=== PATIENT | male | born 1960 | race Caucasian/White ===

== ENCOUNTER → 2018-01-26 07:53 | Outpatient (CLI) | payer BC, SELFPAY ==
[2018-01-26 08:34] LABS: PSA,Total- Diagnostic 3.13 ng/mL (0.0-4.0)
== END ==
PROVIDERS: Family Provider Family Medicine; PCP Family Medicine; Visit Provider Urology
DX: C61 Malignant neoplasm of prostate (principal)
CPT/HCPCS: 36415; 84153

== ENCOUNTER → 2018-07-01 09:00 | Outpatient (CLI) | payer BC, SELFPAY ==
[2018-07-01 09:53] LABS: Microalbumin,Random Urine 5.8 mg/L (NO RANGE EST.); Microalbumin:Creatinine Ratio 3.1 mg/g CRE (<30 mg/g CRE)
[2018-07-01 10:05] LABS: ALB/GLOB Ratio 1.3 RATIO (0.9-2.4); AST(SGOT) 9 U/L (15-37); Alanine Aminotransfer ALT/SGPT 21 U/L (16-61); Alkaline Phosphatase 45 U/L (45-117); Anion Gap 7 (5-15); BUN 21 mg/dL (7-18); BUN/Creat Ratio 15.9 RATIO (10-20); Chloride 107 mmol/L (98-107); Cholesterol 201 mg/dL (200); Creatinine, Serum 1.32 mg/dL (0.70-1.30); EST Glomerular Filtration Rate 59 mL/min (>60); Est Glom Filt Rate - Afr Amer 71 mL/min (>60); Glucose 86 mg/dL (74-106); High Density Lipoprotein 66 mg/dL; Potassium 4.3 mmol/L (3.5-5.1); Sodium Level 142 mmol/L (136-145); Triglycerides 113 mg/dL; Very Low Density Lipoprotein 23 mg/dL (5-40)
[2018-07-01 17:04] LABS: Xtra Tube EP Lab EXTRA TUBE
--- OUTSIDE RECORDS SUMMARY | 2018-10-04 09:06 | XMS RPT_ITS ---
:1960 Author Organization OHIP Care Team Providers Name Role Phone Marlon Trejo Attending Unavailable Marlon Trejo Referring Unavailable Marlon Trejo Primary Care Unavailable Jignesh Connell Attending Unavailable Jignesh Connell Referring Unavailable Marlon Trejo Primary Care Unavailable PROBLEMS PROBLEMS DATE TYPE CONDITION / CODE ATTENDING STATUS SOURCE 07/01/2018 Unknown I10 - Essential Marlon Trejo Active [place] (primary) [facility] hypertension / Hospital I10(ICD-10) Repository 07/01/2018 Unknown Z00.00 - Encounter TrejoMarlon Active [place] for general adult [facility] examination Repository without abnormal findings / Z00.00(ICD-10) 01/26/2018 Unknown C61 - Malignant BeckiJignesh finn Active [place] neoplasm of [facility] prostate / Hospital C61(ICD-10) Repository PROCEDURES PROCEDURES No Procedure Records FoundRESULTS RESULTS MICROALB:CREAT Collected: 07/01/2018 Status: F Source: [place] RATIO,RANDOM UR 9:04 AM [facility] REPOSITORY TYPE CODE TESTS RESULT OUT OF RANGE REFERENCE UNITS LAB L501.1200 NO RANGE EST. mg/dL Normal UR CREAT 187.00 LAB L502.0500 NO RANGE EST. mg/L Normal 5.8 MICROALBUMIN ,UR LAB L502.0600 <30 mg/g CRE mg/g CRE Normal 3.1 MALB:CREAT Performed By: #### L502.0250 #### [facility] [address] [place], [address] COMPREHENSIVE METABOLIC Collected: 07/01/2018 Status: F Source: [place] WANG 9:04 AM [facility] REPOSITORY TYPE CODE TESTS RESULT OUT OF RANGE REFERENCE UNITS LAB L501.0100 74-106 mg/dL Normal GLU 86 Result Comment: Please note revised GLUCOSE reference range effective 2017. LAB L501.1000 7-18 mg/dL High BUN 21 LAB L501.1100 0.70-1.30 mg/dL High CREAT,SERUM 1.32 Result Comment: The validity of the calculated GFR AND GFRAA in patients over 70 years has not been determined. Clinical correlation is essential. LAB L501.1110 >60 mL/min Low EST GFR 59 Result Comment: Non- GFR Calc LAB L501.1115 >60 mL/min Normal EST GFR - AA 71 Result Comment: GFR Calc LAB L501.1300 10-20 RATIO Normal BUN/CRE 15.9 LAB L501.1500 6.4-8.2 g/dL T Normal PROT 7.0 LAB L501.1800 3.2-5.0 g/dL Normal ALB 4.0 LAB L501.1950 2.2-4.2 g/dL Normal GLOB 3.0 LAB L501.2000 0.9-2.4 RATIO Normal A/G 1.3 LAB L501.2200 8.5-10.1 mg/dL CA Normal 9.0 LAB L501.4100 15-37 U/L Low AST 9 LAB L501.4305 45-117 U/L Normal ALK P 45 LAB L501.4405 16-61 U/L Normal ALT 21 LAB L501.4600 0.20-1.00 mg/dL T Normal BILI 0.70 LAB L501.5300 136-145 mmol/L NA Normal 142 LAB L501.5600 3.5-5.1 mmol/L K Normal 4.3 LAB L501.5900 98-107 mmol/L CL Normal 107 LAB L501.6100 21.0-32.0 mmol/L Normal CO2 28.0 LAB L501.6200 5-15 Normal GAP 7 Performed By: #### L500.4050, L500.4100 #### [facility] [address] [place], [place], [address] LIPID PROFILE Collected: 07/01/2018 Status: F Source: [place] 9:04 AM [facility] REPOSITORY TYPE CODE TESTS RESULT OUT OF RANGE REFERENCE UNITS LAB L501.4900 200 mg/dL High CHOL 201 Result Comment: <200 mg/dL Desirable 200-240 mg/dL Borderline >240 mg/dL High Risk LAB L501.5000 mg/dL Normal TRIG 113 Result Comment: The drugs N-Acetylcysteine and Metamizole may falsely depress this assay. Serum Triglycerides Reference Interval Normal <150 mg/dL Borderline high 150 - 199 mg/dL High 200 - 499 mg/dL Very High > or = 500 mg/dL LAB L501.6400 mg/dL Normal HDL 66 Result Comment: The drugs N-Acetylcysteine and Metamizole may falsely depress this assay. Reference Range HDL <40 mg/dL Low HDL Cholesterol HDL >or= 60 mg/dL High HDL Cholesterol LAB L501.6500 0-130 mg/dL Normal LDL 112 LAB L501.6600 5-40 mg/dL Normal VLDL 23 Performed By: #### L500.4050, L500.4100 #### [facility] [address] [place], [address] PSA,TOTAL- DIAGNOSTIC Collected: 01/26/2018 Status: F Source: [place] 7:57 AM [facility] REPOSITORY TYPE CODE TESTS RESULT OUT OF RANGE REFERENCE UNITS LAB L501.9940 0.0-4.0 ng/mL PSA, Normal DIAGNOSTIC 3.13 Result Comment: This test was performed using the TPSA assay method for the [employer] chemistry system. Values obtained with different assay methods cannot be used interchangably. When changing PSA assays in the course of monitoring a patient, additional sequential testing should be carried out to confirm baseline values. Performed By: #### L501.9940 #### [facility] [address] [place], [address] ALLERGIES ALLERGIES DATE TYPE / CODE NAME / CODE REACTION SEVERITY SOURCE 04/08/2014 Drug No Known Unknown [facility] Allergy/4160 Allergies/F00 Hospital 20414(SNOMED [id number](RXNOR Repository CT) M) ENCOUNTERS ENCOUNTERS ADMIT/DISCHARGE ACCOUNT ADMITTING ENCOUNTER LOCATION SOURCE NUMBER CLASS 07/01/2018 [id number] Ambulatory [place] 8 [facility] ing:LAB Repository 01/26/2018 [id number] Ambulatory [place] 6 [facility] ing:LAB Repository PAYERS PAYERS ENCOUNTER GUARANTOR PAYER SUBSCRIBER SOURCE 07/01/2018 [place] Primary [place] [id number] Insurance:ANTHEMPolic ENGMANDOB: Community CHUY y [place]: [id number] [id number] Repository [address]Luh: ([phone]) Date:[id number] [phone] () [id number] [place] [address]EI: 07/01/2018 Secondary NOT GIVENUNK [place] Insurance:SELF PAY [facility] Number: Effective Repository Date:2018-07-01 01/26/2018 [place] S Primary [place] [id number] Insurance:ANTHEMPolic EngmanDOB: [facility]ly [facility] CHUY y Number: [id number] [id number] Repository [address]Cqv: ([phone]) Date:[id number] [phone] () [id number], [place] [address]UJ: 01/26/2018 Secondary NOT GIVENUNK [place] Insurance:SELF PAY [facility] Number: Effective Repository Date:2018-01-26
== END ==
PROVIDERS: Family Provider Family Medicine; PCP Family Medicine; Referring Provider Family Medicine; Visit Provider Family Medicine
DX: Z00.00 Encounter for general adult medical examination without abnormal findings (principal); I10 Essential (primary) hypertension
CPT/HCPCS: 36415; 80053; 80061; 82043; 82570

== ENCOUNTER → 2018-11-08 | Outpatient (CLI) | payer BC, SELFPAY ==
[2018-11-10 13:13] LABS: H. PYLORI STOOL AG Negative (Negative)
== END | disposition home or self-care (01) ==
LOC: LABSPEC 13:30
PROVIDERS: Family Provider Family Medicine; PCP Family Medicine; Referring Provider Family Medicine; Visit Provider Family Medicine
DX: K21.9 Gastro-esophageal reflux disease without esophagitis (principal)

== ENCOUNTER → 2019-01-30 | Outpatient (CLI) | payer BC, SELFPAY | END | disposition home or self-care (01) | LOC: LAB.FUTURE 08:40 | PROVIDERS: Family Provider Family Medicine; PCP Family Medicine; Referring Provider Family Medicine; Visit Provider Urology | DX: C61 Malignant neoplasm of prostate (principal) | CPT/HCPCS: 36415; 84153 ==

== ENCOUNTER → 2019-05-10 | Outpatient (CLI) | payer BC, SELFPAY ==
[2019-05-10 17:50] LABS: Microalbumin,Random Urine < 5.0 mg/L (NO RANGE EST.)
[2019-05-10 18:15] LABS: Anion Gap 7 (5-15); BUN 20 mg/dL (7-18); BUN/Creat Ratio 16.1 RATIO (10-20); Calcium,Total 9.4 mg/dL (8.5-10.1); Chloride 105 mmol/L (98-107); Creatinine, Serum 1.24 mg/dL (0.70-1.30); EST Glomerular Filtration Rate 63 mL/min (>60); Est Glom Filt Rate - Afr Amer 76 mL/min (>60); Ferritin 22 ng/mL (26-388); Glucose 84 mg/dL (74-106); Potassium 4.1 mmol/L (3.5-5.1); Sodium Level 139 mmol/L (136-145); Thyroid Stim Hormone (TSH) 1.03 uIU/mL (0.358-3.74)
== END | disposition home or self-care (01) ==
LOC: MFPLAB 16:14
PROVIDERS: Family Provider Family Medicine; PCP Family Medicine; Referring Provider Family Medicine; Visit Provider Family Medicine
DX: G25.81 Restless legs syndrome (principal); I10 Essential (primary) hypertension; G25.0 Essential tremor
CPT/HCPCS: 36415; 80048; 82043; 82728; 84443

== ENCOUNTER → 2019-08-02 07:54 | Outpatient (CLI) | payer BC, SELFPAY ==
[2019-08-02 08:41] LABS: PSA,Total- Diagnostic 3.47 ng/mL (0.0-4.0)
== END ==
PROVIDERS: PCP Family Medicine; Referring Provider Urology; Visit Provider Urology
DX: C61 Malignant neoplasm of prostate (principal); R97.20 Elevated prostate specific antigen [PSA]
CPT/HCPCS: 36415; 84153

== ENCOUNTER → 2020-05-23 10:14 | Outpatient (CLI) | payer BC, SELFPAY ==
[2020-05-23 11:44] LABS: Anion Gap 2 (5-15); BUN 24 mg/dL (7-18); BUN/Creat Ratio 19.8 RATIO (10-20); Calcium,Total 9.4 mg/dL (8.5-10.1); Chloride 108 mmol/L (98-107); Cholesterol 196 mg/dL (200); Creatinine, Serum 1.21 mg/dL (0.70-1.30); EST Glomerular Filtration Rate 65 mL/min (>60); Est Glom Filt Rate - Afr Amer 78 mL/min (>60); Ferritin 35 ng/mL (26-388); Glucose 85 mg/dL (74-106); High Density Lipoprotein 62 mg/dL; Iron 156 ug/dL (65-175); Iron Binding Capacity,Total 301 ug/dL (250-450); Potassium 4.1 mmol/L (3.5-5.1); Sodium Level 138 mmol/L (136-145); Triglycerides 110 mg/dL; Very Low Density Lipoprotein 22 mg/dL (5-40)
== END ==
PROVIDERS: PCP Family Medicine; Referring Provider Family Medicine; Visit Provider Family Medicine
DX: E61.1 Iron deficiency (principal); E66.9 Obesity, unspecified; Z13.220 Encounter for screening for lipoid disorders
CPT/HCPCS: 36415; 80048; 80061; 82728; 83540; 83550

== ENCOUNTER → 2020-08-28 08:00 | Outpatient (CLI) | payer OTHER, SELFPAY ==
[2020-08-28 08:41] LABS: PSA,Total- Diagnostic 3.42 ng/mL (0.0-4.0)
== END ==
PROVIDERS: PCP Family Medicine; Referring Provider Urology; Visit Provider Urology
DX: C61 Malignant neoplasm of prostate (principal)
CPT/HCPCS: 36415; 84153

== ENCOUNTER 2021-08-28 08:10 | Outpatient (CLI) | payer BC, SELFPAY | END 2021-08-28 23:59 | disposition home or self-care (01) | PROVIDERS: PCP Family Medicine; Referring Provider Urology; Visit Provider Urology | DX: N40.1 Benign prostatic hyperplasia with lower urinary tract symptoms (principal) | CPT/HCPCS: 36415; 84153 ==

== ENCOUNTER → 2022-02-25 | Outpatient (CLI) | payer BC, SELFPAY ==
[2022-02-25 09:00] LABS: Hematocrit 45.6 % (40-54); Hemoglobin 15.3 g/dL (13.0-16.5); Mean Corp Hgb Conc 33.6 g/dL (32-36); Mean Corpuscular Hgb 30.5 pg (27.0-32.0); Mean Corpuscular Volume 90.8 fL (80-94); Mean Platelet Vol. 10.1 fl (6.2-12.0); Platelet Count 192 K/mm3 (150-450); RBC Distribution Width CV 12.9 % (11.6-14.6); RBC Distribution Width SD 42.7 fl (35.1-43.9); Red Blood Count 5.02 M/mm3 (4.6-6.2); White Blood Count 5.6 K/mm3 (4.4-11.0)
[2022-02-25 09:33] LABS: ALB/GLOB Ratio 1.4 RATIO (0.9-2.4); AST(SGOT) 12 U/L (15-37); Alanine Aminotransfer ALT/SGPT 21 U/L (16-61); Albumin, Serum 4.1 g/dL (3.2-5.0); Alkaline Phosphatase 47 U/L (45-117); Anion Gap 6 (5-15); BUN 26 mg/dL (7-18); BUN/Creat Ratio 19.1 RATIO (10-20); Calcium,Total 9.2 mg/dL (8.5-10.1); Chloride 107 mmol/L (98-107); Cholesterol 174 mg/dL (200); Creatinine, Serum 1.36 mg/dL (0.70-1.30); EST Glomerular Filtration Rate 56 mL/min (>60); Est Glom Filt Rate - Afr Amer 68 mL/min (>60); Glucose 88 mg/dL (74-106); High Density Lipoprotein 58 mg/dL; PSA,Total- Diagnostic 4.68 ng/mL (0.0-4.0); Potassium 3.9 mmol/L (3.5-5.1); Protein, Total 7.1 g/dL (6.4-8.2); Sodium Level 139 mmol/L (136-145); Triglycerides 126 mg/dL; Very Low Density Lipoprotein 25 mg/dL (5-40)
[2022-02-25 09:44] LABS: Microalbumin,Random Urine 7.5 mg/L (NO RANGE EST.); Microalbumin:Creatinine Ratio 3.6 mg/g CRE (<30 mg/g CRE)
== END | disposition home or self-care (01) ==
LOC: LAB 08:01
PROVIDERS: PCP Family Medicine; Visit Provider Family Medicine
DX: C61 Malignant neoplasm of prostate (principal); I10 Essential (primary) hypertension
CPT/HCPCS: 36415; 80053; 80061; 82043; 82570; 84153; 85027

== ENCOUNTER → 2023-04-18 | Outpatient (CLI) | payer BC, SELFPAY ==
[2023-04-18 18:28] LABS: ALB/GLOB Ratio 1.3 RATIO (0.9-2.4); AST(SGOT) 12 U/L (15-37); Alanine Aminotransfer ALT/SGPT 24 U/L (16-61); Albumin, Serum 4.3 g/dL (3.2-5.0); Alkaline Phosphatase 54 U/L (45-117); Anion Gap 5 (5-15); BUN 19 mg/dL (7-18); BUN/Creat Ratio 13.6 RATIO (10-20); Calcium,Total 9.2 mg/dL (8.5-10.1); Chloride 105 mmol/L (98-107); EST Glomerular Filtration Rate 54 mL/min (>60); Est Glom Filt Rate - Afr Amer 66 mL/min (>60); Globulin 3.3 g/dL (2.2-4.2); Glucose 101 mg/dL (74-106); Potassium 4.6 mmol/L (3.5-5.1); Protein, Total 7.6 g/dL (6.4-8.2); Sodium Level 137 mmol/L (136-145)
== END | disposition home or self-care (01) ==
LOC: MFPLAB 14:49
PROVIDERS: PCP Family Medicine; Visit Provider Family Medicine
DX: I10 Essential (primary) hypertension (principal)
CPT/HCPCS: 36415; 80053

== ENCOUNTER → 2023-05-26 | Outpatient (CLI) | payer BC, SELFPAY ==
[2023-05-26 09:45] LABS: PSA,Total- Diagnostic 4.67 ng/mL (0.0-4.0)
== END | disposition home or self-care (01) ==
LOC: LAB 08:47
PROVIDERS: PCP Family Medicine; Referring Provider Nurse Practitioner; Visit Provider Nurse Practitioner
DX: C61 Malignant neoplasm of prostate (principal)
CPT/HCPCS: 36415; 84153

== ENCOUNTER → 2024-03-30 | Outpatient (CLI) | payer BC, SELFPAY ==
[2024-03-30 11:37] LABS: Red Blood Cells-Urine 0 SEEN /hpf (0-5)
--- NOTE | 2024-03-30 11:47 | RAD_ITS ---
STUDY: X-RAY - LUMBAR SPINE REASON FOR EXAM: Male, 63 years old. Tender spine. Low back pain. TECHNIQUE: 2 view(s) of the lumbar spine were obtained. COMPARISON: December 06, 2007 FINDINGS: Osteopenia. Normal lumbar lordosis. Mild dextroscoliosis. 12 mm of anterolisthesis of L5 on S1. Probable spondylolysis at L5-S1. Diffuse moderate lower thoracic and lumbosacral facet sclerosis. Diffuse intervertebral disc space narrowing most marked at L1-2, L2-3 and L5-S1. Vascular calcification. RAD/Lumbar Spine 2 or 3 Views IMPRESSION: Osteopenia with moderate lower thoracic and lumbosacral spondylosis. Electronically Signed: Casey Hewitt MD at 13:43 EDT ,
--- NOTE | 2024-03-30 11:47 | RAD_ITS ---
STUDY: X-RAY CHEST REASON FOR EXAM: Male, 63 years old. Night sweats. Back pain. TECHNIQUE: Frontal and lateral views of the chest. COMPARISON: None. FINDINGS: Hyperinflation with healed granulomatous calcifications. There is no demonstrated pleural abnormality. Borderline cardiomegaly. Normal mediastinum and kiran. Normal visualized pulmonary arteries. Aortic tortuosity. Mild thoracic spondylosis. Normal visualized ribs, clavicles, and shoulders. No abnormality of the visualized soft tissue structures of the upper abdomen. RAD/Chest PA and Lateral IMPRESSION: No active or acute cardiopulmonary disease. Electronically Signed: Casey Hewitt MD at 13:47 EDT ,
[2024-03-30 15:28] LABS: Absolute Neutrophil Count 7.9 X10^3/uL (2.0-7.7); Basophil# 0.05 X10^3/uL; Basophil% 0.5 % (0-1); Eosinophil# 0.04 X10^3/uL; Eosinophils% 0.4 % (0-5); Hematocrit 41.4 % (40-54); Hemoglobin 13.2 g/dL (13.0-16.5); Lymphocyte % 12.2 % (19-41); Mean Corp Hgb Conc 31.9 g/dL (32-36); Mean Corpuscular Hgb 28.9 pg (27.0-32.0); Mean Corpuscular Volume 90.8 fL (80-94); Monocyte# 0.62 X10^3/uL; Monocyte% 6.3 % (0-10); NRBC Flagged by Analyzer 0 % (0-5); Neutrophil # 7.86 X10^3/uL (2.7-7.7); Neutrophil % 79.8 % (47-70); Platelet Count 343 K/mm3 (150-450); RBC Distribution Width CV 12.8 % (11.6-14.6); RBC Distribution Width SD 42.8 fl (35.1-43.9); Red Blood Count 4.56 M/mm3 (4.6-6.2); White Blood Count 9.9 K/mm3 (4.4-11.0)
[2024-03-30 15:40] LABS: Color, Urine Yellow (Yellow); Glucose, Dipstick Normal (Normal); Ketone-Dipstick Negative (Negative); Leukocyte Esterase-Dipstick Negative /ul (Negative); Nitrite-Dipstick Negative (Negative); Occult Blood-Urine Negative /ul (Negative); Protein-Dipstick 15 mg/dl (Negative); Urine Bilirubin Dipstick Negative (Negative); Urine Clarity Clear (Clear); Urine Urobilinogen Normal (Normal)
[2024-03-30 15:51] LABS: Erythrocyte Sedimentation Rate 39 mm/hr (0-20)
[2024-03-30 15:52] LABS: Bacteria 2+ /hpf (None Seen); Mucous, Urine 1+ /hpf (<or=2+)
[2024-03-30 15:56] LABS: Coarse Granular Cast 0-5 SEEN /lpf (0-5 /lpf); Hyaline Cast 0-5 SEEN /lpf (0-5); Squamous Epithelial Cells - UA 0-5 SEEN /hpf (0-5)
[2024-03-30 15:57] LABS: White Blood Cells 0-5 SEEN /hpf (0-5)
[2024-03-30 16:13] LABS: ALB/GLOB Ratio 0.8 RATIO (0.9-2.4); AST(SGOT) 22 U/L (15-37); Alanine Aminotransfer ALT/SGPT 50 U/L (16-61); Albumin, Serum 3.4 g/dL (3.2-5.0); Alkaline Phosphatase 98 U/L (45-117); Anion Gap 8 (5-15); BUN 16 mg/dL (7-18); BUN/Creat Ratio 13.3 RATIO (10-20); Calcium,Total 10.2 mg/dL (8.5-10.1); Chloride 101 mmol/L (98-107); EST Glomerular Filtration Rate 65 mL/min (>60); Est Glom Filt Rate - Afr Amer 78 mL/min (>60); Globulin 4.5 g/dL (2.2-4.2); Glucose 91 mg/dL (74-106); PSA,Total- Diagnostic 3.09 ng/mL (0.0-4.0); Protein, Total 7.9 g/dL (6.4-8.2); Sodium Level 133 mmol/L (136-145); Thyroid Stim Hormone (TSH) 0.769 uIU/mL (0.358-3.740)
[2024-04-02 13:07] LABS: ANTINUCLEAR ANTIBODIES DIRECT Negative (Negative)
[2024-04-02 15:07] LABS: PROEL- A/G Ratio 0.9 (0.7-1.7); PROEL- Albumin 3.4 g/dL (2.9-4.4); PROEL- Alpha-1 Globulin 0.5 g/dL (0.0-0.4); PROEL- Beta Globulin 0.9 g/dL (0.7-1.3); PROEL- Gamma Globulin 1.3 g/dL (0.4-1.8); PROEL- Globulin, Total 3.7 g/dL (2.2-3.9); PROEL- TOTAL PROTEIN 7.1 g/dL (6.0-8.5); PROEL-M-Spike Not Observed g/dL (Not Observed); QNTFERON TB Mitogen Value 5.51 IU/mL (.); QNTFERON TB Nil Value 0.05 IU/mL (.); QNTFERON TB1+ Ag Value 0.07 IU/mL (.); QNTFERON TB2+ Ag Value 0.06 IU/mL (.); QNTIFERON TB Positive Criteria Negative (Negative)
== END | disposition home or self-care (01) ==
PROVIDERS: PCP Family Medicine; Referring Provider Family Medicine; Visit Provider Family Medicine
DX: R61 Generalized hyperhidrosis (principal); M54.50 Low back pain, unspecified
CPT/HCPCS: 36415; 71046; 72100; 80053; 81001; 84153; 84165; 84443; 85025; 85652; 86038; 86140; 86480; 87086

== ENCOUNTER → 2024-05-02 | Outpatient (CLI) | payer BC, SELFPAY ==
--- NOTE | 2024-05-02 12:29 | MRI_ITS ---
HISTORY: discitis TECHNIQUE: Multiplanar and multisequence MR images of the lumbar spine were obtained before and after the intravenous demonstration of 17 cc Clariscan. 199 images. COMPARISON: XR 03/30/2024. FINDINGS: VERTEBRAE: Vertebral body heights maintained. Bone marrow edema with enhancement, endplate irregularity, and intervertebral space narrowing of L1-2 and L2-3. Mild enhancement of the L1-2 and L2-3 intervertebral discs. Degenerative endplate changes of L3-4, L4-5, and L5-S1 with small Schmorl''s nodes. Right L5 spondylolysis. ALIGNMENT: 3 mm anterolisthesis of L5-S1. SPINAL CANAL: Normal morphology and position of the conus medullaris at T12-L1. No epidural collection or enhancing intradural extramedullary mass. INTERVERTEBRAL DISCS: T12-L1: No significant posterior disc fusion, central canal stenosis, or foraminal narrowing based on the sagittal images. L1-2: Mild posterior disc bulge osteophyte complex with facet arthropathy resulting in mild central canal stenosis and bilateral foraminal narrowing. L2-3: Mild posterior disc bulge osteophyte complex with facet arthropathy resulting in mild central canal stenosis and moderate bilateral foraminal narrowing. L3-4: Minimal disc bulge with facet arthropathy resulting in minimal narrowing of the thecal sac and mild-moderate bilateral foraminal narrowing. L4-5: Very mild disc bulge with facet arthropathy resulting in moderate bilateral foraminal narrowing. No significant central canal stenosis. L5-S1: Mild disc bulge with facet arthropathy resulting in mild bilateral foraminal narrowing and no significant central canal stenosis. SOFT TISSUES: Posterior subcutaneous edema. No paraspinal fluid collection. MRI/Spine Lumbar W/WO Contrast IMPRESSION: Bone marrow edema with enhancement, endplate irregularity, and intervertebral disc narrowing with disc enhancement at L1-2 and L2-3. Enhancement pattern favors discitis, although multilevel involvement can be seen with degenerative disc disease. Electronically Signed: Patrica Hammer MD at 15:11 EDT ,
== END | disposition home or self-care (01) ==
LOC: MRI 12:19
PROVIDERS: PCP Family Medicine; Referring Provider Family Medicine; Visit Provider Family Medicine
DX: M46.40 Discitis, unspecified, site unspecified (principal)
CPT/HCPCS: 72158; A9575

== ENCOUNTER 2024-05-03 17:34 | Inpatient (IN) | payer BC, MEDICARE, SELFPAY ==
[2024-05-03 17:35] VITALS: BP 138/77; PULSE 117; RESP 16; TEMP 36.7; O2SAT 99
[2024-05-03] MEDS: Ondansetron 4 MG/2 ML Vial IV (18:18)
[2024-05-03] MEDS: Morphine 4 MG/ML Syringe IV (18:18)
[2024-05-03 18:34] VITALS: BP 149/87; PULSE 68; O2SAT 99
[2024-05-03] MEDS: Cefepime HCl 1 GM in 0.9% Normal Saline (50mL MB+) 50 ML IV (18:35)
[2024-05-03 19:00] VITALS: BP 140/86
[2024-05-03 19:08] LABS: Absolute Lymphocyte Count 1.75 X10^3/uL (0.83-4.51); Absolute Neutrophil Count 11.2 X10^3/uL (2.0-7.7); Basophil# 0.04 X10^3/uL; Basophil% 0.3 % (0-1); Eosinophil# 0.03 X10^3/uL; Eosinophils% 0.2 % (0-5); Hematocrit 31.3 % (40-54); Hemoglobin 10.4 g/dL (13.0-16.5); Lymphocyte # 1.75 X10^3/ul (0.83-4.51); Lymphocyte % 12.1 % (19-41); Mean Corp Hgb Conc 33.2 g/dL (32-36); Mean Corpuscular Hgb 28.8 pg (27.0-32.0); Mean Corpuscular Volume 86.7 fL (80-94); Mean Platelet Vol. 9.2 fl (6.2-12.0); Monocyte# 1.07 X10^3/uL; Monocyte% 7.4 % (0-10); NRBC Flagged by Analyzer 0 % (0-5); Neutrophil # 11.21 X10^3/uL (2.7-7.7); Neutrophil % 77.8 % (47-70); Platelet Count 320 K/mm3 (150-450); RBC Distribution Width CV 14.7 % (11.6-14.6); RBC Distribution Width SD 46.4 fl (35.1-43.9); Red Blood Count 3.61 M/mm3 (4.6-6.2); White Blood Count 14.4 K/mm3 (4.4-11.0)
[2024-05-03 19:11] LABS: Anion Gap 8 (5-15); BUN 23 mg/dL (7-18); BUN/Creat Ratio 24.4 RATIO (10-20); Calcium,Total 9.3 mg/dL (8.5-10.1); Chloride 101 mmol/L (98-107); Creatinine, Serum 0.94 mg/dL (0.70-1.30); EST Glomerular Filtration Rate 85 mL/min (>60); Est Glom Filt Rate - Afr Amer 103 mL/min (>60); Glucose 100 mg/dL (74-106); Sodium Level 132 mmol/L (136-145)
[2024-05-03 19:25] LABS: Erythrocyte Sedimentation Rate 25 mm/hr (0-20)
[2024-05-03 19:30] VITALS: BMI 26.9
[2024-05-03 19:31] VITALS: BMI 26.9
[2024-05-03 19:35] VITALS: BP 138/88; PULSE 78; RESP 16; TEMP 36.8; O2SAT 97
[2024-05-03 20:00] VITALS: BP 136/84; PULSE 78
[2024-05-03 20:59] LABS: Procalcitonin 0.69 ng/mL (0.00-0.09)
[2024-05-03 21:10] VITALS: BP 140/95; PULSE 118; RESP 18; TEMP 36.8; O2SAT 97
[2024-05-03 21:12] VITALS: BMI 25.7
[2024-05-03] MEDS: 0.9% Saline Lock 10 ML Syringe IV (22:05)
[2024-05-03] MEDS: 0.9% Normal Saline (1000mL) 1,000 ML 100 ML IV (22:05)
[2024-05-03] MEDS: Vancomycin HCl 2,000 MG in 0.9% Normal Saline (500mL Bag) 500 ML 250 MG IV (22:13)
[2024-05-03] MEDS: Ketorolac 15 MG/ML Vial IV (22:13)
[2024-05-03] MEDS: Temazepam 15 MG Capsule PO (23:39)
[2024-05-04] VITALS (7 sets, daily range): BP systolic 127–147; BP diastolic 78–87; PULSE 92–111; RESP 18–20; TEMP 36.4–37.1; O2SAT 96–100; BMI 25.7
[2024-05-04] MEDS: Ketorolac 15 MG/ML Vial IV ×3 (06:21→21:30)
[2024-05-04] MEDS: 0.9% Saline Lock 10 ML Syringe IV ×2 (06:23→10:36)
[2024-05-04 06:46] LABS: Absolute Lymphocyte Count 1.72 X10^3/uL (0.83-4.51); Basophil# 0.06 X10^3/uL; Basophil% 0.4 % (0-1); Eosinophil# 0.04 X10^3/uL; Eosinophils% 0.3 % (0-5); Hematocrit 28.9 % (40-54); Hemoglobin 9.7 g/dL (13.0-16.5); Lymphocyte # 1.72 X10^3/ul (0.83-4.51); Lymphocyte % 12.5 % (19-41); Mean Corp Hgb Conc 33.6 g/dL (32-36); Mean Corpuscular Hgb 29.1 pg (27.0-32.0); Mean Corpuscular Volume 86.8 fL (80-94); Monocyte% 11.7 % (0-10); NRBC Flagged by Analyzer 0 % (0-5); Neutrophil # 9.97 X10^3/uL (2.7-7.7); Neutrophil % 72.8 % (47-70); POSITIVE DIFFERENTIAL YES; Platelet Count 305 K/mm3 (150-450); RBC Distribution Width CV 14.6 % (11.6-14.6); RBC Distribution Width SD 45.5 fl (35.1-43.9); Red Blood Count 3.33 M/mm3 (4.6-6.2); White Blood Count 13.7 K/mm3 (4.4-11.0)
[2024-05-04 07:00] LABS: Differential Indicated SCAN CRITERIA MET
[2024-05-04 07:27] LABS: ALB/GLOB Ratio 0.6 RATIO (0.9-2.4); AST(SGOT) 23 U/L (15-37); Alanine Aminotransfer ALT/SGPT 25 U/L (16-61); Albumin, Serum 2.3 g/dL (3.2-5.0); Alkaline Phosphatase 120 U/L (45-117); Anion Gap 8 (5-15); BUN 19 mg/dL (7-18); BUN/Creat Ratio 22.6 RATIO (10-20); Chloride 104 mmol/L (98-107); Creatinine, Serum 0.84 mg/dL (0.70-1.30); EST Glomerular Filtration Rate 97 mL/min (>60); Est Glom Filt Rate - Afr Amer 118 mL/min (>60); Estimated Creatinine Clearance 81.97 ml/min; Ferritin 855 ng/mL (26-388); Globulin 3.8 g/dL (2.2-4.2); Glucose 87 mg/dL (74-106); Iron 22 ug/dL (65-175); Iron Binding Capacity,Total 165 ug/dL (250-450); PERCENT IRON SATURATION 13.3 % (15.0-55.0); Potassium 4.2 mmol/L (3.5-5.1); Protein, Total 6.1 g/dL (6.4-8.2); Sodium Level 134 mmol/L (136-145)
[2024-05-04 07:46] LABS: Differential Comment SCANNED
[2024-05-04] MEDS: Lisinopril 10 MG Tablet PO (07:54)
[2024-05-04] MEDS: Enoxaparin 40 MG/0.4 ML Syringe SC (07:55)
[2024-05-04] MEDS: Ensure Plus High Protein 120 ML LIQUID PO ×3 (08:00→18:35)
[2024-05-04] MEDS: Senna/Docusate Sodium 1 Tablet 2 TABLET PO (08:00)
[2024-05-04] MEDS: FLU VACCINE **HIGH DOSE** TV 24-25 180 MCG/0.5 ML SYRINGE IM (08:01)
[2024-05-04] MEDS: Acetaminophen 325 MG Tablet 650 MG PO ×2 (10:34→21:02)
[2024-05-04] MEDS: Cefepime HCl 2 GM in 0.9% Normal Saline (100mL MB+) 100 ML IV (10:36)
[2024-05-04] MEDS: Vancomycin IV 1,000 MG/200 ML BAG 200 MG IV ×2 (11:22→21:30)
[2024-05-04] MEDS: Ceftriaxone 2 GM in 0.9% Normal Saline (50mL MB+) 50 ML IV (14:29)
[2024-05-04 14:37] LABS: Pathologist Review Reviewed
[2024-05-04] MEDS: Temazepam 15 MG Capsule PO (23:06)
[2024-05-05 04:03] VITALS: BP 134/78; PULSE 92; RESP 16; TEMP 36.8; O2SAT 99
[2024-05-05 04:49] LABS: Absolute Lymphocyte Count 2.18 X10^3/uL (0.83-4.51); Absolute Neutrophil Count 7.3 X10^3/uL (2.0-7.7); Basophil# 0.08 X10^3/uL; Basophil% 0.7 % (0-1); Eosinophil# 0.21 X10^3/uL; Eosinophils% 1.8 % (0-5); Hematocrit 30.7 % (40-54); Lymphocyte # 2.18 X10^3/ul (0.83-4.51); Lymphocyte % 18.9 % (19-41); Mean Corp Hgb Conc 32.6 g/dL (32-36); Mean Corpuscular Hgb 28.5 pg (27.0-32.0); Mean Corpuscular Volume 87.5 fL (80-94); Mean Platelet Vol. 8.8 fl (6.2-12.0); Monocyte% 11.3 % (0-10); NRBC Flagged by Analyzer 0 % (0-5); Neutrophil # 7.27 X10^3/uL (2.7-7.7); Neutrophil % 63.2 % (47-70); Platelet Count 349 K/mm3 (150-450); RBC Distribution Width CV 14.9 % (11.6-14.6); RBC Distribution Width SD 47.5 fl (35.1-43.9); Red Blood Count 3.51 M/mm3 (4.6-6.2); White Blood Count 11.5 K/mm3 (4.4-11.0)
[2024-05-05] MEDS: Ketorolac 15 MG/ML Vial IV (04:56)
[2024-05-05 05:31] LABS: Anion Gap 5 (5-15); BUN 21 mg/dL (7-18); BUN/Creat Ratio 24.9 RATIO (10-20); Calcium,Total 9.3 mg/dL (8.5-10.1); Chloride 103 mmol/L (98-107); Creatinine, Serum 0.84 mg/dL (0.70-1.30); EST Glomerular Filtration Rate 97 mL/min (>60); Est Glom Filt Rate - Afr Amer 117 mL/min (>60); Estimated Creatinine Clearance 81.97 ml/min; Glucose 96 mg/dL (74-106); Sodium Level 133 mmol/L (136-145)
[2024-05-05 05:44] VITALS: BMI 25.7
[2024-05-05] MEDS: Ensure Plus High Protein 120 ML LIQUID PO ×2 (09:34→11:34)
[2024-05-05] MEDS: Ceftriaxone 2 GM in 0.9% Normal Saline (50mL MB+) 50 ML IV (09:34)
[2024-05-05] MEDS: Enoxaparin 40 MG/0.4 ML Syringe SC (09:36)
[2024-05-05] MEDS: Lisinopril 10 MG Tablet PO (09:37)
[2024-05-05 10:00] VITALS: BP 131/82; PULSE 98; RESP 16; TEMP 36.8; O2SAT 95
[2024-05-05 10:38] LABS: Vancomycin, Trough Level 16.1 ug/mL (5.0-15.0)
[2024-05-05] MEDS: Vancomycin IV 1,000 MG/200 ML BAG 200 MG IV ×2 (11:34→22:44)
[2024-05-05] MEDS: Senna/Docusate Sodium 1 Tablet 2 TABLET PO (14:51)
[2024-05-05] MEDS: Acetaminophen 325 MG Tablet 650 MG PO (14:51)
[2024-05-05 14:59] VITALS: BP 134/80; PULSE 96; RESP 16; TEMP 37.1; O2SAT 100
[2024-05-05 21:35] VITALS: BP 144/89; PULSE 96; RESP 18; TEMP 37.1; O2SAT 96
[2024-05-05] MEDS: Temazepam 15 MG Capsule PO (22:44)
[2024-05-06 03:10] VITALS: BP 153/95; PULSE 102; RESP 18; TEMP 36.9; O2SAT 95
[2024-05-06 06:35] LABS: Absolute Lymphocyte Count 2.18 X10^3/uL (0.83-4.51); Absolute Neutrophil Count 9.2 X10^3/uL (2.0-7.7); Basophil# 0.08 X10^3/uL; Basophil% 0.6 % (0-1); Eosinophil# 0.27 X10^3/uL; Hematocrit 30.6 % (40-54); Hemoglobin 9.8 g/dL (13.0-16.5); Lymphocyte # 2.18 X10^3/ul (0.83-4.51); Lymphocyte % 16.1 % (19-41); Mean Corpuscular Hgb 27.9 pg (27.0-32.0); Mean Corpuscular Volume 87.2 fL (80-94); Mean Platelet Vol. 8.8 fl (6.2-12.0); Monocyte# 1.26 X10^3/uL; Monocyte% 9.3 % (0-10); NRBC Flagged by Analyzer 0 % (0-5); Neutrophil # 9.22 X10^3/uL (2.7-7.7); Neutrophil % 68.3 % (47-70); Platelet Count 396 K/mm3 (150-450); RBC Distribution Width CV 14.9 % (11.6-14.6); RBC Distribution Width SD 46.5 fl (35.1-43.9); Red Blood Count 3.51 M/mm3 (4.6-6.2); White Blood Count 13.5 K/mm3 (4.4-11.0)
[2024-05-06 07:00] LABS: Anion Gap 6 (5-15); BUN 17 mg/dL (7-18); BUN/Creat Ratio 18.7 RATIO (10-20); Calcium,Total 9.4 mg/dL (8.5-10.1); Chloride 101 mmol/L (98-107); Creatinine, Serum 0.91 mg/dL (0.70-1.30); EST Glomerular Filtration Rate 89 mL/min (>60); Est Glom Filt Rate - Afr Amer 107 mL/min (>60); Estimated Creatinine Clearance 75.66 ml/min; Glucose 97 mg/dL (74-106); Potassium 3.9 mmol/L (3.5-5.1); Sodium Level 132 mmol/L (136-145)
[2024-05-06 08:09] VITALS: O2SAT 96
[2024-05-06] MEDS: Ensure Plus High Protein 120 ML LIQUID PO ×2 (08:52→11:32)
[2024-05-06] MEDS: Enoxaparin 40 MG/0.4 ML Syringe SC (08:53)
[2024-05-06] MEDS: Lisinopril 10 MG Tablet PO (08:53)
[2024-05-06] MEDS: Ceftriaxone 2 GM in 0.9% Normal Saline (50mL MB+) 50 ML IV (08:55)
[2024-05-06 09:00] VITALS: BP 134/84; PULSE 99; RESP 16; TEMP 36.4; O2SAT 16
[2024-05-06] MEDS: Vancomycin IV 1,000 MG/200 ML BAG 200 MG IV ×2 (10:09→22:31)
[2024-05-06] MEDS: Acetaminophen 325 MG Tablet 650 MG PO (14:43)
[2024-05-06] MEDS: oxyCODONE 5 MG Tablet PO (14:43)
[2024-05-06 15:00] VITALS: BP 127/87; PULSE 97; RESP 18; TEMP 36.6; O2SAT 95
[2024-05-06 22:23] VITALS: BP 147/88; PULSE 95; RESP 20; TEMP 37; O2SAT 98
[2024-05-06] MEDS: Temazepam 15 MG Capsule PO (22:31)
[2024-05-07 06:00] VITALS: BMI 25.8
[2024-05-07 06:12] VITALS: BP 131/88; PULSE 97; RESP 18; TEMP 37.7; O2SAT 98
[2024-05-07 07:21] LABS: Absolute Lymphocyte Count 1.71 X10^3/uL (0.83-4.51); Absolute Neutrophil Count 10.4 X10^3/uL (2.0-7.7); Basophil# 0.09 X10^3/uL; Basophil% 0.6 % (0-1); Eosinophil# 0.19 X10^3/uL; Eosinophils% 1.4 % (0-5); Hematocrit 30.3 % (40-54); Hemoglobin 10.1 g/dL (13.0-16.5); Lymphocyte # 1.71 X10^3/ul (0.83-4.51); Lymphocyte % 12.3 % (19-41); Mean Corp Hgb Conc 33.3 g/dL (32-36); Mean Corpuscular Hgb 28.9 pg (27.0-32.0); Mean Corpuscular Volume 86.8 fL (80-94); Mean Platelet Vol. 8.8 fl (6.2-12.0); Monocyte# 1.16 X10^3/uL; Monocyte% 8.3 % (0-10); NRBC Flagged by Analyzer 0 % (0-5); Neutrophil # 10.41 X10^3/uL (2.7-7.7); Neutrophil % 74.6 % (47-70); Platelet Count 391 K/mm3 (150-450); RBC Distribution Width SD 47.3 fl (35.1-43.9); Red Blood Count 3.49 M/mm3 (4.6-6.2)
[2024-05-07 07:58] LABS: Anion Gap 11 (5-15); BUN 17 mg/dL (7-18); BUN/Creat Ratio 21.9 RATIO (10-20); Calcium,Total 9.5 mg/dL (8.5-10.1); Chloride 100 mmol/L (98-107); Creatinine, Serum 0.78 mg/dL (0.70-1.30); EST Glomerular Filtration Rate 106 mL/min (>60); Est Glom Filt Rate - Afr Amer 129 mL/min (>60); Estimated Creatinine Clearance 86.07 ml/min; Glucose 100 mg/dL (74-106); Potassium 3.9 mmol/L (3.5-5.1); Sodium Level 134 mmol/L (136-145)
[2024-05-07] MEDS: Lisinopril 10 MG Tablet PO (09:16)
[2024-05-07] MEDS: Enoxaparin 40 MG/0.4 ML Syringe SC (09:16)
[2024-05-07] MEDS: Ceftriaxone 2 GM in 0.9% Normal Saline (50mL MB+) 50 ML IV (09:17)
[2024-05-07] MEDS: 0.9% Saline Lock 10 ML Syringe IV (09:24)
[2024-05-07 10:06] VITALS: BP 134/92; PULSE 102; RESP 18; TEMP 36.6; O2SAT 95
[2024-05-07 10:23] LABS: Vancomycin, Trough Level 21.8 ug/mL (5.0-15.0)
[2024-05-07] MEDS: Vancomycin HCl 750 MG in 0.9% Normal Saline (250mL Bag) 250 ML 250 MG IV (11:59)
[2024-05-07 15:00] VITALS: BP 146/84; PULSE 98; RESP 18; TEMP 36.8; O2SAT 97
[2024-05-07] MEDS: Acetaminophen 325 MG Tablet 650 MG PO (17:01)
[2024-05-07] MEDS: Ensure Plus High Protein 120 ML LIQUID PO (17:01)
[2024-05-07 21:36] VITALS: BP 126/86; PULSE 92; RESP 16; TEMP 36.8; O2SAT 98
[2024-05-07] MEDS: MELATONIN 3 MG TABLET 6 MG PO (22:27)
[2024-05-08] VITALS (9 sets, daily range): BP systolic 114–140; BP diastolic 76–89; PULSE 93–132; RESP 16–18; TEMP 36.4–37.1; O2SAT 94–100; BMI 25.8
[2024-05-08] MEDS: Acetaminophen 325 MG Tablet 650 MG PO ×2 (03:48→15:55)
[2024-05-08 06:34] LABS: Absolute Lymphocyte Count 1.89 X10^3/uL (0.83-4.51); Absolute Neutrophil Count 11.8 X10^3/uL (2.0-7.7); Basophil# 0.11 X10^3/uL; Basophil% 0.7 % (0-1); Eosinophil# 0.15 X10^3/uL; Hematocrit 30.6 % (40-54); Hemoglobin 10.2 g/dL (13.0-16.5); Lymphocyte # 1.89 X10^3/ul (0.83-4.51); Lymphocyte % 12.2 % (19-41); Mean Corp Hgb Conc 33.3 g/dL (32-36); Mean Corpuscular Hgb 29.1 pg (27.0-32.0); Mean Corpuscular Volume 87.2 fL (80-94); Mean Platelet Vol. 8.5 fl (6.2-12.0); Monocyte# 1.17 X10^3/uL; Monocyte% 7.5 % (0-10); NRBC Flagged by Analyzer 0 % (0-5); Neutrophil # 11.84 X10^3/uL (2.7-7.7); Neutrophil % 76.2 % (47-70); Platelet Count 368 K/mm3 (150-450); RBC Distribution Width CV 15.3 % (11.6-14.6); Red Blood Count 3.51 M/mm3 (4.6-6.2); White Blood Count 15.5 K/mm3 (4.4-11.0)
[2024-05-08 07:00] LABS: ALB/GLOB Ratio 0.6 RATIO (0.9-2.4); AST(SGOT) 60 U/L (15-37); Alanine Aminotransfer ALT/SGPT 128 U/L (16-61); Albumin, Serum 2.6 g/dL (3.2-5.0); Alkaline Phosphatase 131 U/L (45-117); Anion Gap 7 (5-15); BUN 21 mg/dL (7-18); Calcium,Total 9.8 mg/dL (8.5-10.1); Chloride 101 mmol/L (98-107); Creatinine, Serum 0.88 mg/dL (0.70-1.30); EST Glomerular Filtration Rate 93 mL/min (>60); Est Glom Filt Rate - Afr Amer 112 mL/min (>60); Estimated Creatinine Clearance 78.24 ml/min; Globulin 4.5 g/dL (2.2-4.2); Glucose 99 mg/dL (74-106); Protein, Total 7.1 g/dL (6.4-8.2); Sodium Level 132 mmol/L (136-145)
[2024-05-08] MEDS: Ceftriaxone 2 GM in 0.9% Normal Saline (50mL MB+) 50 ML IV (10:39)
[2024-05-08] MEDS: 0.9% Saline Lock 10 ML Syringe IV (10:39)
== END 2024-05-08 18:56 | disposition home health service (06) | DRG 551 ==
LOC: ED 18:55 → MS3 21:16
PROVIDERS: Student in an Organized Health Care Education/Training Program; Admitting Provider Family Medicine; Emergency Provider Emergency Medicine; PCP Family Medicine; Referring Provider Emergency Medicine; Visit Provider Internal Medicine
DX: M46.46 Discitis, unspecified, lumbar region (principal); E43 Unspecified severe protein-calorie malnutrition; I33.0 Acute and subacute infective endocarditis; R78.81 Bacteremia; E87.1 Hypo-osmolality and hyponatremia; D63.8 Anemia in other chronic diseases classified elsewhere; I12.9 Hypertensive chronic kidney disease with stage 1 through stage 4 chronic kidney disease, or unspecified chronic kidney disease; E86.1 Hypovolemia; M48.061 Spinal stenosis, lumbar region without neurogenic claudication; N18.2 Chronic kidney disease, stage 2 (mild); K21.9 Gastro-esophageal reflux disease without esophagitis; I05.9 Rheumatic mitral valve disease, unspecified; R63.4 Abnormal weight loss; B95.5 Unspecified streptococcus as the cause of diseases classified elsewhere
CPT/HCPCS: 36415; 36569; 80048; 80053; 80202; 82728; 83540; 83550; 84145; 85025; 85652; 86140; 87040; 87077; 87149; 87186; 90662; 93005; 93306; 93312; 93320; 93325; 94668; 97802; 99284; J7030; J7040; J7050; A4216; J0696; J2405

== ENCOUNTER 2024-05-15 10:38 | Outpatient (RCR) | payer BC, MEDICARE, SELFPAY ==
[2024-05-15 10:59] LABS: Erythrocyte Sedimentation Rate 47 mm/hr (0-20)
[2024-05-15 11:01] LABS: Hematocrit 30.9 % (40-54); Hemoglobin 9.9 g/dL (13.0-16.5); Mean Corpuscular Hgb 29.1 pg (27.0-32.0); Mean Corpuscular Volume 90.9 fL (80-94); Platelet Count 333 K/mm3 (150-450); RBC Distribution Width CV 15.9 % (11.6-14.6); RBC Distribution Width SD 51.8 fl (35.1-43.9); White Blood Count 12.7 K/mm3 (4.4-11.0)
[2024-05-15 11:07] LABS: Anion Gap 7 (5-15); BUN 21 mg/dL (7-18); BUN/Creat Ratio 21.3 RATIO (10-20); Calcium,Total 9.7 mg/dL (8.5-10.1); Chloride 100 mmol/L (98-107); Creatinine, Serum 0.98 mg/dL (0.70-1.30); EST Glomerular Filtration Rate 81 mL/min (>60); Est Glom Filt Rate - Afr Amer 98 mL/min (>60); Glucose 130 mg/dL (74-106); Potassium 4.2 mmol/L (3.5-5.1); Sodium Level 133 mmol/L (136-145)
== END 2024-05-15 18:00 | disposition home or self-care (01) ==
LOC: HHLAB 10:38
PROVIDERS: PCP Family Medicine
DX: M46.46 Discitis, unspecified, lumbar region (principal)
CPT/HCPCS: 80048; 85027; 85652

== ENCOUNTER 2024-06-11 09:51 | Outpatient (RCR) | payer BC, MEDICARE, SELFPAY ==
[2024-05-21 10:56] LABS: Erythrocyte Sedimentation Rate 57 mm/hr (0-20)
[2024-05-21 10:58] LABS: Hematocrit 29.2 % (40-54); Hemoglobin 9.4 g/dL (13.0-16.5); Mean Corp Hgb Conc 32.2 g/dL (32-36); Mean Corpuscular Hgb 29.2 pg (27.0-32.0); Mean Corpuscular Volume 90.7 fL (80-94); Mean Platelet Vol. 9.7 fl (6.2-12.0); Platelet Count 310 K/mm3 (150-450); RBC Distribution Width SD 52.9 fl (35.1-43.9); Red Blood Count 3.22 M/mm3 (4.6-6.2); White Blood Count 10.5 K/mm3 (4.4-11.0)
[2024-05-21 11:01] LABS: Anion Gap 7 (5-15); BUN 19 mg/dL (7-18); BUN/Creat Ratio 19.9 RATIO (10-20); Calcium,Total 9.2 mg/dL (8.5-10.1); Chloride 102 mmol/L (98-107); Creatinine, Serum 0.95 mg/dL (0.70-1.30); EST Glomerular Filtration Rate 84 mL/min (>60); Est Glom Filt Rate - Afr Amer 102 mL/min (>60); Glucose 95 mg/dL (74-106); Potassium 4.3 mmol/L (3.5-5.1); Sodium Level 133 mmol/L (136-145)
[2024-05-28 13:05] LABS: Erythrocyte Sedimentation Rate 35 mm/hr (0-20)
[2024-05-28 13:07] LABS: Hematocrit 30.7 % (40-54); Hemoglobin 9.7 g/dL (13.0-16.5); Mean Corp Hgb Conc 31.6 g/dL (32-36); Mean Corpuscular Hgb 29.1 pg (27.0-32.0); Mean Corpuscular Volume 92.2 fL (80-94); Mean Platelet Vol. 9.6 fl (6.2-12.0); Platelet Count 321 K/mm3 (150-450); RBC Distribution Width CV 16.2 % (11.6-14.6); RBC Distribution Width SD 54.1 fl (35.1-43.9); Red Blood Count 3.33 M/mm3 (4.6-6.2); White Blood Count 8.4 K/mm3 (4.4-11.0)
[2024-05-28 13:20] LABS: Anion Gap 10 (5-15); BUN 27 mg/dL (7-18); BUN/Creat Ratio 27.7 RATIO (10-20); Calcium,Total 9.6 mg/dL (8.5-10.1); Chloride 103 mmol/L (98-107); Creatinine, Serum 0.98 mg/dL (0.70-1.30); EST Glomerular Filtration Rate 82 mL/min (>60); Est Glom Filt Rate - Afr Amer 99 mL/min (>60); Glucose 100 mg/dL (74-106); Potassium 4.5 mmol/L (3.5-5.1); Sodium Level 135 mmol/L (136-145)
[2024-06-04 10:20] LABS: Hematocrit 31.5 % (40-54); Mean Corp Hgb Conc 31.7 g/dL (32-36); Mean Corpuscular Hgb 29.4 pg (27.0-32.0); Mean Corpuscular Volume 92.6 fL (80-94); Mean Platelet Vol. 9.4 fl (6.2-12.0); Platelet Count 278 K/mm3 (150-450); RBC Distribution Width CV 15.9 % (11.6-14.6); RBC Distribution Width SD 53.3 fl (35.1-43.9); White Blood Count 6.8 K/mm3 (4.4-11.0)
[2024-06-04 10:28] LABS: Anion Gap 8 (5-15); BUN 22 mg/dL (7-18); BUN/Creat Ratio 23.4 RATIO (10-20); Calcium,Total 9.3 mg/dL (8.5-10.1); Chloride 105 mmol/L (98-107); Creatinine, Serum 0.94 mg/dL (0.70-1.30); EST Glomerular Filtration Rate 85 mL/min (>60); Est Glom Filt Rate - Afr Amer 103 mL/min (>60); Glucose 67 mg/dL (74-106); Potassium 4.3 mmol/L (3.5-5.1); Sodium Level 137 mmol/L (136-145)
[2024-06-04 10:36] LABS: Erythrocyte Sedimentation Rate 40 mm/hr (0-20)
[2024-06-11 10:03] LABS: Erythrocyte Sedimentation Rate 27 mm/hr (0-20)
[2024-06-11 10:05] LABS: Hematocrit 32.4 % (40-54); Hemoglobin 10.4 g/dL (13.0-16.5); Mean Corp Hgb Conc 32.1 g/dL (32-36); Mean Corpuscular Hgb 29.6 pg (27.0-32.0); Mean Corpuscular Volume 92.3 fL (80-94); Mean Platelet Vol. 9.3 fl (6.2-12.0); Platelet Count 286 K/mm3 (150-450); RBC Distribution Width CV 15.7 % (11.6-14.6); RBC Distribution Width SD 53.1 fl (35.1-43.9); Red Blood Count 3.51 M/mm3 (4.6-6.2); White Blood Count 6.6 K/mm3 (4.4-11.0)
[2024-06-11 10:18] LABS: Anion Gap 7 (5-15); BUN 26 mg/dL (7-18); BUN/Creat Ratio 27.1 RATIO (10-20); Calcium,Total 9.1 mg/dL (8.5-10.1); Chloride 106 mmol/L (98-107); Creatinine, Serum 0.96 mg/dL (0.70-1.30); EST Glomerular Filtration Rate 83 mL/min (>60); Est Glom Filt Rate - Afr Amer 101 mL/min (>60); Glucose 97 mg/dL (74-106); Potassium 4.5 mmol/L (3.5-5.1); Sodium Level 136 mmol/L (136-145)
== END 2024-06-16 18:00 | disposition home or self-care (01) ==
LOC: HHLAB 09:51
PROVIDERS: PCP Family Medicine; Visit Provider Internal Medicine Infectious Disease
DX: M46.46 Discitis, unspecified, lumbar region (principal)
CPT/HCPCS: 80048; 85027; 85652

== ENCOUNTER → 2024-06-12 | Outpatient (CLI) | payer BC, SELFPAY ==
[2024-06-12 16:09] LABS: PSA,Total- Diagnostic 3.08 ng/mL (0.0-4.0)
== END | disposition home or self-care (01) ==
PROVIDERS: PCP Family Medicine; Referring Provider Urology; Visit Provider Urology
DX: R97.20 Elevated prostate specific antigen [PSA] (principal)
CPT/HCPCS: 36415; 84153

== ENCOUNTER → 2024-07-16 | Outpatient (CLI) | payer BC, SELFPAY ==
[2024-07-16 17:50] LABS: Absolute Lymphocyte Count 2.26 X10^3/uL (0.83-4.51); Absolute Neutrophil Count 8.8 X10^3/uL (2.0-7.7); Basophil# 0.07 X10^3/uL; Basophil% 0.6 % (0-1); Eosinophils% 0.8 % (0-5); Hemoglobin 12.9 g/dL (13.0-16.5); Lymphocyte # 2.26 X10^3/ul (0.83-4.51); Lymphocyte % 18.5 % (19-41); Mean Corp Hgb Conc 32.3 g/dL (32-36); Mean Corpuscular Volume 89.9 fL (80-94); Mean Platelet Vol. 9.4 fl (6.2-12.0); Monocyte# 0.83 X10^3/uL; Monocyte% 6.8 % (0-10); NRBC Flagged by Analyzer 0 % (0-5); Neutrophil # 8.82 X10^3/uL (2.7-7.7); Neutrophil % 72.2 % (47-70); Platelet Count 237 K/mm3 (150-450); RBC Distribution Width CV 13.3 % (11.6-14.6); RBC Distribution Width SD 43.7 fl (35.1-43.9); Red Blood Count 4.45 M/mm3 (4.6-6.2); White Blood Count 12.2 K/mm3 (4.4-11.0)
== END | disposition home or self-care (01) ==
LOC: MTLAB 15:35
PROVIDERS: PCP Family Medicine
DX: M46.30 Infection of intervertebral disc (pyogenic), site unspecified (principal)
CPT/HCPCS: 36415; 85025

== ENCOUNTER → 2024-08-15 | Outpatient (CLI) | payer BC, SELFPAY ==
--- NOTE | 2024-08-15 13:42 | ECHOL_ITS ---
Version 2 Reason For Study: MV and AV Endocarditis Procedure This was a limited 2D transthoracic echocardiogram. Exam performed in department. Left Ventricle Normal LV size. Left ventricular systolic function is normal. The left ventricular ejection fraction is 60 %. No regional wall motion abnormalities noted. Right Ventricle Normal RV size. Normal systolic function. Mitral Valve Moderate focal mitral valve thickening. Mild (1+) eccentric mitral valve insufficiency. Aortic Valve Trisinus/trileaflet aortic valve. Mild focal aortic valve thickening. Moderate (2+) eccentric aortic valve insufficiency. Pulmonic Valve Normal pulmonic valve. Great Vessels Normal aortic root. The pulmonary artery is normal size. Normal inferior vena cava. Pericardium/Pleural No pericardial effusion. MMode/2D Measurements & Calculations LVIDd: 3.9 cm IVSd: 0.92 cm Ao root diam: 3.0 cm LVIDs: 2.2 cm LVPWd: 1.0 cm FS: 42.8 % _ SV(MOD-sp4): 55.9 ml SV(sp4- el): 57.8 ml LVAd ap4: 29.5 cm2 LVLd ap4: 8.6 cm SI(MOD-sp4): 29.6 ml/m2 EDV(MOD-sp4): 84.0 ml EDV(sp4-el): 85.7 ml LVAs ap4: 15.6 cm2 LVLs ap4: 7.4 cm ESV(MOD-sp4): 28.1 ml ESV(sp4-el): 27.9 ml EF(MOD-sp4): 66.6 % EF(sp4-el): 67.4 % _ LA dimension(2D): 3.8 cm Doppler Measurements & Calculations Ao V2 max: 166.5 cm/sec AI max ean: 414.5 cm/sec LV V1 max: 139.6 cm/sec Ao max P.1 mmHg AI max P.0 mmHg LV V1 max P.8 mmHg AI dec slope: 394.8 cm/sec2 AI P1/2t: 307.5 msec ECHO/Echo, Limited Study Interpretation Summary Normal LV size. Left ventricular systolic function is normal. The left ventricular ejection fraction is 60 %. Moderate focal mitral valve thickening. Mild (1+) eccentric mitral valve insufficiency. Mild focal aortic valve thickening. Compared to the previous the lesions on the mitral and aortic valves are much s maller. Likely suggestive of healed vegetations Moderate (2+) eccentric aortic valve insufficiency. Ordering Physician: Brian Lim Referring Physician: Carlyle Heaton Performed By: Guillermina Zapien RDCS
== END | disposition home or self-care (01) ==
LOC: CVS 13:39
PROVIDERS: Referring Provider Internal Medicine Cardiovascular Disease; Visit Provider Internal Medicine Cardiovascular Disease
DX: I38 Endocarditis, valve unspecified (principal)
CPT/HCPCS: 93308

== ENCOUNTER 2024-09-25 14:00 | Outpatient (RCR) | payer BC, SELFPAY ==
--- NOTE | 2024-08-29 12:39 | HP.PTEVAL_ITS ---
Patient's Visit Information Visit Information Visit Information: CONNOR MARTIN is a 63 year old M referred to Physical Therapy by Dr. Edison Sena MD with a diagnosis of SPONDYLOLISTHESIS ,LUMBAR ,PERSOANL HISTORY OF ILLNESS. Date of Evaluation: 08/29/24 Physical Therapist: Dat Frost, PT, Cert MDT, OCS Visit Plan Frequency: 2x /Week Duration: 4 Weeks Plan: PT INTERVENTIONS DLS ,POSTURAL EX'S ,HIP STRENGTHENING ,LE FLEXABILITY AND ACTIVITY MODIFICATION Subjective Subjective: This 63 y/o male presents to physical therapy with lumbar pain. Patient has had lumbar pain has been intermittent but recently April of 2024 he had strep bacteria and ended up with the bacteria growing in his spine and on his heart. Patient was then on an anti-biotic for 6 weeks which did clear the infection and is now dealing with the after effects of the infection.Patient seen DR Sena recommended x-rays Moderate multilevel degenerative disc and facet disease in the lumbar spine.1.1 cm anterolisthesis of L5 relative to S1 does not appear significantly different between either image. No evidence of significant instability of the lumbar spine on the provided images . Medication meloxicam but stopped . But pain management. Patient pain located symmetrical lumbar. Aggravating factors bending ,lifting ,transition from sit-stand. . Alleviating walking. Cough/sneeze . Bowel/bladder-.Denies paresthesia/tingling -. Patient sleeping okay. Patient condition affects QOL and function. Patient goals to get stronger, SOCAIL: VOCATION: retired Pain Bilateral Back: Pain Intensity (Out of 10): 3 Pain Intensity Range: 10 Objective Objective: POSTURE: mild forward posture GAIT: reciprocal pattern NEURO: denies paresthesia/tingling , reflexes L3-4,L4-5,L5-S1 2/3 FLEXABILITY: hamstrings WFL MMT: quads/hams 4/5( peak force) hip flexion right 25.3 ,left 25.9 ,hip abd 21.9 left ,right 22.1 LUMBAR ROM: flexion min loss ,extension mod/severe pain ,side glides mod loss Special Tests L/S Slump test left side: Negative L/S Slump test right side: Negative L/S Left Straight Leg Raise: Negative L/S Right Straight Leg Raise: Negative Lumbar Standing: Flexion - Mechanical Response: No effect Lumbar Standing: Flexion - Symptoms During Testing: No effect Lumbar Standing: Flexion - Symptoms After Testing: No effect Lumbar Standing: Extension - Mechanical Response: No effect Lumbar Standing: Extension - Symptoms During Testing: Increases Lumbar Standing: Extension - Symptoms After Testing: No effect Lumbar Standing: Right Side Grimsley - Symptoms During Testing: No effect Lumbar Standing: Right Side Grimsley - Symptoms After Testing: No effect Lumbar Standing: Left Side Grimsley - Mechanical Response: No effect Lumbar Standing: Left Side Grimsley - Symptoms During Testing: No effect Lumbar Standing: Left Side Grimsley - Symptoms After Testing: No effect Balance/Special Test Scores Oswestry Low Back Score: 26 Goals Goal 1:: Patient to be I with HEP for back Goal Time Frame: 4-6 Weeks Goal 2:: Patient to demonstrate 60% improvement with less pain and improved function Goal Time Frame: 4-6 Weeks Goal 3:: Patient improve lumbar ROM for function of recovery for ADLS Goal Time Frame: 4-6 Weeks Goal 4:: Patient to improve peak force hips by 5-10 # to improve function Goal Time Frame: 4-6 Weeks Rehabilitation Potential Physical Therapy Diagnosis: This patient has lumbar pain with pain with extension and positioning with illness in spine from strep infection thus benefit from skilled PT Rehabilitation Potential: Good Anticipated Interventions Patient/Client Instruction: Educate patient on: Condition and Plan of Care For the Purpose of:: To decrease pain, To increase ROM, To improve muscle performance and motor function, To increase tolerance to activity/condition/position, To improve ability of physical actions for home/community/work/leisure, To improve health of tissue, To decrease soft tissue restriction, To increase flexibility/ROM, To prevent re-injury and To improve tolerance to ADL's Therapeutic Exercise to Include: Strength training, Postural training, Flexibilty training, Dynamic Lumbar Stabilization and Dodie Exercises For the Purpose of:: To decrease pain, To increase ROM, To improve muscle performance and motor function, To increase tolerance to activity/condition/position, To improve ability of physical actions for home/community/work/leisure, To improve health of tissue, To decrease soft tissue restriction, To increase flexibility/ROM, To prevent re-injury and To improve tolerance to ADL's Text: Thank you for the opportunity to evaluate your patient. For Medicare and Medicare HMO plans, please review the plan of care and approve it. It will need to be FAXED BACK to us at [phone] for Medicare purposes. For Medicare only, by signing this I certify the plan of care. Please let me know if there are questions or concerns regarding this plan of care. Physician Signature: Date:
--- NOTE | 2024-09-25 14:28 | HP.PTDCSUM ---
Discharge Summary D/C summary: It has been my pleasure to treat CONNOR MARTIN referred by Dr. Edison Sena MD, with the diagnosis of SPONDYLOLISTHESIS ,LUMBAR ,PERSOANL HISTORY OF ILLNESS for a total of 8 visit(s). Discharge Date: 09/25/24 Please see the following information for a summary of their discharge status. Subjective Subjective: Pain is some better less pain overall Doing stretches overall Pain Bilateral Back: Pain Intensity (Out of 10): 2 Overall Improvement % Improvement: 50 Objective Objective/Function: POSTURE: mild forward posture GAIT: reciprocal pattern NEURO: denies paresthesia/tingling , reflexes L3-4,L4-5,L5-S1 2/3 FLEXABILITY: hamstrings WFL MMT: quads/hams 4/5( peak force) hip flexion right 49.9 ,left 39.9 ,hip abd 36.8 left ,right 30.2 LUMBAR ROM: flexion WFL ,extension mod ,side glides mIN loss Goals Goal 1:: Patient to be I with HEP for back Goal Progress: Goal Met Goal 2:: Patient to demonstrate 60% improvement with less pain and improved function Goal Progress: Progressing Goal 3:: Patient improve lumbar ROM for function of recovery for ADLS Goal Progress: Goal Met Goal 4:: Patient to improve peak force hips by 5-10 # to improve function Goal Progress: Goal Met Plan Plan: D/C D/C Information Discharge Comments: HEP d/c sentence: If there are questions or concerns regarding this patient's physical therapy, please feel free to call me at [phone]. Thank you for the referral of this patient. Sincerely, Dat Frost, PT, Cert MDT, OCS Balance/Gait/Functional tests Balance/Special Test Scores Oswestry Low Back Score: 2 Improvement % Improvement: 50
== END 2024-09-25 19:00 | disposition home or self-care (01) ==
LOC: PT 14:00
PROVIDERS: Referring Provider Orthopaedic Surgery Orthopaedic Surgery of the Spine; Visit Provider Orthopaedic Surgery Orthopaedic Surgery of the Spine
DX: M43.16 Spondylolisthesis, lumbar region (principal); Z87.39 Personal history of other diseases of the musculoskeletal system and connective tissue
CPT/HCPCS: 97110; 97162; 97530

== ENCOUNTER → 2024-11-07 | Outpatient (CLI) | payer BC, SELFPAY ==
[2024-11-07 12:36] LABS: Absolute Lymphocyte Count 1.94 X10^3/uL (0.83-4.51); Absolute Neutrophil Count 4.8 X10^3/uL (2.0-7.7); Basophil# 0.09 X10^3/uL; Basophil% 1.2 % (0-1); Eosinophil# 0.06 X10^3/uL; Eosinophils% 0.8 % (0-5); Hemoglobin 15.2 g/dL (13.0-16.5); Lymphocyte # 1.94 X10^3/ul (0.83-4.51); Lymphocyte % 25.8 % (19-41); Mean Corp Hgb Conc 33.8 g/dL (32-36); Mean Corpuscular Hgb 29.6 pg (27.0-32.0); Mean Corpuscular Volume 87.7 fL (80-94); Mean Platelet Vol. 9.7 fl (6.2-12.0); Monocyte# 0.59 X10^3/uL; Monocyte% 7.9 % (0-10); NRBC Flagged by Analyzer 0 % (0-5); Neutrophil # 4.79 X10^3/uL (2.7-7.7); Neutrophil % 63.8 % (47-70); Platelet Count 231 K/mm3 (150-450); RBC Distribution Width CV 13.8 % (11.6-14.6); RBC Distribution Width SD 44.5 fl (35.1-43.9); Red Blood Count 5.13 M/mm3 (4.6-6.2); White Blood Count 7.5 K/mm3 (4.4-11.0)
[2024-11-07 13:32] LABS: Hemoglobin A1c 5.2 % (<=5.6)
[2024-11-07 13:36] LABS: ALB/GLOB Ratio 1.6 RATIO (0.9-2.4); AST(SGOT) 25 U/L (<=37); Alanine Aminotransfer ALT/SGPT 25 U/L (<=46); Albumin, Serum 4.5 g/dL (3.4-4.8); Alkaline Phosphatase 68 U/L (40-129); Anion Gap 13 (5-15); BUN 23 mg/dL (4-19); BUN/Creat Ratio 19.3 RATIO (10-20); Calcium,Total 9.9 mg/dL (7.6-11.0); Carbon Dioxide 22.7 mmol/L (21.0-32.0); Chloride 101 mmol/L (98-108); Cholesterol 225 mg/dL (<=200); EST Glomerular Filtration Rate 67 (>60); Globulin 2.9 g/dL (2.2-4.2); Glucose 96 mg/dL (70-99); High Density Lipoprotein 63 mg/dL; Low Density Lipoprotein Calc. 140 mg/dL; Potassium 4.6 mmol/L (3.3-5.1); Protein, Total 7.4 g/dL (5.9-8.4); Sodium Level 137 mmol/L (133-145); Total Bilirubin 0.39 mg/dL (0.00-1.30); Triglycerides 113 mg/dL; Very Low Density Lipoprotein 23 mg/dL (5-40); cholesterol:hdl ratio screen 3.58
== END | disposition home or self-care (01) ==
LOC: VSLAB 11:38
DX: M46.30 Infection of intervertebral disc (pyogenic), site unspecified (principal); N52.9 Male erectile dysfunction, unspecified; I10 Essential (primary) hypertension
CPT/HCPCS: 36415; 80053; 80061; 83036; 84402; 84403; 84443; 85025

== ENCOUNTER 2025-01-29 06:52 | Day surgery (SDC) | payer BC, SELFPAY ==
--- NOTE | 2025-01-24 18:54 | PAT.ANESEVAL ---
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 When Was Last Pacemaker Check QUESTION #4 FULL TEXT: You/Your Family Experience fever (hyperthermia) with Anesthesia Last Oral Intake Last Oral intake: Last Oral Intake NPO since Meds taken in AM with sips of water? Meds patient instructed to take am of surgery PONV PONV - aircraft structural repairer: PONV - aircraft structural repairer Female No 01/24/25 13:34 HX of Motion Sickness No 01/24/25 13:34 HX of N/V After Surgery No 01/24/25 13:34 Non-Smoker Yes 01/24/25 13:34 Duration of Surgery greater No 01/24/25 13:34 than 60 minutes Number of Risk Factors 1 01/24/25 13:34 PONV Score Low Risk 01/24/25 13:34 Height & Weight Height & Weight: Anesthesia: Height & Weight Height 5 ft 7 in 08/24/24 14:25 Respiratory Assessment Respiratory Assessment - aircraft structural repairer: Respiratory Tract Infection Hx - aircraft structural repairer Hx Respiratory Tract Infection No 01/24/25 13:34 STOP Sleep Apnea STOP Sleep Apnea - aircraft structural repairer: STOP Sleep Apnea - aircraft structural repairer Hx Hypertension Yes: CONTROLLED WITH MEDS 01/24/25 13:34 Hx Sleep Apnea No 01/24/25 13:34 CPAP BIPAP Do you snore loudly (louder No 01/24/25 13:34 than talking or can be heard Do you often feel tired/ No 01/24/25 13:34 fatigued/ sleepy during daytime? Has anyone observed you stop No 01/24/25 13:34 breathing during sleep? STOP Results Negative 01/24/25 13:34 QUESTION #5 FULL TEXT : Do you snore loudly (louder than talking or can be heard through closed doors)? 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 Specify any problems Hx of Preganancy in last 3 N/A 01/24/25 13:34 Months Nurse Filling Out Transfusion [email or web address] 01/24/25 13:34 & Questions: Date: 01/24/25 01/24/25 13:34 Time: 13:35 01/24/25 13:34 Patient unable to answer at this time (ie. confused, unrespo /Reproduction History /Reproductive History - aircraft structural repairer: /Reproductive Hx- aircraft structural repairer Hx Now Gestational Age (in weeks): EDC: Hx Hx Para Hx Section SAB PFSH Medical History (Updated 01/24/25 @ 13:42 by Gideon Barclay) History of transesophageal echocardiography (GUANAKITO) Wears contact lenses Non-smoker History of echocardiogram Cardiology follow-up encounter Endocarditis Prostate carcinoma BPH (benign prostatic hyperplasia) Lumbar discitis GERD (gastroesophageal reflux disease) Hypertension Home Medications ?Medication ?Instructions ?Recorded ?Last Taken ?Type lisinopril 10 mg tablet 10 mg PO QHS 04/08/14 Unknown History cholecalciferol (vitamin D3) 25 25 mcg PO QDAY 07/05/24 Unknown History mcg (1,000 unit) capsule omeprazole 40 mg capsule,delayed 40 mg PO QDAY 07/05/24 Unknown History release trazodone 50 mg tablet 50 mg PO QHS 07/25/24 Unknown History aspirin 325 mg tablet (Rodri 325 mg PO QDAY PRN pain 01/10/25 Unknown History Aspirin) hydrochlorothiazide 12.5 mg capsule 12.5 mg PO QDAY Blood Pressure 01/10/25 Unknown History ibuprofen 600 mg tablet 600 mg PO QDAY PRN pain 01/10/25 Unknown History multivit,Ca,min-iron 8 mg-folic 1 tab PO DAILY 01/10/25 Unknown History acid 200 mcg-lycopene 600 mcg tablet (Centrum Men) sildenafil 50 mg tablet (Viagra) 50 mg PO QDAY PRN sexual activity 01/10/25 Unknown History Allergy/AdvReac Type Severity Reaction Status Date / Time No Known Allergies Allergy Verified 01/24/25 13:31 Surgical History (Updated 01/24/25 @ 13:42 by Gideon Barclay) H/O esophagogastroduodenoscopy History of transurethral resection of prostate S/P colonoscopy H/O wisdom tooth extraction History of tonsillectomy and adenoidectomy Social History household members: spouse Smoking Status: Never smoker alcohol intake: current alcohol intake frequency: holidays/special occasions only substance use type: does not use caffeine: Yes Audit: Pertinent Findings Pertinent Findings EKG Perinent findings: July 25, 2024. Sinus rhythm within normal limits. Echo (EF%) pertinent findings: 08/15/2024. EF of 60%. No aortic stenosis noted. Compared to previous echo, mobile masses on mitral and aortic valves are much smaller suggesting healed vegetations. Consult pertinent findings: July 25, 2024. Dr. Lim. 1. Endocarditis?acute-diagnosed on GUANAKITO. Vegetations on the anterior and posterior leaf of the mitral valve as well as a small area on the noncoronary aortic valve. Patient denies any CHF symptoms. No fevers or chills. He does have murmurs both systolic and diastolic. Repeat echo to evaluate aortic and mitral valves. (See above) 2. Hypertension?[id number]. Recommendation Anesthesia Recommendation Anesthesia recommendation: F/U recommended (Patient has a history of subacute bacterial endocarditis. Part of his workup was to include a evaluation by dentist. Did he ever get this done?)
--- NOTE | 2025-01-25 14:28 | PAT.ANE_ITS ---
Pre-Assessment Diagnosis/Proposed Procedure Planned Operative Procedure(s): COLONOSCOPY Anesthesia History Anesthesia History - health information provider: Anesthesia History - health information provider Hx Hospitalization No 01/24/25 13:34 Any Problems With Anesthesia No 01/24/25 13:34 Cholinesterase deficiency No 01/24/25 13:34 You/Your Family Experience No 01/24/25 13:34 fever (hyperthermia) with Relationship Recent Exposure to Contagious Disease Does patient have nerve No 01/24/25 13:34 stimulator Patient instructed to have device shut off --Does patient have Pacemaker or ICD? When Was Last Pacemaker Check QUESTION #4 FULL TEXT: You/Your Family Experience fever (hyperthermia) with Anesthesia Last Oral Intake Last Oral intake: Last Oral Intake NPO since Meds taken in AM with sips of water? Meds patient instructed to take am of surgery PONV PONV - health information provider: PONV - health information provider Female No 01/24/25 13:34 HX of Motion Sickness No 01/24/25 13:34 HX of N/V After Surgery No 01/24/25 13:34 Non-Smoker Yes 01/24/25 13:34 Duration of Surgery greater No 01/24/25 13:34 than 60 minutes Number of Risk Factors 1 01/24/25 13:34 PONV Score Low Risk 01/24/25 13:34 Height & Weight Height & Weight: Anesthesia: Height & Weight Height 5 ft 7 in 08/24/24 14:25 Respiratory Assessment Respiratory Assessment - health information provider: Respiratory Tract Infection Hx - health information provider Hx Respiratory Tract Infection No 01/24/25 13:34 STOP Sleep Apnea STOP Sleep Apnea - health information provider: STOP Sleep Apnea - health information provider Hx Hypertension Yes: CONTROLLED WITH MEDS 01/24/25 13:34 Hx Sleep Apnea No 01/24/25 13:34 CPAP BIPAP Do you snore loudly (louder No 01/24/25 13:34 than talking or can be heard Do you often feel tired/ No 01/24/25 13:34 fatigued/ sleepy during daytime? Has anyone observed you stop No 01/24/25 13:34 breathing during sleep? STOP Results Negative 01/24/25 13:34 QUESTION #5 FULL TEXT : Do you snore loudly (louder than talking or can be heard through closed doors)? 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 Specify any problems Hx of Preganancy in last 3 N/A 01/24/25 13:34 Months Nurse Filling Out Transfusion [email or web address] 01/24/25 13:34 & Questions: Date: 01/24/25 01/24/25 13:34 Time: 13:35 01/24/25 13:34 Patient unable to answer at this time (ie. confused, unrespo /Reproduction History /Reproductive History - health information provider: /Reproductive Hx- health information provider Hx Now Gestational Age (in weeks): EDC: Hx Hx Para Hx Section SAB PFSH Medical History (Updated 01/24/25 @ 13:42 by Gideon Barclay) History of transesophageal echocardiography ([facility]O) Wears contact lenses Non-smoker History of echocardiogram Cardiology follow-up encounter Endocarditis Prostate carcinoma BPH (benign prostatic hyperplasia) Lumbar discitis GERD (gastroesophageal reflux disease) Hypertension Home Medications ?Medication ?Instructions ?Recorded ?Last Taken ?Type lisinopril 10 mg tablet 10 mg PO QHS 04/08/14 Unknow n History cholecalciferol (vitamin D3) 25 25 mcg PO QDAY 4 Unknown History mcg (1,000 unit) capsule omeprazole 40 mg capsule,delayed 40 mg PO QDAY 4 Unknown History release trazodone 50 mg tablet 50 mg PO QHS 07/25/24 Unknow n History aspirin 325 mg tablet (Rodri 325 mg PO QDAY PRN pain 0 01/10/25 Unknown History Aspirin) hydrochlorothiazide 12.5 mg capsule 12.5 mg PO QDAY Bl ood Pressure 01/10/25 Unknown History ibuprofen 600 mg tablet 600 mg PO QDAY PRN pain 12/17 01/09 Unknown History multivit,Ca,min-iron 8 mg-folic 1 tab PO DAILY 5 Unknown History acid 200 mcg-lycopene 600 mcg tablet (Centrum Men) sildenafil 50 mg tablet (Viagra) 50 mg PO QDAY PRN sex ual activity 01/10/25 Unknown History Allergy/AdvReac Type Severity Reaction Status Date / Time No Known Allergies Allergy Verified 01/24/25 13:31 Surgical History (Updated 01/24/25 @ 13:42 by Gideon Barclay) H/O esophagogastroduodenoscopy History of transurethral resection of prostate S/P colonoscopy H/O wisdom tooth extraction History of tonsillectomy and adenoidectomy Social History household members: spouse Smoking Status: Never smoker alcohol intake: current alcohol intake frequency: holidays/special occasions only substance use type: does not use caffeine: Yes Audit: Pertinent Findings HISTORY of Pertinent Findings History of Pertinent Findings: EKG Pertinent Findings EKG Perinent findings July 25, 2024. Sinus 01/24/25 18:57 rhythm within normal limits. Echo Pertinent Findings Echo (EF%) pertinent findings 08/15/2024. EF of 60%. No 01/24/25 19:01 aortic stenosis noted. Compared to previous echo, mobile masses on mitral and aortic valves are much smaller suggesting healed vegetations. Consult Pertinent Findings Consult pertinent findings July 25, 2024. Dr. Lim 01/24/25 19:09 . 1. Endocarditis?acute- diagnosed on [place]ITO. Vegetations on the anterior and posterior leaf of the mitral valve as well as a small area on the noncoronary aortic valve. Patient denies any CHF symptoms. No fevers or chills. He does have murmurs both systolic and diastolic. Repeat echo to evaluate aortic and mitral valves. (See above) 2. Hypertension?chronic- well-controlled. Recommendation Anesthesia Recommendation Anesthesia recommendation: OPTIMIZED for anesthesia
[2025-01-29] VITALS (8 sets, daily range): BP systolic 73–135; BP diastolic 53–108; PULSE 81–91; RESP 16; TEMP 36.2–36.7; O2SAT 95–98; BMI 27.2
--- OUTSIDE RECORDS SUMMARY | 2025-01-29 07:02 | XMS RPT_ITS | CCD ---
Author Organization [facility] Care Team Providers Care Smoking Pipes Cleaner Name Role Phone ROSIE TREJO Primary Care Unavailable MADELEINE CHILDERS Referring Unavailable MIREILLE RAO Attending Unavailable LINDA BRIGGS Referring Unavailable MIREILLE RAO Attending Unavailable ROSIE TREJO Primary Care Unavailable LINDA BRIGGS Attending Unavailable ROSIE TREJO Referring Unavailable ROSIE TREJO Primary Care Unavailable Neil MASON, Rosie Pyle Primary Care Provider [phone] NEIL MASON, ROSIE Hughes Primary Care Physician NEIL MASON, ROSIE Hughes Primary Care Unavailable OSIRIS MASON, DR JIGNESH FRANKLIN Attending Placido TREJO MD, ROSIE Hughes Primary Care Unavailable OSIRIS MASON, DR JIGNESH FRANKLIN Attending Placido NEWELL MD, DR JIGNESH FRANKLIN Admitting Placido Trejo MD, Rosie Hughes Primary Care Provider Dr. Rosie Trejo MD Primary Care Provider [phone] Chrissie Burciaga Referring Provider Unavailable Dr. Sriram Guerrier MD Attending Provider [phone] Osiris MASNO, Dr. Jignesh Franklin Attending Provider [phone] Osiris MASON, Dr. Jignesh Franklin Referring Provider Beam DIRECTOR SOCIAL WELFARE-C, Jennifer Attending Provider Beam DIRECTOR SOCIAL WELFARE-C, Jennifer Referring Provider Dr. Brian Lim MD Attending Provider Beam, Carlyle Primary Care Provider Unavailabl e Beam, Topaz Referring Provider Unavailable Dr. Brian Lim MD Referring Provider Alexander MASON, Dr. Leigh Attending Provider Neil MASON, Dr. Mason Referring Provider Nathen MASON, Dr. Hogan Attending Provider Nathen MASON, Dr. Hogan Referring Provider Neil MASON, Dr. Mason Primary Care Provider Beam DIRECTOR SOCIAL WELFARE-C, Zebulun Primary Care Provider Meena Boyle Admitting Unavailable Jessi Ivan Attending Unavailable Jasper, Ottoniel Referring Unavailable Trejo, Rosie Primary Care Unavailable Rtuherford, Vasquez Consulting Unavailable Meena Boyle Consulting Unavailable Fareed, Sriram Consulting Unavailable Koram, Malena Dolly Consulting Unavailable Jessi Ivan Consulting Unavailable Reese Munoz Attending Unavailable Beam, Topaz Primary Care Unavailable Edison Sena Attending Unavailable Beam, Topaz Primary Care Unavailable Edison Sena Referring Unavailable GualbertoChrissie Attending Unavailable GualbertoChrissie E Referring Unavailable Trejo, Rosie Primary Care Unavailable GualbertoChrissie E Referring Unavailable Trejo, Rosie Primary Care Unavailable Sriram Guerrier Attending Unavailable Beam VSC, Zebulun Attending Unavailable Beam VSC, Zebulun Primary Care Unavailable Koram, Malena Dolly Attending Unavailable Reese Munoz Attending Unavailable Koram, Malena Dolly Referring Unavailable Trejo, Rosie Primary Care Unavailable Digna Farrell Attending Unavailable Beam VSC, Zebulun Primary Care Unavailable Reese Munoz Attending Unavailable Trejo, Rosie Primary Care Unavailable Reese Munoz Attending Unavailable Beam, Topaz Primary Care Unavailable Ej Saenz Attending Unavailable Beam VSC, Zebulun Primary Care Unavailable Beam VSC, Zebulun Referring Unavailable Brian Lim Attending Unavailable Brian Lim Referring Unavailable Beam, Carlyle Primary Care Unavailable OsirisJignesh Attending Unavailable Trejo, Rosie Primary Care Unavailable Jignesh Newell Referring Unavailable Beam VSC, Zebulun Attending Unavailable Beam VSC, Zebulun Referring Unavailable Trejo, Rosie Primary Care Unavailable Trejo, Rosie Primary Care Unavailable Ottoniel Hutchinson Referring Unavailable Meena Boyle Admitting Unavailable Vasquez Rutherford Consulting Unavailable Jessi Ivan Attending Unavailable Meena Boyle Consulting Unavailable Fareed, Sriram Consulting Unavailable Koram, Malena Dolly Consulting Unavailable Sriram Guerrier Attending Unavailable Chrissie Burciaga Referring Unavailable Neil, Rosie Primary Care Unavailable Neil, Rosie Attending Unavailable Neil, Rosie Primary Care Unavailable Neil, Rosie Referring Unavailable Neil, Rosie Attending Unavailable Trejo, Rosie Referring Unavailable Trejo, Rosie Primary Care Unavailable Edison Sena Attending Unavailable Trejo, Rosie Referring Unavailable Beam, Topaz Primary Care Unavailable Brian Lim Attending Unavailable Beam, Topaz Referring Unavailable Beam, Carlyle Primary Care Unavailable Meena Boyle Attending Unavailable Ottoniel Hutchinson Referring Unavailable Trejo, Rosie Primary Care Unavailable Medications Current Medications Medication Drug Class(es) Dates Sig (Normalized) Sig (Original) acetaminophen 325 mg oral tablet (2 sources) Start: 05-08-2024 take 2 tablets by mouth every four hours as needed for pain Acetaminophen 325 mg Tablet Active 650 mg PO EVERY 4 HOURS NEEDED as needed for Fever, pain 0 May 08, 2024 12:00am cephalexin 500 mg oral capsule (1 source) Cephalosporin Antibacterial Start: 01-05-2023 End: 01-10-2023 cephalexin 500 mg oral capsule Dose : 500 mg = 1 cap(s), Oral, q12h, X 5 day(s), # 10 cap(s), 0 Refill(s), 01/10/23 12:47:00 EDT, Pharmacy: [facility], 170.2, cm, 01/05/23 6:39:00 EDT, Height, 81.8 Start Date: 01/05/23 Stop Date: 01/10/23 Status: Ordered cholecalciferol 0.025 mg oral capsule (4 sources) Vitamin D Start: 07-05-2024 take 1 capsule by mouth once daily Cholecalciferol (Vitamin D3) 25 mcg (1,000 unit) capsule Active 25 ug PO daily July 05, 2024 1:00am take 1 capsule by mouth once emili ly Cholecalciferol, Vitamin D3, 25 mcg (1,000 unit) cap Take 1,000 Units by mouth once daily. 0 Active Comment on above: Take 1,000 Units by mouth once daily. diphenhydrAMINE hydrochloride 25 mg oral tablet (1 source) Histamine-1 Receptor Antagonist Start: 01-06-20 Benadryl 25 mg oral tablet Dose : 25 mg = 1 tab(s), Oral, qHS, PRN Allergy symptoms, 0 Refill(s) Start Date: 01/05/23 Status: Ordered esomeprazole 40 mg delayed release oral capsule (4 sources) Proton Pump Inhibitor Start: 11-27-19 esomeprazole 40 mg oral delayed release capsule Dose : 40 mg = 1 cap(s), Oral, qDay, PRN Heartburn Start Date: 11/26/22 Status: Ordered Comment on above: Take 40 mg by mouth once daily. lisinopril 10 mg oral tablet (9 sources) Angiotensin Converting Enzyme Inhibitor Start: 04-08-20 take 1 tablet by mouth at bedtime Lisinopril 10 MG tablet Active 10 mg PO AT BEDTIME April 08, 2014 12:00am Comment on above: Take 10 mg by mouth once daily. magnesium oxide 400 mg oral tablet (7 sources) Start: 05-03-20 take 1 tablet by mouth at bedtime Magnesium Oxide 400 mg (241.3 mg magnesium) tablet Active 400 mg PO AT BEDTIME May 03, 2024 12:00am Start: 11-26-2022 magnesium oxid e 400 mg oral tablet Dose : 400 mg = 1 tab(s), Oral, Daily, 0 Refill(s) Start Date: 01/05/23 Status: Ordered Comment on above: Take 400 mg by mouth once daily as needed. At night time Multivitamin preparation (3 sources) Start: 01-05-2023 take 1 tablet by mouth once daily Multivitamin Dose = 1 tab(s), Oral, Daily, 0 Refill(s) Start Date: 01/05/23 Status: Ordered Start: 11-26-2022 take 1 tablet by krystle th once daily Multivitamin Dose = 1 tab(s), Oral, Daily, 0 Refill(s) Start Date: 11/26/22 Status: Ordered omeprazole 40 mg delayed release oral capsule (2 sources) Proton Pump Inhibitor Start: 07-05-2024 take 1 capsule by mouth once daily Omeprazole 40 mg capsule,delayed release(DR/EC) Active 40 mg PO daily July 05, 2024 1:00am oxyCODONE hydrochloride 5 mg oral tablet (1 source) Opioid Agonist Start: 01-05-2023 End: 01-08-2023 oxyCODONE 5 mg oral tablet ( IMMEDIATE release ) Dose : 5 mg = 1 tab(s), Oral, q6h, PRN for pain, X 3 day(s), # 12 tab(s), 0 Refill(s), 01/08/23 12:46:00 EDT, Pharmacy: [facility], BPH (benign prostatic hyperplasia), 170.2, cm, 01/05/23 6:39:00 EDT, Height, 81.8 Start Date: 01/05/23 Stop Date: 01/08/23 Status: Ordered traZODone hydrochloride 50 mg oral tablet (2 sources) Serotonin Reuptake Inhibitor Start: 07-25-2024 take 1 tablet by mouth at bedtime Trazodone 50 mg tablet Active 50 mg PO AT BEDTIME July 25, 2024 1:00am Vitamin D3 (2 sources) Start: 11-26-2022 Vitamin D3 Dose : 25 mcg = 1 tab(s), Oral, Daily, 0 Refill(s) Start Date: 11/26/22 Status: Ordered Completed/Discontinued Medications Medication Drug Class(es) Dates Sig (Normalized) Sig (Original) 24 hr alfuzosin hydrochloride 10 mg extended release oral tablet (7 sources) alpha-Adrenergic Isacc Start: 04-08-2014 End: 05-03-2024 take 1 tablet by mouth once daily, then take 1 tablet by mouth every twenty-four hours Alfuzosin (Uroxatral) 10 MG tablet extended release 24 hr Discontinued 10 mg PO DAILY April 08, 2014 12:00am May 03, 2024 7:34pm Comment on above: Take 10 mg by mouth once daily. aspirin 400 mg / caffeine 32 mg oral tablet (6 sources) Platelet Aggregation Inhibitor, Nonsteroidal Anti-inflammatory Drug, Central Nervous System Stimulant, Methylxanthine Start: 04-08-2014 End: 05-08-2024 Aspirin-Caffeine (Anacin 400-32 Mg Tablet) 1 EACH tablet Discontinued 1 NMA PO NEEDED as needed for Pain April 08, 2014 12:00am May 08, 2024 4:34pm aspirin-caffeine (MELINA BACK AND BODY) 500-32.5 mg tab Take by mouth once daily as needed. 0 Active Comment on above: Take by mouth once d aily as needed. bethanechol chloride 25 mg oral tablet (4 sources) Cholinergic Muscarinic Agonist Start: End: 10-17-202 4 take 2 tablets by mouth three times daily Bethanechol Chloride 25 MG tablet Discontinued 50 mg PO THREE TIMES A DAY April 08, 2014 12:00am May 03, 2024 9:31pm Start: 04-08-2014 take 50 mg by mouth three times daily Bethanechol Chloride Active 50 MG PO THREE TIMES A DAY April 07, 2014 11:00pm cefTRIAXone 2000 mg injection (2 sources) Cephalosporin Antibacterial Start: 05-07-2024 End: 07-25-2024 Ceftriaxone 2 gram recon soln Discontinued 2 g IV DAILY 38 May 07, 2024 12:00am July 25, 2024 3:11pm stop date 06/14/24. Dx: discitis. Weekly bmp, cbc, and esr. Fax to [phone]. Routine picc care per protocol. chlorpheniramine maleate 4 mg oral tablet (8 sources) Histamine-1 Receptor Antagonist Start: 05-03-2024 End: 07-25-2024 take 1 tablet by mouth at bedtime as needed Chlorpheniramine Maleate (Allergy (Chlorpheniramine)) 4 mg tablet Discontinued 4 mg PO AT BEDTIME NEEDED as needed for insomnia May 03, 2024 12:00am July 25, 2024 3:08pm Start: 11-26-2022 chlorphenirami ne 4 mg oral tablet Dose : 4 mg = 1 tab(s), Oral, qHS, PRN for allergy symptoms, 0 Refill(s) Start Date: 11/26/22 Status: Ordered Comment on above: Take 4 mg by mouth o nce daily as needed. Take 4 mg by mouth o nce daily. At night famotidine 40 mg oral tablet (7 sources) Histamine-2 Receptor Antagonist Start: End: take 1 tablet by mouth twice daily Famotidine 40 mg tablet Discontinued 40 mg PO TWICE A DAY July 05, 2024 1:00am July 25, 2024 3:09pm Start: 11-26-2022 famotidine 40 mg oral tablet Dose : 40 mg = 1 tab(s), Oral, BID, 0 Refill(s) Start Date: 01/05/23 Status: Ordered take 2 tablets by mo uth twice daily famotidine (PEPCID) 20 mg tablet Take 40 mg by mouth twice daily. 0 Active Comment on above: Take 40 mg by mouth twice daily. hydroCHLOROthiazide 12.5 mg oral capsule (12 sources) Thiazide Diuretic Start: hydroCHLOROthiazide 12.5 mg oral tablet Dose : 12.5 mg = 1 tab(s), Oral, Daily, PRN Blood pressure control, 0 Refill(s) Start Date: 11/26/22 Status: Ordered Start: 04-08-2014 End: 07-25-2024 take 1 capsule by mouth once daily Hydrochlorothiazide 12.5 mg capsule Discontinued 12.5 mg PO daily July 05, 2024 11:44am July 25, 2024 3:14pm Comment on above: Take 12.5 mg by mout h once daily as needed. meloxicam 15 mg oral tablet (2 sources) Nonsteroidal Anti-inflammatory Drug Start: 07-05-20 End: 08-24-19 take 1 tablet by mouth once daily as needed Meloxicam 15 mg tablet Discontinued 15 mg PO daily as needed July 05, 2024 1:00am August 24, 2024 3:26pm multivitamin/iron/ folic acid (CENTRUM COMPLETE ORAL) (2 sources) multivitamin/iro n/fo lic acid (CENTRUM COMPLETE ORAL) Take by mouth once daily. 0 Active Comment on above: Take by mouth once d aily. nabumetone 750 mg oral tablet (2 sources) Nonsteroidal Anti-inflammatory Drug Start: 05-03-20 End: 07-25-19 take 1 tablet by mouth twice daily Nabumetone 750 mg tablet Discontinued 750 mg PO TWICE A DAY May 03, 2024 12:00am July 25, 2024 3:10pm tadalafil 20 mg oral tablet (10 sources) Phosphodiesterase 5 Inhibitor Start: 07-05-20 End: 07-25-19 take 1 tablet by mouth every twenty-four hours Tadalafil 20 mg tablet Discontinued 20 mg PO daily as needed July 05, 2024 1:00am July 25, 2024 3:10pm administer approximately 30min before sexual activity; do not use more than 1 dose per 24hrs Start: 11-26-2022 Tadalafil (Eqv -Cialis) 20 mg oral tablet Dose : 20 mg = 1 tab(s), Oral, qDay, PRN as needed for erectile dysfunction, # 5 tab(s), 0 Refill(s) Start Date: 11/26/22 Status: Ordered Start: 04-08-2014 End: 05-03-2024 take 1 tablet by mouth once daily Tadalafil (Cialis) 5 MG tablet Discontinued 5 mg PO DAILY April 08, 2014 12:00am May 03, 2024 7:35pm Comment on above: Take 20 mg by mouth every 3 hours as needed. tamsulosin hydrochloride 0.4 mg oral capsule (2 sources) alpha-Adrenergic Isacc Start: 4 End: 5 take 1 capsule by mouth at bedtime Tamsulosin 0.4 mg capsule Discontinued 0.4 mg PO AT BEDTIME July 05, 2024 1:00am July 25, 2024 3:09pm traMADol hydrochloride 50 mg oral tablet (2 sources) Opioid Agonist Start: 4 End: 5 take 1 tablet by mouth three times daily as needed for pain Tramadol 50 mg tablet Discontinued 50 mg PO 3 TIMES DAILY NEEDED as needed for pain May 03, 2024 12:00am July 25, 2024 3:09pm Problems Active Problems Problem Classification Problem Date Documented Da te Episodic/Chronic Abdominal hernia (1 source) Hiatal hernia; Translations: [Diaphragmatic hernia without obstruction or gangrene] Episodic Esophageal disorders (3 sources) Gastroesophageal reflux disease without esophagitis; Translations: [Gastro-esophageal reflux disease without esophagitis] Chronic Essential hypertension (5 sources) Hypertensive disorder; Translations: [Essential (primary) hypertension] Onset: 5 07-25-2024 Chronic Hyperplasia of prostate (3 sources) Benign prostatic hypertrophy without outflow obstruction; Translations: [Benign prostatic hyperplasia without lower urinary tract symptoms] Onset: 3 Chronic Other acquired deformities (4 sources) Lumbar spondylolisthesis; Translations: [Spondylolisthesis, lumbar region] 08-24-2024 Episodic Other aftercare (2 sources) Other group home (current) drug therapy; Translations: [Long-term (current) use of other medications] Onset: 3 07-26-2022 Episodic Other gastrointestinal disorders (1 source) Heartburn; Translations: [Heartburn] Onset: 3 Episodic Other gastrointestinal disorders (1 source) Dysphagia, unspecified; Translations: [Dysphagia, unspecified type] Onset: 3 Episodic Other gastrointestinal disorders (2 sources) Dysphagia; Translations: [Dysphagia, unspecified] Episodic Other gastrointestinal disorders (1 source) Heartburn; Translations: [Heartburn] 07-26-2022 Episodic Kelly-; endo-; and myocarditis; cardiomyopathy (except that caused by tuberculosis or sexually transmitted disease) (5 sources) Endocarditis; Translations: [Endocarditis, valve unspecified] Onset: 5 07-25-2024 Chronic Spondylosis; intervertebral disc disorders; other back problems (10 sources) Degeneration of lumbar intervertebral disc; Translations: [Other intervertebral disc degeneration of lumbar region with discogenic back pain and] Onset: 4 08-24-2024 Chronic Unclassified (1 source) Consult Onset: 2 Unclassified (1 source) Z87.39 - Personal history of other diseases of the musculoskeletal system and connective tissue,M43.16 - Spondylolisthesis, lumbar region Unclassified (1 source) Low back pain, unspecified; Translations: [Low back pain, unspecified] Onset: 5 Past or Other Problems Problem Classification Problem Date Documented Date Episodic/Chronic Other acquired deformities (1 source) Spondylolisthesis, lumbar region; Translations: [Spondylolisthesis, lumbar region] Onset: 09-27-2024 Episodic Other connective tissue disease (1 source) Personal history of other diseases of the musculoskeletal system and connective tissue; Translations: [Personal history of other diseases of the musculoskeletal system and connective tissue] Onset: 09-27-2024 Episodic Other screening for suspected conditions (not mental disorders or infectious disease) (1 source) Elevated prostate specific antigen [PSA]; Translations: [Elevated prostate specific antigen [PSA]] Onset: 07-10-2024 Episodic Other skin disorders (1 source) Generalized hyperhidrosis; Translations: [Generalized hyperhidrosis] Onset: 04-23-2024 Episodic Results Test Name Value Interpretation Reference Range Facility MR/PAT.Arielle 01-25-2025 MR/PAT.ANE Normal [facility] MR/PAT.Arielle 01-24-2025 MR/PAT.ANE Normal [facility] Testosterone, Total / Freeon 11-26-2024 TESTOSTER,FREE 12.87 ng/dL Normal 5.00-21.00 [facility] Comment on above: Order Comment: N Performed By: #### L 501.9985, L100.0100, L3100.5310, L500.4050, L501.9520, L500.4100 ####[facility] [address] [place], [place], [id number] TESTOSTER,TOTAL 499 ng/dL Normal 264-916 [facility] Comment on above: Order Comment: N Result Comment: Adul t male reference interval is based on a population ofhealthy nonobese males (BMI <30) between 19 and 39 yearsold. Dino, et.al. JCEM 2017,102;2591-7326. PMID:[id number]. Performed By: #### L 501.9985, L100.0100, L3100.5310, L500.4050, L501.9520, L500.4100 ####[facility] [id number] [place], [place], [id number] TESTOSTERONE,%F 2.58 Normal 1.50-4.20 [facility] Comment on above: Order Comment: N Result Comment: Perf ormed at: - [facility] [address] [id number] Director: Bakari Vazquez PhD, Phone: [phone] at: - [facility] [address] [id number] Director: Arthur Perez MD, Phone: [phone] Performed By: #### L [id number], L100.0100, L3100.5310, L500.4050, L501.9520, L500.4100 ####[facility] [address] [place], [place], [id number] Absolute neutrophil countOrd ered By: Jennifer Heaton on 11-07-2024 Neutrophils (Bld) [#/Vol] 4.8 10*3/uL 2.0-7.7 [facility] Anion gap in Serum or Plasma Ordered By: Jennifer Heaton on 11-07-2024 Anion gap [Moles/Vol] 13 mmol/L 5-15 [facility] BUN/creatinine ratioOrdered By: Zebulun Beam on 11-07-2024 Urea nitrogen/Creatinine [Mass ratio] 19.3 mg/mg 10-20 [facility] Basophil percentageOrdered B y: Zebulun Beam on 11-07-2024 Basophils/100 WBC (Bld) 1.2 % High 0-1 [facility] Bilirubin, totalOrdered By: Zebulun Beam on 11-07-2024 Bilirubin [Mass/Vol] 0.39 mg/dL 0.00-1.30 [facility] CBC W/Diff, Automatedon 10-17 Absolute Lymph 1.94 X10 3/uL Normal 0.83-4.51 [facility] Comment on above: Performed By: #### L 501.9985, L100.0100, L3100.5310, L500.4050, L501.9520, L500.4100 ####[facility] [address] [place], [address] Absolute Neut 4.8 X10 3/uL Normal 2.0-7.7 [facility] Comment on above: Performed By: #### L 501.9985, L100.0100, L3100.5310, L500.4050, L501.9520, L500.4100 ####[facility] [address] [place], [address] Basophils/100 WBC (Bld) 1.2 % High 0-1 [facility] Comment on above: Performed By: #### L 501.9985, L100.0100, L3100.5310, L500.4050, L501.9520, L500.4100 ####[facility] [address] [place], [address] Eosinophils/100 WBC (Bld) 0.8 % Normal 0-5 [facility] Comment on above: Performed By: #### L 501.9985, L100.0100, L3100.5310, L500.4050, L501.9520, L500.4100 ####[facility] [address] [place], [address] Erythrocyte distribution width (RBC) [Ratio] 13.8 % Normal 11.6-14.6 [facility] Comment on above: Performed By: #### L 501.9985, L100.0100, L3100.5310, L500.4050, L501.9520, L500.4100 ####[facility] [address] [place], [address] Hematocrit (Bld) [Volume fraction] 45.0 % Normal 40-54 [facility] Comment on above: Performed By: #### L 501.9985, L100.0100, L3100.5310, L500.4050, L501.9520, L500.4100 ####[facility] [address] [place], [address] Hemoglobin (Bld) [Mass/Vol] 15.2 g/dL Normal 13.0-16.5 [facility] Comment on above: Performed By: #### L 501.9985, L100.0100, L3100.5310, L500.4050, L501.9520, L500.4100 ####[facility] [address] [place], [address] IG% 0.500 Normal 0.0-0.9 [facility] Comment on above: Result Comment: IG% - Immature Granulocytes (promyelocytes, myelocytes andmetamyelocytes) > 1% indicates that a LEFT SHIFT is Present. Performed By: #### L 501.9985, L100.0100, L3100.5310, L500.4050, L501.9520, L500.4100 ####[facility] [address] [place], [address] Lymphocytes/100 WBC (Bld) 25.8 % Normal 19-41 [facility] Comment on above: Performed By: #### L 501.9985, L100.0100, L3100.5310, L500.4050, L501.9520, L500.4100 ####[facility] [address] [place], [address] MCH (RBC) [Entitic mass] 29.6 pg Normal 27.0-32.0 [facility] Comment on above: Performed By: #### L 501.9985, L100.0100, L3100.5310, L500.4050, L501.9520, L500.4100 ####[facility] [address] [place], [address] MCHC (RBC) [Mass/Vol] 33.8 g/dL Normal 32-36 [facility] Comment on above: Performed By: #### L 501.9985, L100.0100, L3100.5310, L500.4050, L501.9520, L500.4100 ####[facility] [address] [place], [address] MCV (RBC) [Entitic vol] 87.7 fL Normal 80-94 [facility] Comment on above: Performed By: #### L 501.9985, L100.0100, L3100.5310, L500.4050, L501.9520, L500.4100 ####[facility] [address] [place], [address] Monocytes/100 WBC (Bld) 7.9 % Normal 0-10 [facility] Comment on above: Performed By: #### L 501.9985, L100.0100, L3100.5310, L500.4050, L501.9520, L500.4100 ####[facility] [address] [place], [address] Neutrophils/100 WBC (Bld) 63.8 % Normal 47-70 [facility] Comment on above: Performed By: #### L 501.9985, L100.0100, L3100.5310, L500.4050, L501.9520, L500.4100 ####[facility] [address] [place], [address] Nucleated RBC (Bld) [#/Vol] 0 10*3/uL Normal 0-5 [facility] Comment on above: Performed By: #### L 501.9985, L100.0100, L3100.5310, L500.4050, L501.9520, L500.4100 ####[facility] [address] [place], [address] Platelet mean volume (Bld) [Entitic vol] 9.7 fL Normal 6.2-12.0 [facility] Comment on above: Performed By: #### L 501.9985, L100.0100, L3100.5310, L500.4050, L501.9520, L500.4100 ####[facility] [address] [place], [address] Platelets (Bld) [#/Vol] 231 10*3/uL Normal 150-450 [facility] Comment on above: Performed By: #### L 501.9985, L100.0100, L3100.5310, L500.4050, L501.9520, L500.4100 ####[facility] [address] [place], [address] RBC (Bld) [#/Vol] 5.13 10*6/uL Normal 4.6-6.2 [facility] Comment on above: Performed By: #### L 501.9985, L100.0100, L3100.5310, L500.4050, L501.9520, L500.4100 ####[facility] [address] [place], [address] RDW SD 44.5 fl High 35.1-43.9 [facility] Comment on above: Performed By: #### L 501.9985, L100.0100, L3100.5310, L500.4050, L501.9520, L500.4100 ####[facility] [address] [place], [place], [id number] WBC (Bld) [#/Vol] 7.5 10*3/uL Normal 4.4-11.0 [facility] Comment on above: Performed By: #### L 501.9985, L100.0100, L3100.5310, L500.4050, L501.9520, L500.4100 ####[facility] [address] [place], [place], [phone] Calculated very low density lipoprotein (VLDL) cholesterol measurementOrdered By: Jennifer Heaton on 11-07-2024 VLDL Cholesterol 23 mg/dL 5-40 [facility] Carbon dioxide, total [Moles /volume] in Central venous bloodOrdered By: Jennifer Beam on 11-07-2024 CO2 [Moles/Vol] 22.7 mmol/L 21.0-32.0 [facility] Chloride assayOrdered By: Kwasi Heaton on 11-07-2024 Chloride [Moles/Vol] 101 mmol/L 98-108 [facility] Comprehensive Metabolic Prof ilon 11-07-2024 Albumin [Mass/Vol] 4.5 g/dL Normal 3.4-4.8 [facility] Comment on above: Performed By: #### L 501.9985, L100.0100, L3100.5310, L500.4050, L501.9520, L500.4100 ####[facility] [address] [place], [place], [phone] Albumin/Globulin [Mass ratio] 1.6 {ratio} Normal 0.9-2.4 [facility] Comment on above: Performed By: #### L 501.9985, L100.0100, L3100.5310, L500.4050, L501.9520, L500.4100 ####[facility] [address] [place], [address] ALK PHOS 68 U/L Normal 40-129 [facility] Comment on above: Performed By: #### L 501.9985, L100.0100, L3100.5310, L500.4050, L501.9520, L500.4100 ####[facility] [address] [place], [address] ALT [Catalytic activity/Vol] 25 U/L Normal <=46 [facility] Comment on above: Performed By: #### L 501.9985, L100.0100, L3100.5310, L500.4050, L501.9520, L500.4100 ####[facility] [address] [place], [address] AST [Catalytic activity/Vol] 25 U/L Normal <=37 [facility] Comment on above: Performed By: #### L 501.9985, L100.0100, L3100.5310, L500.4050, L501.9520, L500.4100 ####[facility] [address] [place], [address] Bilirubin [Mass/Vol] 0.39 mg/dL Normal 0.00-1.30 [facility] Comment on above: Performed By: #### L 501.9985, L100.0100, L3100.5310, L500.4050, L501.9520, L500.4100 ####[facility] [address] [place], [address] BUN/CRE 19.3 RATIO Normal 10-20 [facility] Comment on above: Performed By: #### L 501.9985, L100.0100, L3100.5310, L500.4050, L501.9520, L500.4100 ####[facility] [address] [place], [address] Calcium [Mass/Vol] 9.9 mg/dL Normal 7.6-11.0 [facility] Comment on above: Performed By: #### L 501.9985, L100.0100, L3100.5310, L500.4050, L501.9520, L500.4100 ####[facility] [address] [place], [address] Chloride [Moles/Vol] 101 mmol/L Normal 98-108 [facility] Comment on above: Performed By: #### L 501.9985, L100.0100, L3100.5310, L500.4050, L501.9520, L500.4100 ####[facility] [address] [place], [address] CO2 [Moles/Vol] 22.7 mmol/L Normal 21.0-32.0 [facility] Comment on above: Performed By: #### L 501.9985, L100.0100, L3100.5310, L500.4050, L501.9520, L500.4100 ####[facility] [address] [place], [address] Creatinine [Mass/Vol] 1.20 mg/dL Normal 0.70-1.20 [facility] Comment on above: Performed By: #### L 501.9985, L100.0100, L3100.5310, L500.4050, L501.9520, L500.4100 ####[facility] [address] [place], [address] GAP 13 Normal 5-15 [facility] Comment on above: Performed By: #### L 501.9985, L100.0100, L3100.5310, L500.4050, L501.9520, L500.4100 ####[facility] [address] [place], [address] GFR/1.73 sq M.predicted among non-blacks MDRD (S/P/Bld) [Vol rate/Area] 67 mL/min/{1.73_m2} Normal >60 [facility] Comment on above: Result Comment: mL/m in/1.73m2 CKD-EPI Creatinine Equation (2020) Performed By: #### L 501.9985, L100.0100, L3100.5310, L500.4050, L501.9520, L500.4100 ####[facility] [address] [place], [address] Globulin (S) [Mass/Vol] 2.9 g/dL Normal 2.2-4.2 [facility] Comment on above: Performed By: #### L 501.9985, L100.0100, L3100.5310, L500.4050, L501.9520, L500.4100 ####[facility] [address] [place], [address] Glucose [Mass/Vol] 96 mg/dL Normal 70-99 [facility] Comment on above: Performed By: #### L 501.9985, L100.0100, L3100.5310, L500.4050, L501.9520, L500.4100 ####[facility] [address] [place], [address] Potassium [Moles/Vol] 4.6 mmol/L Normal 3.3-5.1 [facility] Comment on above: Performed By: #### L 501.9985, L100.0100, L3100.5310, L500.4050, L501.9520, L500.4100 ####[facility] [address] [place], [address] Sodium [Moles/Vol] 137 mmol/L Normal 133-145 [facility] Comment on above: Performed By: #### L 501.9985, L100.0100, L3100.5310, L500.4050, L501.9520, L500.4100 ####[facility] [address] [place], [place], [id number] T PROT 7.4 g/dL Normal 5.9-8.4 [facility] Comment on above: Performed By: #### L 501.9985, L100.0100, L3100.5310, L500.4050, L501.9520, L500.4100 ####[facility] [address] [place], [address] Urea nitrogen [Mass/Vol] 23 mg/dL High 4-19 [facility] Comment on above: Performed By: #### L 501.9985, L100.0100, L3100.5310, L500.4050, L501.9520, L500.4100 ####[facility] [address] [place], [place], [phone] Eosinophil percentageOrdered By: Jennifer Beam on 11-07-2024 Eosinophils/100 WBC (Bld) 0.8 % 0-5 [facility] Erythrocyte distribution wid th (RBC) [Ratio]Ordered By: Christeln Beam on 11-07-2024 Erythrocyte distribution width (RBC) [Entitic vol] 44.5 fL High 35.1-43.9 [facility] Erythrocyte distribution wid th ratioOrdered By: [facility] on 11-07-2024 Erythrocyte distribution width (RBC) [Ratio] 13.8 % 11.6-14.6 [facility] GFR/1.73 sq M.predicted lesli g non-blacks MDRD (S/P/Bld) [Vol rate/Area]Ordered By: Jennifer Heaton on 11-07-2024 Estimated GFR (MDRD) Non-Af Amer 67 >60 [facility] Comment on above: mL/min/1.73m2 CKD-EP I Creatinine Equation (2020) Hematocrit Auto (Bld) [Volum e fraction]Ordered By: Christeln Beam on 11-07-2024 Hematocrit (Bld) [Volume fraction] 45.0 % 40-54 [facility] Hemoglobin A1con 11-07-2024 HbA1c (Bld) [Mass fraction] 5.2 % Normal <=5.6 [facility] Comment on above: Result Comment: Norm al < 5.7 % Prediabetic 5.7 - 6.4 % Diabetic >or= 6.5 % Please note range changes. Performed By: #### L 501.9985, L100.0100, L3100.5310, L500.4050, L501.9520, L500.4100 ####[facility] [address] [place], [address] Hemoglobin A1c percentageOrd ered By: Jennifer Heaton on 11-07-2024 HbA1c (Bld) [Mass fraction] 5.2 % <5.7 [facility] Comment on above: Normal < 5.7 % Predi abetic 5.7 - 6.4 % Diabetic >or= 6.5 % Please note range changes. Hemoglobin measurementOrdere d By: Jennifer Heaton on 11-07-2024 Hemoglobin (Bld) [Mass/Vol] 15.2 g/dL 13.0-16.5 [facility] Immature granulocytes/100 WB C Auto (Bld)Ordered By: Jennifer Heaton on 11-07-2024 Immature granulocytes/100 WBC (Bld) 0.500 % 0.0-0.9 [facility] Comment on above: IG% - Immature Granu locytes (promyelocytes, myelocytes and metamyelocytes) > 1% indicates that a LEFT SHIFT is Present. LDL calc ser/plasOrdered By: Jennifer Heaton on 11-07-2024 LDL Cholesterol, Calculated 140 mg/dL [facility] Comment on above: Vgmksxmoup=546-403 m g/dL & Higher Xsmh=408 mg/dL or greater Laboratory - Chemistry and C hemistry - challengeOrdered By: Jennifer Heaton on 11-07-2024 AST [Catalytic activity/Vol] 25 U/L <38 [facility] Lipid Profileon 11-07-2024 CHOL:HDL 3.58 Normal [facility] Comment on above: Performed By: #### L 501.9985, L100.0100, L3100.5310, L500.4050, L501.9520, L500.4100 ####[facility] [address] [place], [address] Cholesterol [Mass/Vol] 225 mg/dL High <=200 [facility] Comment on above: Result Comment: Chol esterol level, Desirable <200 mg/dLBorderline high cholesterol 200-239 mg/dLHigh cholesterol >=240 mg/dLRecommendations of the NCEP Adult Treatment Panel for thefollowing risk-cutoff thresholds for the [place] Americanpulation. Performed By: #### L 501.9985, L100.0100, L3100.5310, L500.4050, L501.9520, L500.4100 ####[facility] [address] [place], [address] Cholesterol in HDL [Mass/Vol] 63 mg/dL Normal [facility] Comment on above: Result Comment: Ligia onal Cholesterol Education Program (NCEP) guidelines:<40 mg/dL: Low HDL-cholesterol (major risk factor for CHD)>= 60 mg/dL: High HDL-cholesterol (negative risk factor forCHD)HDL-cholesterol is affected by a number of factors, e.g.smoking, exercise, hormones, sex and age. Performed By: #### L 501.9985, L100.0100, L3100.5310, L500.4050, L501.9520, L500.4100 ####[facility] [address] [place], [address] Cholesterol in LDL [Mass/Vol] 140 mg/dL Normal [facility] Comment on above: Result Comment: Bord yvdvyw=279-079 mg/dL Higher Qekl=812 mg/dL or greater Performed By: #### L 501.9985, L100.0100, L3100.5310, L500.4050, L501.9520, L500.4100 ####[facility] [address] [place], [address] Cholesterol in VLDL [Mass/Vol] 23 mg/dL Normal 5-40 [facility] Comment on above: Performed By: #### L 501.9985, L100.0100, L3100.5310, L500.4050, L501.9520, L500.4100 ####[facility] [address] [place], [address] Triglyceride [Mass/Vol] 113 mg/dL Normal [facility] Comment on above: Result Comment: The drugs N-Acetylcysteine and Metamizole may falselydepress this assay.Normal range: <150 mg/dLBorderline High: 150-199 mg/dLHigh: 200-499 mg/dLVery High: >500 mg/dL Performed By: #### L 501.9985, L100.0100, L3100.5310, L500.4050, L501.9520, L500.4100 ####[facility] [address] [place], [place], [id number] Lymphocytes Auto (Unsp spec) [#/Vol]Ordered By: Christeln Beam on 11-07-2024 Lymphocytes (Bld) [#/Vol] 1.94 10*3/uL 0.83-4.51 [facility] Lymphocytes/100 WBC Auto (Un sp spec)Ordered By: Elmiralun Beam on 11-07-2024 Lymphocytes/100 WBC (Bld) 25.8 % 19-41 [facility] MCV (mean corpuscular volume ) determinationOrdered By: Elmiralun Beam on 11-07-2024 MCV (RBC) [Entitic vol] 87.7 fL 80-94 [facility] Mean corpuscular hemoglobin (MCH) determinationOrdered By: Kwasibumirnan Beam on 11-07-2024 MCH (RBC) [Entitic mass] 29.6 pg 27.0-32.0 [facility] Mean corpuscular hemoglobin concentration (MCHC) determinationOrdered By: Kwasibulun Beam on 11-07-2024 MCHC (RBC) [Mass/Vol] 33.8 g/dL 32-36 [facility] Mean platelet volume determi nationOrdered By: Jennifer Heaton on 11-07-2024 Platelet mean volume (Bld) [Entitic vol] 9.7 fL 6.2-12.0 [facility] Monocyte percentageOrdered B y: Jennifer Heaton on 11-07-2024 Monocytes/100 WBC (Bld) 7.9 % 0-10 [facility] Neutrophil percentageOrdered By: Jennifer Heaton on 11-07-2024 Neutrophils/100 WBC (Bld) 63.8 % 47-70 [facility] Nucleated red blood cell per centageOrdered By: Jennifer Heaton on 11-07-2024 Nucleated RBC/100 WBC (Bld) [Ratio] 0 % 0-5 [facility] Platelet countOrdered By: Kwasi Heaton on 11-07-2024 Platelets (Bld) [#/Vol] 231 10*3/uL 150-450 [facility] Potassium (Unsp spec) [Mass/ Vol]Ordered By: Jennifer Heaton on 11-07-2024 Potassium [Moles/Vol] 4.6 mmol/L 3.3-5.1 [facility] RBC Auto (Bld) [#/Vol]Ordere d By: Jennifer Heaton on 11-07-2024 RBC (Bld) [#/Vol] 5.13 10*6/uL 4.6-6.2 [facility] Screening total cholesterol/ high density lipoprotein (HDL) cholesterol ratioOrdered By: Jennifer Heaton on 11-07-2024 Cholesterol.total/Cho lesterol in HDL [Mass ratio] 3.58 {ratio} [facility] Serum creatinine measurement (mass/volume)Ordered By: Jennifer Heaton on 11-07-2024 Creatinine [Mass/Vol] 1.20 mg/dL 0.70-1.20 [facility] Serum globulin measurementOr dered By: Jennifer Heaton on 11-07-2024 Globulin (S) [Mass/Vol] 2.9 g/dL 2.2-4.2 [facility] Serum glucose measurement (m ass/volume)Ordered By: Jennifer Heaton on 11-07-2024 Glucose [Mass/Vol] 96 mg/dL 70-99 [facility] Serum or plasma alanine cortez otransferase (ALT) measurementOrdered By: [facility] on 11-07-2024 ALT [Catalytic activity/Vol] 25 U/L <47 [facility] Serum or plasma albumin belén urement (mass/volume)Ordered By: [facility] on 11-07-2024 Albumin [Mass/Vol] 4.5 g/dL 3.4-4.8 [facility] Serum or plasma albumin/glob ulin mass ratioOrdered By: [facility] on 11-07-2024 Albumin/Globulin [Mass ratio] 1.6 {ratio} 0.9-2.4 [facility] Serum or plasma alkaline kavitha sphatase measurementOrdered By: [facility] on 11-07-2024 ALP [Catalytic activity/Vol] 68 U/L 40-129 [facility] Serum or plasma calcium belén urement (mass/volume)Ordered By: [facility] 11-07-2024 Calcium [Mass/Vol] 9.9 mg/dL 7.6-11.0 [facility] Serum or plasma cholesterol in HDL measurement (mass/volume)Ordered By: [facility] on 11-07-2024 Cholesterol in HDL [Mass/Vol] 63 mg/dL >40 [facility] Comment on above: National Cholesterol Education Program (NCEP) guidelines:<40 mg/dL: Low HDL-cholesterol (major risk factor for CHD)>= 60 mg/dL: High HDL-cholesterol (negative risk factor for CHD)HDL-cholesterol is affected by a number of factors, e.g. smoking, exercise, hormones, sex and age. Serum or plasma cholesterol measurement (mass/volume)Ordered By: [facility] on 11-07-2024 Cholesterol [Mass/Vol] 225 mg/dL High <201 [facility] Comment on above: Cholesterol level, D esirable <200 mg/dLBorderline high cholesterol 200-239 mg/dLHigh cholesterol >=240 mg/dLRecommendations of the NCEP Adult Treatment Panel for the following risk-cutoff thresholds for the [place] population. Serum or plasma urea nitroge n measurement (mass/volume)Ordered By: [facility] on 11-07-2024 Urea nitrogen [Mass/Vol] 23 mg/dL High 4-19 [facility] Sodium levelOrdered By: Elmira Heaton on 11-07-2024 Sodium [Moles/Vol] 137 mmol/L 133-145 [facility] TSH DL <= 0.005 mIU/L QnOrde red By: Jennifer Heaton on 11-07-2024 Thyroid Stimulating Hormone (TSH) 1.510 uIU/mL 0.300-4.20 0 [facility] Thyroid Stim Hormone (TSH)on 11-07-2024 TSH 1.510 uIU/mL Normal 0.300-4.20 0 [facility] Comment on above: Performed By: #### L 501.9985, L100.0100, L3100.5310, L500.4050, L501.9520, L500.4100 ####[facility] [address] [place], [address] Total proteinOrdered By: Carlyle Heaton on 11-07-2024 Protein [Mass/Vol] 7.4 g/dL 5.9-8.4 [facility] Triglycerides measurementOrd ered By: Jennifer Heaton on 11-07-2024 Triglyceride [Mass/Vol] 113 mg/dL <199 [facility] Comment on above: The drugs N-Acetylcy steine and Metamizole may falsely depress this assay. Normal range: <150 mg/dLBorderline High: 150-199 mg/dLHigh: 200-499 mg/dLVery High: >500 mg/dL White blood cell (WBC) count Ordered By: Jennifer Heaton on 11-07-2024 WBC (Bld) [#/Vol] 7.5 10*3/uL 4.4-11.0 [facility] PT D/C Summary (1)on 025 PT D/C Summary (1) Normal [facility] Inital Evaluation (1) - PTon 08-29-2024 Inital Evaluation (1) - PT Normal [facility] L/S Spine Bending Flex/[place] 08-24-2024 L/S Spine Bending Flex/Ext Normal [facility] Orthopedic Visit Reporton Orthopedic Visit Report Normal [facility] Echo, Limited Studyon 2024 Echo, Limited Study Normal [facility] 12 Lead EKG performed by [facility] on 07-25-2024 12 Lead EKG performed by [facility] Normal [facility] Cardiology Visit Reporton Cardiology Visit Report Normal [facility] Absolute neutrophil countOrd ered By: Zebulun Beam on 07-16-2024 Neutrophils (Bld) [#/Vol] 8.8 10*3/uL High 2.0-7.7 [facility] Basophil percentageOrdered B y: Zebulun Beam on 07-16-2024 Basophils/100 WBC (Bld) 0.6 % 0-1 [facility] CBC W/Diff, Automatedon 06-19 Absolute Lymph 2.26 X10 3/uL Normal 0.83-4.51 [facility] Comment on above: Performed By: #### L 100.0100 ####[facility] [address] [place], [address] Absolute Neut 8.8 X10 3/uL High 2.0-7.7 [facility] Comment on above: Performed By: #### L 100.0100 ####[facility] [address] [place], [address] Basophils/100 WBC (Bld) 0.6 % Normal 0-1 [facility] Comment on above: Performed By: #### L 100.0100 ####[facility] [address] [place], [address] Eosinophils/100 WBC (Bld) 0.8 % Normal 0-5 [facility] Comment on above: Performed By: #### L 100.0100 ####[facility] [address] [place], [address] Erythrocyte distribution width (RBC) [Ratio] 13.3 % Normal 11.6-14.6 [facility] Comment on above: Performed By: #### L 100.0100 ####[facility] [address] [place], [address] Hematocrit (Bld) [Volume fraction] 40.0 % Normal 40-54 [facility] Comment on above: Performed By: #### L 100.0100 ####[facility] [address] [place], [address] Hemoglobin (Bld) [Mass/Vol] 12.9 g/dL Low 13.0-16.5 [facility] Comment on above: Performed By: #### L 100.0100 ####[facility] [address] [place], [address] IG% 1.100 High 0.0-0.9 [facility] Comment on above: Result Comment: IG% - Immature Granulocytes (promyelocytes, myelocytes andmetamyelocytes) > 1% indicates that a LEFT SHIFT is Present. Performed By: #### L 100.0100 ####[facility] [address] [place], [address] Lymphocytes/100 WBC (Bld) 18.5 % Low 19-41 [facility] Comment on above: Performed By: #### L 100.0100 ####[facility] [address] [place], [address] MCH (RBC) [Entitic mass] 29.0 pg Normal 27.0-32.0 [facility] Comment on above: Performed By: #### L 100.0100 ####[facility] [address] [place], [address] MCHC (RBC) [Mass/Vol] 32.3 g/dL Normal 32-36 [facility] Comment on above: Performed By: #### L 100.0100 ####[facility] [address] [place], [address] MCV (RBC) [Entitic vol] 89.9 fL Normal 80-94 [facility] Comment on above: Performed By: #### L 100.0100 ####[facility] [address] [place], [address] Monocytes/100 WBC (Bld) 6.8 % Normal 0-10 [facility] Comment on above: Performed By: #### L 100.0100 ####[facility] [address] [place], [address] Neutrophils/100 WBC (Bld) 72.2 % High 47-70 [facility] Comment on above: Performed By: #### L 100.0100 ####[facility] [address] [place], [address] Nucleated RBC (Bld) [#/Vol] 0 10*3/uL Normal 0-5 [facility] Comment on above: Performed By: #### L 100.0100 ####[facility] [address] [place], [address] Platelet mean volume (Bld) [Entitic vol] 9.4 fL Normal 6.2-12.0 [facility] Comment on above: Performed By: #### L 100.0100 ####[facility] [address] [place], [address] Platelets (Bld) [#/Vol] 237 10*3/uL Normal 150-450 [facility] Comment on above: Performed By: #### L 100.0100 ####[facility] [address] [place], [address] RBC (Bld) [#/Vol] 4.45 10*6/uL Low 4.6-6.2 [facility] Comment on above: Performed By: #### L 100.0100 ####[facility] [address] [place], [address] RDW SD 43.7 fl Normal 35.1-43.9 [facility] Comment on above: Performed By: #### L 100.0100 ####[facility] [address] [place], [place], [address] WBC (Bld) [#/Vol] 12.2 10*3/uL High 4.4-11.0 [facility] Comment on above: Performed By: #### L 100.0100 ####[facility] [facility] [address] [place], [place], [id number] Eosinophil percentageOrdered By: bulun Beam on 07-16-2024 Eosinophils/100 WBC (Bld) 0.8 % 0-5 [facility] Erythrocyte distribution wid th ratioOrdered By: [facility] on 07-16-2024 Erythrocyte distribution width (RBC) [Ratio] 13.3 % 11.6-14.6 [facility] Erythrocyte distribution wid th standard deviationOrdered By: [facility] Beam on 07-16-2024 Erythrocyte distribution width (RBC) [Entitic vol] 43.7 fL 35.1-43.9 [facility] Hematocrit Auto (Bld) [Volum e fraction]Ordered By: [facility] Beam on 07-16-2024 Hematocrit (Bld) [Volume fraction] 40.0 % 40-54 [facility] Hemoglobin measurementOrdere d By: [facility] Beam on 07-16-2024 Hemoglobin (Bld) [Mass/Vol] 12.9 g/dL Low 13.0-16.5 [facility] Immature granulocytes/100 WB C Auto (Bld)Ordered By: [facility] Be[facility] on 07-16-2024 Immature granulocytes/100 WBC (Bld) 1.100 % High 0.0-0.9 [facility] Comment on above: IG% - Immature Granu locytes (promyelocytes, myelocytes and metamyelocytes) > 1% indicates that a LEFT SHIFT is Present. Lymphocytes Auto (Unsp spec) [#/Vol]Ordered By: bulun Beam on 07-16-2024 Lymphocytes (Bld) [#/Vol] 2.26 10*3/uL 0.83-4.51 [facility] Lymphocytes/100 WBC Auto (Un sp spec)Ordered By: bulun Beam on 07-16-2024 Lymphocytes/100 WBC (Bld) 18.5 % Low 19-41 [facility] MCV (mean corpuscular volume ) determinationOrdered By: Zebulun Beam on 07-16-2024 MCV (RBC) [Entitic vol] 89.9 fL 80-94 [facility] Mean corpuscular hemoglobin (MCH) determinationOrdered By: Zebulun Beam on 07-16-2024 MCH (RBC) [Entitic mass] 29.0 pg 27.0-32.0 [facility] Mean corpuscular hemoglobin concentration (MCHC) determinationOrdered By: Zebulun Beam on 07-16-2024 MCHC (RBC) [Mass/Vol] 32.3 g/dL 32-36 [facility] Mean platelet volume determi nationOrdered By: Zebulun Beam on 07-16-2024 Platelet mean volume (Bld) [Entitic vol] 9.4 fL 6.2-12.0 [facility] Monocyte percentageOrdered B y: Zebulun Beam on 07-16-2024 Monocytes/100 WBC (Bld) 6.8 % 0-10 [facility] Neutrophil percentageOrdered By: Zebulun Beam on 07-16-2024 Neutrophils/100 WBC (Bld) 72.2 % High 47-70 [facility] Nucleated red blood cell per centageOrdered By: Zebulun Beam on 07-16-2024 Nucleated RBC/100 WBC (Bld) [Ratio] 0 % 0-5 [facility] Platelet countOrdered By: Ze bulun Beam on 07-16-2024 Platelets (Bld) [#/Vol] 237 10*3/uL 150-450 [facility] RBC Auto (Bld) [#/Vol]Ordere d By: Zebulun Beam on 07-16-2024 RBC (Bld) [#/Vol] 4.45 10*6/uL Low 4.6-6.2 [facility] White blood cell (WBC) count Ordered By: Zebulun Beam on 07-16-2024 WBC (Bld) [#/Vol] 12.2 10*3/uL High 4.4-11.0 [facility] Diagnostic total prostate sp ecific antigen (PSA) measurementOrdered By: Jignesh Newell on 06-12-2024 Prostate Specific Antigen Total 3.08 ng/mL 0.0-4.0 [facility] Comment on above: This test was perfor med using the TPSA assay method for the[employer] chemistry system. Values obtained with differentassay methods cannot be used interchangably.When changing PSA assays in the course of monitoring apatient, additional sequential testing should be carriedout to confirm baseline values. PSA,Total- Diagnosticon 05-19 PSA, DIAGNOSTIC 3.08 ng/mL Normal 0.0-4.0 [facility] Comment on above: Result Comment: This test was performed using the TPSA assay method for the64 [employer] chemistry system. Values obtained with differentassay methods cannot be used interchangably.When changing PSA assays in the course of monitoring apatient, additional sequential testing should be carriedout to confirm baseline values. Performed By: #### L 501.9940 ####[facility] [address] [place], [address] Basic Metabolic Profile (BMP )on 06-11-2024 BUN/CRE 27.1 RATIO High 10-20 [facility] Comment on above: Performed By: #### L 100.0500, L500.2500, L101.9900 ####[facility] [address] [place], [address] CA,Total 9.1 mg/dL Normal 8.5-10.1 [facility] Comment on above: Performed By: #### L 100.0500, L500.2500, L101.9900 ####[facility] [address] [place], [address] Chloride [Moles/Vol] 106 mmol/L Normal 98-107 [facility] Comment on above: Performed By: #### L 100.0500, L500.2500, L101.9900 ####[facility] [address] [place], [address] CO2 [Moles/Vol] 23.0 mmol/L Normal 21.0-32.0 [facility] Comment on above: Performed By: #### L 100.0500, L500.2500, L101.9900 ####[facility] [address] [place], [address] Creatinine [Mass/Vol] 0.96 mg/dL Normal 0.70-1.30 [facility] Comment on above: Result Comment: The validity of the calculated GFR GFRAA in patients over70 years has not been determined. Clinical correlation isessential. Performed By: #### L 100.0500, L500.2500, L101.9900 ####[facility] [address] [place], [address] EST GFR - AA 101 mL/min Normal >60 [facility] Comment on above: Result Comment: Afri can [place] GFR Calc Performed By: #### L 100.0500, L500.2500, L101.9900 ####[facility] [address] [place], [address] GAP 7 Normal 5-15 [facility] Comment on above: Performed By: #### L 100.0500, L500.2500, L101.9900 ####[facility] [address] [place], [address] GFR/1.73 sq M.predicted among non-blacks MDRD (S/P/Bld) [Vol rate/Area] 83 mL/min/{1.73_m2} Normal >60 [facility] Comment on above: Result Comment: Non- GFR Calc Performed By: #### L 100.0500, L500.2500, L101.9900 ####[facility] [address] [place], [address] Glucose [Mass/Vol] 97 mg/dL Normal 74-106 [facility] Comment on above: Performed By: #### L 100.0500, L500.2500, L101.9900 ####[facility] [address] [place], [address] Potassium [Moles/Vol] 4.5 mmol/L Normal 3.5-5.1 [facility] Comment on above: Performed By: #### L 100.0500, L500.2500, L101.9900 ####[facility] [address] [place], [address] Sodium [Moles/Vol] 136 mmol/L Normal 136-145 [facility] Comment on above: Performed By: #### L 100.0500, L500.2500, L101.9900 ####[facility] [address] [place], [address] Urea nitrogen [Mass/Vol] 26 mg/dL High 7-18 [facility] Comment on above: Performed By: #### L 100.0500, L500.2500, L101.9900 ####[facility] [address] [place], [address] Blood urea nitrogen (BUN)/cr eatinine ratioOrdered By: Sriram Guerrier on 06-11-2024 Urea nitrogen/Creatinine [Mass ratio] 27.1 mg/mg High 10-20 [facility] CBC-Complete Blood Cnt No Di ffon 06-11-2024 Erythrocyte distribution width (RBC) [Ratio] 15.7 % High 11.6-14.6 [facility] Comment on above: Performed By: #### L 100.0500, L500.2500, L101.9900 ####[facility] [address] [place], [address] Hematocrit (Bld) [Volume fraction] 32.4 % Low 40-54 [facility] Comment on above: Performed By: #### L 100.0500, L500.2500, L101.9900 ####[facility] [address] [place], [address] Hemoglobin (Bld) [Mass/Vol] 10.4 g/dL Low 13.0-16.5 [facility] Comment on above: Performed By: #### L 100.0500, L500.2500, L101.9900 ####[facility] [address] [place], [address] MCH (RBC) [Entitic mass] 29.6 pg Normal 27.0-32.0 [facility] Comment on above: Performed By: #### L 100.0500, L500.2500, L101.9900 ####[facility] [address] [place], [address] MCHC (RBC) [Mass/Vol] 32.1 g/dL Normal 32-36 [facility] Comment on above: Performed By: #### L 100.0500, L500.2500, L101.9900 ####[facility] [address] [place], [address] MCV (RBC) [Entitic vol] 92.3 fL Normal 80-94 [facility] Comment on above: Performed By: #### L 100.0500, L500.2500, L101.9900 ####[facility] [address] [place], [address] Platelet mean volume (Bld) [Entitic vol] 9.3 fL Normal 6.2-12.0 [facility] Comment on above: Performed By: #### L 100.0500, L500.2500, L101.9900 ####[facility] [address] [place], [address] Platelets (Bld) [#/Vol] 286 10*3/uL Normal 150-450 [facility] Comment on above: Performed By: #### L 100.0500, L500.2500, L101.9900 ####[facility] [address] [place], [address] RBC (Bld) [#/Vol] 3.51 10*6/uL Low 4.6-6.2 [facility] Comment on above: Performed By: #### L 100.0500, L500.2500, L101.9900 ####[facility] [address] [place], [address] RDW SD 53.1 fl High 35.1-43.9 [facility] Comment on above: Performed By: #### L 100.0500, L500.2500, L101.9900 ####[facility] [address] [place], [address] WBC (Bld) [#/Vol] 6.6 10*3/uL Normal 4.4-11.0 [facility] Comment on above: Performed By: #### L 100.0500, L500.2500, L101.9900 ####[facility] [address] [place], [address] Carbon dioxide measurementOr dered By: Sriram Guerrier on 06-11-2024 CO2 [Moles/Vol] 23.0 mmol/L 21.0-32.0 [facility] Chloride measurementOrdered By: Sriram Guerrier on 06-11-2024 Chloride [Moles/Vol] 106 mmol/L 98-107 [facility] Erythrocyte Sed Rateon 06-11 SED RATE 27 mm/hr High 0-20 [facility] Comment on above: Performed By: #### L 100.0500, L500.2500, L101.9900 ####[facility] [address] [place], [address] Erythrocyte distribution wid th ratioOrdered By: Sriarm Guerrier on 06-11-2024 Erythrocyte distribution width (RBC) [Ratio] 15.7 % High 11.6-14.6 [facility] Erythrocyte distribution wid th standard deviationOrdered By: Sriram Guerrier on 06-11-2024 Erythrocyte distribution width (RBC) [Entitic vol] 53.1 fL High 35.1-43.9 [facility] Erythrocyte sedimentation ra teOrdered By: Sriram Guerrier on 06-11-2024 ESR (Bld) [Velocity] 27 mm/h High 0-20 [facility] Estimated glomerular filtrat ion rate (GFR) AmericanOrdered By: Sriram Guerrier on 06-11-2024 Estimated GFR (MDRD) Amer 101 mL/min >60 [facility] Comment on above: GFR Calc Glomerular filtration rate ( GFR) estimationOrdered By: Sriram Guerrier on 06-11-2024 Estimated GFR (MDRD) Non-Af Amer 83 mL/min >60 [facility] Comment on above: Non- GFR Calc Glucose measurementOrdered B y: Sriram Guerrier on 06-11-2024 Glucose [Mass/Vol] 97 mg/dL 74-106 [facility] Hematocrit Auto (Bld) [Volum e fraction]Ordered By: Sriram Guerrier on 06-11-2024 Hematocrit (Bld) [Volume fraction] 32.4 % Low 40-54 [facility] Hemoglobin measurementOrdere d By: Sriram Guerrier on 06-11-2024 Hemoglobin (Bld) [Mass/Vol] 10.4 g/dL Low 13.0-16.5 [facility] MCV (mean corpuscular volume ) determinationOrdered By: Sriram Guerrier on 06-11-2024 MCV (RBC) [Entitic vol] 92.3 fL 80-94 [facility] Mean corpuscular hemoglobin (MCH) determinationOrdered By: Sriram Guerrier on 06-11-2024 MCH (RBC) [Entitic mass] 29.6 pg 27.0-32.0 [facility] Mean corpuscular hemoglobin concentration (MCHC) determinationOrdered By: Sriram Guerrier on 06-11-2024 MCHC (RBC) [Mass/Vol] 32.1 g/dL 32-36 [facility] Mean platelet volume determi nationOrdered By: Sriram Guerrier on 06-11-2024 Platelet mean volume (Bld) [Entitic vol] 9.3 fL 6.2-12.0 [facility] Platelet countOrdered By: Stephanie Guerrier on 06-11-2024 Platelets (Bld) [#/Vol] 286 10*3/uL 150-450 [facility] Potassium measurementOrdered By: Sriram Guerrier on 06-11-2024 Potassium [Moles/Vol] 4.5 mmol/L 3.5-5.1 [facility] RBC Auto (Bld) [#/Vol]Ordere d By: Sriram Guerrier on 06-11-2024 RBC (Bld) [#/Vol] 3.51 10*6/uL Low 4.6-6.2 [facility] Serum anion gap measurementO rdered By: Sriram Guerrier on 06-11-2024 Anion gap [Moles/Vol] 7 mmol/L 5-15 [facility] Serum or plasma calcium belén urement (mass/volume)Ordered By: Sriram Guerrier on 06-11-2024 Calcium [Mass/Vol] 9.1 mg/dL 8.5-10.1 [facility] Serum or plasma creatinine m easurement (mass/volume)Ordered By: Sriram Guerrier on 06-11-2024 Creatinine [Mass/Vol] 0.96 mg/dL 0.70-1.30 [facility] Comment on above: The validity of the calculated GFR & GFRAA in patients over 70 years has not been determined. Clinical correlation is essential. Serum or plasma urea nitroge n measurement (mass/volume)Ordered By: Sriram Guerrier on 06-11-2024 Urea nitrogen [Mass/Vol] 26 mg/dL High 02-01 [facility] Sodium levelOrdered By: Anthony Guerrier on 06-11-2024 Sodium [Moles/Vol] 136 mmol/L 136-145 [facility] White blood cell (WBC) count Ordered By: Sriram Guerrier on 06-11-2024 WBC (Bld) [#/Vol] 6.6 10*3/uL 4.4-11.0 [facility] Basic Metabolic Profile (BMP )on 06-04-2024 BUN/CRE 23.4 RATIO High 05-06 [facility] Comment on above: Performed By: #### L 500.2500, L100.0500, L101.9900 ####[facility] [address] [place], [address] CA,Total 9.3 mg/dL Normal 8.5-10.1 [facility] Comment on above: Performed By: #### L 500.2500, L100.0500, L101.9900 ####[facility] [address] [place], [address] Chloride [Moles/Vol] 105 mmol/L Normal 98-107 [facility] Comment on above: Performed By: #### L 500.2500, L100.0500, L101.9900 ####[facility] [address] [place], [address] CO2 [Moles/Vol] 25.0 mmol/L Normal 21.0-32.0 [facility] Comment on above: Performed By: #### L 500.2500, L100.0500, L101.9900 ####[facility] [address] [place], [address] Creatinine [Mass/Vol] 0.94 mg/dL Normal 0.70-1.30 [facility] Comment on above: Result Comment: The validity of the calculated GFR GFRAA in patients over70 years has not been determined. Clinical correlation isessential. Performed By: #### L 500.2500, L100.0500, L101.9900 ####[facility] [address] [place], [address] EST GFR - AA 103 mL/min Normal >60 [facility] Comment on above: Result Comment: Afri can [place] GFR Calc Performed By: #### L 500.2500, L100.0500, L101.9900 ####[facility] [address] [place], [address] GAP 8 Normal 5-15 [facility] Comment on above: Performed By: #### L 500.2500, L100.0500, L101.9900 ####[facility] [address] [place], [address] GFR/1.73 sq M.predicted among non-blacks MDRD (S/P/Bld) [Vol rate/Area] 85 mL/min/{1.73_m2} Normal >60 [facility] Comment on above: Result Comment: Non- GFR Calc Performed By: #### L 500.2500, L100.0500, L101.9900 ####[facility] [address] [place], [address] Glucose [Mass/Vol] 67 mg/dL Low 74-106 [facility] Comment on above: Performed By: #### L 500.2500, L100.0500, L101.9900 ####[facility] [address] [place], [address] Potassium [Moles/Vol] 4.3 mmol/L Normal 3.5-5.1 [facility] Comment on above: Performed By: #### L 500.2500, L100.0500, L101.9900 ####[facility] [address] [place], [address] Sodium [Moles/Vol] 137 mmol/L Normal 136-145 [facility] Comment on above: Performed By: #### L 500.2500, L100.0500, L101.9900 ####[facility] [address] [place], [address] Urea nitrogen [Mass/Vol] 22 mg/dL High 7-18 [facility] Comment on above: Performed By: #### L 500.2500, L100.0500, L101.9900 ####[facility] [address] [place], [address] CBC-Complete Blood Cnt No Di ffon 06-04-2024 Erythrocyte distribution width (RBC) [Ratio] 15.9 % High 11.6-14.6 [facility] Comment on above: Performed By: #### L 500.2500, L100.0500, L101.9900 ####[facility] [address] [place], [address] Hematocrit (Bld) [Volume fraction] 31.5 % Low 40-54 [facility] Comment on above: Performed By: #### L 500.2500, L100.0500, L101.9900 ####[facility] [address] [place], [address] Hemoglobin (Bld) [Mass/Vol] 10.0 g/dL Low 13.0-16.5 [facility] Comment on above: Performed By: #### L 500.2500, L100.0500, L101.9900 ####[facility] [address] [place], [address] MCH (RBC) [Entitic mass] 29.4 pg Normal 27.0-32.0 [facility] Comment on above: Performed By: #### L 500.2500, L100.0500, L101.9900 ####[facility] [address] [place], [address] MCHC (RBC) [Mass/Vol] 31.7 g/dL Low 32-36 [facility] Comment on above: Performed By: #### L 500.2500, L100.0500, L101.9900 ####[facility] [address] [place], [address] MCV (RBC) [Entitic vol] 92.6 fL Normal 80-94 [facility] Comment on above: Performed By: #### L 500.2500, L100.0500, L101.9900 ####[facility] [address] [place], [address] Platelet mean volume (Bld) [Entitic vol] 9.4 fL Normal 6.2-12.0 [facility] Comment on above: Performed By: #### L 500.2500, L100.0500, L101.9900 ####[facility] [address] [place], [address] Platelets (Bld) [#/Vol] 278 10*3/uL Normal 150-450 [facility] Comment on above: Performed By: #### L 500.2500, L100.0500, L101.9900 ####[facility] [address] [place], [address] RBC (Bld) [#/Vol] 3.40 10*6/uL Low 4.6-6.2 [facility] Comment on above: Performed By: #### L 500.2500, L100.0500, L101.9900 ####[facility] [address] [place], [address] RDW SD 53.3 fl High 35.1-43.9 [facility] Comment on above: Performed By: #### L 500.2500, L100.0500, L101.9900 ####[facility] [address] [place], [address] WBC (Bld) [#/Vol] 6.8 10*3/uL Normal 4.4-11.0 [facility] Comment on above: Performed By: #### L 500.2500, L100.0500, L101.9900 ####[facility] [address] [place], [address] Erythrocyte Sed Rateon 06-04 SED RATE 40 mm/hr High 0-20 [facility] Comment on above: Performed By: #### L 500.2500, L100.0500, L101.9900 ####[facility] [address] [place], [address] Basic Metabolic Profile (BMP )on 05-28-2024 BUN/CRE 27.7 RATIO High 10-20 [facility] Comment on above: Performed By: #### L 100.0500, L101.9900, L500.2500 ####[facility] [address] [place], [address] [place],Total 9.6 mg/dL Normal 8.5-10.1 [facility] Comment on above: Performed By: #### L 100.0500, L101.9900, L500.2500 ####[facility] [address] [place], [address] Chloride [Moles/Vol] 103 mmol/L Normal 98-107 [facility] Comment on above: Performed By: #### L 100.0500, L101.9900, L500.2500 ####[facility] [address] [place], [address] CO2 [Moles/Vol] 22.0 mmol/L Normal 21.0-32.0 [facility] Comment on above: Performed By: #### L 100.0500, L101.9900, L500.2500 ####[facility] [address] [place], [address] Creatinine [Mass/Vol] 0.98 mg/dL Normal 0.70-1.30 [facility] Comment on above: Result Comment: The validity of the calculated GFR GFRAA in patients over70 years has not been determined. Clinical correlation isessential. Performed By: #### L 100.0500, L101.9900, L500.2500 ####[facility] [address] [place], [address] EST GFR - AA 99 mL/min Normal >60 [facility] Comment on above: Result Comment: Afri can [place] GFR Calc Performed By: #### L 100.0500, L101.9900, L500.2500 ####[facility] [address] [place], [address] GAP 10 Normal 5-15 [facility] Comment on above: Performed By: #### L 100.0500, L101.9900, L500.2500 ####[facility] [address] [place], [address] GFR/1.73 sq M.predicted among non-blacks MDRD (S/P/Bld) [Vol rate/Area] 82 mL/min/{1.73_m2} Normal >60 [facility] Comment on above: Result Comment: Non- GFR Calc Performed By: #### L 100.0500, L101.9900, L500.2500 ####[facility] [address] [place], [address] Glucose [Mass/Vol] 100 mg/dL Normal 74-106 [facility] Comment on above: Result Comment: Fast ing Glucose result from 100 to 125 mg/dLsuggests IMPAIRED HOMEOSTASIS per A.D.A. criteria. Performed By: #### L 100.0500, L101.9900, L500.2500 ####[facility] [address] [place], [address] Potassium [Moles/Vol] 4.5 mmol/L Normal 3.5-5.1 [facility] Comment on above: Performed By: #### L 100.0500, L101.9900, L500.2500 ####[facility] [address] [place], [address] Sodium [Moles/Vol] 135 mmol/L Low 136-145 [facility] Comment on above: Performed By: #### L 100.0500, L101.9900, L500.2500 ####[facility] [address] [place], [address] Urea nitrogen [Mass/Vol] 27 mg/dL High 7-18 [facility] Comment on above: Performed By: #### L 100.0500, L101.9900, L500.2500 ####[facility] [address] [place], [address] CBC-Complete Blood Cnt No Di ffon 05-28-2024 Erythrocyte distribution width (RBC) [Ratio] 16.2 % High 11.6-14.6 [facility] Comment on above: Performed By: #### L 100.0500, L101.9900, L500.2500 ####[facility] [address] [place], [address] Hematocrit (Bld) [Volume fraction] 30.7 % Low 40-54 [facility] Comment on above: Performed By: #### L 100.0500, L101.9900, L500.2500 ####[facility] [address] [place], [address] Hemoglobin (Bld) [Mass/Vol] 9.7 g/dL Low 13.0-16.5 [facility] Comment on above: Performed By: #### L 100.0500, L101.9900, L500.2500 ####[facility] [address] [place], [address] MCH (RBC) [Entitic mass] 29.1 pg Normal 27.0-32.0 [facility] Comment on above: Performed By: #### L 100.0500, L101.9900, L500.2500 ####[facility] [address] [place], [address] MCHC (RBC) [Mass/Vol] 31.6 g/dL Low 32-36 [facility] Comment on above: Performed By: #### L 100.0500, L101.9900, L500.2500 ####[facility] [address] [place], [address] MCV (RBC) [Entitic vol] 92.2 fL Normal 80-94 [facility] Comment on above: Performed By: #### L 100.0500, L101.9900, L500.2500 ####[facility] [address] [place], [address] Platelet mean volume (Bld) [Entitic vol] 9.6 fL Normal 6.2-12.0 [facility] Comment on above: Performed By: #### L 100.0500, L101.9900, L500.2500 ####[facility] [address] [place], [address] Platelets (Bld) [#/Vol] 321 10*3/uL Normal 150-450 [facility] Comment on above: Performed By: #### L 100.0500, L101.9900, L500.2500 ####[facility] [address] [place], [address] RBC (Bld) [#/Vol] 3.33 10*6/uL Low 4.6-6.2 [facility] Comment on above: Performed By: #### L 100.0500, L101.9900, L500.2500 ####[facility] [address] [place], [address] RDW SD 54.1 fl High 35.1-43.9 [facility] Comment on above: Performed By: #### L 100.0500, L101.9900, L500.2500 ####[facility] [address] [place], [address] WBC (Bld) [#/Vol] 8.4 10*3/uL Normal 4.4-11.0 [facility] Comment on above: Performed By: #### L 100.0500, L101.9900, L500.2500 ####[facility] [address] [place], [address] Erythrocyte Sed Rateon 05-28 SED RATE 35 mm/hr High 0-20 [facility] Comment on above: Performed By: #### L 100.0500, L101.9900, L500.2500 ####[facility] [address] [place], [address] Basic Metabolic Profile (BMP )on 11-04-2024 BUN/CRE 19.9 RATIO Normal 10-20 [facility] Comment on above: Performed By: #### L 500.2500, L100.0500, L101.9900 ####[facility] [address] [place], [address] CA,Total 9.2 mg/dL Normal 8.5-10.1 [facility] Comment on above: Performed By: #### L 500.2500, L100.0500, L101.9900 ####[facility] [address] [place], [address] Chloride [Moles/Vol] 102 mmol/L Normal 98-107 [facility] Comment on above: Performed By: #### L 500.2500, L100.0500, L101.9900 ####[facility] [address] [place], [address] CO2 [Moles/Vol] 24.0 mmol/L Normal 21.0-32.0 [facility] Comment on above: Performed By: #### L 500.2500, L100.0500, L101.9900 ####[facility] [address] [place], [address] Creatinine [Mass/Vol] 0.95 mg/dL Normal 0.70-1.30 [facility] Comment on above: Result Comment: The validity of the calculated GFR GFRAA in patients over70 years has not been determined. Clinical correlation isessential. Performed By: #### L 500.2500, L100.0500, L101.9900 ####[facility] [address] [place], [address] EST GFR - AA 102 mL/min Normal >60 [facility] Comment on above: Result Comment: Afri can [place] GFR Calc Performed By: #### L 500.2500, L100.0500, L101.9900 ####[facility] [address] [place], [address] GAP 7 Normal 5-15 [facility] Comment on above: Performed By: #### L 500.2500, L100.0500, L101.9900 ####[facility] [address] [place], [address] GFR/1.73 sq M.predicted among non-blacks MDRD (S/P/Bld) [Vol rate/Area] 84 mL/min/{1.73_m2} Normal >60 [facility] Comment on above: Result Comment: Non- GFR Calc Performed By: #### L 500.2500, L100.0500, L101.9900 ####[facility] [address] [place], [address] Glucose [Mass/Vol] 95 mg/dL Normal 74-106 [facility] Comment on above: Performed By: #### L 500.2500, L100.0500, L101.9900 ####[facility] [address] [place], [address] Potassium [Moles/Vol] 4.3 mmol/L Normal 3.5-5.1 [facility] Comment on above: Performed By: #### L 500.2500, L100.0500, L101.9900 ####[facility] [address] [place], [address] Sodium [Moles/Vol] 133 mmol/L Low 136-145 [facility] Comment on above: Performed By: #### L 500.2500, L100.0500, L101.9900 ####[facility] [address] [place], [address] Urea nitrogen [Mass/Vol] 19 mg/dL High 7-18 [facility] Comment on above: Performed By: #### L 500.2500, L100.0500, L101.9900 ####[facility] [address] [place], [address] CBC-Complete Blood Cnt No Cher uribe 05-21-2024 Erythrocyte distribution width (RBC) [Ratio] 16.0 % High 11.6-14.6 [facility] Comment on above: Performed By: #### L 500.2500, L100.0500, L101.9900 ####[facility] [address] [place], [address] Hematocrit (Bld) [Volume fraction] 29.2 % Low 40-54 [facility] Comment on above: Performed By: #### L 500.2500, L100.0500, L101.9900 ####[facility] [address] [place], [address] Hemoglobin (Bld) [Mass/Vol] 9.4 g/dL Low 13.0-16.5 [facility] Comment on above: Performed By: #### L 500.2500, L100.0500, L101.9900 ####[facility] [address] [place], [address] MCH (RBC) [Entitic mass] 29.2 pg Normal 27.0-32.0 [facility] Comment on above: Performed By: #### L 500.2500, L100.0500, L101.9900 ####[facility] [address] [place], [address] MCHC (RBC) [Mass/Vol] 32.2 g/dL Normal 32-36 [facility] Comment on above: Performed By: #### L 500.2500, L100.0500, L101.9900 ####[facility] [address] [place], [address] MCV (RBC) [Entitic vol] 90.7 fL Normal 80-94 [facility] Comment on above: Performed By: #### L 500.2500, L100.0500, L101.9900 ####[facility] [address] [place], [address] Platelet mean volume (Bld) [Entitic vol] 9.7 fL Normal 6.2-12.0 [facility] Comment on above: Performed By: #### L 500.2500, L100.0500, L101.9900 ####[facility] [address] [place], [address] Platelets (Bld) [#/Vol] 310 10*3/uL Normal 150-450 [facility] Comment on above: Performed By: #### L 500.2500, L100.0500, L101.9900 ####[facility] [address] [place], [address] RBC (Bld) [#/Vol] 3.22 10*6/uL Low 4.6-6.2 [facility] Comment on above: Performed By: #### L 500.2500, L100.0500, L101.9900 ####[facility] [address] [place], [address] RDW SD 52.9 fl High 35.1-43.9 [facility] Comment on above: Performed By: #### L 500.2500, L100.0500, L101.9900 ####[facility] [address] [place], [address] WBC (Bld) [#/Vol] 10.5 10*3/uL Normal 4.4-11.0 [facility] Comment on above: Performed By: #### L 500.2500, L100.0500, L101.9900 ####[facility] [address] [place], [address] Erythrocyte Sed Rateon 05-21 SED RATE 57 mm/hr High 0-20 [facility] Comment on above: Performed By: #### L 500.2500, L100.0500, L101.9900 ####[facility] [address] [place], [address] Basic Metabolic Profile (BMP )on 05-15-2024 BUN/CRE 21.3 RATIO High 10- [facility] Comment on above: Order Comment: FAX R ESULTS TO [phone] Performed By: #### L 500.2500, L100.0500, L101.9900 ####[facility] [address] [place], [address] CA,Total 9.7 mg/dL Normal 8.5-10.1 [facility] Comment on above: Order Comment: FAX R ESULTS TO [phone] Performed By: #### L 500.2500, L100.0500, L101.9900 ####[facility] [address] [place], [address] Chloride [Moles/Vol] 100 mmol/L Normal 98-107 [facility] Comment on above: Order Comment: FAX R ESULTS TO [phone] Performed By: #### L 500.2500, L100.0500, L101.9900 ####[facility] [address] [place], [address] CO2 [Moles/Vol] 26.0 mmol/L Normal 21.0-32.0 [facility] Comment on above: Order Comment: FAX R ESULTS TO [phone] Performed By: #### L 500.2500, L100.0500, L101.9900 ####[facility] [address] [place], [address] Creatinine [Mass/Vol] 0.98 mg/dL Normal 0.70-1.30 [facility] Comment on above: Order Comment: FAX R ESULTS TO [phone] Result Comment: The validity of the calculated GFR GFRAA in patients over70 years has not been determined. Clinical correlation isessential. Performed By: #### L 500.2500, L100.0500, L101.9900 ####[facility] [address] [place], [address] EST GFR - AA 98 mL/min Normal >60 [facility] Comment on above: Order Comment: FAX R ESULTS TO [phone] Result Comment: Afri can [place] GFR Calc Performed By: #### L 500.2500, L100.0500, L101.9900 ####[facility] [address] [place], [address] GAP 7 Normal 5-15 [facility] Comment on above: Order Comment: FAX R ESULTS TO [phone] Performed By: #### L 500.2500, L100.0500, L101.9900 ####[facility] [address] [place], [address] GFR/1.73 sq M.predicted among non-blacks MDRD (S/P/Bld) [Vol rate/Area] 81 mL/min/{1.73_m2} Normal >60 [facility] Comment on above: Order Comment: FAX R ESULTS TO [phone] Result Comment: Non- GFR Calc Performed By: #### L 500.2500, L100.0500, L101.9900 ####[facility] [address] [place], [address] Glucose [Mass/Vol] 130 mg/dL High 74-106 [facility] Comment on above: Order Comment: FAX R ESULTS TO [phone] Result Comment: Fast ing Glucose result greater than or equal to 126 mg/dLsuggests DIABETES MELLITUS per A.D.A. criteria. Performed By: #### L 500.2500, L100.0500, L101.9900 ####[facility] [address] [place], [address] Potassium [Moles/Vol] 4.2 mmol/L Normal 3.5-5.1 [facility] Comment on above: Order Comment: FAX R ESULTS TO [phone] Performed By: #### L 500.2500, L100.0500, L101.9900 ####[facility] [address] [place], [address] Sodium [Moles/Vol] 133 mmol/L Low 136-145 [facility] Comment on above: Order Comment: FAX R ESULTS TO [phone] Performed By: #### L 500.2500, L100.0500, L101.9900 ####[facility] [address] [place], [address] Urea nitrogen [Mass/Vol] 21 mg/dL High 7-18 [facility] Comment on above: Order Comment: FAX R ESULTS TO [phone] Performed By: #### L 500.2500, L100.0500, L101.9900 ####[facility] [address] [place], [address] CBC-Complete Blood Cnt No Di ffon 05-15-2024 Erythrocyte distribution width (RBC) [Ratio] 15.9 % High 11.6-14.6 [facility] Comment on above: Performed By: #### L 500.2500, L100.0500, L101.9900 ####[facility] [address] [place], [address] Hematocrit (Bld) [Volume fraction] 30.9 % Low 40-54 [facility] Comment on above: Performed By: #### L 500.2500, L100.0500, L101.9900 ####[facility] [address] [place], [address] Hemoglobin (Bld) [Mass/Vol] 9.9 g/dL Low 13.0-16.5 [facility] Comment on above: Performed By: #### L 500.2500, L100.0500, L101.9900 ####[facility] [address] [place], [address] MCH (RBC) [Entitic mass] 29.1 pg Normal 27.0-32.0 [facility] Comment on above: Performed By: #### L 500.2500, L100.0500, L101.9900 ####[facility] [address] [place], [address] MCHC (RBC) [Mass/Vol] 32.0 g/dL Normal 32-36 [facility] Comment on above: Performed By: #### L 500.2500, L100.0500, L101.9900 ####[facility] [address] [place], [address] MCV (RBC) [Entitic vol] 90.9 fL Normal 80-94 [facility] Comment on above: Performed By: #### L 500.2500, L100.0500, L101.9900 ####[facility] [address] [place], [address] Platelet mean volume (Bld) [Entitic vol] 10.0 fL Normal 6.2-12.0 [facility] Comment on above: Performed By: #### L 500.2500, L100.0500, L101.9900 ####[facility] [address] [place], [address] Platelets (Bld) [#/Vol] 333 10*3/uL Normal 150-450 [facility] Comment on above: Performed By: #### L 500.2500, L100.0500, L101.9900 ####[facility] [address] [place], [address] RBC (Bld) [#/Vol] 3.40 10*6/uL Low 4.6-6.2 [facility] Comment on above: Performed By: #### L 500.2500, L100.0500, L101.9900 ####[facility] [address] [place], [address] RDW SD 51.8 fl High 35.1-43.9 [facility] Comment on above: Performed By: #### L 500.2500, L100.0500, L101.9900 ####[facility] [address] [place], [address] WBC (Bld) [#/Vol] 12.7 10*3/uL High 4.4-11.0 [facility] Comment on above: Performed By: #### L 500.2500, L100.0500, L101.9900 ####[facility] [address] [place], [address] Erythrocyte Sed Rateon 05-15 SED RATE 47 mm/hr High 0-20 [facility] Comment on above: Performed By: #### L 500.2500, L100.0500, L101.9900 ####[facility] [address] [place], [address] Basic Metabolic Profile (BMP )on 05-12-2024 BUN Normal -18 [facility] Comment on above: Result Comment: Canc elled via OM: Order cancelled - Patient discharged Performed By: #### L 100.0100, L500.2500 ####[facility] [address] [place], [address] BUN/CRE Normal - [facility] Comment on above: Result Comment: Canc elled via OM: Order cancelled - Patient discharged Performed By: #### L 100.0100, L500.2500 ####[facility] [address] [place], [address] CA,Total Normal 8.5-10.1 [facility] Comment on above: Result Comment: Canc elled via OM: Order cancelled - Patient discharged Performed By: #### L 100.0100, L500.2500 ####[facility] [address] [place], [address] CL Normal 98-107 [facility] Comment on above: Result Comment: Canc elled via OM: Order cancelled - Patient discharged Performed By: #### L 100.0100, L500.2500 ####[facility] [address] [place], [address] CO2 Normal 21.0-32.0 [facility] Comment on above: Result Comment: Canc elled via OM: Order cancelled - Patient discharged Performed By: #### L 100.0100, L500.2500 ####[facility] [address] [place], [address] CREAT,SERUM Normal 0.70-1.30 [facility] Comment on above: Result Comment: Canc elled via OM: Order cancelled - Patient discharged Performed By: #### L 100.0100, L500.2500 ####[facility] [address] [place], [address] EST GFR Normal >60 [facility] Comment on above: Result Comment: Canc elled via OM: Order cancelled - Patient discharged Performed By: #### L 100.0100, L500.2500 ####[facility] [address] [place], [address] EST GFR - AA Normal >60 [facility] Comment on above: Result Comment: Canc elled via OM: Order cancelled - Patient discharged Performed By: #### L 100.0100, L500.2500 ####[facility] [address] [place], [address] GAP Normal 5-15 [facility] Comment on above: Result Comment: Canc elled via OM: Order cancelled - Patient discharged Performed By: #### L 100.0100, L500.2500 ####[facility] [address] [place], [address] GLU Normal 74-106 [facility] Comment on above: Result Comment: Canc elled via OM: Order cancelled - Patient discharged Performed By: #### L 100.0100, L500.2500 ####[facility] [address] [place], [address] Potassium Normal 3.5-5.1 [facility] Comment on above: Result Comment: Canc elled via OM: Order cancelled - Patient discharged Performed By: #### L 100.0100, L500.2500 ####[facility] [address] [place], [address] Basic Metabolic Profile (BMP) Normal 136-145 [facility] Comment on above: Result Comment: Canc elled via OM: Order cancelled - Patient discharged Performed By: #### L 100.0100, L500.2500 ####[facility] [address] [place], [address] CBC W/Diff, Automatedon 10-2 Absolute Neut Normal 2.0-7.7 [facility] Comment on above: Result Comment: Canc elled via OM: Order cancelled - Patient discharged Performed By: #### L 100.0100, L500.2500 ####[facility] [address] [place], [address] HCT Normal 40-54 [facility] Comment on above: Result Comment: Canc elled via OM: Order cancelled - Patient discharged Performed By: #### L 100.0100, L500.2500 ####[facility] [address] [place], [address] HGB Normal 13.0-16.5 [facility] Comment on above: Result Comment: Canc elled via OM: Order cancelled - Patient discharged Performed By: #### L 100.0100, L500.2500 ####[facility] [address] [place], [address] MCH Normal 27.0-32.0 [facility] Comment on above: Result Comment: Canc elled via OM: Order cancelled - Patient discharged Performed By: #### L 100.0100, L500.2500 ####[facility] [address] [place], [address] MCHC Normal 32-36 [facility] Comment on above: Result Comment: Canc elled via OM: Order cancelled - Patient discharged Performed By: #### L 100.0100, L500.2500 ####[facility] [address] [place], [address] MCV Normal 80-94 [facility] Comment on above: Result Comment: Canc elled via OM: Order cancelled - Patient discharged Performed By: #### L 100.0100, L500.2500 ####[facility] [address] [place], [address] NEUT% Normal 47-70 [facility] Comment on above: Result Comment: Canc elled via OM: Order cancelled - Patient discharged Performed By: #### L 100.0100, L500.2500 ####[facility] [address] [place], [address] PLT Normal 150-450 [facility] Comment on above: Result Comment: Canc elled via OM: Order cancelled - Patient discharged Performed By: #### L 100.0100, L500.2500 ####[facility] [address] [place], [address] RBC Normal 4.6-6.2 [facility] Comment on above: Result Comment: Canc elled via OM: Order cancelled - Patient discharged Performed By: #### L 100.0100, L500.2500 ####[facility] [address] [place], [address] RDW CV Normal 11.6-14.6 [facility] Comment on above: Result Comment: Canc elled via OM: Order cancelled - Patient discharged Performed By: #### L 100.0100, L500.2500 ####[facility] [address] [place], [address] RDW SD Normal 35.1-43.9 [facility] Comment on above: Result Comment: Canc elled via OM: Order cancelled - Patient discharged Performed By: #### L 100.0100, L500.2500 ####[facility] [address] [place], [address] WBC Normal 4.4-11.0 [facility] Comment on above: Result Comment: Canc elled via OM: Order cancelled - Patient discharged Performed By: #### L 100.0100, L500.2500 ####[facility] [address] [place], [address] Basic Metabolic Profile (BMP )on 05-11-2024 BUN Normal -18 [facility] Comment on above: Result Comment: Canc elled via OM: Order cancelled - Patient discharged Performed By: #### L 100.0100, L500.2500 ####[facility] [address] [place], [address] BUN/CRE Normal 10-20 [facility] Comment on above: Result Comment: Canc elled via OM: Order cancelled - Patient discharged Performed By: #### L 100.0100, L500.2500 ####[facility] [address] [place], [address] CA,Total Normal 8.5-10.1 [facility] Comment on above: Result Comment: Canc elled via OM: Order cancelled - Patient discharged Performed By: #### L 100.0100, L500.2500 ####[facility] [address] [place], [address] CL Normal 98-107 [facility] Comment on above: Result Comment: Canc elled via OM: Order cancelled - Patient discharged Performed By: #### L 100.0100, L500.2500 ####[facility] [address] [place], [address] CO2 Normal 21.0-32.0 [facility] Comment on above: Result Comment: Canc elled via OM: Order cancelled - Patient discharged Performed By: #### L 100.0100, L500.2500 ####[facility] [address] [place], [address] CREAT,SERUM Normal 0.70-1.30 [facility] Comment on above: Result Comment: Canc elled via OM: Order cancelled - Patient discharged Performed By: #### L 100.0100, L500.2500 ####[facility] [address] [place], [address] EST GFR Normal >60 [facility] Comment on above: Result Comment: Canc elled via OM: Order cancelled - Patient discharged Performed By: #### L 100.0100, L500.2500 ####[facility] [address] [place], [address] EST GFR - AA Normal >60 [facility] Comment on above: Result Comment: Canc elled via OM: Order cancelled - Patient discharged Performed By: #### L 100.0100, L500.2500 ####[facility] [address] [place], [address] GAP Normal 5-15 [facility] Comment on above: Result Comment: Canc elled via OM: Order cancelled - Patient discharged Performed By: #### L 100.0100, L500.2500 ####[facility] [address] [place], [address] GLU Normal 74-106 [facility] Comment on above: Result Comment: Canc elled via OM: Order cancelled - Patient discharged Performed By: #### L 100.0100, L500.2500 ####[facility] [address] [place], [address] Potassium Normal 3.5-5.1 [facility] Comment on above: Result Comment: Canc elled via OM: Order cancelled - Patient discharged Performed By: #### L 100.0100, L500.2500 ####[facility] [address] [place], [address] Basic Metabolic Profile (BMP) Normal 136-145 [facility] Comment on above: Result Comment: Canc elled via OM: Order cancelled - Patient discharged Performed By: #### L 100.0100, L500.2500 ####[facility] [address] [place], [address] CBC W/Diff, Automatedon 10-2 Absolute Neut Normal 2.0-7.7 [facility] Comment on above: Result Comment: Canc elled via OM: Order cancelled - Patient discharged Performed By: #### L 100.0100, L500.2500 ####[facility] [address] [place], [address] HCT Normal 40-54 [facility] Comment on above: Result Comment: Canc elled via OM: Order cancelled - Patient discharged Performed By: #### L 100.0100, L500.2500 ####[facility] [address] [place], [address] HGB Normal 13.0-16.5 [facility] Comment on above: Result Comment: Canc elled via OM: Order cancelled - Patient discharged Performed By: #### L 100.0100, L500.2500 ####[facility] [address] [place], [address] MCH Normal 27.0-32.0 [facility] Comment on above: Result Comment: Canc elled via OM: Order cancelled - Patient discharged Performed By: #### L 100.0100, L500.2500 ####[facility] [address] [place], [address] MCHC Normal 32-36 [facility] Comment on above: Result Comment: Canc elled via OM: Order cancelled - Patient discharged Performed By: #### L 100.0100, L500.2500 ####[facility] [address] [place], [address] MCV Normal 80-94 [facility] Comment on above: Result Comment: Canc elled via OM: Order cancelled - Patient discharged Performed By: #### L 100.0100, L500.2500 ####[facility] [address] [place], [address] NEUT% Normal 47-70 [facility] Comment on above: Result Comment: Canc elled via OM: Order cancelled - Patient discharged Performed By: #### L 100.0100, L500.2500 ####[facility] [address] [place], [address] PLT Normal 150-450 [facility] Comment on above: Result Comment: Canc elled via OM: Order cancelled - Patient discharged Performed By: #### L 100.0100, L500.2500 ####[facility] [address] [place], [address] RBC Normal 4.6-6.2 [facility] Comment on above: Result Comment: Canc elled via OM: Order cancelled - Patient discharged Performed By: #### L 100.0100, L500.2500 ####[facility] [address] [place], [address] RDW CV Normal 11.6-14.6 [facility] Comment on above: Result Comment: Canc elled via OM: Order cancelled - Patient discharged Performed By: #### L 100.0100, L500.2500 ####[facility] [address] [place], [address] RDW SD Normal 35.1-43.9 [facility] Comment on above: Result Comment: Canc elled via OM: Order cancelled - Patient discharged Performed By: #### L 100.0100, L500.2500 ####[facility] [address] [place], [address] WBC Normal 4.4-11.0 [facility] Comment on above: Result Comment: Canc elled via OM: Order cancelled - Patient discharged Performed By: #### L 100.0100, L500.2500 ####[facility] [address] [place], [address] Basic Metabolic Profile (BMP )on 05-10-2024 BUN Normal -18 [facility] Comment on above: Result Comment: Canc elled via OM: Order cancelled - Patient discharged Performed By: #### L 100.0100, L500.2500 ####[facility] [address] [place], [address] BUN/CRE Normal - [facility] Comment on above: Result Comment: Canc elled via OM: Order cancelled - Patient discharged Performed By: #### L 100.0100, L500.2500 ####[facility] [address] [place], [address] [place],Total Normal 8.5-10.1 [facility] Comment on above: Result Comment: Canc elled via OM: Order cancelled - Patient discharged Performed By: #### L 100.0100, L500.2500 ####[facility] [address] [place], [address] CL Normal 98-107 [facility] Comment on above: Result Comment: Canc elled via OM: Order cancelled - Patient discharged Performed By: #### L 100.0100, L500.2500 ####[facility] [address] [place], [address] CO2 Normal 21.0-32.0 [facility] Comment on above: Result Comment: Canc elled via OM: Order cancelled - Patient discharged Performed By: #### L 100.0100, L500.2500 ####[facility] [address] [place], [address] CREAT,SERUM Normal 0.70-1.30 [facility] Comment on above: Result Comment: Canc elled via OM: Order cancelled - Patient discharged Performed By: #### L 100.0100, L500.2500 ####[facility] [address] [place], [address] EST GFR Normal >60 [facility] Comment on above: Result Comment: Canc elled via OM: Order cancelled - Patient discharged Performed By: #### L 100.0100, L500.2500 ####[facility] [address] [place], [address] EST GFR - AA Normal >60 [facility] Comment on above: Result Comment: Canc elled via OM: Order cancelled - Patient discharged Performed By: #### L 100.0100, L500.2500 ####[facility] [address] [place], [address] GAP Normal 5-15 [facility] Comment on above: Result Comment: Canc elled via OM: Order cancelled - Patient discharged Performed By: #### L 100.0100, L500.2500 ####[facility] [address] [place], [address] GLU Normal 74-106 [facility] Comment on above: Result Comment: Canc elled via OM: Order cancelled - Patient discharged Performed By: #### L 100.0100, L500.2500 ####[facility] [address] [place], [address] Potassium Normal 3.5-5.1 [facility] Comment on above: Result Comment: Canc elled via OM: Order cancelled - Patient discharged Performed By: #### L 100.0100, L500.2500 ####[facility] [address] [place], [address] Basic Metabolic Profile (BMP) Normal 136-145 [facility] Comment on above: Result Comment: Canc elled via OM: Order cancelled - Patient discharged Performed By: #### L 100.0100, L500.2500 ####[facility] [address] [place], [address] CBC W/Diff, Automatedon 10-2 Absolute Neut Normal 2.0-7.7 [facility] Comment on above: Result Comment: Canc elled via OM: Order cancelled - Patient discharged Performed By: #### L 100.0100, L500.2500 ####[facility] [address] [place], [address] HCT Normal 40-54 [facility] Comment on above: Result Comment: Canc elled via OM: Order cancelled - Patient discharged Performed By: #### L 100.0100, L500.2500 ####[facility] [address] [place], [address] HGB Normal 13.0-16.5 [facility] Comment on above: Result Comment: Canc elled via OM: Order cancelled - Patient discharged Performed By: #### L 100.0100, L500.2500 ####[facility] [address] [place], [address] MCH Normal 27.0-32.0 [facility] Comment on above: Result Comment: Canc elled via OM: Order cancelled - Patient discharged Performed By: #### L 100.0100, L500.2500 ####[facility] [address] [place], [address] MCHC Normal 32-36 [facility] Comment on above: Result Comment: Canc elled via OM: Order cancelled - Patient discharged Performed By: #### L 100.0100, L500.2500 ####[facility] [address] [place], [address] MCV Normal 80-94 [facility] Comment on above: Result Comment: Canc elled via OM: Order cancelled - Patient discharged Performed By: #### L 100.0100, L500.2500 ####[facility] [address] [place], [address] NEUT% Normal 47-70 [facility] Comment on above: Result Comment: Canc elled via OM: Order cancelled - Patient discharged Performed By: #### L 100.0100, L500.2500 ####[facility] [address] [place], [address] PLT Normal 150-450 [facility] Comment on above: Result Comment: Canc elled via OM: Order cancelled - Patient discharged Performed By: #### L 100.0100, L500.2500 ####[facility] [address] [place], [address] RBC Normal 4.6-6.2 [facility] Comment on above: Result Comment: Canc elled via OM: Order cancelled - Patient discharged Performed By: #### L 100.0100, L500.2500 ####[facility] [address] [place], [address] RDW CV Normal 11.6-14.6 [facility] Comment on above: Result Comment: Canc elled via OM: Order cancelled - Patient discharged Performed By: #### L 100.0100, L500.2500 ####[facility] [address] [place], [address] RDW SD Normal 35.1-43.9 [facility] Comment on above: Result Comment: Canc elled via OM: Order cancelled - Patient discharged Performed By: #### L 100.0100, L500.2500 ####[facility] [address] [place], [address] WBC Normal 4.4-11.0 [facility] Comment on above: Result Comment: Canc elled via OM: Order cancelled - Patient discharged Performed By: #### L 100.0100, L500.2500 ####[facility] [address] [place], [address] Basic Metabolic Profile (BMP )on 05-09-2024 BUN Normal 7-18 [facility] Comment on above: Result Comment: Canc elled via OM: Order cancelled - Patient discharged Performed By: #### L 100.0100, L500.2500 ####[facility] [address] [place], [address] BUN/CRE Normal 10-20 [facility] Comment on above: Result Comment: Canc elled via OM: Order cancelled - Patient discharged Performed By: #### L 100.0100, L500.2500 ####[facility] [address] [place], [address] [place],Total Normal 8.5-10.1 [facility] Comment on above: Result Comment: Canc elled via OM: Order cancelled - Patient discharged Performed By: #### L 100.0100, L500.2500 ####[facility] [address] [place], [address] CL Normal 98-107 [facility] Comment on above: Result Comment: Canc elled via OM: Order cancelled - Patient discharged Performed By: #### L 100.0100, L500.2500 ####[facility] [address] [place], [address] CO2 Normal 21.0-32.0 [facility] Comment on above: Result Comment: Canc elled via OM: Order cancelled - Patient discharged Performed By: #### L 100.0100, L500.2500 ####[facility] [address] [place], [address] CREAT,SERUM Normal 0.70-1.30 [facility] Comment on above: Result Comment: Canc elled via OM: Order cancelled - Patient discharged Performed By: #### L 100.0100, L500.2500 ####[facility] [address] [place], [address] EST GFR Normal >60 [facility] Comment on above: Result Comment: Canc elled via OM: Order cancelled - Patient discharged Performed By: #### L 100.0100, L500.2500 ####[facility] [address] [place], [address] EST GFR - AA Normal >60 [facility] Comment on above: Result Comment: Canc elled via OM: Order cancelled - Patient discharged Performed By: #### L 100.0100, L500.2500 ####[facility] [address] [place], [address] GAP Normal 5-15 [facility] Comment on above: Result Comment: Canc elled via OM: Order cancelled - Patient discharged Performed By: #### L 100.0100, L500.2500 ####[facility] [address] [place], [address] GLU Normal 74-106 [facility] Comment on above: Result Comment: Canc elled via OM: Order cancelled - Patient discharged Performed By: #### L 100.0100, L500.2500 ####[facility] [address] [place], [address] Potassium Normal 3.5-5.1 [facility] Comment on above: Result Comment: Canc elled via OM: Order cancelled - Patient discharged Performed By: #### L 100.0100, L500.2500 ####[facility] [address] [place], [address] Basic Metabolic Profile (BMP) Normal 136-145 [facility] Comment on above: Result Comment: Canc elled via OM: Order cancelled - Patient discharged Performed By: #### L 100.0100, L500.2500 ####[facility] [address] [place], [address] CBC W/Diff, Automatedon 10-2 Absolute Neut Normal 2.0-7.7 [facility] Comment on above: Result Comment: Canc elled via OM: Order cancelled - Patient discharged Performed By: #### L 100.0100, L500.2500 ####[facility] [address] [place], [address] HCT Normal 40-54 [facility] Comment on above: Result Comment: Canc elled via OM: Order cancelled - Patient discharged Performed By: #### L 100.0100, L500.2500 ####[facility] [address] [place], [address] HGB Normal 13.0-16.5 [facility] Comment on above: Result Comment: Canc elled via OM: Order cancelled - Patient discharged Performed By: #### L 100.0100, L500.2500 ####[facility] [address] [place], [address] MCH Normal 27.0-32.0 [facility] Comment on above: Result Comment: Canc elled via OM: Order cancelled - Patient discharged Performed By: #### L 100.0100, L500.2500 ####[facility] [address] [place], [address] MCHC Normal 32-36 [facility] Comment on above: Result Comment: Canc elled via OM: Order cancelled - Patient discharged Performed By: #### L 100.0100, L500.2500 ####[facility] [address] [place], [address] MCV Normal 80-94 [facility] Comment on above: Result Comment: Canc elled via OM: Order cancelled - Patient discharged Performed By: #### L 100.0100, L500.2500 ####[facility] [address] [place], [address] NEUT% Normal 47-70 [facility] Comment on above: Result Comment: Canc elled via OM: Order cancelled - Patient discharged Performed By: #### L 100.0100, L500.2500 ####[facility] [address] [place], [address] PLT Normal 150-450 [facility] Comment on above: Result Comment: Canc elled via OM: Order cancelled - Patient discharged Performed By: #### L 100.0100, L500.2500 ####[facility] [address] [place], [address] RBC Normal 4.6-6.2 [facility] Comment on above: Result Comment: Canc elled via OM: Order cancelled - Patient discharged Performed By: #### L 100.0100, L500.2500 ####[facility] [address] [place], [address] RDW CV Normal 11.6-14.6 [facility] Comment on above: Result Comment: Canc elled via OM: Order cancelled - Patient discharged Performed By: #### L 100.0100, L500.2500 ####[facility] [address] [place], [address] RDW SD Normal 35.1-43.9 [facility] Comment on above: Result Comment: Canc elled via OM: Order cancelled - Patient discharged Performed By: #### L 100.0100, L500.2500 ####[facility] [address] [place], [address] WBC Normal 4.4-11.0 [facility] Comment on above: Result Comment: Canc elled via OM: Order cancelled - Patient discharged Performed By: #### L 100.0100, L500.2500 ####[facility] [address] [place], [address] 12 Lead EKGon 05-08-2024 12 Lead EKG Normal [facility] Basic Metabolic Profile (BMP )on 05-08-2024 BUN/CRE 24.0 RATIO High 10-20 [facility] Comment on above: Performed By: #### L 500.2500, L500.4050, L100.0100 ####[facility] [address] [place], [address] CA,Total 9.8 mg/dL Normal 8.5-10.1 [facility] Comment on above: Performed By: #### L 500.2500, L500.4050, L100.0100 ####[facility] [address] [place], [address] Chloride [Moles/Vol] 101 mmol/L Normal 98-107 [facility] Comment on above: Performed By: #### L 500.2500, L500.4050, L100.0100 ####[facility] [address] [place], [address] CO2 [Moles/Vol] 24.0 mmol/L Normal 21.0-32.0 [facility] Comment on above: Performed By: #### L 500.2500, L500.4050, L100.0100 ####[facility] [address] [place], [address] Creatinine [Mass/Vol] 0.88 mg/dL Normal 0.70-1.30 [facility] Comment on above: Result Comment: The validity of the calculated GFR GFRAA in patients over70 years has not been determined. Clinical correlation isessential. Performed By: #### L 500.2500, L500.4050, L100.0100 ####[facility] [address] [place], [address] ECRCL 78.24 ml/min Normal [facility] Comment on above: Performed By: #### L 500.2500, L500.4050, L100.0100 ####[facility] [address] [place], [address] EST GFR - AA 112 mL/min Normal >60 [facility] Comment on above: Result Comment: Afri can [place] GFR Calc Performed By: #### L 500.2500, L500.4050, L100.0100 ####[facility] [address] [place], [address] GAP 7 Normal 5-15 [facility] Comment on above: Performed By: #### L 500.2500, L500.4050, L100.0100 ####[facility] [address] [place], [address] GFR/1.73 sq M.predicted among non-blacks MDRD (S/P/Bld) [Vol rate/Area] 93 mL/min/{1.73_m2} Normal >60 [facility] Comment on above: Result Comment: Non- GFR Calc Performed By: #### L 500.2500, L500.4050, L100.0100 ####[facility] [address] [place], [address] Glucose [Mass/Vol] 99 mg/dL Normal 74-106 [facility] Comment on above: Performed By: #### L 500.2500, L500.4050, L100.0100 ####[facility] [address] [place], [address] Potassium [Moles/Vol] 4.0 mmol/L Normal 3.5-5.1 [facility] Comment on above: Performed By: #### L 500.2500, L500.4050, L100.0100 ####[facility] [address] [place], [address] Sodium [Moles/Vol] 132 mmol/L Low 136-145 [facility] Comment on above: Performed By: #### L 500.2500, L500.4050, L100.0100 ####[facility] [address] [place], [address] Urea nitrogen [Mass/Vol] 21 mg/dL High 7-18 [facility] Comment on above: Performed By: #### L 500.2500, L500.4050, L100.0100 ####[facility] [address] [place], [address] CBC W/Diff, Automatedon 10-2 Absolute Lymph 1.89 X10 3/uL Normal 0.83-4.51 [facility] Comment on above: Performed By: #### L 500.2500, L500.4050, L100.0100 ####[facility] [address] [place], [address] Absolute Neut 11.8 X10 3/uL High 2.0-7.7 [facility] Comment on above: Performed By: #### L 500.2500, L500.4050, L100.0100 ####[facility] [address] [place], [address] Basophils/100 WBC (Bld) 0.7 % Normal 0-1 [facility] Comment on above: Performed By: #### L 500.2500, L500.4050, L100.0100 ####[facility] [address] [place], [address] Eosinophils/100 WBC (Bld) 1.0 % Normal 0-5 [facility] Comment on above: Performed By: #### L 500.2500, L500.4050, L100.0100 ####[facility] [address] [place], [address] Erythrocyte distribution width (RBC) [Ratio] 15.3 % High 11.6-14.6 [facility] Comment on above: Performed By: #### L 500.2500, L500.4050, L100.0100 ####[facility] [address] [place], [address] Hematocrit (Bld) [Volume fraction] 30.6 % Low 40-54 [facility] Comment on above: Performed By: #### L 500.2500, L500.4050, L100.0100 ####[facility] [address] [place], [address] Hemoglobin (Bld) [Mass/Vol] 10.2 g/dL Low 13.0-16.5 [facility] Comment on above: Performed By: #### L 500.2500, L500.4050, L100.0100 ####[facility] [address] [place], [address] IG% 2.400 High 0.0-0.9 [facility] Comment on above: Result Comment: IG% - Immature Granulocytes (promyelocytes, myelocytes andmetamyelocytes) > 1% indicates that a LEFT SHIFT is Present. Performed By: #### L 500.2500, L500.4050, L100.0100 ####[facility] [address] [place], [address] Lymphocytes/100 WBC (Bld) 12.2 % Low 19-41 [facility] Comment on above: Performed By: #### L 500.2500, L500.4050, L100.0100 ####[facility] [address] [place], [address] MCH (RBC) [Entitic mass] 29.1 pg Normal 27.0-32.0 [facility] Comment on above: Performed By: #### L 500.2500, L500.4050, L100.0100 ####[facility] [address] [place], [address] MCHC (RBC) [Mass/Vol] 33.3 g/dL Normal 32-36 [facility] Comment on above: Performed By: #### L 500.2500, L500.4050, L100.0100 ####[facility] [address] [place], [address] MCV (RBC) [Entitic vol] 87.2 fL Normal 80-94 [facility] Comment on above: Performed By: #### L 500.2500, L500.4050, L100.0100 ####[facility] [address] [place], [address] Monocytes/100 WBC (Bld) 7.5 % Normal 0-10 [facility] Comment on above: Performed By: #### L 500.2500, L500.4050, L100.0100 ####[facility] [address] [place], [address] Neutrophils/100 WBC (Bld) 76.2 % High 47-70 [facility] Comment on above: Performed By: #### L 500.2500, L500.4050, L100.0100 ####[facility] [address] [place], [address] Nucleated RBC (Bld) [#/Vol] 0 10*3/uL Normal 0-5 [facility] Comment on above: Performed By: #### L 500.2500, L500.4050, L100.0100 ####[facility] [address] [place], [address] Platelet mean volume (Bld) [Entitic vol] 8.5 fL Normal 6.2-12.0 [facility] Comment on above: Performed By: #### L 500.2500, L500.4050, L100.0100 ####[facility] [address] [place], [address] Platelets (Bld) [#/Vol] 368 10*3/uL Normal 150-450 [facility] Comment on above: Performed By: #### L 500.2500, L500.4050, L100.0100 ####[facility] [address] [place], [address] RBC (Bld) [#/Vol] 3.51 10*6/uL Low 4.6-6.2 [facility] Comment on above: Performed By: #### L 500.2500, L500.4050, L100.0100 ####[facility] [address] [place], [address] RDW SD 47.0 fl High 35.1-43.9 [facility] Comment on above: Performed By: #### L 500.2500, L500.4050, L100.0100 ####[facility] [address] [place], [address] WBC (Bld) [#/Vol] 15.5 10*3/uL High 4.4-11.0 [facility] Comment on above: Performed By: #### L 500.2500, L500.4050, L100.0100 ####[facility] [address] [place], [address] Comprehensive Metabolic Prof [facility] 05-08-2024 Albumin [Mass/Vol] 2.6 g/dL Low 3.2-5.0 [facility] Comment on above: Performed By: #### L 500.2500, L500.4050, L100.0100 ####[facility] [address] [place], [address] Albumin/Globulin [Mass ratio] 0.6 {ratio} Low 0.9-2.4 [facility] Comment on above: Performed By: #### L 500.2500, L500.4050, L100.0100 ####[facility] [address] [place], [address] ALK P 131 U/L High 45-117 [facility] Comment on above: Performed By: #### L 500.2500, L500.4050, L100.0100 ####[facility] [address] [place], [address] ALT [Catalytic activity/Vol] 128 U/L High 16-61 [facility] Comment on above: Performed By: #### L 500.2500, L500.4050, L100.0100 ####[facility] [address] [place], [address] AST [Catalytic activity/Vol] 60 U/L High 15-37 [facility] Comment on above: Performed By: #### L 500.2500, L500.4050, L100.0100 ####[facility] [address] [place], [address] Bilirubin [Mass/Vol] 0.80 mg/dL Normal 0.20-1.00 [facility] Comment on above: Result Comment: For patients on eltrombopag therapy, use of Dimension [place] TBIL is not recommended. Performed By: #### L 500.2500, L500.4050, L100.0100 ####[facility] [address] [place], [address] Globulin (S) [Mass/Vol] 4.5 g/dL High 2.2-4.2 [facility] Comment on above: Performed By: #### L 500.2500, L500.4050, L100.0100 ####[facility] [address] [place], [address] T PROT 7.1 g/dL Normal 6.4-8.2 [facility] Comment on above: Performed By: #### L 500.2500, L500.4050, L100.0100 ####[facility] [address] [place], [address] Culture, Blood (WB)on 2023 CUB No growth in 5 days. Normal [facility] Comment on above: Performed By: #### M 200.1000 ####[facility] [address] [place], [address] Echo Transesophageal (GUANAKITO)on 05-08-2024 Echo Transesophageal (GUANAKITO) Normal [facility] Basic Metabolic Profile (BMP )on 05-07-2024 BUN/CRE 21.9 RATIO High 05-06 [facility] Comment on above: Performed By: #### L 100.0100, L500.2500 ####[facility] [address] [place], [address] CA,Total 9.5 mg/dL Normal 8.5-10.1 [facility] Comment on above: Performed By: #### L 100.0100, L500.2500 ####[facility] [address] [place], [address] Chloride [Moles/Vol] 100 mmol/L Normal 98-107 [facility] Comment on above: Performed By: #### L 100.0100, L500.2500 ####[facility] [address] [place], [address] CO2 [Moles/Vol] 23.0 mmol/L Normal 21.0-32.0 [facility] Comment on above: Performed By: #### L 100.0100, L500.2500 ####[facility] [address] [place], [address] Creatinine [Mass/Vol] 0.78 mg/dL Normal 0.70-1.30 [facility] Comment on above: Result Comment: The validity of the calculated GFR GFRAA in patients over70 years has not been determined. Clinical correlation isessential. Performed By: #### L 100.0100, L500.2500 ####[facility] [address] [place], [address] ECRCL 86.07 ml/min Normal [facility] Comment on above: Performed By: #### L 100.0100, L500.2500 ####[facility] [address] [place], [address] EST GFR - AA 129 mL/min Normal >60 [facility] Comment on above: Result Comment: Afri can [place] GFR Calc Performed By: #### L 100.0100, L500.2500 ####[facility] [address] [place], [address] GAP 11 Normal 5-15 [facility] Comment on above: Performed By: #### L 100.0100, L500.2500 ####[facility] [address] [place], [address] GFR/1.73 sq M.predicted among non-blacks MDRD (S/P/Bld) [Vol rate/Area] 106 mL/min/{1.73_m2} Normal >60 [facility] Comment on above: Result Comment: Non- GFR Calc Performed By: #### L 100.0100, L500.2500 ####[facility] [address] [place], [address] Glucose [Mass/Vol] 100 mg/dL Normal 74-106 [facility] Comment on above: Result Comment: Fast ing Glucose result from 100 to 125 mg/dLsuggests IMPAIRED HOMEOSTASIS per A.D.A. criteria. Performed By: #### L 100.0100, L500.2500 ####[facility] [address] [place], [address] Potassium [Moles/Vol] 3.9 mmol/L Normal 3.5-5.1 [facility] Comment on above: Performed By: #### L 100.0100, L500.2500 ####[facility] [address] [place], [address] Sodium [Moles/Vol] 134 mmol/L Low 136-145 [facility] Comment on above: Performed By: #### L 100.0100, L500.2500 ####[facility] [address] [place], [address] Urea nitrogen [Mass/Vol] 17 mg/dL Normal 7-18 [facility] Comment on above: Performed By: #### L 100.0100, L500.2500 ####[facility] [address] [place], [address] CBC W/Diff, Automatedon 10-2 Absolute Lymph 1.71 X10 3/uL Normal 0.83-4.51 [facility] Comment on above: Performed By: #### L 100.0100, L500.2500 ####[facility] [address] [place], [address] Absolute Neut 10.4 X10 3/uL High 2.0-7.7 [facility] Comment on above: Performed By: #### L 100.0100, L500.2500 ####[facility] [address] [place], [address] Basophils/100 WBC (Bld) 0.6 % Normal 0-1 [facility] Comment on above: Performed By: #### L 100.0100, L500.2500 ####[facility] [address] [place], [address] Eosinophils/100 WBC (Bld) 1.4 % Normal 0-5 [facility] Comment on above: Performed By: #### L 100.0100, L500.2500 ####[facility] [address] [place], [address] Erythrocyte distribution width (RBC) [Ratio] 15.0 % High 11.6-14.6 [facility] Comment on above: Performed By: #### L 100.0100, L500.2500 ####[facility] [address] [place], [address] Hematocrit (Bld) [Volume fraction] 30.3 % Low 40-54 [facility] Comment on above: Performed By: #### L 100.0100, L500.2500 ####[facility] [address] [place], [address] Hemoglobin (Bld) [Mass/Vol] 10.1 g/dL Low 13.0-16.5 [facility] Comment on above: Performed By: #### L 100.0100, L500.2500 ####[facility] [address] [place], [address] IG% 2.800 High 0.0-0.9 [facility] Comment on above: Result Comment: IG% - Immature Granulocytes (promyelocytes, myelocytes andmetamyelocytes) > 1% indicates that a LEFT SHIFT is Present. Performed By: #### L 100.0100, L500.2500 ####[facility] [address] [place], [address] Lymphocytes/100 WBC (Bld) 12.3 % Low 19-41 [facility] Comment on above: Performed By: #### L 100.0100, L500.2500 ####[facility] [address] [place], [address] MCH (RBC) [Entitic mass] 28.9 pg Normal 27.0-32.0 [facility] Comment on above: Performed By: #### L 100.0100, L500.2500 ####[facility] [address] [place], [address] MCHC (RBC) [Mass/Vol] 33.3 g/dL Normal 32-36 [facility] Comment on above: Performed By: #### L 100.0100, L500.2500 ####[facility] [address] [place], [address] MCV (RBC) [Entitic vol] 86.8 fL Normal 80-94 [facility] Comment on above: Performed By: #### L 100.0100, L500.2500 ####[facility] [address] [place], [address] Monocytes/100 WBC (Bld) 8.3 % Normal 0-10 [facility] Comment on above: Performed By: #### L 100.0100, L500.2500 ####[facility] [address] [place], [address] Neutrophils/100 WBC (Bld) 74.6 % High 47-70 [facility] Comment on above: Performed By: #### L 100.0100, L500.2500 ####[facility] [address] [place], [address] Nucleated RBC (Bld) [#/Vol] 0 10*3/uL Normal 0-5 [facility] Comment on above: Performed By: #### L 100.0100, L500.2500 ####[facility] [address] [place], [address] Platelet mean volume (Bld) [Entitic vol] 8.8 fL Normal 6.2-12.0 [facility] Comment on above: Performed By: #### L 100.0100, L500.2500 ####[facility] [address] [place], [address] Platelets (Bld) [#/Vol] 391 10*3/uL Normal 150-450 [facility] Comment on above: Performed By: #### L 100.0100, L500.2500 ####[facility] [address] [place], [address] RBC (Bld) [#/Vol] 3.49 10*6/uL Low 4.6-6.2 [facility] Comment on above: Performed By: #### L 100.0100, L500.2500 ####[facility] [address] [place], [address] RDW SD 47.3 fl High 35.1-43.9 [facility] Comment on above: Performed By: #### L 100.0100, L500.2500 ####[facility] [address] [place], [address] WBC (Bld) [#/Vol] 14.0 10*3/uL High 4.4-11.0 [facility] Comment on above: Performed By: #### L 100.0100, L500.2500 ####[facility] [address] [place], [address] Culture, Blood (WB)on 2023 CUB Normal [facility] Comment on above: Performed By: #### L 500.2500, M100.636, L501.6710, M200.1000, L100.0100, L101.9900 ####[facility] [address] [place], [address] Vancomycin, Trough Levelon VANCO, TROUGH 21.8 ug/mL High 5.0-15.0 [facility] Comment on above: Order Comment: 1030 Result Comment: VANC OMYCIN STANDARED DRUG THERAPY TROUGH LEVEL: 5.0 - 15.0 mg/LVANCOMYCIN HIGH INTENSITY THERAPY TROUGH LEVEL: 15.0 - 20.0 mg/LHigh Intensity therapy recommended for serious lifethreatening infections include:- Dvrjlpotbq-Ptfgyzaszebd-Mkfosmoxu (Ventilator/Healtcare Associated)-SepsisPLEASE CONTACT PHARMACY SERVICES (#4232) FOR INTERPRETATIONOF RESULTS. Performed By: #### L 501.8820 ####[facility] [address] [place], [address] Basic Metabolic Profile (BMP )on 05-06-2024 BUN/CRE 18.7 RATIO Normal 05-06 [facility] Comment on above: Performed By: #### L 100.0100, L500.2500 ####[facility] [address] [place], [address] CA,Total 9.4 mg/dL Normal 8.5-10.1 [facility] Comment on above: Performed By: #### L 100.0100, L500.2500 ####[facility] [address] [place], [address] Chloride [Moles/Vol] 101 mmol/L Normal 98-107 [facility] Comment on above: Performed By: #### L 100.0100, L500.2500 ####[facility] [address] [place], [address] CO2 [Moles/Vol] 25.0 mmol/L Normal 21.0-32.0 [facility] Comment on above: Performed By: #### L 100.0100, L500.2500 ####[facility] [address] [place], [address] Creatinine [Mass/Vol] 0.91 mg/dL Normal 0.70-1.30 [facility] Comment on above: Result Comment: The validity of the calculated GFR GFRAA in patients over70 years has not been determined. Clinical correlation isessential. Performed By: #### L 100.0100, L500.2500 ####[facility] [address] [place], [address] ECRCL 75.66 ml/min Normal [facility] Comment on above: Performed By: #### L 100.0100, L500.2500 ####[facility] [address] [place], [address] EST GFR - AA 107 mL/min Normal >60 [facility] Comment on above: Result Comment: Afri can [place] GFR Calc Performed By: #### L 100.0100, L500.2500 ####[facility] [address] [place], [address] GAP 6 Normal 5-15 [facility] Comment on above: Performed By: #### L 100.0100, L500.2500 ####[facility] [address] [place], [address] GFR/1.73 sq M.predicted among non-blacks MDRD (S/P/Bld) [Vol rate/Area] 89 mL/min/{1.73_m2} Normal >60 [facility] Comment on above: Result Comment: Non- GFR Calc Performed By: #### L 100.0100, L500.2500 ####[facility] [address] [place], [address] Glucose [Mass/Vol] 97 mg/dL Normal 74-106 [facility] Comment on above: Performed By: #### L 100.0100, L500.2500 ####[facility] [address] [place], [address] Potassium [Moles/Vol] 3.9 mmol/L Normal 3.5-5.1 [facility] Comment on above: Performed By: #### L 100.0100, L500.2500 ####[facility] [address] [place], [address] Sodium [Moles/Vol] 132 mmol/L Low 136-145 [facility] Comment on above: Performed By: #### L 100.0100, L500.2500 ####[facility] [address] [place], [address] Urea nitrogen [Mass/Vol] 17 mg/dL Normal 7-18 [facility] Comment on above: Performed By: #### L 100.0100, L500.2500 ####[facility] [address] [place], [address] CBC W/Diff, Automatedon 10-2 0-2024 Absolute Lymph 2.18 X10 3/uL Normal 0.83-4.51 [facility] Comment on above: Performed By: #### L 100.0100, L500.2500 ####[facility] [address] [place], [address] Absolute Neut 9.2 X10 3/uL High 2.0-7.7 [facility] Comment on above: Performed By: #### L 100.0100, L500.2500 ####[facility] [address] [place], [address] Basophils/100 WBC (Bld) 0.6 % Normal 0-1 [facility] Comment on above: Performed By: #### L 100.0100, L500.2500 ####[facility] [address] [place], [address] Eosinophils/100 WBC (Bld) 2.0 % Normal 0-5 [facility] Comment on above: Performed By: #### L 100.0100, L500.2500 ####[facility] [address] [place], [address] Erythrocyte distribution width (RBC) [Ratio] 14.9 % High 11.6-14.6 [facility] Comment on above: Performed By: #### L 100.0100, L500.2500 ####[facility] [address] [place], [address] Hematocrit (Bld) [Volume fraction] 30.6 % Low 40-54 [facility] Comment on above: Performed By: #### L 100.0100, L500.2500 ####[facility] [address] [place], [address] Hemoglobin (Bld) [Mass/Vol] 9.8 g/dL Low 13.0-16.5 [facility] Comment on above: Performed By: #### L 100.0100, L500.2500 ####[facility] [address] [place], [address] IG% 3.700 High 0.0-0.9 [facility] Comment on above: Result Comment: IG% - Immature Granulocytes (promyelocytes, myelocytes andmetamyelocytes) > 1% indicates that a LEFT SHIFT is Present. Performed By: #### L 100.0100, L500.2500 ####[facility] [address] [place], [address] Lymphocytes/100 WBC (Bld) 16.1 % Low 19-41 [facility] Comment on above: Performed By: #### L 100.0100, L500.2500 ####[facility] [address] [place], [address] MCH (RBC) [Entitic mass] 27.9 pg Normal 27.0-32.0 [facility] Comment on above: Performed By: #### L 100.0100, L500.2500 ####[facility] [address] [place], [address] MCHC (RBC) [Mass/Vol] 32.0 g/dL Normal 32-36 [facility] Comment on above: Performed By: #### L 100.0100, L500.2500 ####[facility] [address] [place], [address] MCV (RBC) [Entitic vol] 87.2 fL Normal 80-94 [facility] Comment on above: Performed By: #### L 100.0100, L500.2500 ####[facility] [address] [place], [address] Monocytes/100 WBC (Bld) 9.3 % Normal 0-10 [facility] Comment on above: Performed By: #### L 100.0100, L500.2500 ####[facility] [address] [place], [address] Neutrophils/100 WBC (Bld) 68.3 % Normal 47-70 [facility] Comment on above: Performed By: #### L 100.0100, L500.2500 ####[facility] [address] [place], [address] Nucleated RBC (Bld) [#/Vol] 0 10*3/uL Normal 0-5 [facility] Comment on above: Performed By: #### L 100.0100, L500.2500 ####[facility] [address] [place], [address] Platelet mean volume (Bld) [Entitic vol] 8.8 fL Normal 6.2-12.0 [facility] Comment on above: Performed By: #### L 100.0100, L500.2500 ####[facility] [address] [place], [address] Platelets (Bld) [#/Vol] 396 10*3/uL Normal 150-450 [facility] Comment on above: Performed By: #### L 100.0100, L500.2500 ####[facility] [address] [place], [address] RBC (Bld) [#/Vol] 3.51 10*6/uL Low 4.6-6.2 [facility] Comment on above: Performed By: #### L 100.0100, L500.2500 ####[facility] [address] [place], [address] RDW SD 46.5 fl High 35.1-43.9 [facility] Comment on above: Performed By: #### L 100.0100, L500.2500 ####[facility] [address] [place], [address] WBC (Bld) [#/Vol] 13.5 10*3/uL High 4.4-11.0 [facility] Comment on above: Performed By: #### L 100.0100, L500.2500 ####[facility] [address] [place], [address] BC GPC IDon 05-05-2024 BC GPC ID Normal [facility] Comment on above: Performed By: #### L 500.2500, M100.636, L501.6710, M200.1000, L100.0100, L101.9900 ####[facility] [address] [place], [address] Basic Metabolic Profile (BMP )on 05-05-2024 BUN/CRE 24.9 RATIO High 05-06 [facility] Comment on above: Performed By: #### L 100.0100, L500.2500 ####[facility] [address] [place], [address] CA,Total 9.3 mg/dL Normal 8.5-10.1 [facility] Comment on above: Performed By: #### L 100.0100, L500.2500 ####[facility] [address] [place], [address] Chloride [Moles/Vol] 103 mmol/L Normal 98-107 [facility] Comment on above: Performed By: #### L 100.0100, L500.2500 ####[facility] [address] [place], [address] CO2 [Moles/Vol] 25.0 mmol/L Normal 21.0-32.0 [facility] Comment on above: Performed By: #### L 100.0100, L500.2500 ####[facility] [address] [place], [address] Creatinine [Mass/Vol] 0.84 mg/dL Normal 0.70-1.30 [facility] Comment on above: Result Comment: The validity of the calculated GFR GFRAA in patients over70 years has not been determined. Clinical correlation isessential. Performed By: #### L 100.0100, L500.2500 ####[facility] [address] [place], [address] ECRCL 81.97 ml/min Normal [facility] Comment on above: Performed By: #### L 100.0100, L500.2500 ####[facility] [address] [place], [address] EST GFR - AA 117 mL/min Normal >60 [facility] Comment on above: Result Comment: Afri can [place] GFR Calc Performed By: #### L 100.0100, L500.2500 ####[facility] [address] [place], [address] GAP 5 Normal 5-15 [facility] Comment on above: Performed By: #### L 100.0100, L500.2500 ####[facility] [address] [place], [address] GFR/1.73 sq M.predicted among non-blacks MDRD (S/P/Bld) [Vol rate/Area] 97 mL/min/{1.73_m2} Normal >60 [facility] Comment on above: Result Comment: Non- GFR Calc Performed By: #### L 100.0100, L500.2500 ####[facility] [address] [place], [address] Glucose [Mass/Vol] 96 mg/dL Normal 74-106 [facility] Comment on above: Performed By: #### L 100.0100, L500.2500 ####[facility] [address] [place], [address] Potassium [Moles/Vol] 4.0 mmol/L Normal 3.5-5.1 [facility] Comment on above: Performed By: #### L 100.0100, L500.2500 ####[facility] [address] [place], [address] Sodium [Moles/Vol] 133 mmol/L Low 136-145 [facility] Comment on above: Performed By: #### L 100.0100, L500.2500 ####[facility] [address] [place], [address] Urea nitrogen [Mass/Vol] 21 mg/dL High 7-18 [facility] Comment on above: Performed By: #### L 100.0100, L500.2500 ####[facility] [address] [place], [address] CBC W/Diff, Automatedon 04-17 Absolute Lymph 2.18 X10 3/uL Normal 0.83-4.51 [facility] Comment on above: Performed By: #### L 100.0100, L500.2500 ####[facility] [address] [place], [address] Absolute Neut 7.3 X10 3/uL Normal 2.0-7.7 [facility] Comment on above: Performed By: #### L 100.0100, L500.2500 ####[facility] [address] [place], [address] Basophils/100 WBC (Bld) 0.7 % Normal 0-1 [facility] Comment on above: Performed By: #### L 100.0100, L500.2500 ####[facility] [address] [place], [address] Eosinophils/100 WBC (Bld) 1.8 % Normal 0-5 [facility] Comment on above: Performed By: #### L 100.0100, L500.2500 ####[facility] [address] [place], [address] Erythrocyte distribution width (RBC) [Ratio] 14.9 % High 11.6-14.6 [facility] Comment on above: Performed By: #### L 100.0100, L500.2500 ####[facility] [address] [place], [address] Hematocrit (Bld) [Volume fraction] 30.7 % Low 40-54 [facility] Comment on above: Performed By: #### L 100.0100, L500.2500 ####[facility] [address] [place], [address] Hemoglobin (Bld) [Mass/Vol] 10.0 g/dL Low 13.0-16.5 [facility] Comment on above: Performed By: #### L 100.0100, L500.2500 ####[facility] [address] [place], [address] IG% 4.100 High 0.0-0.9 [facility] Comment on above: Result Comment: IG% - Immature Granulocytes (promyelocytes, myelocytes andmetamyelocytes) > 1% indicates that a LEFT SHIFT is Present. Performed By: #### L 100.0100, L500.2500 ####[facility] [address] [place], [address] Lymphocytes/100 WBC (Bld) 18.9 % Low 19-41 [facility] Comment on above: Performed By: #### L 100.0100, L500.2500 ####[facility] [address] [place], [address] MCH (RBC) [Entitic mass] 28.5 pg Normal 27.0-32.0 [facility] Comment on above: Performed By: #### L 100.0100, L500.2500 ####[facility] [address] [place], [address] MCHC (RBC) [Mass/Vol] 32.6 g/dL Normal 32-36 [facility] Comment on above: Performed By: #### L 100.0100, L500.2500 ####[facility] [address] [place], [address] MCV (RBC) [Entitic vol] 87.5 fL Normal 80-94 [facility] Comment on above: Performed By: #### L 100.0100, L500.2500 ####[facility] [address] [place], [address] Monocytes/100 WBC (Bld) 11.3 % High 0-10 [facility] Comment on above: Performed By: #### L 100.0100, L500.2500 ####[facility] [address] [place], [address] Neutrophils/100 WBC (Bld) 63.2 % Normal 47-70 [facility] Comment on above: Performed By: #### L 100.0100, L500.2500 ####[facility] [address] [place], [address] Nucleated RBC (Bld) [#/Vol] 0 10*3/uL Normal 0-5 [facility] Comment on above: Performed By: #### L 100.0100, L500.2500 ####[facility] [address] [place], [address] Platelet mean volume (Bld) [Entitic vol] 8.8 fL Normal 6.2-12.0 [facility] Comment on above: Performed By: #### L 100.0100, L500.2500 ####[facility] [address] [place], [address] Platelets (Bld) [#/Vol] 349 10*3/uL Normal 150-450 [facility] Comment on above: Performed By: #### L 100.0100, L500.2500 ####[facility] [address] [place], [address] RBC (Bld) [#/Vol] 3.51 10*6/uL Low 4.6-6.2 [facility] Comment on above: Performed By: #### L 100.0100, L500.2500 ####[facility] [address] [place], [address] RDW SD 47.5 fl High 35.1-43.9 [facility] Comment on above: Performed By: #### L 100.0100, L500.2500 ####[facility] [address] [place], [address] WBC (Bld) [#/Vol] 11.5 10*3/uL High 4.4-11.0 [facility] Comment on above: Performed By: #### L 100.0100, L500.2500 ####[facility] [address] [place], [address] Echo Completeon 05-05-2024 Echo Complete Normal [facility] Vancomycin, Trough Levelon 1 VANCO, TROUGH 16.1 ug/mL High 5.0-15.0 [facility] Comment on above: Order Comment: Comme nts: Trough to be drawn 30 mins prior to scheduled [id number] Result Comment: VANC OMYCIN STANDARED DRUG THERAPY TROUGH LEVEL: 5.0 - 15.0 mg/LVANCOMYCIN HIGH INTENSITY THERAPY TROUGH LEVEL: 15.0 - 20.0 mg/LHigh Intensity therapy recommended for serious lifethreatening infections include:- Whwxwzajbj-Kvyzljkonyjj-Ewfxokewi (Ventilator/Healtcare Associated)-SepsisPLEASE CONTACT PHARMACY SERVICES (#5217) FOR INTERPRETATIONOF RESULTS. Performed By: #### L 501.8820 ####[facility] [address] [place], [address] CBC W/Diff, Automatedon 04-17 PATH REV Reviewed Normal [facility] Comment on above: Result Comment: Neut rophilic leukocytosis.Normocytic anemia.Clinical correlation necessary.Fitz Cope M.D. 05/04/24 AMENDED REPORT 05/04/24 1437 PATH REV previously reported as: November Performed By: #### L 100.0100, L500.4050, L503.6550, L503.6030 ####[facility] [address] [place], [address] Comprehensive Metabolic Prof ilon 05-04-2024 Albumin [Mass/Vol] 2.3 g/dL Low 3.2-5.0 [facility] Comment on above: Performed By: #### L 100.0100, L500.4050, L503.6550, L503.6030 ####[facility] [address] [place], [address] Albumin/Globulin [Mass ratio] 0.6 {ratio} Low 0.9-2.4 [facility] Comment on above: Performed By: #### L 100.0100, L500.4050, L503.6550, L503.6030 ####[facility] [address] [place], [address] ALK P 120 U/L High 45-117 [facility] Comment on above: Performed By: #### L 100.0100, L500.4050, L503.6550, L503.6030 ####[facility] [address] [place], [address] ALT [Catalytic activity/Vol] 25 U/L Normal 16-61 [facility] Comment on above: Performed By: #### L 100.0100, L500.4050, L503.6550, L503.6030 ####[facility] [address] [place], [address] AST [Catalytic activity/Vol] 23 U/L Normal 15-37 [facility] Comment on above: Performed By: #### L 100.0100, L500.4050, L503.6550, L503.6030 ####[facility] [address] [place], [address] Bilirubin [Mass/Vol] 0.80 mg/dL Normal 0.20-1.00 [facility] Comment on above: Result Comment: For patients on eltrombopag therapy, use of Dimension [place] TBIL is not recommended. Performed By: #### L 100.0100, L500.4050, L503.6550, L503.6030 ####[facility] [address] [place], [address] BUN/CRE 22.6 RATIO High 10-20 [facility] Comment on above: Performed By: #### L 100.0100, L500.4050, L503.6550, L503.6030 ####[facility] [address] [place], [address] CA,Total 9.0 mg/dL Normal 8.5-10.1 [facility] Comment on above: Performed By: #### L 100.0100, L500.4050, L503.6550, L503.6030 ####[facility] [address] [place], [address] Chloride [Moles/Vol] 104 mmol/L Normal 98-107 [facility] Comment on above: Performed By: #### L 100.0100, L500.4050, L503.6550, L503.6030 ####[facility] [address] [place], [address] CO2 [Moles/Vol] 22.0 mmol/L Normal 21.0-32.0 [facility] Comment on above: Performed By: #### L 100.0100, L500.4050, L503.6550, L503.6030 ####[facility] [address] [place], [address] Creatinine [Mass/Vol] 0.84 mg/dL Normal 0.70-1.30 [facility] Comment on above: Result Comment: The validity of the calculated GFR GFRAA in patients over70 years has not been determined. Clinical correlation isessential. Performed By: #### L 100.0100, L500.4050, L503.6550, L503.6030 ####[facility] [address] [place], [address] ECRCL 81.97 ml/min Normal [facility] Comment on above: Performed By: #### L 100.0100, L500.4050, L503.6550, L503.6030 ####[facility] [address] [place], [address] EST GFR - AA 118 mL/min Normal >60 [facility] Comment on above: Result Comment: Afri can [place] GFR Calc Performed By: #### L 100.0100, L500.4050, L503.6550, L503.6030 ####[facility] [address] [place], [address] GAP 8 Normal 5-15 [facility] Comment on above: Performed By: #### L 100.0100, L500.4050, L503.6550, L503.6030 ####[facility] [address] [place], [address] GFR/1.73 sq M.predicted among non-blacks MDRD (S/P/Bld) [Vol rate/Area] 97 mL/min/{1.73_m2} Normal >60 [facility] Comment on above: Result Comment: Non- GFR Calc Performed By: #### L 100.0100, L500.4050, L503.6550, L503.6030 ####[facility] [address] [place], [address] Globulin (S) [Mass/Vol] 3.8 g/dL Normal 2.2-4.2 [facility] Comment on above: Performed By: #### L 100.0100, L500.4050, L503.6550, L503.6030 ####[facility] [address] [place], [address] Glucose [Mass/Vol] 87 mg/dL Normal 74-106 [facility] Comment on above: Performed By: #### L 100.0100, L500.4050, L503.6550, L503.6030 ####[facility] [address] [place], [address] Potassium [Moles/Vol] 4.2 mmol/L Normal 3.5-5.1 [facility] Comment on above: Performed By: #### L 100.0100, L500.4050, L503.6550, L503.6030 ####[facility] [address] [place], [address] Sodium [Moles/Vol] 134 mmol/L Low 136-145 [facility] Comment on above: Performed By: #### L 100.0100, L500.4050, L503.6550, L503.6030 ####[facility] [address] [place], [address] T PROT 6.1 g/dL Low 6.4-8.2 [facility] Comment on above: Performed By: #### L 100.0100, L500.4050, L503.6550, L503.6030 ####[facility] [address] [place], [address] Urea nitrogen [Mass/Vol] 19 mg/dL High 7-18 [facility] Comment on above: Performed By: #### L 100.0100, L500.4050, L503.6550, L503.6030 ####[facility] [address] [place], [address] Consultation - Infectious Dx on 05-04-2024 Consultation - Infectious Dx Normal [facility] Consultation - Orthopedicson 05-04-2024 Consultation - Orthopedics Normal [facility] Ferritinon 05-04-2024 Ferritin [Mass/Vol] 855 ng/mL High 26-388 [facility] Comment on above: Performed By: #### L 100.0100, L500.4050, L503.6550, L503.6030 ####[facility] [address] [place], [address] Iron+Iron Binding Capacityon 05-04-2024 Iron [Mass/Vol] 22 ug/dL Low 65-175 [facility] Comment on above: Performed By: #### L 100.0100, L500.4050, L503.6550, L503.6030 ####[facility] [address] [place], [address] IRON SATURATION 13.3 Low 15.0-55.0 [facility] Comment on above: Performed By: #### L 100.0100, L500.4050, L503.6550, L503.6030 ####[facility] [address] [place], [address] TIBC 165 ug/dL Low 250-450 [facility] Comment on above: Performed By: #### L 100.0100, L500.4050, L503.6550, L503.6030 ####[facility] [address] [place], [address] Basic Metabolic Profile (BMP )on 05-03-2024 BUN/CRE 24.4 RATIO High - [facility] Comment on above: Performed By: #### L 500.2500, M100.636, L501.6710, M200.1000, L100.0100, L101.9900 ####[facility] [address] [place], [address] CA,Total 9.3 mg/dL Normal 8.5-10.1 [facility] Comment on above: Performed By: #### L 500.2500, M100.636, L501.6710, M200.1000, L100.0100, L101.9900 ####[facility] [address] [place], [address] Chloride [Moles/Vol] 101 mmol/L Normal 98-107 [facility] Comment on above: Performed By: #### L 500.2500, M100.636, L501.6710, M200.1000, L100.0100, L101.9900 ####[facility] [address] [place], [address] CO2 [Moles/Vol] 23.0 mmol/L Normal 21.0-32.0 [facility] Comment on above: Performed By: #### L 500.2500, M100.636, L501.6710, M200.1000, L100.0100, L101.9900 ####[facility] [address] [place], [address] Creatinine [Mass/Vol] 0.94 mg/dL Normal 0.70-1.30 [facility] Comment on above: Result Comment: The validity of the calculated GFR GFRAA in patients over70 years has not been determined. Clinical correlation isessential. Performed By: #### L 500.2500, M100.636, L501.6710, M200.1000, L100.0100, L101.9900 ####[facility] [address] [place], [address] EST GFR - AA 103 mL/min Normal >60 [facility] Comment on above: Result Comment: Afri can [place] GFR Calc Performed By: #### L 500.2500, M100.636, L501.6710, M200.1000, L100.0100, L101.9900 ####[facility] [address] [place], [address] GAP 8 Normal 5-15 [facility] Comment on above: Performed By: #### L 500.2500, M100.636, L501.6710, M200.1000, L100.0100, L101.9900 ####[facility] [address] [place], [address] GFR/1.73 sq M.predicted among non-blacks MDRD (S/P/Bld) [Vol rate/Area] 85 mL/min/{1.73_m2} Normal >60 [facility] Comment on above: Result Comment: Non- GFR Calc Performed By: #### L 500.2500, M100.636, L501.6710, M200.1000, L100.0100, L101.9900 ####[facility] [address] [place], [address] Glucose [Mass/Vol] 100 mg/dL Normal 74-106 [facility] Comment on above: Result Comment: Fast ing Glucose result from 100 to 125 mg/dLsuggests IMPAIRED HOMEOSTASIS per A.D.A. criteria. Performed By: #### L 500.2500, M100.636, L501.6710, M200.1000, L100.0100, L101.9900 ####[facility] [address] [place], [address] Potassium [Moles/Vol] 4.0 mmol/L Normal 3.5-5.1 [facility] Comment on above: Performed By: #### L 500.2500, M100.636, L501.6710, M200.1000, L100.0100, L101.9900 ####[facility] [address] [place], [address] Sodium [Moles/Vol] 132 mmol/L Low 136-145 [facility] Comment on above: Performed By: #### L 500.2500, M100.636, L501.6710, M200.1000, L100.0100, L101.9900 ####[facility] [address] [place], [address] Urea nitrogen [Mass/Vol] 23 mg/dL High 7-18 [facility] Comment on above: Performed By: #### L 500.2500, M100.636, L501.6710, M200.1000, L100.0100, L101.9900 ####[facility] [address] [place], [address] CBC W/Diff, Automatedon 10-1 Absolute Lymph 1.75 X10 3/uL Normal 0.83-4.51 [facility] Comment on above: Performed By: #### L 500.2500, M100.636, L501.6710, M200.1000, L100.0100, L101.9900 ####[facility] [address] [place], [address] Absolute Neut 11.2 X10 3/uL High 2.0-7.7 [facility] Comment on above: Performed By: #### L 500.2500, M100.636, L501.6710, M200.1000, L100.0100, L101.9900 ####[facility] [address] [place], [address] Basophils/100 WBC (Bld) 0.3 % Normal 0-1 [facility] Comment on above: Performed By: #### L 500.2500, M100.636, L501.6710, M200.1000, L100.0100, L101.9900 ####[facility] [address] [place], [address] Eosinophils/100 WBC (Bld) 0.2 % Normal 0-5 [facility] Comment on above: Performed By: #### L 500.2500, M100.636, L501.6710, M200.1000, L100.0100, L101.9900 ####[facility] [address] [place], [address] Erythrocyte distribution width (RBC) [Ratio] 14.7 % High 11.6-14.6 [facility] Comment on above: Performed By: #### L 500.2500, M100.636, L501.6710, M200.1000, L100.0100, L101.9900 ####[facility] [address] [place], [address] Hematocrit (Bld) [Volume fraction] 31.3 % Low 40-54 [facility] Comment on above: Performed By: #### L 500.2500, M100.636, L501.6710, M200.1000, L100.0100, L101.9900 ####[facility] [address] [place], [address] Hemoglobin (Bld) [Mass/Vol] 10.4 g/dL Low 13.0-16.5 [facility] Comment on above: Performed By: #### L 500.2500, M100.636, L501.6710, M200.1000, L100.0100, L101.9900 ####[facility] [address] [place], [address] IG% 2.200 High 0.0-0.9 [facility] Comment on above: Result Comment: IG% - Immature Granulocytes (promyelocytes, myelocytes andmetamyelocytes) > 1% indicates that a LEFT SHIFT is Present. Performed By: #### L 500.2500, M100.636, L501.6710, M200.1000, L100.0100, L101.9900 ####[facility] [address] [place], [address] Lymphocytes/100 WBC (Bld) 12.1 % Low 19-41 [facility] Comment on above: Performed By: #### L 500.2500, M100.636, L501.6710, M200.1000, L100.0100, L101.9900 ####[facility] [address] [place], [address] MCH (RBC) [Entitic mass] 28.8 pg Normal 27.0-32.0 [facility] Comment on above: Performed By: #### L 500.2500, M100.636, L501.6710, M200.1000, L100.0100, L101.9900 ####[facility] [address] [place], [address] MCHC (RBC) [Mass/Vol] 33.2 g/dL Normal 32-36 [facility] Comment on above: Performed By: #### L 500.2500, M100.636, L501.6710, M200.1000, L100.0100, L101.9900 ####[facility] [address] [place], [address] MCV (RBC) [Entitic vol] 86.7 fL Normal 80-94 [facility] Comment on above: Performed By: #### L 500.2500, M100.636, L501.6710, M200.1000, L100.0100, L101.9900 ####[facility] [address] [place], [address] Monocytes/100 WBC (Bld) 7.4 % Normal 0-10 [facility] Comment on above: Performed By: #### L 500.2500, M100.636, L501.6710, M200.1000, L100.0100, L101.9900 ####[facility] [address] [place], [address] Neutrophils/100 WBC (Bld) 77.8 % High 47-70 [facility] Comment on above: Performed By: #### L 500.2500, M100.636, L501.6710, M200.1000, L100.0100, L101.9900 ####[facility] [address] [place], [address] Nucleated RBC (Bld) [#/Vol] 0 10*3/uL Normal 0-5 [facility] Comment on above: Performed By: #### L 500.2500, M100.636, L501.6710, M200.1000, L100.0100, L101.9900 ####[facility] [address] [place], [address] Platelet mean volume (Bld) [Entitic vol] 9.2 fL Normal 6.2-12.0 [facility] Comment on above: Performed By: #### L 500.2500, M100.636, L501.6710, M200.1000, L100.0100, L101.9900 ####[facility] [address] [place], [address] Platelets (Bld) [#/Vol] 320 10*3/uL Normal 150-450 [facility] Comment on above: Performed By: #### L 500.2500, M100.636, L501.6710, M200.1000, L100.0100, L101.9900 ####[facility] [address] [place], [address] RBC (Bld) [#/Vol] 3.61 10*6/uL Low 4.6-6.2 [facility] Comment on above: Performed By: #### L 500.2500, M100.636, L501.6710, M200.1000, L100.0100, L101.9900 ####[facility] [address] [place], [address] RDW SD 46.4 fl High 35.1-43.9 [facility] Comment on above: Performed By: #### L 500.2500, M100.636, L501.6710, M200.1000, L100.0100, L101.9900 ####[facility] [address] [place], [address] WBC (Bld) [#/Vol] 14.4 10*3/uL High 4.4-11.0 [facility] Comment on above: Performed By: #### L 500.2500, M100.636, L501.6710, M200.1000, L100.0100, L101.9900 ####[facility] [address] [place], [address] CRPon 05-03-2024 C-REACTIVE PROT 148.00 mg/L High 0.0-3.0 [facility] Comment on above: Result Comment: C-Re active Protein (CRP) provides useful information for thediagnosis, therapy and monitoring of inflammatory processesand associated diseases. For the evaluation of Relative Riskfor Cardiovascular Disease, a High Sensitivity CRP (HSCRP)should be ordered. Performed By: #### L 500.2500, M100.636, L501.6710, M200.1000, L100.0100, L101.9900 ####[facility] [address] [place], [address] Emergency Department Summary on 05-03-2024 Emergency Department Summary Normal [facility] Erythrocyte Sed Rateon 05-03 SED RATE 25 mm/hr High 0-20 [facility] Comment on above: Performed By: #### L 500.2500, M100.636, L501.6710, M200.1000, L100.0100, L101.9900 ####[facility] [address] [place], [address] H AND P Exam - Hospitaliston 05-03-2024 H&P Exam - Hospitalist Normal [facility] Procalcitoninon 05-03-2024 Procalcitonin 0.69 ng/mL High 0.00-0.09 [facility] Comment on above: Result Comment: A pr ocalcitonin (PCT) level above 2.0 ng/mL on the first day of ICU admission is associated with a high risk for progression to severe sepsis and/or septic shock. A PCT level below 0.5 ng/mL on the first day of ICU admission is associated with a low risk for progression to severe and/or septic shock. Note: Concentrations <0.5 ng/mL do not exclude an infection on account of localized infections (without systemic signs) which can be associated with such low concentrations, or a systemic infection in its initial stages (<6 hours). Furthermore, increased procalcitonin can occur without infection. PCT concentrations between 0.5 and 2.0 ng/mL should be interpreted taking into account the patient's history. It is recommended to retest PCT within 6-24 hours if any concentrations <2 ng/mL are obtained. Performed By: #### L 509.7000 ####[facility] [address] [place], [place], [address] Spine Lumbar W/WO Contraston 05-02-2024 Spine Lumbar W/WO Contrast Normal [facility] ANTINUCLEAR ANTIBODIES DIREC Ton 04-02-2024 LAZARO,DIRECT Negative Normal Negative [facility] Comment on above: Order Comment: Order Date: 03/30/24Order Info: [id number] - LAZARO Result Comment: Perf ormed at: [facility] [place] [id number] Director: Bakari Vazquez PhD, Phone: [phone] Performed By: #### L 3100.5475, M100.2200, L500.4050, L3100.3450, L501.9520, L100.0100, L400.0001, L501.6710, L501.9940, L101.9900 ####[facility] [address] [place], [place], [phone] Protein Electroph, Son 04-02 Albumin [Mass/Vol] 3.4 g/dL Normal 2.9-4.4 [facility] Comment on above: Order Comment: Order Date: 03/30/24Order Info: 0060-1 - PROEL Performed By: #### L 3100.5475, M100.2200, L500.4050, L3100.3450, L501.9520, L100.0100, L400.0001, L501.6710, L501.9940, L101.9900 ####[facility] [address] [place], [place], [phone] Albumin/Globulin [Mass ratio] 0.9 {ratio} Normal 0.7-1.7 [facility] Comment on above: Order Comment: Order Date: 03/30/24Order Info: 0060- - PROEL Performed By: #### L 3100.5475, M100.2200, L500.4050, L3100.3450, L501.9520, L100.0100, L400.0001, L501.6710, L501.9940, L101.9900 ####[facility] [address] [place], [place], [phone] ALPHA-1 GLOBUL 0.5 g/dL High 0.0-0.4 [facility] Comment on above: Order Comment: Order Date: 03/30/24Order Info: 0060-1 - PROEL Performed By: #### L 3100.5475, M100.2200, L500.4050, L3100.3450, L501.9520, L100.0100, L400.0001, L501.6710, L501.9940, L101.9900 ####[facility] [address] [place], [place], [phone] ALPHA-2 GLOBUL 1.0 g/dL Normal 0.4-1.0 [facility] Comment on above: Order Comment: Order Date: 03/30/24Order Info: 0060-1 - PROEL Performed By: #### L 3100.5475, M100.2200, L500.4050, L3100.3450, L501.9520, L100.0100, L400.0001, L501.6710, L501.9940, L101.9900 ####[facility] [address] [place], [place], [phone] BETA GLOBULIN 0.9 g/dL Normal 0.7-1.3 [facility] Comment on above: Order Comment: Order Date: 03/30/24Order Info: 0060-1 - PROEL Performed By: #### L 3100.5475, M100.2200, L500.4050, L3100.3450, L501.9520, L100.0100, L400.0001, L501.6710, L501.9940, L101.9900 ####[facility] [address] [place], [place], [phone] GAMMA GLOBULIN 1.3 g/dL Normal 0.4-1.8 [facility] Comment on above: Order Comment: Order Date: 03/30/24Order Info: 0060-1 - PROEL Performed By: #### L 3100.5475, M100.2200, L500.4050, L3100.3450, L501.9520, L100.0100, L400.0001, L501.6710, L501.9940, L101.9900 ####[facility] [address] [place], [place], [phone] Globulin (S) [Mass/Vol] 3.7 g/dL Normal 2.2-3.9 [facility] Comment on above: Order Comment: Order Date: 03/30/24Order Info: 0060-1 - PROEL Performed By: #### L 3100.5475, M100.2200, L500.4050, L3100.3450, L501.9520, L100.0100, L400.0001, L501.6710, L501.9940, L101.9900 ####[facility] [address] [place], [place], [phone] INTERPRETATION Comment Normal . [facility] Comment on above: Order Comment: Order Date: 03/30/24Order Info: 0060-1 - PROEL Result Comment: Prot ein electrophoresis scan will follow via computer,mail, or building rigger delivery. Performed By: #### L 3100.5475, M100.2200, L500.4050, L3100.3450, L501.9520, L100.0100, L400.0001, L501.6710, L501.9940, L101.9900 ####[facility] [address] [place], [place], [phone] M-SPIKE Not Observed Normal Not Observed [facility] Comment on above: Order Comment: Order Date: 03/30/24Order Info: 0060-1 - PROEL Performed By: #### L 3100.5475, M100.2200, L500.4050, L3100.3450, L501.9520, L100.0100, L400.0001, L501.6710, L501.9940, L101.9900 ####[facility] [address] [place], [place], [address] NOTE: Comment: Normal . [facility] Comment on above: Order Comment: Order Date: 03/30/24Order Info: 0060-1 - PROEL Result Comment: SPE shows increased alpha-1. Performed By: #### L 3100.5475, M100.2200, L500.4050, L3100.3450, L501.9520, L100.0100, L400.0001, L501.6710, L501.9940, L101.9900 ####[facility] [address] [place], [place], [phone] Protein [Mass/Vol] 7.1 g/dL Normal 6.0-8.5 [facility] Comment on above: Order Comment: Order Date: 03/30/24Order Info: 0060-1 - PROEL Performed By: #### L 3100.5475, M100.2200, L500.4050, L3100.3450, L501.9520, L100.0100, L400.0001, L501.6710, L501.9940, L101.9900 ####[facility] [address] [place], [place], [phone] Quantiferon TB-Gold+on 04-02 QFT MITOGEN LISA 5.51 IU/mL Normal . [facility] Comment on above: Order Comment: Order Date: 03/30/24Order Info: 0060-1 - PROEL Performed By: #### L 3400.8000 ####[facility] [address] [place], [place], [phone] QFT NIL VALUE 0.05 IU/mL Normal . [facility] Comment on above: Order Comment: Order Date: 03/30/24Order Info: 0060-1 - PROEL Performed By: #### L 3400.8000 ####[facility] [address] [place], [address] QFT TB GOLD+ Comment Normal . [facility] Comment on above: Order Comment: Order Date: 03/30/24Order Info: 0060-1 - PROEL Result Comment: Getachew tiFERON-TB Gold Plus is a qualitative indirect test forM tuberculosis infection (including disease) and isintended for use in conjunction with risk assessment,radiography, and other medical and diagnostic evaluations.The QuantiFERON-TB Gold Plus result is determined bysubtracting the Nil value from either TB antigen (Ag)value. The Mitogen tube serves as a control for the test. Performed By: #### L 3400.8000 ####[facility] [address] [place], [address] QFT TB POS CRIT Negative Normal Negative [facility] Comment on above: Order Comment: Order Date: 03/30/24Order Info: 0060-1 - PROEL Result Comment: No r esponse to M tuberculosis antigens detected.Infection with M tuberculosis is unlikely, but high riskindividuals should be considered for additional testing(ATS/IDSA/CDC Clinical Practice Guidelines, 2017). Thereference range is an Antigen minus Nil result of <0.35IU/mL.The specimen received for QuantiFERON testing was incubatedby the ordering institution. Specific procedures outlinedin our Directory of Services and in the package insert forthe QuantiFERON Gold (In Tube) test must be followed toenable for proper stimulation of cells for the productionof interferon gamma. Chemiluminescence immunoassaymethodologyPerformed at: [facility] - [facility] [id number] Director: Bakari Vazquez PhD, Phone: [phone] Performed By: #### L 3400.8000 ####[facility] [address] [place], [address] QFT TB1+ AG LISA 0.07 IU/mL Normal . [facility] Comment on above: Order Comment: Order Date: 03/30/24Order Info: 0060-1 - PROEL Performed By: #### L 3400.8000 ####[facility] [address] [place], [address] QFT TB2+ AG LISA 0.06 IU/mL Normal . [facility] Comment on above: Order Comment: Order Date: 03/30/24Order Info: 0060-1 - PROEL Performed By: #### L 3400.8000 ####[facility] [address] [place], [address] Urine Cultureon 03-31-2024 [facility] Order Date: 03/30/24 Order Info: 630-4 - CUUR Culture exhibits no growth. Normal [facility] Comment on above: Performed By: #### L 3100.5475, M100.2200, L500.4050, L3100.3450, L501.9520, L100.0100, L400.0001, L501.6710, L501.9940, L101.9900 ####[facility] [address] [place], [address] CBC W/Diff, Automatedon 03-18 Absolute Lymph 1.20 X10 3/uL Normal 0.83-4.51 [facility] Comment on above: Order Comment: Order Date: 03/30/24Order Info: 0184-1 - CBCDOrder Info: [id number] - SED Performed By: #### L 3100.5475, M100.2200, L500.4050, L3100.3450, L501.9520, L100.0100, L400.0001, L501.6710, L501.9940, L101.9900 ####[facility] [address] [place], [address] Absolute Neut 7.9 X10 3/uL High 2.0-7.7 [facility] Comment on above: Order Comment: Order Date: 03/30/24Order Info: [id number] - CBCDOrder Info: [id number] - SED Performed By: #### L 3100.5475, M100.2200, L500.4050, L3100.3450, L501.9520, L100.0100, L400.0001, L501.6710, L501.9940, L101.9900 ####[facility] [address] [place], [address] Basophils/100 WBC (Bld) 0.5 % Normal 0-1 [facility] Comment on above: Order Comment: Order Date: 03/30/24Order Info: 183-07 - CBCDOrder Info: [id number] - SED Performed By: #### L 3100.5475, M100.2200, L500.4050, L3100.3450, L501.9520, L100.0100, L400.0001, L501.6710, L501.9940, L101.9900 ####[facility] [address] [place], [address] Eosinophils/100 WBC (Bld) 0.4 % Normal 0-5 [facility] Comment on above: Order Comment: Order Date: 03/30/24Order Info: [id number] - CBCDOrder Info: [id number] - SED Performed By: #### L 3100.5475, M100.2200, L500.4050, L3100.3450, L501.9520, L100.0100, L400.0001, L501.6710, L501.9940, L101.9900 ####[facility] [address] [place], [address] Erythrocyte distribution width (RBC) [Ratio] 12.8 % Normal 11.6-14.6 [facility] Comment on above: Order Comment: Order Date: 03/30/24Order Info: [id number] - CBCDOrder Info: [id number] - SED Performed By: #### L 3100.5475, M100.2200, L500.4050, L3100.3450, L501.9520, L100.0100, L400.0001, L501.6710, L501.9940, L101.9900 ####[facility] [address] [place], [address] Hematocrit (Bld) [Volume fraction] 41.4 % Normal 40-54 [facility] Comment on above: Order Comment: Order Date: 03/30/24Order Info: 0184-1 - CBCDOrder Info: [id number] - SED Performed By: #### L 3100.5475, M100.2200, L500.4050, L3100.3450, L501.9520, L100.0100, L400.0001, L501.6710, L501.9940, L101.9900 ####[facility] [address] [place], [address] Hemoglobin (Bld) [Mass/Vol] 13.2 g/dL Normal 13.0-16.5 [facility] Comment on above: Order Comment: Order Date: 03/30/24Order Info: 0184-1 - CBCDOrder Info: [id number] - SED Performed By: #### L 3100.5475, M100.2200, L500.4050, L3100.3450, L501.9520, L100.0100, L400.0001, L501.6710, L501.9940, L101.9900 ####[facility] [address] [place], [address] IG% 0.800 Normal 0.0-0.9 [facility] Comment on above: Order Comment: Order Date: 03/30/24Order Info: 0184-1 - CBCDOrder Info: [id number] - SED Result Comment: IG% - Immature Granulocytes (promyelocytes, myelocytes andmetamyelocytes) > 1% indicates that a LEFT SHIFT is Present. Performed By: #### L 3100.5475, M100.2200, L500.4050, L3100.3450, L501.9520, L100.0100, L400.0001, L501.6710, L501.9940, L101.9900 ####[facility] [address] [place], [address] Lymphocytes/100 WBC (Bld) 12.2 % Low 19-41 [facility] Comment on above: Order Comment: Order Date: 03/30/24Order Info: 018-1 - CBCDOrder Info: 15661-2 - SED Performed By: #### L 3100.5475, M100.2200, L500.4050, L3100.3450, L501.9520, L100.0100, L400.0001, L501.6710, L501.9940, L101.9900 ####[facility] [address] [place], [address] MCH (RBC) [Entitic mass] 28.9 pg Normal 27.0-32.0 [facility] Comment on above: Order Comment: Order Date: 03/30/24Order Info: 183- - CBCDOrder Info: [id number] - SED Performed By: #### L 3100.5475, M100.2200, L500.4050, L3100.3450, L501.9520, L100.0100, L400.0001, L501.6710, L501.9940, L101.9900 ####[facility] [address] [place], [address] MCHC (RBC) [Mass/Vol] 31.9 g/dL Low 32-36 [facility] Comment on above: Order Comment: Order Date: 03/30/24Order Info: 018- - CBCDOrder Info: [id number] - SED Performed By: #### L 3100.5475, M100.2200, L500.4050, L3100.3450, L501.9520, L100.0100, L400.0001, L501.6710, L501.9940, L101.9900 ####[facility] [address] [place], [address] MCV (RBC) [Entitic vol] 90.8 fL Normal 80-94 [facility] Comment on above: Order Comment: Order Date: 03/30/24Order Info: 018-1 - CBCDOrder Info: [id number] - SED Performed By: #### L 3100.5475, M100.2200, L500.4050, L3100.3450, L501.9520, L100.0100, L400.0001, L501.6710, L501.9940, L101.9900 ####[facility] [address] [place], [address] Monocytes/100 WBC (Bld) 6.3 % Normal 0-10 [facility] Comment on above: Order Comment: Order Date: 03/30/24Order Info: 183- - CBCDOrder Info: [id number] - SED Performed By: #### L 3100.5475, M100.2200, L500.4050, L3100.3450, L501.9520, L100.0100, L400.0001, L501.6710, L501.9940, L101.9900 ####[facility] [address] [place], [address] Neutrophils/100 WBC (Bld) 79.8 % High 47-70 [facility] Comment on above: Order Comment: Order Date: 03/30/24Order Info: 018-1 - CBCDOrder Info: [id number] - SED Performed By: #### L 3100.5475, M100.2200, L500.4050, L3100.3450, L501.9520, L100.0100, L400.0001, L501.6710, L501.9940, L101.9900 ####[facility] [address] [place], [address] Nucleated RBC (Bld) [#/Vol] 0 10*3/uL Normal 0-5 [facility] Comment on above: Order Comment: Order Date: 03/30/24Order Info: [id number] - CBCDOrder Info: [id number] - SED Performed By: #### L 3100.5475, M100.2200, L500.4050, L3100.3450, L501.9520, L100.0100, L400.0001, L501.6710, L501.9940, L101.9900 ####[facility] [address] [place], [address] Platelet mean volume (Bld) [Entitic vol] 9.0 fL Normal 6.2-12.0 [facility] Comment on above: Order Comment: Order Date: 03/30/24Order Info: 018- - CBCDOrder Info: [id number] - SED Performed By: #### L 3100.5475, M100.2200, L500.4050, L3100.3450, L501.9520, L100.0100, L400.0001, L501.6710, L501.9940, L101.9900 ####[facility] [address] [place], [address] Platelets (Bld) [#/Vol] 343 10*3/uL Normal 150-450 [facility] Comment on above: Order Comment: Order Date: 03/30/24Order Info: 0184-1 - CBCDOrder Info: [id number] - SED Performed By: #### L 3100.5475, M100.2200, L500.4050, L3100.3450, L501.9520, L100.0100, L400.0001, L501.6710, L501.9940, L101.9900 ####[facility] [address] [place], [address] RBC (Bld) [#/Vol] 4.56 10*6/uL Low 4.6-6.2 [facility] Comment on above: Order Comment: Order Date: 03/30/24Order Info: 0184-1 - CBCDOrder Info: [id number] - SED Performed By: #### L 3100.5475, M100.2200, L500.4050, L3100.3450, L501.9520, L100.0100, L400.0001, L501.6710, L501.9940, L101.9900 ####[facility] [address] [place], [address] RDW SD 42.8 fl Normal 35.1-43.9 [facility] Comment on above: Order Comment: Order Date: 03/30/24Order Info: 0184-1 - CBCDOrder Info: [id number] - SED Performed By: #### L 3100.5475, M100.2200, L500.4050, L3100.3450, L501.9520, L100.0100, L400.0001, L501.6710, L501.9940, L101.9900 ####[facility] [address] [place], [place], [phone] WBC (Bld) [#/Vol] 9.9 10*3/uL Normal 4.4-11.0 [facility] Comment on above: Order Comment: Order Date: 03/30/24Order Info: 0184-1 - CBCDOrder Info: [id number] - SED Performed By: #### L 3100.5475, M100.2200, L500.4050, L3100.3450, L501.9520, L100.0100, L400.0001, L501.6710, L501.9940, L101.9900 ####[facility] [address] [place], [address] CRPon 03-30-2024 C-REACTIVE PROT 84.90 mg/L High 0.0-3.0 [facility] Comment on above: Order Comment: Order Date: 04/19/23Order Info: [id number] - BMPOrder Date: 03/30/24Order Info: 0786-1 - CMPOrder Info: [id number] - CRPOrder Info: 3016-3 - TSHOrder Info: 0783-1 - PSADmisc result is quantieron goldQuantiferon Gold; TB antibody testing Result Comment: C-Re active Protein (CRP) provides useful information for thediagnosis, therapy and monitoring of inflammatory processesand associated diseases. For the evaluation of Relative Riskfor Cardiovascular Disease, a High Sensitivity CRP (HSCRP)should be ordered. Performed By: #### L 3100.5475, M100.2200, L500.4050, L3100.3450, L501.9520, L100.0100, L400.0001, L501.6710, L501.9940, L101.9900 ####[facility] [address] [place], [address] Chest PA and Lateralon 03-30 Chest PA and Lateral Normal [facility] Comprehensive Metabolic Prof ilon 03-30-2024 Albumin [Mass/Vol] 3.4 g/dL Normal 3.2-5.0 [facility] Comment on above: Order Comment: Order Date: 04/19/23Order Info: [id number] - BMPOrder Date: 03/30/24Order Info: 0786-1 - CMPOrder Info: [id number] - CRPOrder Info: 3016-3 - TSHOrder Info: 0783-1 - PSADmisc result is quantieron goldQuantiferon Gold; TB antibody testing Performed By: #### L 3100.5475, M100.2200, L500.4050, L3100.3450, L501.9520, L100.0100, L400.0001, L501.6710, L501.9940, L101.9900 ####[facility] [address] [place], [place], [phone] Albumin/Globulin [Mass ratio] 0.8 {ratio} Low 0.9-2.4 [facility] Comment on above: Order Comment: Order Date: 04/19/23Order Info: 0667- - BMPOrder Date: 03/30/24Order Info: 0786 - CMPOrder Info: [id number] - CRPOrder Info: 3015-09 - TSHOrder Info: 782-07 - PSADmisc result is quantieron goldQuantiferon Gold; TB antibody testing Performed By: #### L 3100.5475, M100.2200, L500.4050, L3100.3450, L501.9520, L100.0100, L400.0001, L501.6710, L501.9940, L101.9900 ####[facility] [address] [place], [place], [address] ALK P 98 U/L Normal 45-117 [facility] Comment on above: Order Comment: Order Date: 04/19/23Order Info: 0667 - BMPOrder Date: 03/30/24Order Info: 07 - CMPOrder Info: - CRPOrder Info: [id number] - TSHOrder Info: 782-07 - PSADmisc result is quantieron goldQuantiferon Gold; TB antibody testing Performed By: #### L 3100.5475, M100.2200, L500.4050, L3100.3450, L501.9520, L100.0100, L400.0001, L501.6710, L501.9940, L101.9900 ####[facility] [address] [place], [place], [phone] ALT [Catalytic activity/Vol] 50 U/L Normal 16-61 [facility] Comment on above: Order Comment: Order Date: 04/19/23Order Info: 0667- - BMPOrder Date: 03/30/24Order Info: 07 - CMPOrder Info: [id number] - CRPOrder Info: 3015-09 - TSHOrder Info: 782-07 - PSADmisc result is quantieron goldQuantiferon Gold; TB antibody testing Performed By: #### L 3100.5475, M100.2200, L500.4050, L3100.3450, L501.9520, L100.0100, L400.0001, L501.6710, L501.9940, L101.9900 ####[facility] [address] [place], [place], [phone] AST [Catalytic activity/Vol] 22 U/L Normal 15-37 [facility] Comment on above: Order Comment: Order Date: 04/19/23Order Info: 06- - BMPOrder Date: 03/30/24Order Info: 07-1 - CMPOrder Info: [id number] - CRPOrder Info: [id number] - TSHOrder Info: 0783-1 - PSADmisc result is quantieron goldQuantiferon Gold; TB antibody testing Performed By: #### L 3100.5475, M100.2200, L500.4050, L3100.3450, L501.9520, L100.0100, L400.0001, L501.6710, L501.9940, L101.9900 ####[facility] [address] [place], [place], [address] Bilirubin [Mass/Vol] 0.50 mg/dL Normal 0.20-1.00 [facility] Comment on above: Order Comment: Order Date: 04/19/23Order Info: 666-07 - BMPOrder Date: 03/30/24Order Info: 0786-1 - CMPOrder Info: [id number] - CRPOrder Info: 3 - TSHOrder Info: 0783-1 - PSADmisc result is quantieron goldQuantiferon Gold; TB antibody testing Result Comment: For patients on eltrombopag therapy, use of Dimension [place] TBIL is not recommended. Performed By: #### L 3100.5475, M100.2200, L500.4050, L3100.3450, L501.9520, L100.0100, L400.0001, L501.6710, L501.9940, L101.9900 ####[facility] [address] [place], [place], [address] BUN/CRE 13.3 RATIO Normal 10-20 [facility] Comment on above: Order Comment: Order Date: 04/19/23Order Info: 666-07 - BMPOrder Date: 03/30/24Order Info: 785-07 - CMPOrder Info: [id number] - CRPOrder Info: 3015-09 - TSHOrder Info: 782-07 - PSADmisc result is quantieron goldQuantiferon Gold; TB antibody testing Performed By: #### L 3100.5475, M100.2200, L500.4050, L3100.3450, L501.9520, L100.0100, L400.0001, L501.6710, L501.9940, L101.9900 ####[facility] [address] [place], [place], [phone] CA,Total 10.2 mg/dL High 8.5-10.1 [facility] Comment on above: Order Comment: Order Date: 04/19/23Order Info: 666-07 - BMPOrder Date: 03/30/24Order Info: 785-07 - CMPOrder Info: - CRPOrder Info: [id number] - TSHOrder Info: 782-07 - PSADmisc result is quantieron goldQuantiferon Gold; TB antibody testing Performed By: #### L 3100.5475, M100.2200, L500.4050, L3100.3450, L501.9520, L100.0100, L400.0001, L501.6710, L501.9940, L101.9900 ####[facility] [address] [place], [place], [phone] Chloride [Moles/Vol] 101 mmol/L Normal 98-107 [facility] Comment on above: Order Comment: Order Date: 04/19/23Order Info: 666-07 - BMPOrder Date: 03/30/24Order Info: 785-07 - CMPOrder Info: [id number] - CRPOrder Info: 3015-09 - TSHOrder Info: 782-07 - PSADmisc result is quantieron goldQuantiferon Gold; TB antibody testing Performed By: #### L 3100.5475, M100.2200, L500.4050, L3100.3450, L501.9520, L100.0100, L400.0001, L501.6710, L501.9940, L101.9900 ####[facility] [address] [place], [place], [address] CO2 [Moles/Vol] 24.0 mmol/L Normal 21.0-32.0 [facility] Comment on above: Order Comment: Order Date: 04/19/23Order Info: 06-1 - BMPOrder Date: 03/30/24Order Info: 0786-1 - CMPOrder Info: [id number] - CRPOrder Info: 3013 - TSHOrder Info: [id number] - PSADmisc result is quantieron goldQuantiferon Gold; TB antibody testing Performed By: #### L 3100.5475, M100.2200, L500.4050, L3100.3450, L501.9520, L100.0100, L400.0001, L501.6710, L501.9940, L101.9900 ####[facility] [address] [facility] [place], [place], [phone] Creatinine [Mass/Vol] 1.20 mg/dL Normal 0.70-1.30 [facility] Comment on above: Order Comment: Order Date: 04/19/23Order Info: 06- - BMPOrder Date: 03/30/24Order Info: 0786-1 - CMPOrder Info: [id number] - CRPOrder Info: 3 - TSHOrder Info: 0783-1 - PSADmisc result is quantieron goldQuantiferon Gold; TB antibody testing Result Comment: The validity of the calculated GFR GFRAA in patients over70 years has not been determined. Clinical correlation isessential. Performed By: #### L 3100.5475, M100.2200, L500.4050, L3100.3450, L501.9520, L100.0100, L400.0001, L501.6710, L501.9940, L101.9900 ####[facility] [address] [place], [place], [address] EST GFR - AA 78 mL/min Normal >60 [facility] Comment on above: Order Comment: Order Date: 04/19/23Order Info: 666-07 - BMPOrder Date: 03/30/24Order Info: 0786-1 - CMPOrder Info: [id number] - CRPOrder Info: 3016-3 - TSHOrder Info: 0783-1 - PSADmisc result is quantieron goldQuantiferon Gold; TB antibody testing Result Comment: Afri can [place] GFR Calc Performed By: #### L 3100.5475, M100.2200, L500.4050, L3100.3450, L501.9520, L100.0100, L400.0001, L501.6710, L501.9940, L101.9900 ####[facility] [address] [place], [place], [phone] GAP 8 Normal 5-15 [facility] Comment on above: Order Comment: Order Date: 04/19/23Order Info: 666-07 - BMPOrder Date: 03/30/24Order Info: 0786- - CMPOrder Info: [id number] - CRPOrder Info: 3013 - TSHOrder Info: 0783-1 - PSADmisc result is quantieron goldQuantiferon Gold; TB antibody testing Performed By: #### L 3100.5475, M100.2200, L500.4050, L3100.3450, L501.9520, L100.0100, L400.0001, L501.6710, L501.9940, L101.9900 ####[facility] [address] [place], [place], [phone] GFR/1.73 sq M.predicted among non-blacks MDRD (S/P/Bld) [Vol rate/Area] 65 mL/min/{1.73_m2} Normal >60 [facility] Comment on above: Order Comment: Order Date: 04/19/23Order Info: 666-07 - BMPOrder Date: 03/30/24Order Info: 07-1 - CMPOrder Info: [id number] - CRPOrder Info: 3015-09 - TSHOrder Info: 782-07 - PSADmisc result is quantieron goldQuantiferon Gold; TB antibody testing Result Comment: Non- GFR Calc Performed By: #### L 3100.5475, M100.2200, L500.4050, L3100.3450, L501.9520, L100.0100, L400.0001, L501.6710, L501.9940, L101.9900 ####[facility] [address] [place], [place], [phone] Globulin (S) [Mass/Vol] 4.5 g/dL High 2.2-4.2 [facility] Comment on above: Order Comment: Order Date: 04/19/23Order Info: 06 - BMPOrder Date: 03/30/24Order Info: 785-07 - CMPOrder Info: - CRPOrder Info: 3015-09 - TSHOrder Info: 782-07 - PSADmisc result is quantieron goldQuantiferon Gold; TB antibody testing Performed By: #### L 3100.5475, M100.2200, L500.4050, L3100.3450, L501.9520, L100.0100, L400.0001, L501.6710, L501.9940, L101.9900 ####[facility] [address] [place], [place], [phone] Glucose [Mass/Vol] 91 mg/dL Normal 74-106 [facility] Comment on above: Order Comment: Order Date: 04/19/23Order Info: 06- - BMPOrder Date: 03/30/24Order Info: 07 - CMPOrder Info: [id number] - CRPOrder Info: 3015-09 - TSHOrder Info: 782-07 - PSADmisc result is quantieron goldQuantiferon Gold; TB antibody testing Performed By: #### L 3100.5475, M100.2200, L500.4050, L3100.3450, L501.9520, L100.0100, L400.0001, L501.6710, L501.9940, L101.9900 ####[facility] [address] [place], [place], [phone] Potassium [Moles/Vol] 4.0 mmol/L Normal 3.5-5.1 [facility] Comment on above: Order Comment: Order Date: 04/19/23Order Info: 0667-1 - BMPOrder Date: 03/30/24Order Info: 0786-1 - CMPOrder Info: [id number] - CRPOrder Info: 301-3 - TSHOrder Info: 0783-1 - PSADmisc result is quantieron goldQuantiferon Gold; TB antibody testing Performed By: #### L 3100.5475, M100.2200, L500.4050, L3100.3450, L501.9520, L100.0100, L400.0001, L501.6710, L501.9940, L101.9900 ####[facility] [address] [place], [place], [phone] Sodium [Moles/Vol] 133 mmol/L Low 136-145 [facility] Comment on above: Order Comment: Order Date: 04/19/23Order Info: 0667-1 - BMPOrder Date: 03/30/24Order Info: 0786-1 - CMPOrder Info: [id number] - CRPOrder Info: 3015-09 - TSHOrder Info: 0783-1 - PSADmisc result is quantieron goldQuantiferon Gold; TB antibody testing Performed By: #### L 3100.5475, M100.2200, L500.4050, L3100.3450, L501.9520, L100.0100, L400.0001, L501.6710, L501.9940, L101.9900 ####[facility] [address] [place], [place], [phone]) T PROT 7.9 g/dL Normal 6.4-8.2 [facility] Comment on above: Order Comment: Order Date: 04/19/23Order Info: [id number] - BMPOrder Date: 03/30/24Order Info: 0786-1 - CMPOrder Info: [id number] - CRPOrder Info: 3016-3 - TSHOrder Info: 0783-1 - PSADmisc result is quantieron goldQuantiferon Gold; TB antibody testing Performed By: #### L 3100.5475, M100.2200, L500.4050, L3100.3450, L501.9520, L100.0100, L400.0001, L501.6710, L501.9940, L101.9900 ####[facility] [address] [place], [place], [phone] Urea nitrogen [Mass/Vol] 16 mg/dL Normal 7-18 [facility] Comment on above: Order Comment: Order Date: 04/19/23Order Info: 0667- - BMPOrder Date: 03/30/24Order Info: 0786-1 - CMPOrder Info: 07235-0 - CRPOrder Info: 3016-3 - TSHOrder Info: 0783-1 - PSADmisc result is quantieron goldQuantiferon Gold; TB antibody testing Performed By: #### L 3100.5475, M100.2200, L500.4050, L3100.3450, L501.9520, L100.0100, L400.0001, L501.6710, L501.9940, L101.9900 ####[facility] [address] [place], [place], [phone] Erythrocyte Sed Rateon 03-30 SED RATE 39 mm/hr High 0-20 [facility] Comment on above: Order Comment: Order Date: 03/30/24Order Info: 0184-1 - CBCDOrder Info: [id number] - SED Performed By: #### L 3100.5475, M100.2200, L500.4050, L3100.3450, L501.9520, L100.0100, L400.0001, L501.6710, L501.9940, L101.9900 ####[facility] [address] [place], [place], [address] Lumbar Spine 2 or 3 Viewson 03-30-2024 Lumbar Spine 2 or 3 Views Normal [facility] PSA,Total- Diagnosticon 03-18 PSA, DIAGNOSTIC 3.09 ng/mL Normal 0.0-4.0 [facility] Comment on above: Order Comment: Order Date: 04/19/23Order Info: 0667- - BMPOrder Date: 03/30/24Order Info: 0786-1 - CMPOrder Info: [id number] - CRPOrder Info: 301-3 - TSHOrder Info: 0783-1 - PSADmisc result is quantieron goldQuantiferon Gold; TB antibody testing Result Comment: This test was performed using the TPSA assay method for [employer] chemistry system. Values obtained with differentassay methods cannot be used interchangably.When changing PSA assays in the course of monitoring apatient, additional sequential testing should be carriedout to confirm baseline values. Performed By: #### L 3100.5475, M100.2200, L500.4050, L3100.3450, L501.9520, L100.0100, L400.0001, L501.6710, L501.9940, L101.9900 ####[facility] [address] [place], [address] Thyroid Stim Hormone (TSH)on 03-30-2024 TSH 0.769 uIU/mL Normal 0.358-3.74 0 [facility] Comment on above: Order Comment: Order Date: 04/19/23Order Info: 0667- - BMPOrder Date: 03/30/24Order Info: 0786-1 - CMPOrder Info: [id number] - CRPOrder Info: 3013 - TSHOrder Info: 0783- - PSADmisc result is quantieron goldQuantiferon Gold; TB antibody testing Performed By: #### L 3100.5475, M100.2200, L500.4050, L3100.3450, L501.9520, L100.0100, L400.0001, L501.6710, L501.9940, L101.9900 ####[facility] [address] [place], [place], [phone] Urinalysis, Completeon 03-30 WBC 0-5 SEEN Normal 0-5 [facility] Comment on above: Order Comment: Order Date: 03/30/24Order Info: [id number] - UACmisc result is quantieron goldQuantiferon Gold; TB antibody testingCOLLECTOR TO SPECIFY Performed By: #### L 3100.5475, M100.2200, L500.4050, L3100.3450, L501.9520, L100.0100, L400.0001, L501.6710, L501.9940, L101.9900 ####[facility] [address] [place], [place], [phone] CAST,COARSE GR 0-5 SEEN Normal 0-5 /lpf [facility] Comment on above: Order Comment: Order Date: 03/30/24Order Info: [id number] - UACmisc result is quantieron goldQuantiferon Gold; TB antibody testingCOLLECTOR TO SPECIFY Performed By: #### L 3100.5475, M100.2200, L500.4050, L3100.3450, L501.9520, L100.0100, L400.0001, L501.6710, L501.9940, L101.9900 ####[facility] [address] [place], [place], [phone] CAST,HYALINE 0-5 SEEN Normal 0-5 [facility] Comment on above: Order Comment: Order Date: 03/30/24Order Info: [id number] - UACmisc result is quantieron goldQuantiferon Gold; TB antibody testingCOLLECTOR TO SPECIFY Performed By: #### L 3100.5475, M100.2200, L500.4050, L3100.3450, L501.9520, L100.0100, L400.0001, L501.6710, L501.9940, L101.9900 ####[facility] [address] [place], [address] EPI,SQUAMOUS 0-5 SEEN Normal 0-5 [facility] Comment on above: Order Comment: Order Date: 03/30/24Order Info: [id number] - UACmisc result is quantieron goldQuantiferon Gold; TB antibody testingCOLLECTOR TO SPECIFY Performed By: #### L 3100.5475, M100.2200, L500.4050, L3100.3450, L501.9520, L100.0100, L400.0001, L501.6710, L501.9940, L101.9900 ####[facility] [address] [place], [address] BACTERIA 2+ /hpf Normal None Seen [facility] Comment on above: Order Comment: Order Date: 03/30/24Order Info: [id number] - UACmisc result is quantieron goldQuantiferon Gold; TB antibody testingCOLLECTOR TO SPECIFY Performed By: #### L 3100.5475, M100.2200, L500.4050, L3100.3450, L501.9520, L100.0100, L400.0001, L501.6710, L501.9940, L101.9900 ####[facility] [address] [place], [address] Mucus Ql (Urine sed) 1+ /hpf Normal [facility] Comment on above: Order Comment: Order Date: 03/30/24Order Info: [id number] - UACmisc result is quantieron goldQuantiferon Gold; TB antibody testingCOLLECTOR TO SPECIFY Performed By: #### L 3100.5475, M100.2200, L500.4050, L3100.3450, L501.9520, L100.0100, L400.0001, L501.6710, L501.9940, L101.9900 ####[facility] [address] [place], [address] RBC 0 SEEN Normal 0-5 [facility] Comment on above: Order Comment: Order Date: 03/30/24Order Info: [id number] - UACmisc result is quantieron goldQuantiferon Gold; TB antibody testingCOLLECTOR TO SPECIFY Performed By: #### L 3100.5475, M100.2200, L500.4050, L3100.3450, L501.9520, L100.0100, L400.0001, L501.6710, L501.9940, L101.9900 ####[facility] [address] [place], [address] No Panel InformationOrdered By: Armida Ahumada on 05-26-2023 Prostate Specific Antigen Total 4.67 ng/mL 0.0-4.0 [facility] Comment on above: This test was perfor med using the TPSA assay method for the[employer] chemistry system. Values obtained with differentassay methods cannot be used interchangably.When changing PSA assays in the course of monitoring apatient, additional sequential testing should be carriedout to confirm baseline values. Basophil percentageOrdered B y: Rosie Trejo on 04-18-2023 Bilirubin [Mass/Vol] 0.40 mg/dL 0.20-1.00 [facility] Comment on above: For patients on eltr ombopag therapy, use of Dimension [place] TBIL is not recommended. Chloride [Moles/Vol] 105 mmol/L 98-107 [facility] Glucose [Mass/Vol] 101 mg/dL 74-106 [facility] Comment on above: Fasting Glucose resu lt from 100 to 125 mg/dL suggests IMPAIRED HOMEOSTASIS per A.D.A. criteria. Potassium [Moles/Vol] 4.6 mmol/L 3.5-5.1 [facility] Protein [Mass/Vol] 7.6 g/dL 6.4-8.2 [facility] Sodium [Moles/Vol] 137 mmol/L 136-145 [facility] Laboratory - Chemistry and C hemistry - challengeOrdered By: Rosie Trejo on 04-18-2023 ALP [Catalytic activity/Vol] 54 U/L 45-117 [facility] ALT [Catalytic activity/Vol] 24 U/L 16-61 [facility] CO2 [Moles/Vol] 27.0 mmol/L 21.0-32.0 [facility] Globulin (S) [Mass/Vol] 3.3 g/dL 2.2-4.2 [facility] Urea nitrogen/Creatinine [Mass ratio] 13.6 mg/mg 10-20 [facility] No Panel InformationOrdered By: Rosie Trejo on 04-18-2023 Estimated GFR (MDRD) Amer 66 mL/min >60 [facility] Comment on above: GFR Calc Estimated GFR (MDRD) Non-Af Amer 54 mL/min >60 [facility] Comment on above: Non- GFR Calc Serum or plasma albumin belén urement (mass/volume)Ordered By: Rosie Trejo on 04-18-2023 Albumin [Mass/Vol] 4.3 g/dL 3.2-5.0 [facility] Serum or plasma albumin/glob ulin mass ratioOrdered By: Rosie Trejo on 04-18-2023 Albumin/Globulin [Mass ratio] 1.3 {ratio} 0.9-2.4 [facility] Serum or plasma calcium belén urement (mass/volume)Ordered By: Rosie Trejo on 04-18-2023 Calcium [Mass/Vol] 9.2 mg/dL 8.5-10.1 [facility] Serum or plasma creatinine m easurement (mass/volume)Ordered By: Rosie Trejo on 04-18-2023 Creatinine [Mass/Vol] 1.40 mg/dL 0.70-1.30 [facility] Comment on above: The validity of the calculated GFR & GFRAA in patients over 70 years has not been determined. Clinical correlation is essential. Serum or plasma urea nitroge n measurement (mass/volume)Ordered By: Rosie Trejo on 04-18-2023 Urea nitrogen [Mass/Vol] 19 mg/dL 7-18 [facility] Thin prep Papanicolaou smear with manual screeningOrdered By: Rosie Trejo on 04-18-2023 Thin prep Papanicolaou smear with manual screening 12 U/L 15-37 [facility] Thin prep Papanicolaou smear with manual screening 5 5-15 [facility] Final Surgical Pathology Rep luis 01-07-2023 Final Surgical Pathology Report . 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 Received in formalin, labeled with the patients name, Case #[id number], and prostate chips is 4 g of gonzalez-pink prostate chips measuring 3.8 x 2.4 x 0.8 cm in aggregate dimensions. TS -3 Dictated by SRIRAM SINGH MICROSCOPIC DESCRIPTION: The microscopic examination is performed, except in the case of Gross Only. Electronically Signed by Pathology Report verified by [facility] MALLIKA QUACH Sign out Date: 01/07/2023 11:42 Performing Lab: [facility], [address] [place] [address] Pathology Dept Disclaimer If ancillary studies were utilized, the following Laboratory Developed Test (LDT) disclaimer will apply: Under CLIA requirements, [facility] is qualified to perform high complexity testing. For all ancillary stains, positive and negative controls stain appropriately. Performance characteristics of immunohistochemical and chromogenic in-situ hybridization tests have been determined by [facility]. These tests are used for clinical purposes, They should not be regarded as investigational or for research. Normal [facility] ([place]) Gel ABOon 01-05-2023 ABO/Rh Interp Positive Invalid Interpretation Code [facility] [place] Comment on above: Performed By: #### A BALTAZAR BULLOCK #### [place] [address] [address] Gel ABSon 01-05-2023 Antibody Screen Gel Negative Normal [facility] ([place]) Comment on above: Performed By: #### A BALTAZAR BULLOCK #### [facility] [place] [address], [place] [address] LABORATORYOrdered By: Suad Holley on 01-05-2023 ABO/Rh Interp Positive Invalid Interpretation Code AO BB SS Antibody Screen Gel Negative ABSC (01/05/23 7:06 AM) Invalid Interpretation Code AO BB SS SURGICAL PATHOLOGYon 023 Case Report Surgical Pathology R eport Case: [id number] Authorizing Provider: Mireille Rao MD Collected: 07/26/2022 01:22 PM Ordering Location: Ambulatory Surgery Received: 07/26/2022 03:16 PM Pathologist: Sammy Reilly MD Specimens: A) - ANTRUM (STOMACH) BIOPSY, Antral bx for h/h B) - ESOPHAGOGASTRIC JUNCTION BIOPSY C) - ESOPHAGUS MID BIOPSY [facility] FINAL DIAGNOSIS A. Stomach, antrum, biopsy: -Portions of antral type gastric mucosa with reactive gastropathy -Negative for Helicobacter pylori organisms on routine staining -Negative for intestinal metaplasia or dysplasia B. Esophagogastric junction, biopsy: -Portions of squamous epithelium with no significant histologic abnormality -Negative for eosinophilic esophagitis B. Esophagus, mid, biopsy: -Portions of squamous epithelium with no significant histologic abnormality -Negative for eosinophilic esophagitis [facility] Gross Description A. ANTRUM (STOMACH) BIOPSY Received in formalin are two pieces of gonzalez-brown, soft tissue aggregating to 0.7 x 0.3 x 0.2 cm. Totally submitted in one cassette. B. ESOPHAGOGASTRIC JUNCTION BIOPSY Received in formalin are multiple pieces of gonzalez, soft tissue aggregating to 0.9 x 0.2 x 0.1 cm. Totally submitted in one cassette. C. ESOPHAGUS MID BIOPSY Received in formalin are multiple pieces of gonzalez-brown, soft tissue aggregating to 1.2 x 0.4 x 0.1 cm. Totally submitted in one cassette. SS July 26, 2022 11:24 PM Gross examination performed at [facility], [facility] Performing Lab Diagnostic interpret ation performed at [facility], [address] [address] CLIA# [id number] [employer] Apprentice: David Rodney M.D. [facility] EGD DIAGNOSTICon 07-26-2022 [facility] HISTORY PHYSICALon 01-09-202 3 HISTORY PHYSICAL HNO ID: [id number] Author: Mireille Rao MD Service: General Surgery Author Type: Physician Type: HANDP Filed: 07/26/2022 11:57 AM Note Text: HISTORY AND PHYSICAL Dallas Martin 1960 REFERRING PHYSICIAN: Rosie Trejo MD CHIEF COMPLAINT: Consult (EGD) HPI: The patient is a 61 year old male referred for endoscopy. Dallas notes issues with chronic GERD for which he has been maintained on PPI and Pepcid with some improvement but still breakthrough symptoms. More recently patient complains of dysphagia with eating certain foods, such as a fish sandwich. Notes increased belching. Patient denies any change in bowel habits, weight changes, blood in stools, black tarry stools or abdominal pain. The patient notes no colon complaints and is up to date with screening colonoscopy-2014. Patient's past medical history is significant for prostate cancer and hypertension. Patient follows with Dr. Trejo in primary care for his chronic medical conditions. Patient denies chest pain, shortness of breath or recent hospitalizations. Denies problems with sedation in the past. PAST MEDICAL HISTORY PAST MEDICAL HISTORY Diagnosis Date Adenocarcinoma of prostate (HCC) BPH (benign prostatic hyperplasia) Erectile dysfunction Essential hypertension GERD (gastroesophageal reflux disease) Restless leg PAST SURGICAL HISTORY PAST SURGICAL HISTORY Procedure Laterality Date PROSTATE BIOPSY HX Bilateral 01/07/2015 REMOVE NAIL BED/FINGER TIP TONSILLECTOMY AND ADENOIDECTOMY TOOTH EXTRACTION CURRENT MEDICATIONS Current Outpatient Medications Medication Sig lisinopril (ZESTRIL, PRINIVIL) 10 mg tablet Take 10 mg by mouth once daily. Tadalafil (CIALIS) 20 mg tab(s) Take 20 mg by mouth every 3 hours as needed. magnesium oxide (MAG-OX) 400 mg (241.3 mg magnesium) tablet Take 400 mg by mouth once daily as needed. At night time hydroCHLOROthiazide (HYDRODIURIL, ESIDRIX) 12.5 mg capsule Take 12.5 mg by mouth once daily as needed. famotidine (PEPCID) 20 mg tablet Take 40 mg by mouth twice daily. alfuzosin SR (UROXATRAL) 10 mg 24 hr tablet Take 10 mg by mouth once daily. chlorpheniramine maleate (ALLERGY 4-HOUR ORAL) Take 4 mg by mouth once daily as needed. chlorpheniramine (ALLER-CHLOR) 4 mg tablet Take 4 mg by mouth once daily. At night Cholecalciferol, Vitamin D3, (VITAMIN D) 25 mcg (1,000 unit) cap Take 1,000 Units by mouth once daily. multivitamin/iron/folic acid (CENTRUM COMPLETE ORAL) Take by mouth once daily. aspirin-caffeine (MELINA BACK AND BODY) 500-32.5 mg tab Take by mouth once daily as needed. esomeprazole (NEXIUM) 40 mg capsule Take 40 mg by mouth once daily. No current facility-administered medications for this visit. ALLERGIES: Patient has no allergy information on record. PERSONAL HISTORY: SOCIAL HISTORY Social History Tobacco Use Smoking status: Never Smokeless tobacco: Never Vaping Use Vaping Use: Never used Substance Use Topics Alcohol use: Not Currently Alcohol/week: 2.0 standard drinks Types: 2 Standard drinks or equivalent per week Comment: occasional Drug use: Never FAMILY HISTORY: FAMILY HISTORY FAMILY HISTORY Adopted: Yes Family history unknown: Yes REVIEW OF SYMPTOMS: The review of systems data was entered by the nurse and reviewed by me Nursing Notes: Sanjana Mendoza LPN 06/16/2022 2:12 PM Signed REVIEW OF SYSTEMS: General: The patient denies fatigue, denies weight loss, denies weight gain, denies feeling hot, and denies feelings of cold. Eyes: The patient denies glaucoma, denies eye injury/surgery, wears glasses or contacts. Ear/Nose/Throat: The patient denies allergies, denies hayfever, denies ear infections, and denies bloody noses. Cardiovascular: The patient denies chest pain, denies heart disease, NOTES high blood pressure,denies cardiac stent, denies prior heart attack, denies irregular heart beat, denies high cholesterol, denies poor circulation, denies heart failure, other cardiac issues, denies claudication, denies cold feet, denies peripheral arterial stent. Respiratory: The patient denies tuberculosis, denies pneumonia, denies frequent cough, denies pulmonary embolism, denies shortness of breath, and denies coughing up blood. Gastrointestinal: The patient NOTES difficulty swallowing, denies acid reflux, denies ulcers, denies vomiting, denies jaundice/hepatitis, denies gallbladder problems, denies black or tarry stools, denies hemorrhoids, denies bleeding from rectum, denies diverticulitis, denies constipation, denies diarrhea, denies loss of stool control, and denies hernias. Kidney/Bladder: The patient denies kidney stones, denies urine infections, and denies bloody urine. Skin: The patient denies a history of skin cancer, denies bleeding/changing moles, and denies a history of skin rash. Neurologic: The patient denies a history of epilepsy/convulsions, denies headaches, justa (more content not included)... Normal [facility] NURSING PROGon 07-26-2022 NURSING PROG HNO ID: [id number] Author: Yasmine Kimbrough RN Service: ? Author Type: Registered Nurse Type: Nursing Progress Note Filed: 07/26/2022 1:49 PM Note Text: Arrived in phase II via cart. Left lateral position. Sedated, but responds to verbal stimuli. Color normal; skin warm and dry. Respirations wnl and unlabored. Abdomen soft and with + bowel sounds in quads X 4. Patient resting comfortably. Yasmine Kimbrough RN Normal [facility] SURGICAL PATHOLOGYon 023 CASE REPORT Normal [facility] Comment on above: Order Comment: Speci men Type: TISSUE SPECIMEN Ordering Facility: [facility] Address: [address] [place] [address] Result Comment: Surg ical Pathology Report Case: [id number] Authorizing Provider: Mireille Rao MD Collected: 07/26/2022 01:22 PM Ordering Location: Ambulatory Surgery Received: 07/26/2022 03:16 PM Pathologist: Sammy Reilly MD Specimens: A) - ANTRUM (STOMACH) BIOPSY, Antral bx for h/h B) - ESOPHAGOGASTRIC JUNCTION BIOPSY C) - ESOPHAGUS MID BIOPSY Performed By: #### S #### [facility] CLIA [id number] [address] [place] [address] [place] FINAL DIAGNOSIS Normal [facility] Comment on above: Order Comment: Speci men Type: TISSUE SPECIMEN Ordering Facility: [facility] Address: [address] [place] [address] Result Comment: Jorge alvarenga, antrum, biopsy: -Portions of antral type gastric mucosa with reactive gastropathy -Negative for Helicobacter pylori organisms on routine staining -Negative for intestinal metaplasia or dysplasia B. Esophagogastric junction, biopsy: -Portions of squamous epithelium with no significant histologic abnormality -Negative for eosinophilic esophagitis B. Esophagus, mid, biopsy: -Portions of squamous epithelium with no significant histologic abnormality -Negative for eosinophilic esophagitis Performed By: #### S #### [facility] CLIA [id number] [address] [place] [address] OF [facility] FINAL PERFORMING LAB Normal [facility] Comment on above: Order Comment: Speci men Type: TISSUE SPECIMEN Ordering Facility: [facility] Address: [address] [place] [address] Result Comment: Diag nostic interpretation performed at [facility], [address] [place] [address] CLIA# [id number] [employer] Builder Apprentice: David Rodney M.D. Performed By: #### S #### [facility] CLIA [id number] [address] [place] [address] GROSS DESCRIPTION Normal [facility] Comment on above: Order Comment: Speci men Type: TISSUE SPECIMEN Ordering Facility: [facility] Address: [address] [place] [address] Result Comment: A. A NTRUM (STOMACH) BIOPSY Received in formalin are two pieces of gonzalez-brown, soft tissue aggregating to 0.7 x 0.3 x 0.2 cm. Totally submitted in one cassette. B. ESOPHAGOGASTRIC JUNCTION BIOPSY Received in formalin are multiple pieces of gonzalez, soft tissue aggregating to 0.9 x 0.2 x 0.1 cm. Totally submitted in one cassette. C. ESOPHAGUS MID BIOPSY Received in formalin are multiple pieces of gonzalez-brown, soft tissue aggregating to 1.2 x 0.4 x 0.1 cm. Totally submitted in one cassette. SS July 26, 2022 11:24 PM Gross examination performed at [facility], [address] [place] [address] Performed By: #### S #### [facility] CLIA [id number] [address] [place] Upper GI endoscopyon 023 Upper GI endoscopy [facility] Gastrointestinal Endoscopy Patient Name: Dallas Martin Procedure Date: 07/26/2022 1:11 PM Date of : 1960 Admit Type: Outpatient Age: 61 Gender: Male Note Status: Finalized Procedure: Upper GI endoscopy Indications: Dysphagia Providers: Mireille Rao MD Patient Profile: Refer to note in patient chart for documentation of history and physical. Referring Physician: Linda Briggs (pa) (Referring ), Rosie rTejo (Referring ) Medicines: Midazolam 5 mg IV, Fentanyl 50 micrograms IV, Diphenhydramine 50 mg IV, Benzocaine spray Complications: No immediate complications. Requesting Provider: Procedure: Pre-Anesthesia Assessment: - Prior to the procedure, a History and Physical was performed, and patient medications and allergies were reviewed. The patient is competent. The risks and benefits of the procedure and the sedation options and risks were discussed with the patient. All questions were answered and informed consent was obtained. Patient identification and proposed procedure were verified by the physician in the pre-procedure area. Mental Status Examination: alert and oriented. Airway Examination: normal oropharyngeal airway and neck mobility. Respiratory Examination: clear to auscultation. Prophylactic Antibiotics: The patient does not require prophylactic antibiotics. Prior Anticoagulants: The patient has taken no anticoagulant or antiplatelet agents. ASA Grade Assessment: II - A patient with mild systemic disease. After reviewing the risks and benefits, the patient was deemed in satisfactory condition to undergo the procedure. The anesthesia plan was to use moderate sedation / analgesia (conscious sedation). Immediately prior to administration of medications, the patient was re-assessed for adequacy to receive sedatives. The heart rate, respiratory rate, oxygen saturations, blood pressure, adequacy of pulmonary ventilation, and response to care were monitored throughout the procedure. The physical status of the patient was re-assessed after the procedure. After obtaining informed consent, the endoscope was passed under direct vision. Throughout the procedure, the patient's blood pressure, pulse, and oxygen saturations were monitored continuously. The Endoscope was introduced through the mouth, and advanced to the second part of duodenum. The upper GI endoscopy was accomplished without difficulty. The patient tolerated the procedure well. Moderate Sedation: The administration of moderate sedation was initiated at 13:15 PM. Moderate (conscious) sedation was personally administered by the endoscopist. The following parameters were monitored: oxygen saturation, heart rate, blood pressure, respiratory rate, EKG, adequacy of pulmonary ventilation, and response to care. Total physician intraservice time was 12 minutes. Findings: The first portion of the duodenum and second portion of the duodenum were normal. Radially striped mildly erythematous mucosa without bleeding was found in the gastric antrum. Biopsies were taken with a cold forceps for histology. Verification of patient identification for the specimen was done by the nurse. Estimated blood loss was minimal. A medium-sized hiatal hernia was present. The Z-line was irregular and was found 36 cm from the incisors. Biopsies were taken with a cold forceps for histology. Estimated blood loss was minimal. Tortuous distal esophagus. Mid esophageal biopsies taken for dysphagia Impression: - Normal first portion of the duodenum and second portion of the duodenum. - Erythematous mucosa in the antrum. Biopsied. - Medium-sized hiatal hernia. - Z-line irregular, 36 cm from the incisors. Biopsied. Tortuous distal esophagus Recommendation: - Discharge patient to home (ambulatory). - Resume previous diet. - Continue present medications. - Await pathology results. - Follow up with Linda Briggs PA-C via televisit for discussion of pathology results and determination of timing of future endoscopies Procedure Code(s): --- Professional --- 74303, Esophagogastroduodenoscopy, flexible, transoral; with biopsy, single or multiple 48833, 59, Moderate sedation services provided by the same physician or other qualified health child care director performing the diagnostic or therapeutic service that the sedation supports, requiring the presence of an independent trained observer to assist in the monitoring of the patient's level of consciousness and physiological status; initial 15 minutes of intraservice time, patient age 5 years or older Diagnosis Code(s): --- Professional --- R13.10, Dysphagia, unspecified K22.89, Other specified disease of esophagus K44.9, Diaphragmatic hernia without obstruction or gangrene K31.89, Other diseases of stomach and duodenum CPT copyright 2020 [employer]. All rights reserved. The c (more content not included)... Normal [facility] CNOVon 06-16-2022 CNOV Office Visit (GENSWS ) LUANNDALLAS GREEN ([id number]) 1960 M Date Time Provider Department 06/16/22 2:00 PM LINDA BRIGGS During your visit today, we recorded the following information about you: Temperature Pulse Blood pressure Weight 97.2 degrees 133/minute 110/80 87.3 kg Height 1.702 m Linda Briggs PA-C 06/22/2022 2:46 PM Signed HISTORY AND PHYSICAL Dallas Martin 1960 REFERRING PHYSICIAN: Rosie Trejo MD CHIEF COMPLAINT: Consult (EGD) HPI: The patient is a 61 year old male referred for endoscopy. Dallas notes issues with chronic GERD for which he has been maintained on PPI and Pepcid with some improvement but still breakthrough symptoms. More recently patient complains of dysphagia with eating certain foods, such as a fish sandwich. Notes increased belching. Patient denies any change in bowel habits, weight changes, blood in stools, black tarry stools or abdominal pain. The patient notes no colon complaints and is up to date with screening colonoscopy-2014. Patient's past medical history is significant for prostate cancer and hypertension. Patient follows with Dr. Trejo in primary care for his chronic medical conditions. Patient denies chest pain, shortness of breath or recent hospitalizations. Denies problems with sedation in the past. PAST MEDICAL HISTORY Diagnosis Date Adenocarcinoma of prostate (HCC) BPH (benign prostatic hyperplasia) Erectile dysfunction Essential hypertension GERD (gastroesophageal reflux disease) Restless leg PAST SURGICAL HISTORY Procedure Laterality Date PROSTATE BIOPSY HX Bilateral 01/07/2015 REMOVE NAIL BED/FINGER TIP TONSILLECTOMY AND ADENOIDECTOMY TOOTH EXTRACTION Current Outpatient Medications Medication Sig lisinopril (ZESTRIL, PRINIVIL) 10 mg tablet Take 10 mg by mouth once daily. Tadalafil (CIALIS) 20 mg tab(s) Take 20 mg by mouth every 3 hours as needed. magnesium oxide (MAG-OX) 400 mg (241.3 mg magnesium) tablet Take 400 mg by mouth once daily as needed. At night time hydroCHLOROthiazide (HYDRODIURIL, ESIDRIX) 12.5 mg capsule Take 12.5 mg by mouth once daily as needed. famotidine (PEPCID) 20 mg tablet Take 40 mg by mouth twice daily. alfuzosin SR (UROXATRAL) 10 mg 24 hr tablet Take 10 mg by mouth once daily. chlorpheniramine maleate (ALLERGY 4-HOUR ORAL) Take 4 mg by mouth once daily as needed. chlorpheniramine (ALLER-CHLOR) 4 mg tablet Take 4 mg by mouth once daily. At night Cholecalciferol, Vitamin D3, (VITAMIN D) 25 mcg (1,000 unit) cap Take 1,000 Units by mouth once daily. multivitamin/iron/folic acid (CENTRUM COMPLETE ORAL) Take by mouth once daily. aspirin-caffeine (MELINA BACK AND BODY) 500-32.5 mg tab Take by mouth once daily as needed. esomeprazole (NEXIUM) 40 mg capsule Take 40 mg by mouth once daily. No current facility-administered medications for this visit. ALLERGIES: Patient has no allergy information on record. PERSONAL HISTORY: Social History Tobacco Use Smoking status: Never Smokeless tobacco: Never Vaping Use Vaping Use: Never used Substance Use Topics Alcohol use: Not Currently Alcohol/week: 2.0 standard drinks Types: 2 Standard drinks or equivalent per week Comment: occasional Drug use: Never FAMILY HISTORY: FAMILY HISTORY Adopted: Yes Family history unknown: Yes REVIEW OF SYMPTOMS: The review of systems data was entered by the nurse and reviewed by ct Nursing Notes: Sanjana Mendoza LPN 06/16/2022 2:12 PM Signed REVIEW OF SYSTEMS: General: The patient denies fatigue, denies weight loss, denies weight gain, denies feeling hot, and denies feelings of cold. Eyes: The patient denies glaucoma, denies eye injury/surgery, wears glasses or contacts. Ear/Nose/Throat: The patient denies allergies, denies hayfever, denies ear infections, and denies bloody noses. Cardiovascular: The patient denies chest pain, denies heart disease, NOTES high blood pressure,denies cardiac stent, denies prior heart attack, denies irregular heart beat, denies high cholesterol, denies poor circulation, denies heart failure, other cardiac issues, denies claudication, denies cold feet, denies peripheral arterial stent. Respiratory: The patient denies tuberculosis, denies pneumonia, denies frequent cough, denies pulmonary embolism, denies shortness of breath, and denies coughing up blood. Gastrointestinal: The patient NOTES difficulty swallowing, denies acid reflux, denies ulcers, denies vomiting, denies jaundice/hepatitis, denies gallbladder problems, denies black or tarry stools, denies hemorrhoids, denies bleeding from rectum, denies diverticulitis, denies constipation, denies diarrhea, denies loss of stool control, and denies hernias. Kidney/Bladder: The patient denies kidney stones, denies urine infections, and denies bloody urine. Skin: The patient denies a history of skin c (more content not included)... Normal [facility] Basophil percentageon 2021 Bilirubin [Mass/Vol] 0.90 mg/dL 0.20-1.00 [facility] Work Phone: Comment on above: For patients on eltr ombopag therapy, use of Dimension [place] TBIL is not recommended. Chloride [Moles/Vol] 107 mmol/L 98-107 [facility] Work Phone: Cholesterol [Mass/Vol] 174 mg/dL <200 [facility] Work Phone: Comment on above: <200 mg/dL Desirable 200-240 mg/dL Borderline >240 mg/dL High Risk Glucose [Mass/Vol] 88 mg/dL 74-106 [facility] Work Phone: Potassium [Moles/Vol] 3.9 mmol/L 3.5-5.1 [facility] Work Phone: Protein [Mass/Vol] 7.1 g/dL 6.4-8.2 [facility] Work Phone: Sodium [Moles/Vol] 139 mmol/L 136-145 [facility] Work Phone: Triglyceride [Mass/Vol] 126 mg/dL <199 [facility] Work Phone: Comment on above: The drugs N-Acetylcy steine and Metamizole may falsely depress this assay.Serum Triglycerides Reference Interval Normal <150 mg/dL Borderline high 150 - 199 mg/dL High 200 - 499 mg/dL Very High > or = 500 mg/dL WBC (Bld) [#/Vol] 5.6 10*3/uL 4.4-11.0 [facility] Work Phone: Blood erythrocytes count (nu mber/volume)on 02-25-2022 RBC (Bld) [#/Vol] 5.02 10*6/uL 4.6-6.2 [facility] Work Phone: Blood hemoglobin measurement (mass/volume)on 02-25-2022 Hemoglobin (Bld) [Mass/Vol] 15.3 g/dL 13.0-16.5 [facility] Work Phone: Blood platelet mean volumeon 02-25-2022 Platelet mean volume (Bld) [Entitic vol] 10.1 fL 6.2-12.0 [facility] Work Phone: Determination of erythrocyte mean corpuscular volume (MCV)on 02-25-2022 MCV (RBC) [Entitic vol] 90.8 fL 80-94 [facility] Work Phone: Hematocrit Auto (Bld) [Volum e fraction]on 02-25-2022 Hematocrit (Bld) [Volume fraction] 45.6 % 40-54 [facility] Work Phone: Laboratory - Chemistry and C hemistry - challengeon 02-25-2022 ALP [Catalytic activity/Vol] 47 U/L 45-117 [facility] Work Phone: ALT [Catalytic activity/Vol] 21 U/L 16-61 [facility] Work Phone: CO2 [Moles/Vol] 26.0 mmol/L 21.0-32.0 [facility] Work Phone: Globulin (S) [Mass/Vol] 3.0 g/dL 2.2-4.2 [facility] Work Phone: Urea nitrogen/Creatinine [Mass ratio] 19.1 mg/mg 10-20 [facility] Work Phone: Laboratory - Hematology and Cell countson 02-25-2022 Erythrocyte distribution width (RBC) [Entitic vol] 42.7 fL 35.1-43.9 [facility] Work Phone: Erythrocyte distribution width (RBC) [Ratio] 12.9 % 11.6-14.6 [facility] Work Phone: MCH (RBC) [Entitic mass] 30.5 pg 27.0-32.0 [facility] Work Phone: MCHC Auto (RBC) [Mass/Vol]on 02-25-2022 MCHC (RBC) [Mass/Vol] 33.6 g/dL 32-36 [facility] Work Phone: No Panel Informationon 02-25 Estimated GFR (MDRD) Amer 68 mL/min >60 [facility] Work Phone: Comment on above: GFR Calc Estimated GFR (MDRD) Non-Af Amer 56 mL/min >60 [facility] Work Phone: Comment on above: Non- GFR Calc Prostate Specific Antigen Total 4.68 ng/mL 0.0-4.0 [facility] Work Phone: Comment on above: This test was perfor med using the TPSA assay method for [employer] chemistry system. Values obtained with differentassay methods cannot be used interchangably.When changing PSA assays in the course of monitoring apatient, additional sequential testing should be carriedout to confirm baseline values. Urine Microalbumin/Creatini ne Ratio 3.6 mg/g CRE <30 [facility] Work Phone: Platelets bldon 02-25-2022 Platelets (Bld) [#/Vol] 192 10*3/uL 150-450 [facility] Work Phone: Serum or plasma albumin belén urement (mass/volume)on 02-25-2022 Albumin [Mass/Vol] 4.1 g/dL 3.2-5.0 [facility] Work Phone: Serum or plasma albumin/glob ulin mass ratioon 02-25-2022 Albumin/Globulin [Mass ratio] 1.4 {ratio} 0.9-2.4 [facility] Work Phone: Serum or plasma calcium belén urement (mass/volume)on 02-25-2022 Calcium [Mass/Vol] 9.2 mg/dL 8.5-10.1 [facility] Work Phone: Serum or plasma cholesterol in HDL measurement (mass/volume)on 02-25-2022 Cholesterol in HDL [Mass/Vol] 58 mg/dL >40 [facility] Work Phone: Comment on above: The drugs N-Acetylcy steine and Metamizole may falsely depress this assay. Reference Range HDL <40 mg/dL Low HDL Cholesterol HDL >or= 60 mg/dL High HDL Cholesterol Serum or plasma cholesterol in VLDL measurement (mass/volume)on 02-25-2022 Cholesterol in VLDL [Mass/Vol] 25 mg/dL 5-40 [facility] Work Phone: Serum or plasma creatinine m easurement (mass/volume)on 02-25-2022 Creatinine [Mass/Vol] 1.36 mg/dL 0.70-1.30 [facility] Work Phone: Comment on above: The validity of the calculated GFR & GFRAA in patients over 70 years has not been determined. Clinical correlation is essential. Serum or plasma low density lipoprotein (LDL) cholesterol measurement (mass/volume)on 02-25-2022 Cholesterol in LDL [Mass/Vol] 91 mg/dL 0-130 [facility] Work Phone: Serum or plasma urea nitroge n measurement (mass/volume)on 02-25-2022 Urea nitrogen [Mass/Vol] 26 mg/dL 7-18 [facility] Work Phone: Thin prep Papanicolaou smear with manual screeningon 02-25-2022 Thin prep Papanicolaou smear with manual screening 12 U/L 15-37 [facility] Work Phone: Thin prep Papanicolaou smear with manual screening 6 5-15 [facility] Work Phone: Thin prep Papanicolaou smear with manual screening 7.5 mg/L NO RANGE EST. [facility] Work Phone: Urine creatinine measurement (mass/volume)on 02-25-2022 Creatinine (U) [Mass/Vol] 212.00 mg/dL NO RANGE EST. [facility] Work Phone: Vital Signs Date Time Vital Sign Value Performing Clinician Facility 08-24-2024 14:25-0500 Body height 170.[address] Rosie Trejo MD Work Phone: [facility] 08-24-2024 14:25-0500 Body mass index (BMI) [Ratio] 27.3 kg/m2 Dr. Rosie Trejo MD Work Phone: [facility] 08-24-2024 14:25-0500 Body weight 79.[address] Rosie Trejo MD Work Phone: [facility] 07-25-2024 14:06-0500 Body mass index (BMI) [Ratio] 27.2 kg/m2 Dr. Rosie Trejo MD Work Phone: [facility] 07-25-2024 14:06-0500 Body weight 78.[address] Rosie Trejo MD Work Phone: [facility] 07-25-2024 14:06-0500 Diastolic blood pressure 80 mm[Hg] Dr. Rosie Trejo MD Work Phone: [facility] 07-25-2024 14:06-0500 Heart rate 103 /min Dr. Rosie Trejo MD Work Phone: [facility] 07-25-2024 14:06-0500 Respiratory rate 18 /min Dr. Rosie Trejo MD Work Phone: [facility] 07-25-2024 14:06-0500 SaO2% (BldA) [Mass fraction] 97 % Dr. Rosie Trejo MD Work Phone: [facility] 07-25-2024 14:06-0500 Systolic blood pressure 137 mm[Hg] Dr. Rosie Trejo MD Work Phone: [facility] 01-06-2023 06:35-0400 Body temperature 98.06 [degF] [facility] 01-06-2023 06:35-0400 Diastolic Blood Pressure Non-Invasive [address] JIGNESH [facility] 01-06-2023 06:35-0400 Heart rate 79 /min DR JIGNESH NEWELL [facility] 01-06-2023 06:35-0400 Reason For Taking VItal Signs DR JIGNESH NEWELL [facility] 01-06-2023 06:35-0400 Respiratory rate 16 /min DR JIGNESH NEWELL [facility] 01-06-2023 06:35-0400 Systolic Blood Pressure Non-Invasive [address] JIGNESH NEWELL [facility] 01-06-2023 03:28-0400 Body temperature 98.6 [degF] DR JIGNESH NEWELL [facility] 01-06-2023 03:28-0400 Diastolic Blood Pressure Non-Invasive [address] JIGNESH NEWELL [facility] 01-06-2023 03:28-0400 Heart rate 74 /min DR JIGNESH NEWELL [facility] 01-06-2023 03:28-0400 Reason For Taking VItal Signs DR JIGNESH NEWELL [facility] 01-06-2023 03:28-0400 Respiratory rate 16 /min DR JIGNESH NEWELL [facility] 01-06-2023 03:28-0400 Systolic Blood Pressure Non-Invasive [address] JIGNESH NEWELL [facility] 01-05-2023 23:19-0400 Body temperature 98.78 [degF] DR JIGNESH NEWELL [facility] 01-05-2023 23:19-0400 Diastolic Blood Pressure Non-Invasive [address] JIGNESH NEWELL [facility] 01-05-2023 23:19-0400 Heart rate 77 /min DR JIGNESH NEWELL [facility] 01-05-2023 23:19-0400 Reason For Taking VItal Signs DR JIGNESH NEWELL [facility] 01-05-2023 23:19-0400 Respiratory rate 16 /min DR JIGNESH NEWELL [facility] 01-05-2023 23:19-0400 Systolic Blood Pressure Non-Invasive [address] JIGNESH NEWELL [facility] 01-05-2023 19:26-0400 Body temperature 97.34 [degF] DR JIGNESH NEWELL [facility] 01-05-2023 19:26-0400 Heart rate 76 /min DR JIGNESH NEWELL [facility] 01-05-2023 17:10-0400 Heart rate 70 /min DR JIGNESH NEWELL [facility] 01-05-2023 14:50-0400 Heart rate 62 /min DR JIGNESH NEWELL [facility] 01-05-2023 14:36-0400 Body height 170.[address] JIGNESH NEWELL [facility] 01-05-2023 14:36-0400 Body weight 81.[address] JIGNESH NEWELL [facility] 01-05-2023 14:36-0400 Body weight 28.24 kg/m2 DR JIGNESH NEWELL [facility] 01-05-2023 12:45-0400 Body temperature 96.8 [degF] DR JIGNESH NEWELL [facility] 01-05-2023 12:40-0400 Respiratory Rate - Anes 0 br/min DR JIGNESH NEWELL [facility] 01-05-2023 12:35-0400 Respiratory Rate - Anes 25 br/min DR JIGNESH NEWELL [facility] 01-05-2023 12:30-0400 Respiratory Rate - Anes 30 br/min DR JIGNESH NEWELL [facility] 01-05-2023 06:34-0400 Body height 170.[address] JIGNESH NEWELL [facility] 01-05-2023 06:34-0400 Body temperature 98.42 [degF] DR JIGNESH NEWELL [facility] 01-05-2023 06:34-0400 Body weight 81.[address] JIGNESH NEWELL [facility] 11-26-2022 13:36-[address] JIGNESH NEWELL [facility] 11-26-2022 13:36-0400 Body height 170.[address] JIGNESH NEWELL [facility] 11-26-2022 13:36-0400 Body weight 84.[address] JIGNESH NEWELL [facility] 11-26-2022 13:36-0400 Body weight 29.03 kg/m2 DR JIGNESH NEWELL [facility] 11-26-2022 13:36-0400 Diastolic Blood Pressure Non-Invasive [address] JIGNESH NEWELL [facility] 11-26-2022 13:36-0400 Heart rate 103 /min DR JIGNESH NEWELL [facility] 11-26-2022 13:36-0400 Respiratory rate 20 /min DR JIGNESH NEWELL [facility] 11-26-2022 13:36-0400 Systolic Blood Pressure Non-Invasive [address] JIGNESH NEWELL [facility] 08-04-2022 14:32-0500 Body height 170.2 cm Linda Webber PA-C Work Phone: [facility] 08-04-2022 14:32-0500 Body temperature 97.81 [degF] Linda Webber PA-C Work Phone: [facility] 08-04-2022 14:32-0500 Body weight 89.54 kg Linda Chester PA-C Work Phone: [facility] 08-04-2022 14:32-0500 Diastolic blood pressure 72 mm[Hg] Linda Chester PA-C Work Phone: [facility] 08-04-2022 14:32-0500 Heart rate 129 /min Linda Webber PA-C Work Phone: [facility] 08-04-2022 14:32-0500 SaO2% (BldA) [Mass fraction] 100 % Linda Webber PA-C Work Phone: [facility] 08-04-2022 14:32-0500 Systolic blood pressure 120 mm[Hg] Linda Webber PA-C Work Phone: [facility] 07-26-2022 14:06-0500 Diastolic blood pressure 77 mm[Hg] Mireille Rao MD Work Phone: [facility] 07-26-2022 14:06-0500 Heart rate 63 /min Mireille Rao MD Work Phone: [facility] 07-26-2022 14:06-0500 Respiratory rate 16 /min Mireille Rao MD Work Phone: [facility] 07-26-2022 14:06-0500 SaO2% (BldA) [Mass fraction] 97 % Mireille Rao MD Work Phone: [facility] 07-26-2022 14:06-0500 Systolic blood pressure 115 mm[Hg] Mireille Rao MD Work Phone: [facility] 07-26-2022 12:29-0500 Body temperature 97.59 [degF] Mireille Rao MD Work Phone: [facility] Encounters Encounter Date Encounter Type Care Provider Facility Start: 01-29-2025 ambulatory Ej Curtis lity:[facility] Start: 01-10-2025 ambulatory Digna Farrell Facility: [facility] [place] Start: 11-07-2024 End: 11-07-[address] Rosie Trejo MD Work Phone: [facility] Work Phone: Start: 11-07-2024 End: 11-07-2024 Patient encounter procedure Jennifer Heaton DIRECTOR SOCIAL WELFARE-C -[place], Margie Val Start: 11-07-2024 End: 11-07-2024 ambulatory Jennifer Heaton VSC Facility:[facility] Start: 09-25-2024 End: 09-25-[address] Rosie Trejo MD Work Phone: [facility] Work Phone: Start: 09-25-2024 End: 09-25-[address] Edison Sena MD -Physical Therapy Work Phone: Start: 08-24-2024 End: 08-24-[address] Edison Sena MD -[facility] Work Phone: Start: 08-24-2024 End: 08-24-2024 ambulatory Edison Sena Facility:[facility] Start: 08-15-2024 ambulatory Reese Munoz Facility:[facility] Start: 08-15-2024 Non-patient / Non-visit Dr. Rj MASON -[facility] Start: 08-15-2024 End: 08-15-[address] Brian Lim MD -Cardiovascular Services Work Phone: Start: 08-15-2024 End: 08-15-2024 ambulatory Brian Lim Facility:[facility] Start: 07-25-2024 End: 07-25-[address] Brian Lim MD -[facility] Work Phone: Start: 07-25-2024 End: 07-25-2024 ambulatory Brian Lim Facility:[facility] Start: 07-16-2024 End: 07-16-2024 Patient encounter procedure Jennifer Heaton DIRECTOR SOCIAL WELFARE-C -Laboratory, [place] Work Phone: Start: 07-16-2024 End: 07-16-2024 ambulatory Jennifer Heaton [facility] Facility:[facility] Start: 06-17-2024 ambulatory Sriram Ma ty:[facility] Start: 06-12-2024 End: 06-12-[address] Jignesh Newell MD -Laboratory, [place] Work Phone: Start: 06-11-2024 End: 06-16-2024 ambulatory Chrissie Valentine [facility] Facility:[facility] Start: 06-11-2024 End: 06-16-[address] Sriram Guerrier MD -[facility] Start: 05-15-2024 End: 05-15-2024 ambulatory Chrissie E Gualberto Facility:[facility] Start: 05-08-2024 ambulatory Ceresco Alexander Facility:[facility] Start: 05-05-2024 ambulatory Reese Alexander [facility] Start: 05-03-2024 End: 05-08-2024 Evaluation and management of inpatient Rosie Trejo Facility:[facility] Start: 05-03-2024 ambulatory Meena Boyle Facility :[facility] Start: 05-02-2024 End: 05-02-2024 ambulatory Rosie Trejo Facility:[facility] Start: 03-30-2024 End: 03-30-2024 ambulatory Rosie Trejo Facility:[facility] Start: 05-26-2023 End: 05-26-2023 ambulatory [facility] Work Phone: Start: 05-26-2023 End: 05-26-2023 Patient encounter procedure [facility] Work Phone: Start: 04-18-2023 End: 04-18-2023 Patient encounter procedure [facility], [place] [facility] Start: 01-05-2023 End: 01-06-2023 ambulatory ROSIE TREJO MD Facility:[facility] Start: 01-05-2023 End: 01-06-[address] JIGNESH NEWELL [facility] Start: 11-26-2022 End: 11-27-2022 ambulatory ROSIE TREJO MD Facility:[facility] Start: 11-26-2022 End: 11-26-[address] JIGNESH NEWELL MD [facility] Start: 08-04-2022 End: 08-04-2022 ambulatory ROSIE TREJO Facility:[facility] Start: 08-04-2022 End: 08-04-2022 Patient encounter procedure Linda Briggs PA-C Work Phone: General Surgery Comment on above: GERD without esophag itis (Primary Dx); Dysphagia, unspecified type; Hiatal hernia Start: 07-26-2022 End: 07-26-2022 ambulatory LINDA BRIGGS Facility:[facility] Start: 07-26-2022 End: 07-26-2022 Subsequent hospital visit by physician Mireille Rao MD Work Phone: Ambulatory Surgery Comment on above: Dysphagia, unspecifi ed type [R13.10] Start: 06-16-2022 End: 06-17-2022 ambulatory LINDAJAN BRIGGS Facility:[facility] Start: 02-25-2022 End: 02-25-2022 Patient encounter procedure [facility] Procedures Date Procedure Procedure Detail Performing Clinician Start: 08-24-2024 X-ray of lumbosacral spine Dr. Rosie pandey MD Work Phone: Start: 07-25-2024 Evaluation of diagnostic study results Dr. Rosie Trejo MD Work Phone: Start: 01-05-[address] JIGNESH MALONEY MD Start: 07-26-2022 Level iv surg pathology gross&microscopic exam Mireille Rao MD Work Phone: Start: 07-26-2022 Esophagogastroduodenoscopy transoral diagnostic Linda PA-C Work Phone: Colonoscopy DR JIGNESH NEWELL MD Endoscope, device (p hysical object) DR JIGNESH NEWELL MD Entire head of phala nx of middle finger (body structure) DR JIGNESH NEWELL MD Comment on above: Right Tonsillectomy and adenoidectomy DR JIGNESH NEWELL MD Plan of Treatment Date Care Activity Detail Author Start: 08-24-2024 Patient referral [facility] Work Phone: Start: 03-18-2023 Covid-19 Vaccine ( season) Covid-19 Vaccine ( season) [facility] Start: 03-18-2023 Influenza vaccination Influenza Vaccine (#1) [facility] Start: 07-18-2022 DEPRESSION ASSESSMENT DEPRESSION ASSESSMENT [facility] Start: 03-18-2022 Influenza vaccination INFLUENZA (#1) [facility] Start: 2018 RSV Vaccine (1 - 1-dose 60+ series) RSV Vaccine (1 - 1-dose 60+ series) [facility] Start: 2013 PROSTATE CANCER SCREENING DISCUSSION PROSTATE CANCER SCREENING DISCUSSION [facility] Start: 2008 SHINGRIX VACCINE (1 of 2) SHINGRIX VACCINE (1 of 2) [facility] Start: 11-04-2003 COLOGUARD (FIT-DNA) COLOGUARD (FIT-DNA) [facility] Start: 11-04-2003 Colonoscopy COLONOSCOPY [facility] Start: 11-04-2003 COLORECTAL CANCER SCREENING COLORECTAL CANCER SCREENING [facility] Start: 11-04-[address] COLONOGRAPHY [facility] Start: 11-04-2003 DIABETES SCREEN DIABETES SCREEN [facility] Start: 11-04-2003 Diabetes Screening Diabetes Screening [facility] Start: 11-04-2003 FECAL OCCULT BLOOD FECAL OCCULT BLOOD [facility] Start: 11-04-2003 SIGMOIDOSCOPY SIGMOIDOSCOPY [facility] Start: 1993 Lipid 1996 panel - Serum or Plasma Lipid Screening [facility] Start: 1993 LIPID SCREEN LIPID SCREEN [facility] Start: 1977 Urine microalbumin profile [facility] Start: 1976 HEPATITIS C SCREENING HEPATITIS C SCREENING [facility] Start: 1976 HIV SCREENING HIV SCREENING [facility] Patient referral [facility] Work Phone: Serum testosterone measurement [facility] Testosterone Free [Mass/volume] in Serum or Plasma [facility] Testosterone measurement [facility] Immunizations Immunization Date Immunization Notes Care Provider [facility] 05-04-2024 influenza, high dose seasonal, preservative-free Dr. Rosie Trejo MD Work Phone: [facility] 04-18-2023 RSV Adult Recombinan t (Arexvy) Dr. Rosie Trejo MD Work Phone: [facility] 04-18-2023 tetanus toxoid, redu gregory diphtheria toxoid, and acellular pertussis vaccine, adsorbed Dr. Rosie Trejo MD Work Phone: [facility] 05-31-2022 Covid Pfizer Bivalen t Booster Dr. Rosie Trejo MD Work Phone: [facility] 12-12-2021 SARS-CoV-2 mRNA (mdjsvoywhbb-brpt-hlryk se) vaccine DR [facility]IGN[facility] 06-13-2021 SARS-CoV-2 mRNA (tozinameran) vaccine DR JIGNESH NEWELL [facility] 10-25-2020 SARS-CoV-2 mRNA (tozinameran) vaccine DR JIGNESH NEWELL [facility] 10-02-2020 SARS-CoV-2 mRNA (tozinameran) vaccine DR JIGNESH NEWELL [facility] 08-26-[address] JIGNESH NEWELL [facility] 05-14-[address] JIGNESH NEWELL [facility] 05-01-2020 influenza virus vaccine, unspecified formulation DR JIGNESH NEWELL [facility] 04-17-2018 influenza virus vaccine, unspecified formulation DR JIGNESH [facility]WE[facility] Payers Date Payer Category Payer Medicare [id number] 2024 Self-pay [id number] 2021 Unknown JAIME JOHNSON PPO [id number] 2021-Present [phone] [facility] [id number] [place] [address] PPO [id number] 2020 Unknown [id number] 2006 Unknown [id number] 2006 Unknown [id number] 1958 Unknown [id number] 1958 Unknown [id number] 2..840.1.109805.3.579.2.627 Unknown [id number] Unknown [id number] [id number] Unknown [id number] 2.16.840.1.976591.3.579.2.462 Unknown [id number] 2.840.1.421460.3.579.2.462 Unknown [id number] 2.840.1.841754.3.579.2.462 Unknown [id number] 2.840.1.235074.3.579.2.462 Unknown [id number] 2.840.1.050881.3.579.2.462 Unknown [id number] 2.840.1.070436.3.579.2.462 Unknown [id number] 2.840.1.703090.3.579.2.462 Unknown [id number] 2.840.1.108362.3.579.2.462 Unknown [id number] 2.840.1.225360.3.579.2.462 Unknown [id number] 2.840.1.707040.3.579.2.462 Unknown [id number] 2.840.1.210150.3.579.2.462 Unknown [id number] 2.840.1.555944.3.579.2.462 Unknown [id number] 2.840.1.039132.3.579.2.462 Unknown [id number] 2.16.840.1.445852.3.579.2.462 Unknown [id number] 2.16.840.1.546672.3.579.2.462 Unknown [id number] 2.16.840.1.128252.3.579.2.462 Unknown [id number] 2.16.840.1.826092.3.579.2.462 Unknown [id number] 2.16.840.1.326716.3.579.2.462 Unknown [id number] 2.16.840.1.318384.3.579.2.462 Unknown [id number] 2.16.840.1.611229.3.579.2.462 Unknown [id number] 2.16.840.1.299062.3.579.2.462 Unknown [id number] 2.16.840.1.825800.3.579.2.462 Unknown [id number] 2.16.840.1.047183.3.579.2.462 Unknown [id number] 2.16.840.1.632885.3.579.2.462 Social History Date Type Detail Facility Tobacco smoking stat [facility] Unknown if ever smoked [facility] Work Phone: Start: 1960 Sex Assigned At Male A [facility] Start: 06-15-2022 End: 07-25-2024 Tobacco smoking status PRIS Never smoked tobacco [facility] Start: 06-15-2022 Tobacco use and exposure Smokeless tobacco non-user [facility] Start: 07-26-2022 End: 08-04-2022 Alcohol intake Current drinker of alcohol (finding) [facility] Start: 07-26-2022 End: 08-04-2022 Alcohol intake [facility] Start: 07-26-2022 Alcohol Comment a beer a coupl e times per week [facility] Start: 1960 Sex Assigned At Not on file C [facility] Start: 07-26-2022 Tobacco use panel [facility] Start: 09-27-2024 End: 11-13-2024 Sex Male (finding) [facility] Functional Status Date Assessment Result Facility 01-06-2023 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, 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, 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, 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 [facility] 01-06-2023 Functional Status Room check performed [facility] 01-06-2023 Functional Status [facility] 01-06-2023 Functional Status [facility] 01-05-2023 Functional Status Dinner Percent 50 [facility] 01-05-2023 Functional Status Sensory Deficits None [facility] 01-05-2023 Functional Status Assistive Device None [facility] 11-26-2022 Functional Status Sensory Deficits None [facility] Mental Status Date Assessment Result Facility 01-06-2023 Mental Status Orientation Oriented x 4 [facility] 01-06-2023 Mental Status [facility] 01-05-2023 Mental Status [facility] 01-05-2023 Mental Status Orientation Asse ssment Oriented x 4 [facility] 01-05-2023 Mental Status [facility] Clinical Notes 06-16-2022 to 09-25-2024 Note Date & Type Note Facility 09-25-2024 Discharge summary Note Date/Time September 25, 2024 2:29pm [facility] Physical Therapy [facility] [address] [place] [address] / REHABILITATION SERVICES DISCHARGE SUMMARY MR#: [id number] Acct: [id number] Name: DALLAS MARTIN Rep #: [id number] : 1960 63 From: Cert. CATALINO Staples, OCS Referring Dr.: Dr. Edison Sena MD Status: REG RCR Insurance: ANTH SELF PAY INSURANCE Discharge Summary D/C summary: It has been my pleasure to treat DALLAS MARTIN referred by Dr. Edison Sena MD, with the diagnosis of SPONDYLOLISTHESIS ,LUMBAR ,PERSOANL HISTORY OF ILLNESS for a total of 8 visit(s). Discharge Date: 09/25/24 Please see the following information for a summary of their discharge status. Subjective Subjective: Pain is some better less pain overall Doing stretches overall Pain Bilateral Back: Pain Intensity (Out of 10): 2 Overall Improvement % Improvement: 50 Objective Objective/Function: POSTURE: mild forward posture GAIT: reciprocal pattern NEURO: denies paresthesia/tingling , reflexes L3-4,L4-5,L5-S1 2/3 FLEXABILITY: hamstrings WFL MMT: quads/hams 4/5( peak force) hip flexion right 49.9 ,left 39.9 ,hip abd 36.8left ,right 30.2 LUMBAR ROM: flexion WFL ,extension mod ,side glides mIN loss Goals Goal 1:: Patient to be I with HEP for back Goal Progress: Goal Met Goal 2:: Patient to demonstrate 60% improvement with less pain and improved function Goal Progress: Progressing Goal 3:: Patient improve lumbar ROM for function of recovery for ADLS Goal Progress: Goal Met Goal 4:: Patient to improve peak force hips by 5-10 # to improve function Goal Progress: Goal Met Plan Plan: D/C D/C Information Discharge Comments: HEP d/c sentence: If there are questions or concerns regarding this patient's physical therapy, please feel free to call me at [phone]. Thank you for the referral of thispatient. Sincerely, Dat Frost PT, Cert MDT, OCS Balance/Gait/Functional tests Balance/Special Test Scores Oswestry Low Back Score: 2 Improvement % Improvement: 50 <Electronically signed by Dat Frost PT, Cert. CATALINO, MELANY> 09/25/24 1429 CC: Dr. Edison Sena MD; Topaz Beam ~ HEBERT Signed [facility] Work Phone: 1(883) 716-343203-11-2025 Discharge summary [facility] Physical Therapy [facility] [address] [place] [address] [address] [place] [address] / REHABILITATION SERVICES DISCHARGE SUMMARY MR#: [id number] Acct: [id number] Name: DALLAS MARTIN Rep #: [id number] : 1960 63 From: Taylor Staples. CATALINO, OCS Referring Dr.: Dr. Edison Sena MD Status: REG RCR Insurance: ANTH SELF PAY INSURANCE Discharge Summary D/C summary: It has been my pleasure to treat DALLAS MARTIN referred by Dr. Eidson Sena MD, with the diagnosis of SPONDYLOLISTHESIS ,LUMBAR ,PERSOANL HISTORY OF ILLNESS for a total of 8 visit(s). Discharge Date: 09/25/24 Please see the following information for a summary of their discharge status. Subjective Subjective: Pain is some better less pain overall Doing stretches overall Pain Bilateral Back: Pain Intensity (Out of 10): 2 Overall Improvement % Improvement: 50 Objective Objective/Function: POSTURE: mild forward posture GAIT: reciprocal pattern NEURO: denies paresthesia/tingling , reflexes L3-4,L4-5,L5-S1 2/3 FLEXABILITY: hamstrings WFL MMT: quads/hams 4/5( peak force) hip flexion right 49.9 ,left 39.9 ,hip abd 36.8left ,right 30.2 LUMBAR ROM: flexion WFL ,extension mod ,side glides mIN loss Goals Goal 1:: Patient to be I with HEP for back Goal Progress: Goal Met Goal 2:: Patient to demonstrate 60% improvement with less pain and improved function Goal Progress: Progressing Goal 3:: Patient improve lumbar ROM for function of recovery for ADLS Goal Progress: Goal Met Goal 4:: Patient to improve peak force hips by 5-10 # to improve function Goal Progress: Goal Met Plan Plan: D/C D/C Information Discharge Comments: HEP d/c sentence: If there are questions or concerns regarding this patient's physical therapy, please feel free to call me at [phone]. Thank you for the referral of thispatient. Sincerely, Dat Frost, PT, Cert MDT, OCS Balance/Gait/Functional tests Balance/Special Test Scores Oswestry Low Back Score: 2 Improvement % Improvement: 50 09/25/24 1429 CC: Dr. Edison Sena MD; Topaz Beam ~ JLA Signed [facility]01-08-2025 Evaluation note* Diagnosis Onset Date Resolution Status Admit Date Endocarditis acute July 25, 2024 1:53pm Hypertension chronic July 25, 2024 1:53pm Other intervertebral disc degeneration, lumbar region with discogenic back acute August 1:59pm Spondylolisthesis, lumbar region acute August 24 1:59pm [facility] Work Phone: 1(805) 629-733810-22-[address] [facility]06-22-2023 Hospital Discharge instructions Patient Education 01/06/2023 10:09:32 Transurethral Resection of the Prostate Transurethral Resection of the Prostate Transurethral resection of the prostate (TURP) is the removal (resection) of part of the gland thatproduces semen (prostate gland). This procedure is done to treat benign prostatic hyperplasia (BPH). BPH is an abnormal, noncancerous (benign) increase in the number of cells that make up the prostate tissue. BPH causes the prostate to get bigger. The enlarged prostate can push against or block thetube that drains urine from the bladder out of the body (urethra). BPH can affect normal urine flowby causing bladder infections, difficulty controlling bladder function, and difficulty emptying thebladder. The goal of TURP is to remove enough prostate tissue to allow for a normal flow of urine. The procedure will allow you to empty your bladder more completely when you urinate so that you can urinate less often. In a transurethral resection, a thin telescope with a light, a tiny camera, and an electric cuttingedge (resectoscope) is passed through the urethra and into the prostate. The opening of the urethrais at the end of the penis. Tell a health care provider about: Any allergies you have. All medicines you are taking, including vitamins, herbs, eye drops, creams, and nhla-ckd-zftrxqk medicines. Any problems you or family members have had with anesthetic medicines. Any blood disorders you have. Any surgeries you have had. Any medical conditions you have. Any prostate infections you have had. What are the risks? Generally, this is a safe procedure. However, problems may occur, including: Infection. Bleeding. Allergic reactions to medicines. Damage to other structures or organs, such as: ?The urethra. ?The bladder. ?Muscles that surround the prostate. Difficulty getting an erection. Inability to control when you urinate (incontinence). Scarring, which may cause problems with urine flow. What happens before the procedure? Medicines Ask your health care provider about: Changing or stopping your regular medicines. This is especially important if you are taking diabetes medicines or blood thinners. Taking medicines such as aspirin and ibuprofen. These medicines can thin your blood. Do not take these medicines unless your health care provider tells you to take them. Taking vrlh-vmn-odibudx medicines, vitamins, herbs, and supplements. Eating and drinking Follow instructions from your health care provider about eating and drinking, which may include: 8 hours before the procedure stop eating heavy meals or foods, such as meat, fried foods, or fatty foods. 6 hours before the procedure stop eating light meals or foods, such as toast or cereal. 6 hours before the procedure stop drinking milk or drinks that contain milk. 2 hours before the procedure stop drinking clear liquids. Staying hydrated Follow instructions from your health care provider about hydration, which may include: Up to 2 hours before the procedure you may continue to drink clear liquids, such as water, clear fruit juice, black coffee, and plain tea. General instructions You may have a physical exam. You may have a blood or urine sample taken. Ask your health care provider what steps will be taken to help prevent infection. These may include: ?Washing skin with a germ-killing soap. ?Taking antibiotic medicine. Plan to have someone take you home from the hospital or clinic. You may not be able to drive for upto 10 days after your procedure. Plan to have a responsible adult care for you for at least 24 hours after you leave the hospital orclinic. This is important. What happens during the procedure? An IV will be inserted into one of your veins. You will be given one or more of the following: ?A medicine to help you relax (sedative). ?A medicine to make you fall asleep (general anesthetic). ?A medicine that is injected into your spine to numb the area below and slightly above the injection site (spinal anesthetic). Your legs will be placed in foot rests (stirrups) so that your legs are apart and your knees are bent. The resectoscope will be passed through your urethra to your prostate. Parts of your prostate will be resected using the cutting edge of the resectoscope. The resectoscope will be removed. A small, thin tube (catheter) will be passed through your urethra and into your bladder. The catheter will drain urine into a bag outside of your body. ?Fluid may be passed through the catheter to keep the catheter open. The procedure may vary among health care providers and hospitals. What happens after the procedure? Your blood pressure, heart rate, breathing rate, and blood oxygen level will be monitored until youleave the hospital or clinic. You may continue to receive fluids and medicines through an IV. You may have some pain. Pain medicine will be available to help you. You will have a catheter draining your urine. ?You may have blood in your urine. Your catheter may be kept in until your urine is clear. ?Your urinary drainage will be monitored. If necessary, your bladder may be rinsed out (irrigated) through your catheter. You will be encouraged to walk around as soon as possible. You may have to wear compression stockings. These stockings help prevent blood clots and reduce swelling in your legs. Do not drive for 24 hours if you were given a sedative during your procedure. Summary Transurethral resection of the prostate (TURP) is the removal (resection) of part of the gland thatproduces semen (prostate gland). The goal of this procedure is to remove enough prostate tissue to allow for a normal flow of urine. Follow instructions from your health care provider about taking medicines and about eating and drinking before the procedure. This information is not intended to replace advice given to you by your health care provider. Make sure you discuss any questions you have with your health care provider. Document Released: 07/04/2006 Document Revised: 10/24/2019 Document Reviewed: 04/04/2019 Who What Wear Patient Education 2020 [employer]. 01/05/2023 12:42:45 Transurethral Resection of the Prostate, Care After Transurethral Resection of the Prostate, Care After This sheet gives you information about how to care for yourself after your procedure. Your health care provider may also give you more specific instructions. If you have problems or questions, contact your health care provider. What can I expect after the procedure? After the procedure, it is common to have: Mild pain in your lower abdomen. Soreness or mild discomfort in your penis from having the catheter inserted during the procedure. A feeling of urgency when you need to urinate. A small amount of blood in your urine. You may notice some small blood clots in your urine. These are normal. Follow these instructions at home: Medicines Take fqeo-njg-zxxcisu and prescription medicines only as told by your health care provider. If you were prescribed an antibiotic medicine, take it as told by your health care provider. Do notstop taking the antibiotic even if you start to feel better. Ask your health care provider if the medicine prescribed to you: ?Requires you to avoid driving or using heavy machinery. ?Can cause constipation. You may need to take actions to prevent or treat constipation, such as: ?Take vnqi-jxx-fwqafro or prescription medicines. ?Eat foods that are high in fiber, such as fresh fruits and vegetables, whole grains, and beans. ?Limit foods that are high in fat and processed sugars, such as fried or sweet foods. Do not drive for 24 hours if you were given a sedative during your procedure. Activity Return to your normal activities as told by your health care provider. Ask your health care provider what activities are safe for you. Do not lift anything that is heavier than 10 lb (4.5 kg), or the limit that you are told, for 3 weeks after the procedure or until your health care provider says that it is safe. Avoid intense physical activity for as long as told by your health care provider. Avoid sitting for a long time without moving. Get up and move around one or more times every few hours. This helps to prevent blood clots. You may increase your physical activity gradually as you start to feel better. Lifestyle Do not drink alcohol for as long as told by your health care provider. This is especially importantif you are taking prescription pain medicines. Do not engage in sexual activity until your health care provider says that you can do this. General instructions Do not take baths, swim, or use a hot tub until your health care provider approves. Drink enough fluid to keep your urine pale yellow. Urinate as soon as you feel the need to. Do not try to hold your urine for long periods of time. If your health care provider approves, you may take a stool softener for 2 3 weeks to prevent you from straining to have a bowel movement. Wear compression stockings as told by your health care provider. These stockings help to prevent blood clots and reduce swelling in your legs. Keep all follow-up visits as told by your health care provider. This is important. Contact a health care provider if you have: Difficulty urinating. A fever. Pain that gets worse or does not improve with medicine. Blood in your urine that does not go away after 1 week of resting and drinking more fluids. Swelling in your penis or testicles. Get help right away if: You are unable to urinate. You are having more blood clots in your urine instead of fewer. You have: ?Large blood clots. ?A lot of blood in your urine. ?Pain in your back or lower abdomen. ?Pain or swelling in your legs. ?Chills and you are shaking. ?Difficulty breathing or shortness of breath. Summary After the procedure, it is common to have a small amount of blood in your urine. Avoid heavy lifting and intense physical activity for as long as told by your health care provider. Urinate as soon as you feel the need to. Do not try to hold your urine for long periods of time. Keep all follow-up visits as told by your health care provider. This is important. This information is not intended to replace advice given to you by your health care provider. Make sure you discuss any questions you have with your health care provider. Document Released: 07/04/2006 Document Revised: 10/24/2019 Document Reviewed: 04/04/2019 [employer] Patient Education 2020 [employer]. Follow Up Care 11/18/2022 15:31:14 With:JIGNESH NEWELL MD, XOG Address: [address] [place] [phone] When: Unknown Comments:Please call to schedule your post-op appointment. [facility] 06-22-2023 Note Discharge Instructions Thank you for allowing [facility] to assist you with your healthcare needs. The following is importantdischarge information regarding your hospital visit. Your Care Team ROSIE TREJO MD Your Diagnosis BPH (benign prostatic hyperplasia) What to do next Instructions From Your Doctor Push fluids, no heavy lifting, okay to have blood in the urine, drink lots of water, expect a minorburning with urination which is okay but should not have any severe pain. Call my office for follow-up appointment 2 to 3 weeks. Follow Up Appointments Follow Up with JIGNESH NEWELL MD, XOG When Why: Please call to schedule your post-op appointment. Where: [address] [place] [phone] The Following Activity and Diet Have Been Ordered for You No qualifying data available. No qualifying data available. The Following Equipment Has Been Ordered for You No qualifying data available. The Following Treatments Have Been Ordered for You Discharge Labs No qualifying data available. Discharge Radiology No qualifying data available. Other Therapies No qualifying data available. Post Acute Orders No qualifying data available. Someone Will Contact You Regarding These Home Health Referrals No home referrals have been ordered for you. No one will call you. Allergies NKA Medications Please ask your primary doctor or pharmacist before taking any other medication not listed, including over the counter drugs, herbal medications, vitamins and or supplements as they may interact withyour home medications. What How Much When Why Instructions Last Dose New cephalexin (cephalexin 500 mg oral capsule) 1 cap by mouth Every 12 hours Duration: 5 Days Pickup at [facility] not given in the hospital New diphenhydrAMINE (Benadryl 25 mg oral tablet) 1 tab(s) by mouth Daily at bedtime as needed for Allergy symptoms not given in the hospital New oxyCODONE (oxyCODONE 5 mg oral tablet ( IMMEDIATE release )) 1 tab(s) by mouth Every 6 hours as needed for for pain BPH (benign prostatic hyperplasia) Duration: 3 Days Pickup at [facility] not given in the hospital Changed famotidine (famotidine 40 mg oral tablet) 1 tab(s) by mouth Two (2) times a day 01/06/23 9am Changed famotidine (famotidine 40 mg oral tablet) 1 tab(s) by mouth Two (2) times a day duplicate Changed lisinopril (lisinopril 10 mg oral tablet) 1 tab(s) by mouth Every day 01/06/23 9am Changed lisinopril (lisinopril 10 mg oral tablet) 1 tab(s) by mouth Every day duplicate Changed magnesium oxide (magnesium oxide 400 mg oral tablet) 1 tab(s) by mouth Every day not given in the hospital Changed magnesium oxide (magnesium oxide 400 mg oral tablet) 1 tab(s) by mouth Every day not given in the hospital Changed multivitamin (Multivitamin) 1 tab(s) by mouth Every day not given in the hospital Changed multivitamin (Multivitamin) 1 tab(s) by mouth Every day not given in the hospital Unchanged chlorpheniramine (chlorpheniramine 4 mg oral tablet) 1 tab(s) by mouth Daily at bedtime as needed for for allergy symptoms not given in the hospital Unchanged cholecalciferol (Vitamin D3) 25 Microgram by mouth Every day not given in the hospital Unchanged esomeprazole (esomeprazole 40 mg oral delayed release capsule) 1 cap by mouth Once a day as needed for Heartburn not given in the hospital Unchanged hydroCHLOROthiazide (hydroCHLOROthiazide 12.5 mg oral tablet) 1 tab(s) by mouth Every day as needed for Blood pressure control not given in the hospital Unchanged tadalafil (Tadalafil (Eqv-Cialis) 20 mg oral tablet) 1 tab(s) by mouth Once a day as needed for as needed for erectile dysfunction not given in the hospital Pharmacy Information [facility]: [address] [place], [place] [phone] What How Much When Comments Stop Taking alfuzosin (alfuzosin 10 mg oral tablet, extended release) 1 tab(s) by mouth Once a day Please take this list to your next doctor s visit. Bring all medications you take, including over the counter medications, herbals and other supplements with you to your doctor s visit. Patients and families are reminded to discard old lists and to update any records with all medication providers or retail pharmacies. Medication Leaflets oxycodone (ox i KOE done) Oxaydo, OxyCONTIN, Oxyfast, OxyIR, Roxicodone, Xtampza ER What is the most important information I should know about oxycodone? MISUSE OF OPIOID MEDICINE CAN CAUSE ADDICTION, OVERDOSE, OR . Keep the medication in a place where others cannot get to it. Taking opioid medicine during may cause life-threatening withdrawal symptoms in the . Fatal side effects can occur if you use opioid medicine with alcohol, or with other drugs that cause drowsiness or slow your breathing. What is oxycodone? Oxycodone is an opioid pain medication used to treat moderate to severe pain. The extended-release form of oxycodone is for lsmjzq-cdx-mwdry treatment of pain and should not be used on an as-needed basis for pain. Oxycodone may also be used for purposes not listed in this medication guide. What should I discuss with my healthcare provider before using oxycodone? You should not use oxycodone if you are allergic to it, or if you have: severe asthma or breathing problems; or a blockage in your stomach or intestines. You should not use oxycodone unless you are already using a similar opioid medicine and are tolerant to it. Most brands of oxycodone are not approved for use in people under 18. OxyContin should not be givento a child younger than 11 years old. Tell your doctor if you have ever had: breathing problems, sleep apnea; a head injury, or seizures; drug or alcohol addiction, or mental illness; liver or kidney disease; urination problems; or problems with your gallbladder, pancreas, or thyroid. If you use opioid medicine while you are , your baby could become dependent on the drug. This can cause life-threatening withdrawal symptoms in the baby after it is born. Babies born dependent on opioids may need medical treatment for several weeks. Ask a doctor before using opioid medicine if you are . Tell your doctor if you notice severe drowsiness or slow breathing in the nursing baby. How should I use oxycodone? Follow the directions on your prescription label and read all medication guides. Never use oxycodone in larger amounts, or for longer than prescribed. Tell your doctor if you feel an increased urge to take more of this medicine. Never share opioid medicine with another person, especially someone with a history of drug abuse oraddiction. MISUSE CAN CAUSE ADDICTION, OVERDOSE, OR . Keep the medication in a place where others cannot get to it. Selling or giving away opioid medicine is against the law. Stop taking all other wwqcrx-pvl-nctjs opioid pain medicines when you start taking extended-releaseoxycodone. Take oxycodone with food. Swallow the capsule or tablet whole to avoid exposure to a potentially fatal overdose. Do not crush, chew, break, open, or dissolve. If you cannot swallow a capsule whole, open it and sprinkle the medicine into a spoonful of puddingor applesauce. Swallow the mixture right away without chewing. Do not save it for later use. Never crush or break an oxycodone pill to inhale the powder or mix it into a liquid to inject the drug into your vein. This can cause in . Measure liquid medicine carefully. Use the dosing syringe provided, or use a medicine dose-measuring device (not a kitchen spoon). You should not stop using oxycodone suddenly. Follow your doctor's instructions about tapering yourdose. Store at room temperature, away from heat, moisture, and light. Keep track of your medicine. Oxycodone is a drug of abuse and you should be aware if anyone is using your medicine improperly or without a prescription. Do not keep leftover opioid medication. Just one dose can cause in someone using this medicine accidentally or improperly. Ask your pharmacist where to locate a drug take-back disposal program.If there is no take-back program, flush the unused medicine down the toilet. What happens if I miss a dose? Since oxycodone is used for pain, you are not likely to miss a dose. Skip any missed dose if it is almost time for your next dose. Do not use two doses at one time. What happens if I overdose? Seek emergency medical attention or call the Poison Help line at . An opioid overdosecan be fatal, especially in a child or other person using the medicine without a prescription. Overdose symptoms may include severe drowsiness, pinpoint pupils, slow breathing, or no breathing. Your doctor may recommend you get naloxone (a medicine to reverse an opioid overdose) and keep it with you at all times. A person caring for you can give the naloxone if you stop breathing or don't wake up. Your caregiver must still get emergency medical help and may need to perform CPR (cardiopulmonary resuscitation) on you while waiting for help to arrive. Anyone can buy naloxone from a pharmacy or local health department. Make sure any person caring foryou knows where you keep naloxone and how to use it. What should I avoid while using oxycodone? Do not drink alcohol. Dangerous side effects or could occur. Avoid driving or operating machinery until you know how oxycodone will affect you. Dizziness or severe drowsiness can cause falls or other accidents. Avoid medication errors. Always check the brand and strength of oxycodone you get from the pharmacy. What are the possible side effects of oxycodone? Get emergency medical help if you have signs of an allergic reaction: hives; difficult breathing; swelling of your face, lips, tongue, or throat. Opioid medicine can slow or stop your breathing, and may occur. A person caring for you should give naloxone and/or seek emergency medical attention if you have slow breathing with long pauses,blue colored lips, or if you are hard to wake up. Call your doctor at once if you have: noisy breathing, sighing, shallow breathing, breathing that stops during sleep; a slow heart rate or weak pulse; a light-headed feeling, like you might pass out; confusion, unusual thoughts or behavior; seizure (convulsions); low cortisol levels-- nausea, vomiting, loss of appetite, dizziness, worsening tiredness or weakness; or high levels of serotonin in the body--agitation, hallucinations, fever, sweating, shivering, fast heart rate, muscle stiffness, twitching, loss of coordination, nausea, vomiting, diarrhea. Serious breathing problems may be more likely in older adults and in those who are debilitated or have wasting syndrome or chronic breathing disorders. Common side effects may include: drowsiness, headache, dizziness, tiredness; or constipation, stomach pain, nausea, vomiting. This is not a complete list of side effects and others may occur. Call your doctor for medical advice about side effects. You may report side effects to FDA at 6-255-XMA-5747. What other drugs will affect oxycodone? You may have breathing problems or withdrawal symptoms if you start or stop taking certain other medicines. Tell your doctor if you also use an antibiotic, antifungal medication, heart or blood pressure medication, seizure medication, or medicine to treat HIV or hepatitis C. Opioid medication can interact with many other drugs and cause dangerous side effects or . Be sure your doctor knows if you also use: cold or allergy medicines, bronchodilator asthma/COPD medication, or a diuretic ('water pill'); medicines for motion sickness, irritable bowel syndrome, or overactive bladder; other opioids--opioid pain medicine or prescription cough medicine; a sedative like Valium--diazepam, alprazolam, lorazepam, Xanax, Klonopin, Versed, and others; drugs that make you sleepy or slow your breathing--a sleeping pill, muscle relaxer, medicine to treat mood disorders or mental illness; or drugs that affect serotonin levels in your body--a stimulant, or medicine for depression, Parkinson's disease, migraine headaches, serious infections, or nausea and vomiting. This list is not complete and many other drugs may affect oxycodone. This includes prescription oknenrf-knd-ypnsilt medicines, vitamins, and herbal products. Not all possible drug interactions are listed here. Where can I get more information? Your pharmacist can provide more information about oxycodone. Remember, keep this and all other medicines out of the reach of children, never share your medicines with others, and use this medication only for the indication prescribed. Every effort has been made to ensure that the information provided by [employer] is accurate, up-to-date, and complete, but no guarantee is made to that effect. Drug information contained herein may be time sensitive. [employer] information has been compiled for use by healthcare practitioners and consumers in the [place] and therefore [employer] does not warrant that uses outside of the [place] are appropriate, unless specifically indicated otherwise. [employer] drug information does not endorse drugs, diagnose patients or recommend therapy. [employer] drug information isan informational resource designed to assist licensed healthcare practitioners in caring for their p atients and/or to serve consumers viewing this service as a supplement to, and not a substitute for, the expertise, skill, knowledge and judgment of healthcare practitioners. The absence of a warningfor a given drug or drug combination in no way should be construed to indicate that the drug or drug combination is safe, effective or appropriate for any given patient. [employer] does not assume any responsibility for any aspect of healthcare administered with the aid of information [employer] provides. The information contained herein is not intended to cover all possible uses, directions, precautions, warnings, drug interactions, allergic reactions, or adverse effects. If you have questions about the drugs you are taking, check with your doctor, nurse or pharmacist. Copyright 7788-5398 [employer]. Version: 14.02. Revision Date: 08/14/2020. cephalexin (sef a KERI in) Keflex What is the most important information I should know about cephalexin? You should not use this medicine if you are allergic to cephalexin or to similar antibiotics, such as Ceftin, Cefzil, Omnicef, and others. Tell your doctor if you are allergic to any drugs, especially penicillins or other antibiotics. What is cephalexin? Cephalexin is a cephalosporin (SEF a low spor in) antibiotic that is used to treat bacterial infections of the lungs, ear, skin, bones, bladder, and kidneys. Cephalexin is used to treat infections in adults and children who are at least 1 year old. Cephalexin may also be used for purposes not listed in this medication guide. What should I discuss with my healthcare provider before taking cephalexin? You should not use this medicine if you are allergic to cephalexin or any other cephalosporin antibiotic (cefdinir, cefadroxil, cefoxitin, cefprozil, ceftriaxone, cefuroxime, Omnicef, and others). Tell your doctor if you have ever had: an allergy to any drug (especially penicillin); liver or kidney disease; or intestinal problems, such as colitis. The liquid form of cephalexin may contain sugar. This may affect you if you have diabetes. Tell your doctor if you are or breast-feeding. How should I take cephalexin? Follow all directions on your prescription label and read all medication guides or instruction sheets. Use the medicine exactly as directed. Do not use cephalexin to treat any condition that has not been checked by your doctor. Measure liquid medicine carefully. Use the dosing syringe provided, or use a medicine dose-measuring device (not a kitchen spoon). Use this medicine for the full prescribed length of time, even if your symptoms quickly improve. Skipping doses can increase your risk of infection that is resistant to medication. Cephalexin will not treat a viral infection such as the flu or a common cold. Do not share cephalexin with another person, even if they have the same symptoms you have. This medicine can affect the results of certain medical tests. Tell any doctor who treats you that you are using cephalexin. Store the tablets and capsules at room temperature away from moisture, heat, and light. Store the liquid medicine in the refrigerator. Throw away any unused liquid after 14 days. What happens if I miss a dose? Take the medicine as soon as you can, but skip the missed dose if it is almost time for your next dose. Do not take two doses at one time. What happens if I overdose? Seek emergency medical attention or call the Poison Help line at . Overdose symptoms may include nausea, vomiting, stomach pain, diarrhea, and blood in your urine. What should I avoid while taking cephalexin? Antibiotic medicines can cause diarrhea, which may be a sign of a new infection. If you have diarrhea that is watery or bloody, call your doctor before using anti-diarrhea medicine. What are the possible side effects of cephalexin? Get emergency medical help if you have signs of an allergic reaction (hives, difficult breathing, swelling in your face or throat) or a severe skin reaction (fever, sore throat, burning eyes, skin pain, red or purple skin rash with blistering and peeling). Call your doctor at once if you have: severe stomach pain, diarrhea that is watery or bloody (even if it occurs months after your last dose); unusual tiredness, feeling light-headed or short of breath; easy bruising, unusual bleeding, purple or red spots under your skin; a seizure; pale skin, cold hands and feet; yellowed skin, dark colored urine; fever, weakness; or pain in your side or lower back, painful urination. Common side effects may include: diarrhea; nausea, vomiting; indigestion, stomach pain; or vaginal itching or discharge. This is not a complete list of side effects and others may occur. Call your doctor for medical advice about side effects. You may report side effects to FDA at 2-836-MCC-2064. What other drugs will affect cephalexin? Tell your doctor about all your other medicines, especially: metformin; or probenecid. This list is not complete. Other drugs may affect cephalexin, including prescription and dzcj-dpt-mybtfwh medicines, vitamins, and herbal products. Not all possible drug interactions are listed here. Where can I get more information? Your pharmacist can provide more information about cephalexin. Remember, keep this and all other medicines out of the reach of children, never share your medicines with others, and use this medication only for the indication prescribed. Every effort has been made to ensure that the information provided by [employer] is accurate, up-to-date, and complete, but no guarantee is made to that effect. Drug information contained herein may be time sensitive. [employer] information has been compiled for use by healthcare practitioners and consumers in the [place] and therefore [employer] does not warrant that uses outside of the [place] are appropriate, unless specifically indicated otherwise. [employer] drug information does not endorse drugs, diagnose patients or recommend therapy. [employer] drug information isan informational resource designed to assist licensed healthcare practitioners in caring for their p atients and/or to serve consumers viewing this service as a supplement to, and not a substitute for, the expertise, skill, knowledge and judgment of healthcare practitioners. The absence of a warningfor a given drug or drug combination in no way should be construed to indicate that the drug or drug combination is safe, effective or appropriate for any given patient. [facility] does not assume any responsibility for any aspect of healthcare administered with the aid of information [facility] provides. The information contained herein is not intended to cover all possible uses, directions, precautions, warnings, drug interactions, allergic reactions, or adverse effects. If you have questions about the drugs you are taking, check with your doctor, nurse or pharmacist. Copyright 0148-7885 [facility] [employer]. Version: 10.. Revision Date: 07/21/2020. Education Materials Transurethral Resection of the Prostate Transurethral resection of the prostate (TURP) is the removal (resection) of part of the gland thatproduces semen (prostate gland). This procedure is done to treat benign prostatic hyperplasia (BPH). BPH is an abnormal, noncancerous (benign) increase in the number of cells that make up the prostate tissue. BPH causes the prostate to get bigger. The enlarged prostate can push against or block thetube that drains urine from the bladder out of the body (urethra). BPH can affect normal urine flowby causing bladder infections, difficulty controlling bladder function, and difficulty emptying thebladder. The goal of TURP is to remove enough prostate tissue to allow for a normal flow of urine. The procedure will allow you to empty your bladder more completely when you urinate so that you can urinate less often. In a transurethral resection, a thin telescope with a light, a tiny camera, and an electric cuttingedge (resectoscope) is passed through the urethra and into the prostate. The opening of the urethrais at the end of the penis. Tell a health care provider about: Any allergies you have. All medicines you are taking, including vitamins, herbs, eye drops, creams, and jtek-yzm-kljwlna medicines. Any problems you or family members have had with anesthetic medicines. Any blood disorders you have. Any surgeries you have had. Any medical conditions you have. Any prostate infections you have had. What are the risks? Generally, this is a safe procedure. However, problems may occur, including: Infection. Bleeding. Allergic reactions to medicines. Damage to other structures or organs, such as: ? The urethra. ? The bladder. ? Muscles that surround the prostate. Difficulty getting an erection. Inability to control when you urinate (incontinence). Scarring, which may cause problems with urine flow. What happens before the procedure? Medicines Ask your health care provider about: Changing or stopping your regular medicines. This is especially important if you are taking diabetes medicines or blood thinners. Taking medicines such as aspirin and ibuprofen. These medicines can thin your blood. Do not take these medicines unless your health care provider tells you to take them. Taking yina-gii-cswvoio medicines, vitamins, herbs, and supplements. Eating and drinking Follow instructions from your health care provider about eating and drinking, which may include: 8 hours before the procedure stop eating heavy meals or foods, such as meat, fried foods, or fattyfoods. 6 hours before the procedure stop eating light meals or foods, such as toast or cereal. 6 hours before the procedure stop drinking milk or drinks that contain milk. 2 hours before the procedure stop drinking clear liquids. Staying hydrated Follow instructions from your health care provider about hydration, which may include: Up to 2 hours before the procedure you may continue to drink clear liquids, such as water, clear fruit juice, black coffee, and plain tea. General instructions You may have a physical exam. You may have a blood or urine sample taken. Ask your health care provider what steps will be taken to help prevent infection. These may include: ? Washing skin with a germ-killing soap. ? Taking antibiotic medicine. Plan to have someone take you home from the hospital or clinic. You may not be able to drive for upto 10 days after your procedure. Plan to have a responsible adult care for you for at least 24 hours after you leave the hospital orclinic. This is important. What happens during the procedure? An IV will be inserted into one of your veins. You will be given one or more of the following: ? A medicine to help you relax (sedative). ? A medicine to make you fall asleep (general anesthetic). ? A medicine that is injected into your spine to numb the area below and slightly above the injectionsite (spinal anesthetic). Your legs will be placed in foot rests (stirrups) so that your legs are apart and your knees are bent. The resectoscope will be passed through your urethra to your prostate. Parts of your prostate will be resected using the cutting edge of the resectoscope. The resectoscope will be removed. A small, thin tube (catheter) will be passed through your urethra and into your bladder. The catheter will drain urine into a bag outside of your body. ? Fluid may be passed through the catheter to keep the catheter open. The procedure may vary among health care providers and hospitals. What happens after the procedure? Your blood pressure, heart rate, breathing rate, and blood oxygen level will be monitored until youleave the hospital or clinic. You may continue to receive fluids and medicines through an IV. You may have some pain. Pain medicine will be available to help you. You will have a catheter draining your urine. ? You may have blood in your urine. Your catheter may be kept in until your urine is clear. ? Your urinary drainage will be monitored. If necessary, your bladder may be rinsed out (irrigated) through your catheter. You will be encouraged to walk around as soon as possible. You may have to wear compression stockings. These stockings help prevent blood clots and reduce swelling in your legs. Do not drive for 24 hours if you were given a sedative during your procedure. Summary Transurethral resection of the prostate (TURP) is the removal (resection) of part of the gland thatproduces semen (prostate gland). The goal of this procedure is to remove enough prostate tissue to allow for a normal flow of urine. Follow instructions from your health care provider about taking medicines and about eating and drinking before the procedure. This information is not intended to replace advice given to you by your health care provider. Make sure you discuss any questions you have with your health care provider. Document Released: 07/04/2006 Document Revised: 10/24/2019 Document Reviewed: 04/04/2019 [employer] Patient Education 2020 [employer] Transurethral Resection of the Prostate, Care After This sheet gives you information about how to care for yourself after your procedure. Your health care provider may also give you more specific instructions. If you have problems or questions, contact your health care provider. What can I expect after the procedure? After the procedure, it is common to have: Mild pain in your lower abdomen. Soreness or mild discomfort in your penis from having the catheter inserted during the procedure. A feeling of urgency when you need to urinate. A small amount of blood in your urine. You may notice some small blood clots in your urine. These are normal. Follow these instructions at home: Medicines Take csci-tsk-etucmuv and prescription medicines only as told by your health care provider. If you were prescribed an antibiotic medicine, take it as told by your health care provider. Do notstop taking the antibiotic even if you start to feel better. Ask your health care provider if the medicine prescribed to you: ? Requires you to avoid driving or using heavy machinery. ? Can cause constipation. You may need to take actions to prevent or treat constipation, such as: ? Take defk-khh-rbpfqne or prescription medicines. ? Eat foods that are high in fiber, such as fresh fruits and vegetables, whole grains, and beans. ? Limit foods that are high in fat and processed sugars, such as fried or sweet foods. Do not drive for 24 hours if you were given a sedative during your procedure. Activity Return to your normal activities as told by your health care provider. Ask your health care provider what activities are safe for you. Do not lift anything that is heavier than 10 lb (4.5 kg), or the limit that you are told, for 3 weeks after the procedure or until your health care provider says that it is safe. Avoid intense physical activity for as long as told by your health care provider. Avoid sitting for a long time without moving. Get up and move around one or more times every few hours. This helps to prevent blood clots. You may increase your physical activity gradually as you start to feel better. Lifestyle Do not drink alcohol for as long as told by your health care provider. This is especially importantif you are taking prescription pain medicines. Do not engage in sexual activity until your health care provider says that you can do this. General instructions Do not take baths, swim, or use a hot tub until your health care provider approves. Drink enough fluid to keep your urine pale yellow. Urinate as soon as you feel the need to. Do not try to hold your urine for long periods of time. If your health care provider approves, you may take a stool softener for 2 3 weeks to prevent you from straining to have a bowel movement. Wear compression stockings as told by your health care provider. These stockings help to prevent blood clots and reduce swelling in your legs. Keep all follow-up visits as told by your health care provider. This is important. Contact a health care provider if you have: Difficulty urinating. A fever. Pain that gets worse or does not improve with medicine. Blood in your urine that does not go away after 1 week of resting and drinking more fluids. Swelling in your penis or testicles. Get help right away if: You are unable to urinate. You are having more blood clots in your urine instead of fewer. You have: ? Large blood clots. ? A lot of blood in your urine. ? Pain in your back or lower abdomen. ? Pain or swelling in your legs. ? Chills and you are shaking. ? Difficulty breathing or shortness of breath. Summary After the procedure, it is common to have a small amount of blood in your urine. Avoid heavy lifting and intense physical activity for as long as told by your health care provider. Urinate as soon as you feel the need to. Do not try to hold your urine for long periods of time. Keep all follow-up visits as told by your health care provider. This is important. This information is not intended to replace advice given to you by your health care provider. Make sure you discuss any questions you have with your health care provider. Document Released: 07/04/2006 Document Revised: 10/24/2019 Document Reviewed: 04/04/2019 [employer] Patient Education 2020 [employer]. Additional Information VACCINATE! IT SAVES LIVES! Members of the community who have not yet received the COVID-19 vaccine and would like to receive it can visit one of [facility] vaccine clinics. There are many vaccine clinic locations within the [facility]. For locations and available times, please visit [email or web address] It is important to note that some COVID mobile vaccine clinics are held outdoors and may be canceled in rainy or stormy conditions. To learn more about pediatric vaccinations (ages 5-11), we invite you to visit the [facility] webpage. [email or web address] learn more about the [email or web address] vaccine, we invite you to visit the CDC website for a list of frequently asked questions.[email or web address]://www.cdc.gov/coronavirus/2019-ncov/vaccines/faq.html [facility] Patient Portal Access Instructions: Stay connected with your healthcare team and access your personal medical information anytime with the [facility] Patient Portal. Please follow the directions below to create your [facility] account: 1.Access the email account you provided upon registration to the hospital/physician office.2.Look for an invitation email from [facility].3.Open the email and access the invitation link: AcceptInvitation to [facility].4.Fill in the required travis to create your account. To access your account, visit [email or web address]. Click the blue button labeled Access Patient Portal and then log in with the username and password that you created in the steps above. You will be able to view your test results, lab results, a summary of your visits, upcoming appointments and more. There is also a convenient messaging option where you can send secure messages to your p [employer]. In addition, you will have the ability to download any documents or summaries to your computer and/or send the information securely to a physician. Remember that your healthcare information is confidential, so carefully consider who you will allowto register on the [facility] Patient Portal for access to your information. You can also access the [facility] Patient Portal on the [facility] nathen. Simply click on Patient Portal and then log into your account. If you would like to receive a full copy of your medical records, please contact the [facility] Medical Records Department by calling [phone], Tuesday through Tuesday between 8 a.m. and 4:30 p.m. HOW TO SAFELY DISPOSE OF PRESCRIPTION MEDICATIONS Please use one of the following methods to safely dispose of your unused medications. 1.Use a drug disposal kit: the drug disposal pouch allows you to safely discard your old and unuseddrugs. Ask your nurse to give you one when you are discharged.2.Visit a local take-back location: Many local pharmacies and police departments have programs that collect old and unwanted prescriptiondrugs. Call your local pharmacy or go to http://bit.ly/2Q8Zl8l to find one close to you.3.Make use of household items: Use cat litter or old coffee grounds to dispose medications if other options arenot available. Mix your drugs with these household products, seal them in an airtight container andthrow it into the garbage. Call [facility]: [phone] to be sure your drugs can be disposed of in this way. Some medicines may require a different approach.4.Never flush your medications down the toilet. IF YOU HAVE BEEN PRESCRIBED AN OPIOID FOR PAIN If you have been prescribed an opioid (such as hydrocodone, oxycodone or morphine), it is critical to understand the possible side effects and risks of opioid pain medications. Even when taken as directed, opioids can have several side effects including: Tolerance, meaning you might need to take more of a medication for the same pain relief. Nausea, vomiting and/or constipation. Sleepiness, dizziness, dry mouth, confusion, depression or itching. Physical dependence, meaning you have withdrawal symptoms when a medication is stopped, can develop within a few days. KNOW YOUR RESPONSIBILITIES It is important to know exactly how much and how often to take the opioid pain medications you are prescribed. Never take opioids in higher amounts or more often than prescribed. Do not combine opioids with alcohol or other drugs that cause drowsiness, such as benzodiazepines, also known as benzos, including diazepam and alprazolam, muscle relaxants or sleep aids. Never sell or share prescription opioids. This is illegal. Store opioids in a secure place and out of reach of others (including children, family, friends and visitors). The last page of this document has been signed and retained as a CHART COPY. Signatures Patient Education Materials Transurethral Resection of the Prostate Transurethral Resection of the Prostate, Care After Medication Leaflets oxycodone, cephalexin My discharge plan and instructions have been reviewed and explained to me and IMARIO PAUL S understand my current condition and have read and understand these discharge instructions. I have received a written copy of the plan/instructions. If I have questions, I am aware that I should contact my doctor. 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 Family's history: negative. Review of Systems Ear/Nose/Mouth/Throat: Negative. Respiratory: Negative. Cardiovascular: htn. Gastrointestinal: Reflux, obese. Genitourinary: bph. Endocrine: Negative. Musculoskeletal: Back pain: In the lower region, lumbar. Integumentary: Negative. Neurologic: Negative. Health Status Allergies: Allergic Reactions (Selected) NKA, Allergies (1) ActiveReaction NKANone Documented Current medications: (Selected) Inpatient Medications Ordered LR 1000 mL: 20 mL/hr, Intravenous NS 1,000 mL: 75 mL/hr, Intravenous, Stop: 01/05/23 23:59:00 EDT Zofran ( PACU ): 4 mg, 2 mL, IV Push, AsDirected, PRN: Nausea/Vomiting morphine ( PACU ): 2 mg, 1 mL, IV Push, q5min, PRN: Pain, scale 4-6 Documented Medications Documented Multivitamin: 1 tab(s), Oral, Daily, 0 Refill(s) Tadalafil (Eqv-Cialis) 20 mg oral tablet: 20 mg, 1 tab(s), Oral, qDay, PRN: as needed for erectile dysfunction, 5 tab(s), 0 Refill(s) Vitamin D3: 25 mcg, 1 tab(s), Oral, Daily, 0 Refill(s) alfuzosin 10 mg oral tablet, extended release: 10 mg, 1 tab(s), Oral, qDay, 30 tab(s), 0 Refill(s) chlorpheniramine 4 mg oral tablet: 4 mg, 1 tab(s), Oral, qHS, PRN: for allergy symptoms, 0 Refill(s) esomeprazole 40 mg oral delayed release capsule: 40 mg, 1 cap(s), Oral, qDay, PRN: Heartburn famotidine 40 mg oral tablet: 40 mg, 1 tab(s), Oral, BID, 60 tab(s), 0 Refill(s) hydroCHLOROthiazide 12.5 mg oral tablet: 12.5 mg, 1 tab(s), Oral, Daily, PRN: Blood pressure control, 0 Refill(s) lisinopril 10 mg oral tablet: 10 mg, 1 tab(s), Oral, Daily, 0 Refill(s) magnesium oxide 400 mg oral tablet: 400 mg, 1 tab(s), Oral, Daily, Medications (4) Active Scheduled: (0) Continuous: (2) Lactated Ringers Infusion 1000 mL 1,000 mL, Intravenous, 20 mL/hr NS (0.9% nacl) 1,000 mL 1,000 mL, Intravenous, 75 mL/hr PRN: (2) morphine 2 mg/mL 1 mL syringe 2 mg 1 mL, IV Push, q5min ondansetron 2 mg/ 1 mL 2 mL INJ 4 mg 2 mL, IV Push, AsDirected Problem list: Active Problems (4) BPH (benign prostatic hyperplasia) GERD (gastroesophageal reflux disease) HTN (hypertension) Lumbar pain Histories Past Medical History: No active or resolved past medical history items have been selected or recorded. Family History: No family history items have been selected or recorded. Procedure history: Tonsillectomy and adenoidectomy ([id number]). Entire head of phalanx of middle finger ([id number]). Comments: 11/26/2022 13:55 EDT - Tawnya Napier RN Right Colonoscopy ([id number]). 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 Physical Examination Vital Signs 01/05/2023 6:34 EDT Temperature Temporal Artery 36.9 DegC Peripheral Pulse Rate 94 bpm Respiratory Rate 21 br/min HI Systolic Blood Pressure Non-Invasive 120 mmHg Diastolic Blood Pressure Non-Invasive 84 mmHg Vital Signs(last 24 hrs) Last Charted Resp Rate H 21br/min (JAN 05 06:34) [id number] mmHg (JAN 05 06:34) DBP84 mmHg (JAN 05 06:34) Measurements from flowsheet : Measurements 01/05/2023 6:34 EDT Height 170.2 cm Height in inches 67 inch(es) Admission Weight 81.8 kg Weight Lbs 180 lb Weight Method Stated [place] Body Weight 66.12 kg Admission Body Mass Index 28.24 m2 Pain assessment: Pain Assessment 01/05/2023 6:34 EDT Primary Pain Intensity 0 Pain Scale Type 0-10 Pain scale . General: Alert and oriented. Airway: Normal temporomandibular joint mobility. Mallampati classification: II (soft palate, fauces, uvula visible). Head: Normocephalic. Dentition Evaluation: Own teeth. Neck: Supple. Respiratory: Lungs are clear to auscultation. Cardiovascular: Normal rate. Heart Sounds: Normal. Gastrointestinal: Soft. Musculoskeletal Normal range of motion. Integumentary: Intact. Neurologic: Alert, Oriented. Review / Management Results review: No qualifying data available , Lab results 01/05/2023 7:02 EDT cefazolin 1 gram(s) gram(s) Sodium Chloride 0.9% Begin Bag 1,000 mL mL Sodium Chloride 0.9% 100 mL mL 01/05/2023 6:55 EDT SN - Preop - CTm Pt in SDS Room 01/05/2023 6:24 SN - Preop - CTm Pt Ready for OR/Proced 01/05/2023 6:55 01/05/2023 6:55 EDT Hand Right 01/05/2023 20 gauge Peripheral IV Activity: Insert new site Peripheral IV Dressing Condition: Clean, Dry, Intact Peripheral IV Dressing Activity: Applied, Transparent dressing Peripheral IV Line Status/Patency: Continuous infusion Peripheral IV Site Condition: No complications Peripheral IV Equipment: Extension set Peripheral IV Number of Attempts: 1 01/05/2023 6:52 EDT IV Present Present Allergies No Anesthesia Extension Set Applied Yes Rail Loader On Yes Patient Dressed In Hospital gown, No undergarments Pre-op Preparation Contact lenses removed CHG Skin Prep No History & Physical Update On Chart Yes History & Physical On Chart Yes Obstructive Sleep Apnea Assess Completed Yes Allergy Band on and Verified No Patient ID Band on and Verified Yes Implants Verified Yes Pacemaker/AICD Verified Yes Site Verified by Patient/Family Yes 01/05/2023 6:41 EDT Last Fluid Intake 01/04/2023 17:30 Last Food Intake 01/04/2023 17:30 01/05/2023 6:34 EDT Height 170.2 cm Height in inches 67 inch(es) Admission Weight 81.8 kg Weight Lbs 180 lb Weight Method Stated [place] Body Weight 66.12 kg Admission Body Mass Index 28.24 m2 Temperature Temporal Artery 36.9 DegC Peripheral Pulse Rate 94 bpm Respiratory Rate 21 br/min HI Systolic Blood Pressure Non-Invasive 120 mmHg Diastolic Blood Pressure Non-Invasive 84 mmHg Primary Pain Intensity 0 Pain Scale Type 0-10 Pain scale Monitor Alarms On and Limits Checked Heart Sounds ICU S1S2 Heart Rhythm Regular Respirations Unlabored Respiratory Pattern Regular Breath Sounds Auscultated Anterior only All Lobes Breath Sounds Clear Cough None Oxygen Therapy Room air Oxygen Saturation 94 % Abdomen Description Non-distended Abdomen Palpation Non-Tender Bowel Sounds All Quadrants Present Urinary Elimination Urinary catheter draining Urine Color Yellow Urinary Elimination Devices Indwelling catheter Skin Temperature Warm Skin Description Normal for ethnicity Skin Integrity Intact Skin Moisture General Dry Neurological Symptoms Patient denies Extremity Movement Equal Characteristics of Speech Clear Level of Consciousness Alert THERESE Yes Strength All Extremities Strong Tone All Extremities Normal Sensation All Extremities Intact Affect/Behavior Appropriate, Calm, Cooperative Orientation Oriented x 4 Lennox Motor (2) Moves 4 extremities voluntarily or on command Lennox Respirations (2) Spontaneous respiration without support, RR > 10 Lennox Blood Pressure (2) BP 20% above or below preanesthetic level Lennox Pulse (2) Pulse 20% above or below preanesthetic level Lennox Oxygen Saturation (2) 94% or more Lennox Level of Consciousness (2) Fully awake Lennox III Score 12 Activity Status ADL Ambulating in mcginnis, Awake Assistive Device None SCD On/Re-applied bilateral knee high Standard Safety ID band on, Call device within reach, Bed in low position, Wheels locked, Non-Slip footwear, Precautions maintained 01/05/2023 6:33 EDT Belongings At Bedside Pants, Shirt, Shoes, Undergarments 01/05/2023 6:32 EDT Infectious Disease Symptoms Patient states no symptoms Safety Brochure Information Reviewed Yes [facility] Video Viewed No Teaching Evaluation No further teaching needed Admission Note-Nursing Same Day Patient History (Modified) . Assessment and Plan [place] [employer] Anesthesiologists (ASA) physical status classification: Class III. Anesthetic Preoperative Plan Premedication: intravenous. Anesthetic technique: General. Induction: intravenously. Maintenance airway: Laryngeal mask airway. Postoperative pain management: Per surgeon. Risks discussed: nausea, vomiting, sore throat. Informed consent: signed by patient. Digitally Signed by CHAYO MARROQUIN on 01/05/2023 07:26 AM [facility]01-18-2023 Instructions* Patient Instructions* Linda Briggs PA-C - 08/04/2022 2:53 PM EST -Your testing showed a tortuous esophagus as well as a medium-sized hiatal hernia. While not acutely worrisome findings, if your reflux symptoms worsen or persist would recommend referral to an esophageal specialist for manometry studies and further treatment recommendations -Follow up with PCP to discuss risks vs. Benefits of long-term PPI use The following instructions are important for you related to your office visit today with the [facility]. INSTRUCTIONS FOR PEPTIC ULCER DISEASE and GERD I discussed with you the findings of your upper endoscopy. Your upper endoscopy demonstrated signs of acid reflux and stomach irritation Esophagitis may be a form of peptic irritation, with acid moving from the stomach to the esophagus (gastroesophageal reflux) Factors that increase acid production include smoking and stress. If you smoke, stopping smoking will often cure these issues without needing other medications. Over the counter medications including antiacids and acid reducing medications including H2 blockers (Zantac and the like) and proton pump inhibitors (prilosec, prevacid and the like) neutralize or prevent acid production. Prescription strength proton pump inhibitors (PPIs) may be necessary if your symptoms persist. Carafate may be added to PPI treatment in refractory cases. Avoiding smoking, alcohol and antiinflammatory medications are important in the successful treatment of reflux esophagitis and peptic diseases. Other factors that contribute to GERD and esophagitis are being overweight, eating large meals before laying down and certain foods. Weight loss will help improve many GERD complaints. Remaining upright after eating large meals and having a small supper will also help symptoms. Avoiding food that contribute to reflux - chocolate, caffeine, cheddar cheese may also help. Follow up upper endoscopy may be recommended to assure healing of the esophagus. New or worsening symptoms such are epigastric pain, burning, difficulty swallowing or food stickingshould be relayed to your physician. Feeling full early after eating, or black, tarry, foul smelling stools are also worrisome. If you have any difficulties or concerns, you should contact our office immediately. If you note any additional difficulties, questions, or concerns, you should contact our office immediately @ [phone] and ask to be transferred to the General Surgery department. documented in this encounterC[facility] History of Present illness Narrative* Linda Briggs PA-C - 08/04/2022 2:31 PM EST FOLLOW UP VISIT - ENDOSCOPY NAME: [place] Randle [facility] NO.: [id number] DATE OF SERVICE: 08/04/2022 : 1960 REFERRING PHYSICIAN: Rosie Trejo MD Dallas is a patient I am following for GERD not completely relieved with PPI, and some recent dysphagia with solid foods. Dr. Rao performed upper endoscopy on 07/26/22. Findings per operative report showed: - Normal first portion of the duodenum and second portion of the duodenum. - Erythematous mucosa in the antrum. Biopsied. - Medium-sized hiatal hernia. - Z-line irregular, 36 cm from the incisors. Biopsied. Tortuous distal esophagus Pathology demonstrated: FINAL DIAGNOSIS A. Stomach, antrum, biopsy: -Portions of antral type gastric mucosa with reactive gastropathy -Negative for Helicobacter pylori organisms on routine staining -Negative for intestinal metaplasia or dysplasia B. Esophagogastric junction, biopsy: -Portions of squamous epithelium with no significant histologic abnormality -Negative for eosinophilic esophagitis B. Esophagus, mid, biopsy: -Portions of squamous epithelium with no significant histologic abnormality -Negative for eosinophilic esophagitis The patient notes no complaints since the procedure. VITALS: Blood pressure 120/72, pulse (!) 129, temperature 36.6 C (97.8 F), height 170.2 cm (5' 7),weight 89.5 kg (197 lb 6.4 oz), SpO2 100 %. General: patient is alert, cooperative, pleasant and in no acute distress On examination, the abdomen is benign. Assessment IMPRESSION: GERD, hiatal hernia, tortuous distal esophagus PLAN: The operative findings and pathology report were reviewed with the patient, and the patient has hadthe opportunity to ask questions and have questions answered. -Testing showed a tortuous esophagus as well as a medium-sized hiatal hernia. Discussed with patient that if reflux symptoms worsen or persist ,would recommend referral to an esophageal specialist for manometry studies and further treatment recommendations -Continue PPI for now, follow up with PCP to discuss risks vs. Benefits of long- term PPI use Patient verbalized understanding of all above and agreed with the plan Diagnoses: (K21.9) GERD without esophagitis (primary encounter diagnosis) (R13.10) Dysphagia, unspecified type (K44.9) Hiatal hernia I spent a total of 26 minutes on the date of the service which included preparing to see the patient, [id number] patient care, completing clinical documentation, obtaining and/or reviewing separately obtained history, counseling and educating the patient/family/caregiver, communicating with other HCPs (not separately reported), independently interpreting results (not separately reported), and communicating results to the patient/family/caregiver. Linda Briggs PA-C documented in this encounterCleveland Clinic [facility] NoteHNO ID: [id number] Author: Yasmine Kimbrough RN Service: ? Author Type: Registered Nurse Type: Nursing Progress Note Filed: 07/26/2022 2:18 PM Note Text: at bedside. Patient eating snack. Denies complaints of discomfort. Yasmine Kimbrough RN[facility] Nurse Note* Yasmine Kimbrough RN - 07/26/2022 2:06 PM EST at bedside. Patient eating snack. Denies complaints of discomfort. Yasmine Kimbrough RN * Yasmine Kimbrough RN - 07/26/2022 1:36 PM EST Arrived in phase II via cart. Left lateral position. Sedated, but responds to verbal stimuli. Colornormal; skin warm and dry. Respirations wnl and unlabored. Abdomen soft and with + bowel sounds in quads X 4. Patient resting comfortably. Yasmine Kimbrough RN documented in this encounterCleveland Clinic [facility]01-[facility] History and physical note * Mireille Rao MD - 07/26/2022 12:45 PM EST UPDATED PROCEDURAL SEDATION HISTORY AND PHYSICAL EXAMINATION SERVICE DATE: 07/26/2022 SERVICE TIME: 12:59 PHYSICAL EXAM MUST BE COMPLETED ON ADMISSION PROCEDURE: esophagogastroduodenoscopy possible biopsies Procedure Indications: dysphagia, heartburn The History and Physical (completed in the past 30 days) has been reviewed and the patient has beenexamined. The contents accurately reflect the patient's condition with the following additions or revisions since the H&P was completed. ASA Class: ASA Class:: Patient with mild systemic disease Examination indicates no changes. AIRWAY: Airway Visualization of Uvula: Yes Mouth opening greater than 2 fingerbreadths: Yes Neck Full Range of Motion: Yes LUNGS: Lungs clear to auscultation CARDIAC: Regular rhythm,Regular rate Provisional Diagnosis/Treatment Plan: EGD with biopsies SEDATION GOAL: Moderate This H&P can be found in the Electronic Medical Record. SIGNATURE: Mireille Rao MD PATIENT NAME: Dallas Martin DATE: July 26, 2022 TIME: 12:59 PM Source Note - Mireille Rao MD - 07/26/2022 12:45 PM EST HISTORY AND PHYSICAL Dallas Martin 1960 REFERRING PHYSICIAN: Rosie Trejo MD CHIEF COMPLAINT: Consult (EGD) HPI: The patient is a 61 year old male referred for endoscopy. Dallas notes issues with chronic GERD for which he has been maintained on PPI and Pepcid with some improvement but still breakthrough symptoms. More recently patient complains of dysphagia with eating certain foods, such as a fish sandwich. Notes increased belching. Patient denies any change in bowel habits, weight changes, blood in stools, black tarry stools or abdominal pain. The patient notes no colon complaints and is up to date with screening colonoscopy-2014. Patient's past medical history is significant for prostate cancer and hypertension. Patient followswith Dr. Trejo in primary care for his chronic medical conditions. Patient denies chest pain, shortness of breath or recent hospitalizations. Denies problems with sedation in the past. PAST MEDICAL HISTORY PAST MEDICAL HISTORY Diagnosis Date Adenocarcinoma of prostate (HCC) BPH (benign prostatic hyperplasia) Erectile dysfunction Essential hypertension GERD (gastroesophageal reflux disease) Restless leg PAST SURGICAL HISTORY PAST SURGICAL HISTORY Procedure Laterality Date PROSTATE BIOPSY HX Bilateral 01/07/2015 REMOVE NAIL BED/FINGER TIP TONSILLECTOMY & ADENOIDECTOMY <AGE 10 TOOTH EXTRACTION CURRENT MEDICATIONS Current Outpatient Medications Medication Sig lisinopril (ZESTRIL, PRINIVIL) 10 mg tablet Take 10 mg by mouth once daily. Tadalafil (CIALIS) 20 mg tab(s) Take 20 mg by mouth every 3 hours as needed. magnesium oxide (MAG-OX) 400 mg (241.3 mg magnesium) tablet Take 400 mg by mouth once daily as needed. At night time hydroCHLOROthiazide (HYDRODIURIL, ESIDRIX) 12.5 mg capsule Take 12.5 mg by mouth once daily as needed. famotidine (PEPCID) 20 mg tablet Take 40 mg by mouth twice daily. alfuzosin SR (UROXATRAL) 10 mg 24 hr tablet Take 10 mg by mouth once daily. chlorpheniramine maleate (ALLERGY 4-HOUR ORAL) Take 4 mg by mouth once daily as needed. chlorpheniramine (ALLER-CHLOR) 4 mg tablet Take 4 mg by mouth once daily. At night Cholecalciferol, Vitamin D3, (VITAMIN D) 25 mcg (1,000 unit) cap Take 1,000 Units by mouth once daily. multivitamin/iron/folic acid (CENTRUM COMPLETE ORAL) Take by mouth once daily. aspirin-caffeine (MELINA BACK AND BODY) 500-32.5 mg tab Take by mouth once daily as needed. esomeprazole (NEXIUM) 40 mg capsule Take 40 mg by mouth once daily. No current facility-administered medications for this visit. ALLERGIES: Patient has no allergy information on record. PERSONAL HISTORY: SOCIAL HISTORY Social History Tobacco Use Smoking status: Never Smokeless tobacco: Never Vaping Use Vaping Use: Never used Substance Use Topics Alcohol use: Not Currently Alcohol/week: 2.0 standard drinks Types: 2 Standard drinks or equivalent per week Comment: occasional Drug use: Never FAMILY HISTORY: FAMILY HISTORY FAMILY HISTORY Adopted: Yes Family history unknown: Yes REVIEW OF SYMPTOMS: The review of systems data was entered by the nurse and reviewed by me Nursing Notes: Sanjana Mendoza LPN 06/16/2022 2:12 PM Signed REVIEW OF SYSTEMS: General: The patient denies fatigue, denies weight loss, denies weight gain, denies feeling hot, and denies feelings of cold. Eyes: The patient denies glaucoma, denies eye injury/surgery, wears glasses or contacts. Ear/Nose/Throat: The patient denies allergies, denies hayfever, denies ear infections, and denies bloody noses. Cardiovascular: The patient denies chest pain, denies heart disease, NOTES high blood pressure,denies cardiac stent, denies prior heart attack, denies irregular heart beat, denies high cholesterol, denies poor circulation, denies heart failure, other cardiac issues, denies claudication, denies coldfeet, denies peripheral arterial stent. Respiratory: The patient denies tuberculosis, denies pneumonia, denies frequent cough, denies pulmonary embolism, denies shortness of breath, and denies coughing up blood. Gastrointestinal: The patient NOTES difficulty swallowing, denies acid reflux, denies ulcers, denies vomiting, denies jaundice/hepatitis, denies gallbladder problems, denies black or tarry stools, denies hemorrhoids, denies bleeding from rectum, denies diverticulitis, denies constipation, denies diarrhea, denies loss of stool control, and denies hernias. Kidney/Bladder: The patient denies kidney stones, denies urine infections, and denies bloody urine. Skin: The patient denies a history of skin cancer, denies bleeding/changing moles, and denies a history of skin rash. Neurologic: The patient denies a history of epilepsy/convulsions, denies headaches, denies head/spinal injuries, and denies stroke/TIA. Psychiatric: The patient denies psychiatric medications, denies depression, and denies voices, denies substance abuse. Endocrine: The patient denies thyroid disorders, denies diabetes, and denies hormonal problems. Hematologic: The patient denies a history of bruising, denies bleeding, and denies anemia, denies blood clots. Infections: The patient denies a history of measles and mumps, denies rheumatic fever, and denies sexually transmitted diseases. Musculoskeletal: The patient notes back pain/injury, denies back problems, denies sciatica, denies knee/foot trouble, denies arthritis, or denies gout. When was patient's last Mammogram screening? N/A Last Colonoscopy: 2014 at [facility] Sanjana Mendoza LPN I have confirmed and edited as necessary, the PFSH and ROS obtained by others. Linda Briggs PA-C PHYSICAL EXAMINATION: General: The patient is 61 year old male, well nourished, well hydrated in no acute distress. The patient is oriented to time, place, and person. VITALS: Blood pressure 110/80, pulse (!) 133, temperature 36.2 C (97.2 F), height 170.2 cm (5' 7),weight 87.3 kg (192 lb 6.4 oz), SpO2 98 %. Body mass index is 30.13 kg/m . HEENT: Normal cephalic, ataumatic, pupils are equally round, sclera are anicteric, mucous membranesare moist, oropharynx is clear. Neck has no masses, asymmetry or lymphadenopathy. Respiratory: Clear to auscultation and percussion. Normal respiratory excursion and pattern. Cardiac: Examination is regular rate and rhythm. Normal S1/S2 Abdominal exam: Soft, nontender, with no palpable masses. No hepatosplenomegaly. No palpable hernias. Extremities: no clubbing, cyanosis or edema. No adenopathy. LABORATORY VALUES: As Noted RADIOLOGIC STUDIES: As Noted Assessment IMPRESSION: GERD, dysphagia with solid foods PLAN: I have reviewed my findings with the surgeon. Will plan for upper endoscopy. We discussed therisks and benefits of the planned endoscopy. I have informed the patient that complications can occur including failure to complete the endoscopy and perforation. The patient had the opportunity to ask questions concerning the planned endoscopy. My staff has also explained the procedure to the patient in understandable terms and has given the patient printed material concerning the procedure. Thepatient freely consents to surgery. The patient was offered a surgery/procedure at a [facility] facility. I have counseled the patient regarding the risk of exposure to and/or potential harm posed by the COVID-19 virus with having a surgery/procedure at this time versus the risk of delaying the surgery/procedure. It is not possible to know either the risk of delaying the surgery or procedure or chance of getting an infection with perfect accuracy, but a joint decision was made between the patient and myself to proceed at this time with endoscopy. I have explained to the patient the difference between IV conscious sedation and MAC anesthesia - and I have offered either, according to the patient's wishes. I have explained that with IV conscioussedation there is no anesthesia provider available and therefore there is a limitation of the amount of IV medications that can be given and that the patient may wake up in the middle of the procedure and/or experience pain/discomfort during the procedure. Further discussion was done and the patient was given the opportunity to ask questions and all questions were answered. The patient chooses IVconscious sedation Diagnoses: (K21.9) Gastroesophageal reflux disease, unspecified whether esophagitis present (primary encounter diagnosis) (R13.10) Dysphagia, unspecified type Consultation requested by Dr. Trejo for an opinion regarding GERD. My final recommendations will becommunicated back to the requesting physician by way of shared Medical record or letter to requesting physician via US mail. Linda Briggs PA-C * Mireille Rao MD - 07/26/2022 12:45 PM EST HISTORY AND PHYSICAL [place] Randle Mario 1960 REFERRING PHYSICIAN: Rosie Trejo MD CHIEF COMPLAINT: Consult (EGD) HPI: The patient is a 61 year old male referred for endoscopy. Dallas notes issues with chronic GERD for which he has been maintained on PPI and Pepcid with some improvement but still breakthrough symptoms. More recently patient complains of dysphagia with eating certain foods, such as a fish sandwich. Notes increased belching. Patient denies any change in bowel habits, weight changes, blood in stools, black tarry stools or abdominal pain. The patient notes no colon complaints and is up to date with screening colonoscopy-2014. Patient's past medical history is significant for prostate cancer and hypertension. Patient followswith Dr. Trejo in primary care for his chronic medical conditions. Patient denies chest pain, shortness of breath or recent hospitalizations. Denies problems with sedation in the past. PAST MEDICAL HISTORY PAST MEDICAL HISTORY Diagnosis Date Adenocarcinoma of prostate (HCC) BPH (benign prostatic hyperplasia) Erectile dysfunction Essential hypertension GERD (gastroesophageal reflux disease) Restless leg PAST SURGICAL HISTORY PAST SURGICAL HISTORY Procedure Laterality Date PROSTATE BIOPSY HX Bilateral 01/07/2015 REMOVE NAIL BED/FINGER TIP TONSILLECTOMY & ADENOIDECTOMY <AGE 10 TOOTH EXTRACTION CURRENT MEDICATIONS Current Outpatient Medications Medication Sig lisinopril (ZESTRIL, PRINIVIL) 10 mg tablet Take 10 mg by mouth once daily. Tadalafil (CIALIS) 20 mg tab(s) Take 20 mg by mouth every 3 hours as needed. magnesium oxide (MAG-OX) 400 mg (241.3 mg magnesium) tablet Take 400 mg by mouth once daily as needed. At night time hydroCHLOROthiazide (HYDRODIURIL, ESIDRIX) 12.5 mg capsule Take 12.5 mg by mouth once daily as needed. famotidine (PEPCID) 20 mg tablet Take 40 mg by mouth twice daily. alfuzosin SR (UROXATRAL) 10 mg 24 hr tablet Take 10 mg by mouth once daily. chlorpheniramine maleate (ALLERGY 4-HOUR ORAL) Take 4 mg by mouth once daily as needed. chlorpheniramine (ALLER-CHLOR) 4 mg tablet Take 4 mg by mouth once daily. At night Cholecalciferol, Vitamin D3, (VITAMIN D) 25 mcg (1,000 unit) cap Take 1,000 Units by mouth once daily. multivitamin/iron/folic acid (CENTRUM COMPLETE ORAL) Take by mouth once daily. aspirin-caffeine (MELINA BACK AND BODY) 500-32.5 mg tab Take by mouth once daily as needed. esomeprazole (NEXIUM) 40 mg capsule Take 40 mg by mouth once daily. No current facility-administered medications for this visit. ALLERGIES: Patient has no allergy information on record. PERSONAL HISTORY: SOCIAL HISTORY Social History Tobacco Use Smoking status: Never Smokeless tobacco: Never Vaping Use Vaping Use: Never used Substance Use Topics Alcohol use: Not Currently Alcohol/week: 2.0 standard drinks Types: 2 Standard drinks or equivalent per week Comment: occasional Drug use: Never FAMILY HISTORY: FAMILY HISTORY FAMILY HISTORY Adopted: Yes Family history unknown: Yes REVIEW OF SYMPTOMS: The review of systems data was entered by the nurse and reviewed by me Nursing Notes: Sanjananoemi Mendoza LPN 06/16/2022 2:12 PM Signed REVIEW OF SYSTEMS: General: The patient denies fatigue, denies weight loss, denies weight gain, denies feeling hot, and denies feelings of cold. Eyes: The patient denies glaucoma, denies eye injury/surgery, wears glasses or contacts. Ear/Nose/Throat: The patient denies allergies, denies hayfever, denies ear infections, and denies bloody noses. Cardiovascular: The patient denies chest pain, denies heart disease, NOTES high blood pressure,denies cardiac stent, denies prior heart attack, denies irregular heart beat, denies high cholesterol, denies poor circulation, denies heart failure, other cardiac issues, denies claudication, denies coldfeet, denies peripheral arterial stent. Respiratory: The patient denies tuberculosis, denies pneumonia, denies frequent cough, denies pulmonary embolism, denies shortness of breath, and denies coughing up blood. Gastrointestinal: The patient NOTES difficulty swallowing, denies acid reflux, denies ulcers, denies vomiting, denies jaundice/hepatitis, denies gallbladder problems, denies black or tarry stools, denies hemorrhoids, denies bleeding from rectum, denies diverticulitis, denies constipation, denies diarrhea, denies loss of stool control, and denies hernias. Kidney/Bladder: The patient denies kidney stones, denies urine infections, and denies bloody urine. Skin: The patient denies a history of skin cancer, denies bleeding/changing moles, and denies a history of skin rash. Neurologic: The patient denies a history of epilepsy/convulsions, denies headaches, denies head/spinal injuries, and denies stroke/TIA. Psychiatric: The patient denies psychiatric medications, denies depression, and denies voices, denies substance abuse. Endocrine: The patient denies thyroid disorders, denies diabetes, and denies hormonal problems. Hematologic: The patient denies a history of bruising, denies bleeding, and denies anemia, denies blood clots. Infections: The patient denies a history of measles and mumps, denies rheumatic fever, and denies sexually transmitted diseases. Musculoskeletal: The patient notes back pain/injury, denies back problems, denies sciatica, denies knee/foot trouble, denies arthritis, or denies gout. When was patient's last Mammogram screening? N/A Last Colonoscopy: 2014 at [facility] Sanjana Mendoza LPN I have confirmed and edited as necessary, the PFSH and ROS obtained by others. Linda Briggs PA-C PHYSICAL EXAMINATION: General: The patient is 61 year old male, well nourished, well hydrated in no acute distress. The patient is oriented to time, place, and person. VITALS: Blood pressure 110/80, pulse (!) 133, temperature 36.2 C (97.2 F), height 170.2 cm (5' 7),weight 87.3 kg (192 lb 6.4 oz), SpO2 98 %. Body mass index is 30.13 kg/m . HEENT: Normal cephalic, ataumatic, pupils are equally round, sclera are anicteric, mucous membranesare moist, oropharynx is clear. Neck has no masses, asymmetry or lymphadenopathy. Respiratory: Clear to auscultation and percussion. Normal respiratory excursion and pattern. Cardiac: Examination is regular rate and rhythm. Normal S1/S2 Abdominal exam: Soft, nontender, with no palpable masses. No hepatosplenomegaly. No palpable hernias. Extremities: no clubbing, cyanosis or edema. No adenopathy. LABORATORY VALUES: As Noted RADIOLOGIC STUDIES: As Noted Assessment IMPRESSION: GERD, dysphagia with solid foods PLAN: I have reviewed my findings with the surgeon. Will plan for upper endoscopy. We discussed therisks and benefits of the planned endoscopy. I have informed the patient that complications can occur including failure to complete the endoscopy and perforation. The patient had the opportunity to ask questions concerning the planned endoscopy. My staff has also explained the procedure to the patient in understandable terms and has given the patient printed material concerning the procedure. Thepatient freely consents to surgery. The patient was offered a surgery/procedure at a [facility] facility. I have counseled the patient regarding the risk of exposure to and/or potential harm posed by the COVID-19 virus with having a surgery/procedure at this time versus the risk of delaying the surgery/procedure. It is not possible to know either the risk of delaying the surgery or procedure or chance of getting an infection with perfect accuracy, but a joint decision was made between the patient and myself to proceed at this time with endoscopy. I have explained to the patient the difference between IV conscious sedation and MAC anesthesia - and I have offered either, according to the patient's wishes. I have explained that with IV conscioussedation there is no anesthesia provider available and therefore there is a limitation of the amount of IV medications that can be given and that the patient may wake up in the middle of the procedure and/or experience pain/discomfort during the procedure. Further discussion was done and the patient was given the opportunity to ask questions and all questions were answered. The patient chooses IVconscious sedation Diagnoses: (K21.9) Gastroesophageal reflux disease, unspecified whether esophagitis present (primary encounter diagnosis) (R13.10) Dysphagia, unspecified type Consultation requested by Dr. Trejo for an opinion regarding GERD. My final recommendations will becommunicated back to the requesting physician by way of shared Medical record or letter to requesting physician via US mail. Linda Briggs PA-C [facility] NoteHNO ID: [id number] Author: Linda Briggs PA-C Service: ? Author Type: Physician Manager Pe Type: Progress Notes Filed: 06/22/2022 2:46 PM Note Text: HISTORY AND PHYSICAL [place] Martin 1960 REFERRING PHYSICIAN: Rosie Trejo MD CHIEF COMPLAINT: Consult (EGD) HPI: The patient is a 61 year old male referred for endoscopy. [place] notes issues with chronic GERD for which he has been maintained on PPI and Pepcid with some improvement but still breakthrough symptoms. More recently patient complains of dysphagia with eating certain foods, such as a fish sandwich. Notes increased belching. Patient denies any change in bowel habits, weight changes, blood in stools, black tarry stools or abdominal pain. The patient notes no colon complaints and is up to date with screening colonoscopy-2014. Patient's past medical history is significant for prostate cancer and hypertension. Patient follows with Dr. Trejo in primary care for his chronic medical conditions. Patient denies chest pain, shortness of breath or recent hospitalizations. Denies problems with sedation in the past. PAST MEDICAL HISTORY Diagnosis Date Adenocarcinoma of prostate (HCC) BPH (benign prostatic hyperplasia) Erectile dysfunction Essential hypertension GERD (gastroesophageal reflux disease) Restless leg PAST SURGICAL HISTORY Procedure Laterality Date PROSTATE BIOPSY HX Bilateral 01/07/2015 REMOVE NAIL BED/FINGER TIP TONSILLECTOMY AND ADENOIDECTOMY TOOTH EXTRACTION Current Outpatient Medications Medication Sig lisinopril (ZESTRIL, PRINIVIL) 10 mg tablet Take 10 mg by mouth once daily. Tadalafil (CIALIS) 20 mg tab(s) Take 20 mg by mouth every 3 hours as needed. magnesium oxide (MAG-OX) 400 mg (241.3 mg magnesium) tablet Take 400 mg by mouth once daily as needed. At night time hydroCHLOROthiazide (HYDRODIURIL, ESIDRIX) 12.5 mg capsule Take 12.5 mg by mouth once daily as needed. famotidine (PEPCID) 20 mg tablet Take 40 mg by mouth twice daily. alfuzosin SR (UROXATRAL) 10 mg 24 hr tablet Take 10 mg by mouth once daily. chlorpheniramine maleate (ALLERGY 4-HOUR ORAL) Take 4 mg by mouth once daily as needed. chlorpheniramine (ALLER-CHLOR) 4 mg tablet Take 4 mg by mouth once daily. At night Cholecalciferol, Vitamin D3, (VITAMIN D) 25 mcg (1,000 unit) cap Take 1,000 Units by mouth once daily. multivitamin/iron/folic acid (CENTRUM COMPLETE ORAL) Take by mouth once daily. aspirin-caffeine (MELINA BACK AND BODY) 500-32.5 mg tab Take by mouth once daily as needed. esomeprazole (NEXIUM) 40 mg capsule Take 40 mg by mouth once daily. No current facility-administered medications for this visit. ALLERGIES: Patient has no allergy information on record. PERSONAL HISTORY: Social History Tobacco Use Smoking status: Never Smokeless tobacco: Never Vaping Use Vaping Use: Never used Substance Use Topics Alcohol use: Not Currently Alcohol/week: 2.0 standard drinks Types: 2 Standard drinks or equivalent per week Comment: occasional Drug use: Never FAMILY HISTORY: FAMILY HISTORY Adopted: Yes Family history unknown: Yes REVIEW OF SYMPTOMS: The review of systems data was entered by the nurse and reviewed by me Nursing Notes: Sanjana Mendoza LPN 06/16/2022 2:12 PM Signed REVIEW OF SYSTEMS: General: The patient denies fatigue, denies weight loss, denies weight gain, denies feeling hot, and denies feelings of cold. Eyes: The patient denies glaucoma, denies eye injury/surgery, wears glasses or contacts. Ear/Nose/Throat: The patient denies allergies, denies hayfever, denies ear infections, and denies bloody noses. Cardiovascular: The patient denies chest pain, denies heart disease, NOTES high blood pressure,denies cardiac stent, denies prior heart attack, denies irregular heart beat, denies high cholesterol, denies poor circulation, denies heart failure, other cardiac issues, denies claudication, denies cold feet, denies peripheral arterial stent. Respiratory: The patient denies tuberculosis, denies pneumonia, denies frequent cough, denies pulmonary embolism, denies shortness of breath, and denies coughing up blood. Gastrointestinal: The patient NOTES difficulty swallowing, denies acid reflux, denies ulcers, denies vomiting, denies jaundice/hepatitis, denies gallbladder problems, denies black or tarry stools, denies hemorrhoids, denies bleeding from rectum, denies diverticulitis, denies constipation, denies diarrhea, denies loss of stool control, and denies hernias. Kidney/Bladder: The patient denies kidney stones, denies urine infections, and denies bloody urine. Skin: The patient denies a history of skin cancer, denies bleeding/changing moles, and denies a history of skin rash. Neurologic: The patient denies a history of epilepsy/convulsions, denies headaches, denies head/spinal injuries, and denies stroke/TIA. Psychiatric: The patient denies psychiatric medicat (more content not included)...[facility] Future Appointments [facility] Evaluation noteNo assessment information available [facility] Work Phone: Evaluation note* Diagnosis GERD without esophagitis- Primary Esophageal reflux Dysphagia, unspecified type Hiatal hernia Diaphragmatic hernia without mention of obstruction or gangrene documented in this encounter [facility] Diagnosis Heartburn- Primary Dysphagia, unspecified type Long-term current use of proton pump inhibitor therapy [facility] Narrative No data available for this section [facility] Discharge instructions No data available for this section [facility] Progress note No data available for this section [facility] Reason for referral (narrative)* Outpatient Procedure (Routine) - Closed Specialty Diagnoses / Procedures Referred By Brenda miguel Referred To Contact [facility] Diagnoses Dysphagia, unspecified type Heartburn Long-term current use of proton pump inhibitor therapy Procedures EGD DIAGNOSTIC EGD DIAGNOSTIC ESOPHAGOGASTRODUODENOSC OPY TRANSORAL DIAGNOSTIC Linda Briggs PA-C [address] [place] [address] [facility] [place] [address] [place] [id number] Referral ID Status Reason Start Date Expiration Date V isits Requested Visits Authorized [id number] Closed Auto-Generate d Referral 06/16/2022 06/16/2023 1 1 [facility] for referral (narrative)No reason for referral [facility] Work Phone: Reason for visit Narrative* Outpatient Procedure (Routine) - Closed Specialty Diagnoses / Procedures Referred By Brenda miguel Referred To Contact [facility] [place] Diagnoses Dysphagia, unspecified type Heartburn Long-term current use of proton pump inhibitor therapy Procedures EGD DIAGNOSTIC EGD DIAGNOSTIC ESOPHAGOGASTRODUODENOSC OPY TRANSORAL DIAGNOSTIC Linda Briggs PA-C [address] [address] [facility] [address] [place] [id number] Referral ID Status Reason Start Date Expiration Date V isits Requested Visits Authorized [id number] Closed Auto-Generate d Referral 06/16/2022 06/16/2023 1 1 [facility] Advance Directives No Advanced Directives Records Found Advance Directive Response Recorded Date/ Time Living Will No April 08, 2014 7:47am Power of Linter Saw Sharpener No March 7:47am Advance Directive Response Recorded Date/ Time Living Will No April 08, 2014 6:47am Power of Linter Saw Sharpener No March 6:47am Advance Directive Response Recorded Date/ Time Living Will Yes May 03 9:16pm Power of Linter Saw Sharpener Yes May 03, 2024 9:16pm Summary Purpose Family History No Family History Records FoundNo Family History Records FoundNo Family History Records Found Medications Administered Section Inactive Administered Medications - up to 3 most recent administrations Medication Order MAR Action Action Date Dose Rate Site benzocaine 20% 1 Potter (TOPEX) 1 Potter, TOPICAL, DIRECTED, Starting on Tue07/26/22 at 1330, Until Tue07/26/22 at 1729, DOSING DIRECTED BY PHYSICIAN FOR PROCEDURAL SEDATION ONLY - Pharmaceutical Waste: Aerosol -, Intraprocedure Given 07/26/2022 1:17 PM EST 5 Sprays diphenhydrAMINE 12.5-50 mg injection (BENADRYL) 12.5-50 mg, INTRAVENOUS, DIRECTED, Starting on Tue07/26/22 at 1330, Until Tue07/26/22 at 1729, DOSING DIRECTED BY PHYSICIAN FOR PROCEDURAL SEDATION ONLY, Intraprocedure Given 07/26/2022 1:17 PM EST 50 mg fentaNYL 50 mcg/mL 25-100 mcg injection (SUBLIMAZE) 25-100 mcg, INTRAVENOUS, DIRECTED, Starting on Tue07/26/22 at 1330, Until Tue07/26/22 at 1729, DOSING DIRECTED BY PHYSICIAN FOR PROCEDURAL SEDATION ONLY, Intraprocedure Given 07/26/2022 1:15 PM EST 50 mcg lactated ringers iv infusion 75 mL/hr, INTRAVENOUS, CONTINUOUS, Starting on Tue07/26/22 at 1230, Until Tue07/26/22 at 1339, Preprocedure New Bag/Syringe/Bottle 07/26/2022 12:30 PM EST 75 mL/hr 75 mL/hr midazolam 1-5 mg injection (VERSED) 1-5 mg, INTRAVENOUS, DIRECTED, Starting on Tue07/26/22 at 1330, Until Tue07/26/22 at 1729, DOSING DIRECTED BY PHYSICIAN FOR PROCEDURAL SEDATION ONLY, Intraprocedure Given 07/26/2022 1:22 PM EST 2 mg Given 07/26/2022 1:15 PM EST 3 mg Chief Complaint and Reason for Visit Chief Complaint Admit Date WEEKLY BMP, CBC, AND ESR 05/13/24-June 11, 2024 9:51am PSA June 12, 2024 12:57pm ENDOCARDITIS (BEAM) July 25, 2024 1: 53pm ENDOCARDITIS August 15, 2024 1 :38pm LUMBAR SPINE August 24, 2024 1 :59pm RM 5 August 24, 2024 2 :38pm SPONDYLOLISTHESIS LUMBAR REGION. RX HERE September 25, 2024 2:00pm Reason for Visit Admit Date Endocarditis July 25, 2024 1: 53pm Hypertension July 25, 2024 1: 53pm Other intervertebral disc de generation, lumbar region with discogenic back August 24, 2024 1:59pm Spondylolisthesis, lumbar region [id number] 1:59pm Chief Complaint Admit Date ENDOCARDITIS (BEAM) July 25, 2024 1: 53pm ENDOCARDITIS August 15, 2024 1 :38pm LUMBAR SPINE August 24, 2024 1 :59pm RM 5 August 24, 2024 2 :38pm SPONDYLOLISTHESIS LUMBAR REGION. RX HERE September 25, 2024 2:00pm Additional Source Comments Goals (unrecognized section and content) Goals may be documented in a n alternate section No data available for this section No data available for this sectionGoals may be documented in an alternate sectionGoals may be documented in an alternate sectionGoals may be documented in an alternate section (unrecognized sect ion and content) No Status Records FoundNo Status Records FoundNo Status Records Found INFORMATION SOURCE (unrecogn ized section and content) DATE CREATED AUTHOR 08/10/2022 [facility] DATE CREATED AUTHOR AUTHOR'S ORGANIZ ATION 01/11/2023 [facility] ([place]) DATE CREATED AUTHOR AUTHOR'S ORGANIZ ATION 01/28/2025 [facility] Source Comments (unrecognize d section and content) In the event this informatio n is protected by the Federal Confidentiality of Alcohol and Drug Abuse Patient Records regulations: The Federal rules restrict any use of the information to criminally investigate or prosecute any alcohol or drug abuse patient.[facility] the event this information is protected by the Federal Confidentiality of Alcohol and Drug Abuse Patient Records regulations: The Federal rules restrict any use of the information to criminally investigate or prosecute any alcohol or drug abuse patient.[facility] Reason for Visit (unrecogniz ed section and content) Reason Comments Follow Up EGD Care Teams (unrecognized sec tion and content) Smoking Pipes Cleaner Relationship Specialty Start Date End Date Rosie Trejo MD [address] [place] [address] [phone] PCP - General Family Medicine 06/08/22 Smoking Pipes Cleaner Relationship Specialty Start Date End Date Rosie Trejo MD [address] [place] [address] PCP - General Family Medicine 06/08/22 Team Status: Active Member Role Status Dates Dr. Rosie Trejo MD Family Provider Active Dr. Rosie Trejo MD Primary Care Provider Active Team Status: Inactive Member Role Status Dates Dr. Rosie Trejo MD Primary Care Provider, Attending Renae diaz Active Team Status: Inactive Member Role Status Dates Dr. Rosie Trejo MD Primary Care Provider Active Armida Ahumada Attending Provider, Referring Provide r Active Team Status: Active Member Role Status Dates Carlyle Heaton Primary Care Provider Active Team Status: Inactive Member Role Status Dates Dr. Rosie Trejo MD Primary Care Provider Active Start: June 11, 2024 End: June 16, 2024 Chrissie Meme Gualberto Referring Provider Active Start: June 11, 2024 End: June 16, 2024 Dr. Sriram Guerrier MD Attending Provider Active Start: June 11, 2024 End: June 16, 2024 Team Status: Inactive Member Role Status Dates Dr. Rosie Trejo MD Primary Care Provider Active Start: June 12, 2024 End: June 12, 2024 Dr. Jignesh Newell MD Attending Provider Active Start: June 12, 2024 End: June 12, 2024 Dr. Jignesh Newell MD Referring Provider Active Start: June 12, 2024 End: June 12, 2024 Team Status: Inactive Member Role Status Dates Dr. Rosie Trejo MD Primary Care Provider Active Start: July 16, 2024 End: July 16, 2024 Zebulun Beam VSC, DIRECTOR SOCIAL WELFARE-C Attending Provider Active Start: July 16, 2024 End: July 16, 2024 Zebulun Beam VSC, DIRECTOR SOCIAL WELFARE-C Referring Provider Active Start: July 16, 2024 End: July 16, 2024 Team Status: Inactive Member Role Status Dates Dr. Brian Lim MD Attending Provider Active Start: July 25, 2024 End: July 25, 2024 Topaz Beam Primary Care Provider Active Start: July 25, 2024 End: July 25, 2024 Topaz Beam Referring Provider Active Start: [facility] 2024 End: July 25, 2024 Team Status: Inactive Member Role Status Dates Topaz Beam Primary Care Provider Active Start: August 15, 2024 End: August 15, 2024 Dr. Brian Lim MD Attending Provider Active Start: August 15, 2024 End: August 15, 2024 Dr. Brian Lim MD Referring Provider Active Start: August 15, 2024 End: August 15, 2024 Team Status: Active Member Role Status Dates Carlyle Beam Primary Care Provider Active Start: August 15, 2024 Dr. Reese Munoz MD Attending Provider Active S tart: August 15, 2024 Team Status: Inactive Member Role Status Dates Dr. Rosie Trejo MD Referring Provider Active St art: August 24, 2024 End: August 24, 2024 Dr. Edison Sena MD Attending Provider Active Start: August 24, 2024 End: August 24, 2024 Carlyle Beam Primary Care Provider Active Start: August 24, 2024 End: August 24, 2024 Team Status: Inactive Member Role Status Dates Topaz Beam Primary Care Provider Active Start: August 24, 2024 End: August 24, 2024 Dr. Reese Munoz MD Attending Provider Active S tart: August 24, 2024 End: August 24, 2024 Team Status: Inactive Member Role Status Dates Carlyle Beam Primary Care Provider Active Start: September 25, 2024 End: September 25, 2024 Dr. Edison Sena MD Attending Provider Active Start: September 25, 2024 End: September 25, 2024 Dr. Edison Sena MD Referring Provider Active Start: September 25, 2024 End: September 25, 2024 Team Status: Active Member Role Status Dates Zebulun Beam VSC, DIRECTOR SOCIAL WELFARE-C Primary Care Provider Active Team Status: Inactive Member Role Status Dates Zebulun Beam VSC, DIRECTOR SOCIAL WELFARE-C Primary Care Provider Active Start: November 07, 2024 End: November 07, 2024 Zebulun Beam VSC, DIRECTOR SOCIAL WELFARE-C Attending Provider Active Start: November 07, 2024 End: November 07, 2024 FOR RECORDS PERTAINING TO PATIENTS WHO ARE OR HAVE BEEN ENROLLED IN A CHEMICAL DEPENDENCY/SUBSTANCEABUSE PROGRAM, SOME INFORMATION MAY BE OMITTED. This clinical summary was aggregated from multiple sources. Caution should be exercised in using it in the provision of clinical care. This summary normalizes information from multiple sources, and as a consequence, information in this document may materially change the coding, format and clinical context of patient data. In addition, data may be omitted in some cases. CLINICAL DECISIONS SHOULD BE BASED ON THE PRIMARY CLINICAL RECORDS. [facility]. provides no warranty or guarantee of the accuracy or completeness of information in this document.
[2025-01-29] MEDS: Lactated Ringers 1,000 ML 15 ML IV (07:20)
--- NOTE | 2025-01-29 07:43 | PCM.PRE.AN2 ---
ASA Classification* ASA Classification ASA Classification: 2 Assessment & Plan Anesthesia* Anesthesia Assessment Anesthesia Assessment: Discussed sedation and/or anesthesia options, risks, benefits, and alternatives with patient/parents/legal guardian/POA. Questions invited. The patient/parents/legal guardian/POA seems to understand and agrees to proceed with anesthesia plan. Reviewed the physical assessment, medical history, allergy history and patient home medications list prior to surgery/procedure/anesthetic and documented any changes. Performed airway and anesthesia risk assessments. Anesthesia Type Anesthesia Type: MAC History Source History Obtained from:: Patient and Chart Anesthesia Focused Assessment* Temperature: 97.8 F Pulse Rate: 91 Blood Pressure: 113/78 Respiratory Rate: 16 Pulse Ox: 98 Oxygen Delivery Method: Room Air Airway Assessment Mouth opens: >3 cm Mallampati Score: I Teeth Condition: Intact Neck Range of motion (ROM): Full ROM Labs Anesthesia Preop lab: CBC WBC 7.5 K/mm3 (4.4-11.0) 11/07/24 11:38 11/07/24 RBC 5.13 M/mm3 (4.6-6.2) 11/07/24 11:38 11/07/24 Hgb 15.2 g/dL (13.0-16.5) 11/07/24 11:38 11/07/24 Hct 45.0 % (40-54) 11/07/24 11:38 11/07/24 Plt Count 231 K/mm3 (150-450) 11/07/24 11:38 11/07/24 CHEMISTRY Potassium 4.6 mmol/L (3.3-5.1) 11/07/24 11:38 11/07/24 Sodium 137 mmol/L (133-145) 11/07/24 11:38 11/07/24 BUN 23 mg/dL (4-19) H 11/07/24 11:38 11/07/24 Creatinine 1.20 mg/dL (0.70-1.20) 11/07/24 11:38 11/07/24 Glucose 96 mg/dL (70-99) 11/07/24 11:38 11/07/24 TSH 1.510 uIU/mL (0.300-4.200) 11/07/24 11:38 11/07/24 COAG Pre-Assessment Diagnosis/Proposed Procedure Planned Operative Procedure(s): COLONOSCOPY Anesthesia History Anesthesia History - clinic charge nurse: Anesthesia History - clinic charge nurse Hx Hospitalization No 01/24/25 13:34 Any Problems With Anesthesia No 01/24/25 13:34 Cholinesterase deficiency No 01/24/25 13:34 You/Your Family Experience No 01/24/25 13:34 fever (hyperthermia) with Relationship Recent Exposure to Contagious No 01/29/25 07:16 Disease Does patient have nerve No 01/24/25 13:34 stimulator Patient instructed to have device shut off --Does patient have Pacemaker No 01/29/25 07:16 or ICD? When Was Last Pacemaker Check QUESTION #4 FULL TEXT: You/Your Family Experience fever (hyperthermia) with Anesthesia Last Oral Intake Last Oral intake: Last Oral Intake NPO since 18:00 01/29/25 07:16 Meds taken in AM with sips of No 01/29/25 07:16 water? Meds patient instructed to take am of surgery PONV PONV - clinic charge nurse: PONV - clinic charge nurse Female No 01/24/25 13:34 HX of Motion Sickness No 01/24/25 13:34 HX of N/V After Surgery No 01/24/25 13:34 Non-Smoker Yes 01/24/25 13:34 Duration of Surgery greater No 01/24/25 13:34 than 60 minutes Number of Risk Factors 1 01/24/25 13:34 PONV Score Low Risk 01/24/25 13:34 Height & Weight Height & Weight: Anesthesia: Height & Weight Height 5 ft 7 in 01/29/25 07:16 Weight: 78.9 kg 01/29/25 07:16 Body Mass Index (BMI) 27.2 01/29/25 07:16 Respiratory Assessment Respiratory Assessment - clinic charge nurse: Respiratory Tract Infection Hx - clinic charge nurse Hx Respiratory Tract Infection No 01/24/25 13:34 STOP Sleep Apnea STOP Sleep Apnea - clinic charge nurse: STOP Sleep Apnea - clinic charge nurse Hx Hypertension Yes: CONTROLLED WITH MEDS 01/24/25 13:34 Hx Sleep Apnea No 01/24/25 13:34 CPAP BIPAP Do you snore loudly (louder No 01/24/25 13:34 than talking or can be heard Do you often feel tired/ No 01/24/25 13:34 fatigued/ sleepy during daytime? Has anyone observed you stop No 01/24/25 13:34 breathing during sleep? STOP Results Negative 01/24/25 13:34 QUESTION #5 FULL TEXT : Do you snore loudly (louder than talking or can be heard through closed doors)? Tobacco Use History Tobacco Use History - clinic charge nurse: Tobacco Use History - clinic charge nurse Tobacco Use Smoking Status Never smoker 01/24/25 13:34 Hx Tobacco Use No 01/24/25 13:34 Years Smoking Packs Smoked per Day Smoking Cessation Date was within the last 15 years Hx Smoking Cessation Date Hx Smoking Cessation Counseling Hematologic Medial History Hematologic Hx - clinic charge nurse: Hematologic Medical Hx - outpatient admitting clerk Hx of Blood Transfusion No 01/24/25 13:34 Hx of Transfusion in last 3 No 01/24/25 13:34 Months Date of Last Transfusion (if within last 3 months) Ever experience any problems No 01/24/25 13:34 with transfusion(s)? Specify any problems Hx of Preganancy in last 3 N/A 01/24/25 13:34 Months Nurse Filling Out Transfusion [id number] 01/24/25 13:34 & Questions: Date: 01/24/25 01/24/25 13:34 Time: 13:35 01/24/25 13:34 Patient unable to answer at this time (ie. confused, unrespo /Reproduction History /Reproductive History - clinic charge nurse: /Reproductive Hx- clinic charge nurse Hx Now Gestational Age (in weeks): EDC: Hx Hx Para Hx Section SAB Active Medications Active Medications: Current Medications Generic Name Dose Route Start Last Admin Trade Name Freq PRN Reason Stop Dose Admin Lactated Ringer's 1,000 mls @ 15 mls/hr 01/29/25 07:15 01/29/25 07:20 IV 15 mls/hr .Q48H HARLEEN Administration PFSH Medical History History of transesophageal echocardiography (GUANAKITO) Wears contact lenses Non-smoker History of echocardiogram Cardiology follow-up encounter Endocarditis Prostate carcinoma BPH (benign prostatic hyperplasia) Lumbar discitis GERD (gastroesophageal reflux disease) Hypertension Home Medications ?Medication ?Instructions ?Recorded ?Last Taken ?Type lisinopril 10 mg tablet 10 mg PO QHS 04/08/14 Unknown History cholecalciferol (vitamin D3) 25 25 mcg PO QDAY 07/05/24 Unknown History mcg (1,000 unit) capsule omeprazole 40 mg capsule,delayed 40 mg PO QDAY 07/05/24 Unknown History release trazodone 50 mg tablet 50 mg PO QHS 07/25/24 Unknown History aspirin 325 mg tablet (Rodri 325 mg PO QDAY PRN pain 01/10/25 01/27/25 History Aspirin) hydrochlorothiazide 12.5 mg capsule 12.5 mg PO QDAY Blood Pressure 01/10/25 Unknown History ibuprofen 600 mg tablet 600 mg PO QDAY PRN pain 01/10/25 Unknown History multivit,Ca,min-iron 8 mg-folic 1 tab PO DAILY 01/10/25 Unknown History acid 200 mcg-lycopene 600 mcg tablet (Centrum Men) sildenafil 50 mg tablet (Viagra) 50 mg PO QDAY PRN sexual activity 01/10/25 Unknown History Allergy/AdvReac Type Severity Reaction Status Date / Time No Known Allergies Allergy Verified 01/29/25 07:14 Surgical History H/O esophagogastroduodenoscopy History of transurethral resection of prostate S/P colonoscopy H/O wisdom tooth extraction History of tonsillectomy and adenoidectomy Social History household members: spouse Smoking Status: Never smoker alcohol intake: current alcohol intake frequency: holidays/special occasions only substance use type: does not use caffeine: Yes Review of Systems (Anesthesia) ROS Narrative System reviewed and no additional complaints, except as documented.
--- NOTE | 2025-01-29 07:51 | H&P.OPEN ---
HPI - General HPI Narrative CONNOR MARTIN, is a 64 M who presents for screening colonoscopy. His last colonoscopy was 10 years ago. He denies abdominal pain or blood in the stool. No family history of colon cancer. [facility] Medical History History of transesophageal echocardiography (GUANAKITO) Wears contact lenses Non-smoker History of echocardiogram Cardiology follow-up encounter Endocarditis Prostate carcinoma BPH (benign prostatic hyperplasia) Lumbar discitis GERD (gastroesophageal reflux disease) Hypertension Home Medications ?Medication ?Instructions ?Recorded ?Last Taken ?Type lisinopril 10 mg tablet 10 mg PO QHS 04/08/14 Unknown History cholecalciferol (vitamin D3) 25 25 mcg PO QDAY 07/05/24 Unknown History mcg (1,000 unit) capsule omeprazole 40 mg capsule,delayed 40 mg PO QDAY 07/05/24 Unknown History release trazodone 50 mg tablet 50 mg PO QHS 07/25/24 Unknown History aspirin 325 mg tablet (Rodri 325 mg PO QDAY PRN pain 01/10/25 01/27/25 History Aspirin) hydrochlorothiazide 12.5 mg capsule 12.5 mg PO QDAY Blood Pressure 01/10/25 Unknown History ibuprofen 600 mg tablet 600 mg PO QDAY PRN pain 01/10/25 Unknown History multivit,Ca,min-iron 8 mg-folic 1 tab PO DAILY 01/10/25 Unknown History acid 200 mcg-lycopene 600 mcg tablet (Centrum Men) sildenafil 50 mg tablet (Viagra) 50 mg PO QDAY PRN sexual activity 01/10/25 Unknown History Allergy/AdvReac Type Severity Reaction Status Date / Time No Known Allergies Allergy Verified 01/29/25 07:14 Surgical History H/O esophagogastroduodenoscopy History of transurethral resection of prostate S/P colonoscopy H/O wisdom tooth extraction History of tonsillectomy and adenoidectomy Social History household members: spouse Smoking Status: Never smoker alcohol intake: current alcohol intake frequency: holidays/special occasions only substance use type: does not use caffeine: Yes Past Medical/Surgical History Planned Operation Planned Operative Procedure(s): COLONOSCOPY Previous Hospitalizations/Surgeries HX Hospitalizations: No Any Problems With Anesthesia: No You/Your Family Experience Fever (Hyperthermia) With Anes: No Cholinesterase deficiency: No Cardiovascular Hx Chest Pain within Last 2 months: No Hx Heart Attack: No Hx Hypertension: Yes (CONTROLLED WITH MEDS) Hx Cardiac Surgery/Stents/Etc.: No Respiratory Hx Chronic Obstructive Pulmonary Disease (COPD): No Hx Sleep Apnea: No Hx Respiratory Tract Infection/Cold (presently): No Do You Snore Loudly (louder than talking or can be heard): No Do You Often Feel Tired/ Fatigued/ Sleepy Dring Daytime?: No Has Anyone Observed You Stop Breathing During Sleep?: No Result (for STOP score): Negative Hx Smoking: No Smoking Status: Never smoker Neurological Hx Seizures: No Hx Parkinson's Disease: No Does patient have nerve stimulator: No Blood Disorder Hx Anemia: No Genitourinary Hx Dialysis: No Musculoskeletal Hx Arthritis: Yes Hx Rheumatoid Arthritis: No Endocrine Hx Diabetes: No Thyroid Disease: No Psycho/Social Hx Depression: No Hx Dementia: No Miscellaneous Hx Cancer: Yes (prosatate) Recent Exposure to Contagious Disease: No Allergies No Known Allergies Allergy (Verified 01/29/25 07:14) Discharge After D/C, Where Do you Plan to Go: Return Home From the [facility] History Number of Risk Factors: 2 Vital Signs Vital Signs Vital Signs: 01/29/25 07:16 01/29/25 07:16 01/29/25 07:49 Temperature 97.8 F 97.8 F Temperature Source Temporal Pulse Rate 91 91 Respiratory Rate 16 16 Respiratory Pattern Normal Blood Pressure 113/78 113/78 Blood Pressure Mean 89 Blood Pressure Source Monitor Blood Pressure Position Semi-Fowlers Blood Pressure Location Left Arm Pulse Ox 98 98 Oxygen Delivery Method Room Air Room Air Weight Weight: 173 lb 15.115 oz Body Mass Index (BMI) 27.2 Physical Exam Const alert HEENT normocephalic Eyes PERRL Resp normal respiratory effort and normal air movement Cardio regular rate and regular rhythm GI soft to palpation, non-tender and non-distended Extremity normal to inspection Assessment & Plan Assessment/Plan (1) Special screening for malignant neoplasm of colon: PLAN: I explained endoscopy in detail to the patient. I explained the risks including but not limited to stroke or heart attack with anesthesia, perforation of the GI tract, bleeding, infection. I explained that any of these could necessitate further emergency surgery. The patient understands and all questions were answered sufficiently. The patient wishes to proceed with procedure. Ej Saenz MD Pager: [facility] [address] [place] [address] [address] [place] [address] Office: Surgery Risks - Colonoscopy Risks Include but are not Limited To: Risks include but are not limited to: Bleeding, perforation requiring further surgery, inability to complete colonoscopy requiring barium enema.
--- NOTE | 2025-01-29 08:30 | OP.CCLET_ITS ---
01/29/2025 Jennifer Heaton Np, Manager Biostatistics-c Re : Colonoscopy procedure for Dallas Heaton This procedure was performed on Wednesday, January 29, 2025. My impressions and recommendations are as follows: Impressions : - The entire examined colon is normal on direct and retroflexion views. - No specimens collected. Recommendations : - Discharge patient to home. - Resume previous diet. - Continue present medications. - Repeat colonoscopy in 10 years for screening purposes. My findings are described in the full procedure note, which is enclosed. If I can be of further assistance, please feel free to contact me at Doctor phone number(s): , Work: . Sincerely, Ej Saenz MD 01/29/2025 8:29:37 AM This report has been signed electronically.
--- NOTE | 2025-01-29 08:30 | OP.COLON_ITS ---
Patient Name: Dallas Og Procedure Date: 01/29/2025 8:05 AM Date of : 1960 Age: 64 Procedure: Colonoscopy Indications: Screening for colorectal malignant neoplasm Providers: Ej Saenz MD Referring MD: Jennifer Heaton Temperature Logging Operator, Temperature Logging Operator-c Medicines: Propofol per Anesthesia Patient Profile: This is a 64 year old male. Refer to note in patient chart for documentation of history and physical. Last Colonoscopy: 10 years ago. Complications: No immediate complications. Procedure: Pre-Anesthesia Assessment: - Prior to the procedure, a History and Physical was performed, and patient medications and allergies were reviewed. The patient's tolerance of previous anesthesia was also reviewed. The risks and benefits of the procedure and the sedation options and risks were discussed with the patient. All questions were answered, and informed consent was obtained. Prior Anticoagulants: The patient has taken no anticoagulant or antiplatelet agents. After reviewing the risks and benefits, the patient was deemed in satisfactory condition to undergo the procedure. After I obtained informed consent, the scope was passed under direct vision. Throughout the procedure, the patient's blood pressure, pulse, and oxygen saturations were monitored continuously. The Colonoscope was introduced through the anus and advanced to the cecum, identified by the appendiceal orifice, ileocecal valve and palpation. The colonoscopy was performed without difficulty. The patient tolerated the procedure well. The quality of the bowel preparation was good. The ileocecal valve, appendiceal orifice, and rectum were photographed. Scope In: 8:15:52 AM Scope Withdrawal Time 0 hours 6 minutes 38 seconds Scope Out: 8:27:06 AM Total Procedure Duration Time 0 hours 11 minutes 14 seconds Findings: The entire examined colon appeared normal on direct and retroflexion views. Impression: - The entire examined colon is normal on direct and retroflexion views. - No specimens collected. Recommendation: - Discharge patient to home. - Resume previous diet. - Continue present medications. - Repeat colonoscopy in 10 years for screening purposes. Procedure Code(s): --- Professional --- 49285, Colonoscopy, flexible; diagnostic, including collection of specimen(s) by brushing or washing, when performed (separate procedure) Diagnosis Code(s): --- Professional --- Z12.11, Encounter for screening for malignant neoplasm of colon CPT copyright 2022 [employer]. All rights reserved. The codes documented in this report are preliminary and upon logistics solution manager review may be revised to meet current compliance requirements. Ej Saenz MD 01/29/2025 8:29:37 AM This report has been signed electronically. Number of Addenda: 0 Note Initiated On: 01/29/2025 8:05 AM
--- NOTE | 2025-01-29 08:34 | PCM.POST.ANE ---
Anesthesia: Postop Eval I Current Vital Signs Temperature: 97.1 F Pulse Rate: 89 Blood Pressure: 131/88 Respiratory Rate: 16 Pulse Ox: 96 Oxygen Delivery Method: Room Air Assessment Airway patent: Yes Spontaneous unlabored respirations: Yes Mental status: Asleep nausea: No Vomiting: No Anesthesia Complication: No Fluid Hydration Crystalloid volume administer (ml): 400 Total IV fluid infused: 400 Progress Note Anesthesia document: Postop Eval 1 completed: Yes
--- NOTE | 2025-01-29 10:16 | PCM.POSTANE2 ---
Anesthesia Postop Eval I Sum Postop Eval Completion status Anesthesia document: Postop Eval 1 completed: Yes Anesthesia Postop Eval I Summary Anesthesia Postop Eval I Summary: Anesthesia Postop Eval I: Assessment Summary Airway patent Yes 01/29/25 08:37 [email or web address] Spontaneous unlabored Yes 01/29/25 08:37 [email or web address] respirations Mental status Asleep 01/29/25 08:37 [email or web address] nausea No 01/29/25 08:37 [email or web address] Vomiting No 01/29/25 08:37 [email or web address] Anesthesia Postop Eval I: Fluid Summary Crystalloid volume administer 400 01/29/25 08:37 [email or web address] (ml) Colloids volume administered ( ml) Blood Product volume administered (ml) Total IV fluid infused 400 01/29/25 08:37 [email or web address] Anesthesia Postop Eval I: Summary Notes Anesthesia Complication No 01/29/25 08:37 [email or web address] Anesthesia Complication Comment: Post-operative progress note Anesthesia: Postop Eval II Evaluation Mental status: Awake and Calm Pain Level: 0 nausea: No Vomiting: No Complications Anesthesia Complication: No
== END 2025-01-29 09:12 | disposition home or self-care (01) ==
LOC: EN 06:54 → AC 06:55
PROVIDERS: Visit Provider Surgery
PROC: 0DJD8ZZ Inspection of Lower Intestinal Tract, Via Natural or Artificial Opening Endoscopic (ICD-10-PCS; CPT 45378; principal; 2025-01-29 07:55)
DX: Z12.11 Encounter for screening for malignant neoplasm of colon (principal); K21.9 Gastro-esophageal reflux disease without esophagitis; I10 Essential (primary) hypertension; Z79.82 Long term (current) use of aspirin
CPT/HCPCS: 45378; J2405

== ENCOUNTER → 2025-07-01 | Outpatient (CLI) | payer BC, SELFPAY ==
--- OUTSIDE RECORDS SUMMARY | 2025-07-01 09:42 | XMS RPT_ITS | CCD ---
Author Organization [facility] Care Team Providers Care Data Control Assistant Name Role Phone ROSIE TREJO Primary Care Unavailable MADELEINE CHILDERS Referring Unavailable MIREILLE RAO Attending Unavailable LINDA MOSLEY Referring Unavailable MIREILLE RAO Attending Unavailable ROSIE TREJO Primary Care Unavailable LINDA MOSLEY Attending Unavailable ROSIE TREJO Referring Unavailable ROSIE TREJO Primary Care Unavailable Neil MASON, Rosie Pyle Primary Care Provider [phone] NEIL MASON, ROSIE Hughes Primary Care Physician NEIL MASON, ROSIE Hughes Primary Care Unavailable OSIRIS MASON, DR JIGNESH FRANKLIN Attending Plaicdo TREJO MD, ROSIE Hughes Primary Care Unavailable OSIRIS MASON, DR JIGNESH FRANKLIN Attending Placido NEWELL MD, DR JIGNESH FRANKLIN Admitting Placido Trejo MD, Rosie Hughes Primary Care Provider Dr. Rosie Trejo MD Primary Care Provider Chrissie Burciaga Referring Provider Unavailable Dr. Sriram Guerrier MD Attending Provider Osiris MASON, Dr. Jignesh Franklin Attending Provider [phone] Osiris MASON, Dr. Jignesh Franklin Referring Provider Beam LUTE PACKER OR APPLIER-C, Jennifer Attending Provider [phone] Beam LUTE PACKER OR APPLIER-C, Jennifer Referring Provider Dr. Brian Lim MD Attending Provider Beam, Carlyle Primary Care Provider Unavailabl e Beam, Carlyle Referring Provider Unavailable Dr. Brian Lim MD Referring Provider Alexander MASON, Dr. Leigh Attending Provider Neil MASON, Dr. Mason Referring Provider [phone] Nathen MASON, Dr. Hogan Attending Provider Nathen MASON, Dr. Hogan Referring Provider Neil MASON, Dr. Mason Primary Care Provider Beam LUTE PACKER OR APPLIER-C, Zebulun Primary Care Provider Beam LUTE PACKER OR APPLIER-C, Zebulun Attending Provider Digna Farrell Attending Provider Unavailable Beam LUTE PACKER OR APPLIER-C, Zebulun Referring Provider Dany MASON, Dr. Pagan Attending Provider [phone] Dany MASON, Dr. Pagan Other Provider Reese Munoz Attending Unavailable Beam, Carlyle Primary Care Unavailable Beam VSC, Zebulun Primary Care Unavailable Jignesh Newell Attending Unavailable Beam VSC, Zebulun Referring Unavailable Beam VSC, Zebulun Attending Unavailable Trejo, Rosie Primary Care Unavailable Trejo, Rosie Primary Care Unavailable OsirisJignesh Referring Unavailable OsirisJignesh Attending Unavailable Koram, Malena Dolly Referring Unavailable Trejo, Rosie Primary Care Unavailable Reese Munoz Attending Unavailable Beam VSC, Zebulun Primary Care Unavailable Digna Farrell Attending Unavailable Reese Munoz Attending Unavailable Trejo, Rosie Primary Care Unavailable Beam, Gratz Primary Care Unavailable AlexanderReese Attending Unavailable Trejo, Rosie Attending Unavailable Trejo, Rosie Primary Care Unavailable Trejo, Rosie Referring Unavailable Beam, Gratz Primary Care Unavailable Edison Sena Referring Unavailable Edison Sena Attending Unavailable Trejo, Rosie Primary Care Unavailable Vasquez Rutherford Consulting Unavailable Jessi Ivan Attending Unavailable Meena Boyle Admitting Unavailable Ottoniel Hutchinson Referring Unavailable Meena Boyle Consulting Unavailable Sriram Guerrier Consulting Unavailable Koram, Malena Dolly Consulting Unavailable Beam VSC, Zebulun Primary Care Unavailable Ej Saenz Attending Unavailable Beam VSC, Zebulun Referring Unavailable Gualberto, Chrissie E Referring Unavailable Sriram Guerrier Attending Unavailable Trejo, Rosie Primary Care Unavailable Beam, Carlyle Primary Care Unavailable Edison Sena Attending Unavailable Trejo, Rosie Referring Unavailable Trejo, Rosie Primary Care Unavailable Ottoniel Hutchinson Referring Unavailable Meena Boyle Attending Unavailable Beam VS, Jennifer Attending Unavailable Beam VS, [facility] Primary Care Unavailable GualbertoChrissie Referring Unavailable Trejo, Rosie Primary Care Unavailable GualbertoChrissie Attending Unavailable Chrissie Burciaga Referring Unavailable Sriram Guerrier Attending Unavailable Trejo, Rosie Primary Care Unavailable Beam, Carlyle Primary Care Unavailable Brian Lim Attending Unavailable Brian Lim Referring Unavailable Trejo, Rosie Primary Care Unavailable Meena Boyle Admitting Unavailable Ottoniel Hutchinson Referring Unavailable Malena Bell Attending Unavailable Vasquez Rutherford Consulting Unavailable Meena Boyle Consulting Unavailable Sriram Guerrier Consulting Unavailable Malena Bell Consulting Unavailable Jessi Ivan Attending Unavailable Jessi Ivan Consulting Unavailable Beam VS, Zelouann Referring Unavailable Beam [facility], [facility] Primary Care Unavailable Ej Saenz Attending Unavailable Ej Saenz Consulting Unavailable Beam, Gratz Primary Care Unavailable Beam, Carlyle Referring Unavailable Brian Lim Attending Unavailable Medications Current Medications Medication Drug Class(es) Dates Sig (Normalized) Sig (Original) aspirin 325 mg oral tablet (1 source) Platelet Aggregation Inhibitor, Nonsteroidal Anti-inflammatory Drug Start: 01-10-2025 take 1 tablet by mouth once daily as needed for pain Aspirin (Melina Aspirin) 325 mg tablet Active 325 mg PO daily as needed for pain January 10, 2025 12:00am cephalexin 500 mg oral capsule (1 source) Cephalosporin Antibacterial Start: 01-05-2023 End: 01-10-2023 cephalexin 500 mg oral capsule Dose : 500 mg = 1 cap(s), Oral, q12h, X 5 day(s), # 10 cap(s), 0 Refill(s), 01/10/23 12:47:00 EDT, Pharmacy: [id number], 170.2, cm, 01/05/23 6:39:00 EDT, Height, 81.8 Start Date: 01/05/23 Stop Date: 01/10/23 Status: Ordered cholecalciferol 0.025 mg oral capsule (5 sources) Vitamin D Start: 07-05-2024 take 1 [...] tablet (1 source) Histamine-1 Receptor Antagonist Start: 3 Benadryl 25 mg oral tablet Dose : 25 mg = 1 tab(s), Oral, qHS, PRN Allergy symptoms, 0 Refill(s) Start Date: 01/05/23 Status: Ordered esomeprazole 40 mg delayed release oral capsule (4 sources) Proton Pump Inhibitor Start: 3 esomeprazole 40 mg oral delayed release capsule Dose : 40 mg = 1 cap(s), Oral, qDay, PRN Heartburn Start Date: 11/26/22 Status: Ordered Comment on above: Take 40 mg by mouth once daily. hydroCHLOROthiazide 12.5 mg oral capsule (16 sources) Thiazide Diuretic Start: 3 hydroCHLOROthiazide 12.5 mg oral tablet Dose : 12.5 mg = 1 tab(s), Oral, Daily, PRN Blood pressure control, 0 Refill(s) Start Date: 11/26/22 Status: Ordered Start: 04-08-2014 End: 01-10-2025 take 1 capsule by mouth once daily Hydrochlorothiazide 12.5 mg capsule Active 12.5 mg PO daily January 10, 2025 10:54am Blood Pressure Comment on above: Take 12.5 mg by mout h once daily as needed. ibuprofen 600 mg oral tablet (1 source) Nonsteroidal Anti-inflammatory Drug Start: 01-11-20 25 take 1 tablet by mouth once daily as needed for pain Ibuprofen 600 mg tablet Active 600 mg PO daily as needed for pain January 10, 2025 12:00am lisinopril 10 mg oral tablet (10 sources) Angiotensin Converting Enzyme Inhibitor Start: 04-08-20 14 take 1 tablet by mouth at bedtime Lisinopril 10 MG tablet Active 10 mg PO AT BEDTIME April 08, 2014 12:00am Comment on above: Take 10 mg by mouth once daily. Multivitamin preparation (3 sources) Start: 01-06-20 23 take 1 tablet by mouth once daily Multivitamin Dose = 1 tab(s), Oral, Daily, 0 Refill(s) Start Date: 01/05/23 Status: Ordered Start: 11-26-2022 take 1 tablet by krystle th once daily Multivitamin Dose = 1 tab(s), Oral, Daily, 0 Refill(s) Start Date: 11/26/22 Status: Ordered Mv,Ca,Agw-Gcyv-Bm-Lycopene (Centrum Men) 8 mg iron- 200 mcg-600 mcg tablet (1 source) Start: 01-10-2025 take 8 tablets by mouth once daily Mv,Ca,Ueo-Igbf-Qq-Lycopene (Centrum Men) 8 mg iron- 200 mcg-600 mcg tablet Active 1 {tbl} PO DAILY January 10, 2025 12:00am omeprazole 40 mg delayed release oral capsule (3 sources) Proton Pump Inhibitor Start: 07-05-2024 take [...] tab(s), 0 Refill(s), 01/08/23 12:46:00 EDT, Pharmacy: [id number], BPH (benign prostatic hyperplasia), 170.2, cm, 01/05/23 6:39:00 EDT, Height, 81.8 Start Date: 01/05/23 Stop Date: 01/08/23 Status: Ordered sildenafil 50 mg oral tablet (1 source) Phosphodiest erase 5 Inhibitor Start: 01-10-2025 Sildenafil (Viagra) 50 mg tablet Active 50 mg PO daily as needed for sexual activity January 10, 2025 12:00am administer 30 minutes to 4 hours before activity traZODone hydrochloride 50 mg oral tablet (3 sources) Serotonin Reuptake Inhibitor Start: 07-25-2024 take [...] Sig (Original) acetaminophen 325 mg oral tablet (3 sources) Start: 05-08-2024 End: 01-24-2025 take 2 tablets by mouth every four hours as needed for pain Acetaminophen 325 mg Tablet Discontinued 650 mg PO EVERY 4 HOURS NEEDED as needed for Fever, pain 0 0 May 08, 2024 12:00am January 24, 2025 1:31pm 24 hr alfuzosin hydrochloride 10 mg extended release oral tablet (8 sources) alpha-Adrenergic Isacc Start: 04-08-2014 End: 05-03-2024 [...] mg / caffeine 32 mg oral tablet (7 sources) Platelet Aggregation Inhibitor, Nonsteroidal Anti-inflammatory Drug, [...] needed. bethanechol chloride 25 mg oral tablet (5 sources) Cholinergic Muscarinic Agonist Start: End: take 2 tablets by mouth three times daily Bethanechol Chloride 25 MG tablet Discontinued 50 mg PO THREE TIMES A DAY April 08, 2014 12:00am May 03, 2024 9:31pm Start: 04-08-2014 take 50 mg by mouth three times daily Bethanechol Chloride Active 50 MG PO THREE TIMES A DAY April 07, 2014 11:00pm cefTRIAXone 2000 mg injection (3 sources) Cephalosporin Antibacterial Start: 05-07-2024 End: 07-25-2024 Ceftriaxone 2 gram recon soln Discontinued 2 g IV DAILY 38 0 May 07, 2024 12:00am July 25, 2024 3:11pm stop date 06/14/24. Dx: discitis. Weekly bmp, cbc, and esr. Fax to [phone]. Routine picc care per protocol. chlorpheniramine maleate 4 mg oral tablet (9 sources) Histamine-1 Receptor Antagonist Start: 05-03-2024 End: [...] by mouth o nce daily. At night ciclopirox 80 mg/ml topical solution (1 source) Start: 5 End: Ciclopirox 8 % solution Discontinued 1 NMA TOPICAL AT BEDTIME January 10, 2025 12:00am January 24, 2025 1:32pm started in October 2024. Is to take x 52 weeks famotidine 40 mg oral tablet (8 sources) Histamine-2 Receptor Antagonist Start: 4 End: take 1 tablet by mouth twice daily Famotidine 40 mg tablet Discontinued 40 mg PO TWICE A DAY July 05, 2024 1:00am July 25, 2024 3:09pm heartburn Start: 11-26-2022 famotidine 40 mg oral tablet Dose : 40 mg = 1 tab(s), Oral, BID, 0 Refill(s) Start Date: 01/05/23 Status: Ordered take 2 tablets by mo ut twice daily famotidine (PEPCID) 20 mg tablet Take 40 mg by mouth twice daily. 0 Active Comment on above: Take 40 mg by mouth twice daily. magnesium oxide 400 mg oral tablet (8 sources) Start: 05-03-2024 End: 01-10-2025 take 1 tablet by mouth at bedtime Magnesium Oxide 400 mg (241.3 mg magnesium) tablet Discontinued 400 mg PO AT BEDTIME May 03, 2024 12:00am January 10, 2025 10:55am Start: 11-26-2022 magnesium oxid e 400 mg oral tablet Dose : 400 mg = 1 tab(s), Oral, Daily, 0 Refill(s) Start Date: 01/05/23 Status: Ordered Comment on above: Take 400 mg by mouth once daily as needed. At night time meloxicam 15 mg oral tablet (3 sources) Nonsteroidal Anti-inflammatory Drug Start: 07-05-20 End: [...] d aily. nabumetone 750 mg oral tablet (3 sources) Nonsteroidal Anti-inflammatory Drug Start: 05-03-20 End: 07-25-19 take 1 tablet by mouth twice daily Nabumetone 750 mg tablet Discontinued 750 mg PO TWICE A DAY May 03, 2024 12:00am July 25, 2024 3:10pm tadalafil 20 mg oral tablet (12 sources) Phosphodiesterase 5 Inhibitor Start: 07-05-20 End: [...] needed. tamsulosin hydrochloride 0.4 mg oral capsule (3 sources) alpha-Adrenergic Isacc Start: 4 End: 5 take 1 capsule by mouth at bedtime Tamsulosin 0.4 mg capsule Discontinued 0.4 mg PO AT BEDTIME July 05, 2024 1:00am July 25, 2024 3:09pm traMADol hydrochloride 50 mg oral tablet (3 sources) Opioid Agonist Start: 4 End: 5 [...] without obstruction or gangrene] Episodic Esophageal disorders (4 sources) Gastroesophageal reflux disease without esophagitis; Translations: [Gastro-esophageal reflux disease without esophagitis] Chronic Comment on above: CONTROLLED WITH MEDS Essential hypertension (6 sources) Hypertensive disorder; Translations: [Essential (primary) hypertension] Onset: 5 07-25-2024 Chronic Hyperplasia of prostate (4 sources) Benign prostatic hypertrophy without outflow obstruction; Translations: [Benign prostatic hyperplasia without lower urinary tract symptoms] Onset: 3 Chronic Other acquired deformities (5 sources) Lumbar spondylolisthesis; Translations: [Spondylolisthesis, lumbar region] 08-24-2024 Episodic Other aftercare (2 sources) Other watermelon inspector (current) drug therapy; Translations: [Long-term (current) use of other medications] Onset: 3 07-26-2022 Episodic Other gastrointestinal disorders (1 source) Heartburn; Translations: [Heartburn] Onset: 3 Episodic Other gastrointestinal disorders (1 source) Dysphagia, unspecified; Translations: [Dysphagia, unspecified type] Onset: 3 Episodic Other gastrointestinal disorders (2 sources) Dysphagia; Translations: [Dysphagia, unspecified] Episodic Other gastrointestinal disorders (1 source) Heartburn; Translations: [Heartburn] 07-26-2022 Episodic Other screening for suspected conditions (not mental disorders or infectious disease) (6 sources) Patient encounter status; Translations: [Encounter for screening for malignant neoplasm of colon] Onset: 4 01-10-2025 Episodic Kelly-; endo-; and myocarditis; cardiomyopathy (except that caused by tuberculosis or sexually transmitted disease) (6 sources) Endocarditis; Translations: [Endocarditis, valve unspecified] Onset: 5 07-25-2024 Chronic Spondylosis; intervertebral disc disorders; other back problems (12 sources) Degeneration of lumbar intervertebral disc; Translations: [...] system and connective tissue] Onset: 09-27-2024 Episodic Results Test Name Value Interpretation Reference Range Facility Colonoscopy Reporton 025 Colonoscopy Report [facility] Medical Records Department [address] [place] [address] Colonoscopy Report MR#: [id number] Acct: [id number] Name: DALLAS MARTIN Rep #: [id number] : 1960 64 From: Ej Saenz MD PCP: Jennifer Heaton [facility] LUTE PACKER OR APPLIER-C Status:REG [facility] Patient Name: Dallas Martin Procedure Date: 01/29/2025 8:05 AM Date of : 1960 Age: 64 Procedure: Colonoscopy Indications: Screening for colorectal malignant neoplasm Providers: Ej Saenz MD Referring MD: Jennifer Heaton Plycor Operator, Plycor Operator-c Medicines: Propofol per Anesthesia Patient Profile: This is a 64 year old male. Refer to note in patient chart for documentation of history and physical. Last Colonoscopy: 10 years ago. Complications: No immediate complications. Procedure: Pre-Anesthesia Assessment: - Prior to the procedure, a History and Physical was performed, and patient medications and allergies were reviewed. The patient's tolerance of previous anesthesia was also reviewed. The risks and benefits of the procedure and the sedation options and risks were discussed with the patient. All questions were answered, and informed consent was obtained. Prior Anticoagulants: The patient has taken no anticoagulant or antiplatelet agents. After reviewing the risks and benefits, the patient was deemed in satisfactory condition to undergo the procedure. After I obtained informed consent, the scope was passed under direct vision. Throughout the procedure, the patient's blood pressure, pulse, and oxygen saturations were monitored continuously. The Colonoscope was introduced through the anus and advanced to the cecum, identified by the appendiceal orifice, ileocecal valve and palpation. The colonoscopy was performed without difficulty. The patient tolerated the procedure well. The quality of the bowel preparation was good. The ileocecal valve, appendiceal orifice, and rectum were photographed. Scope In: 8:15:52 AM Scope Withdrawal Time 0 hours 6 minutes 38 seconds Scope Out: 8:27:06 AM Total Procedure Duration Time 0 hours 11 minutes 14 seconds Findings: The entire examined colon appeared normal on direct and retroflexion views. Impression: - The entire examined colon is normal on direct and retroflexion views. - No specimens collected. Recommendation: - Discharge patient to home. - Resume previous diet. - Continue present medications. - Repeat colonoscopy in 10 years for screening purposes. Procedure Code(s): --- Professional --- 21513, Colonoscopy, flexible; diagnostic, including collection of specimen(s) by brushing or washing, when performed (separate procedure) Diagnosis Code(s): --- Professional --- Z12.11, Encounter for screening for malignant neoplasm of colon CPT copyright 2021 [employer]. All rights reserved. The codes documented in this report are preliminary and upon director regulatory compliance review may be revised to meet current compliance requirements. Ej Saenz MD 01/29/2025 8:29:37 AM This report has been signed electronically. Number of Addenda: 0 Note Initiated On: 01/29/2025 8:05 AM 01/29/25828 Date [facility] Signature: Date (if indicated) CC: Dr. Ej Saenz MD; Jennifer BRICEÑO LUTE PACKER OR APPLIER-C Sudarshan Date Dictated: 01/29/25804 Date Transcribed: Construction Job Cost Estimator: MEGA Spence [facility] MR/POSTOP.Arielle 01-29-2025 MR/POSTOP.[facility] Medical Records Department [address] [place] [address] Anesthesia Postop Eval I 01/29/25833 MR#: [id number] Acct: [id number] Name: DALLAS MARTIN Rep #: [id number] : 1960 64 From: Casey Raza PCP: Jennifer Heaton LUTE PACKER OR APPLIER-C Status:REG [facility] Y Race: C Location: [place] [address] Anesthesia: Postop Eval I Current Vital Signs Temperature: 97.1 F Pulse Rate: 89 Blood Pressure: 131/88 Respiratory Rate: 16 Pulse Ox: 96 Oxygen Delivery Method: Room Air Assessment Airway patent: Yes Spontaneous unlabored respirations: Yes Mental status: Asleep nausea: No Vomiting: No Anesthesia Complication: No Fluid Hydration Crystalloid volume administer (ml): 400 Total IV fluid infused: 400 Progress Note Anesthesia document: Postop Eval 1 completed: Yes 01/29/25836 Date Casey Anderson Signature: Date CC: Signed [facility] [place] MR/DOBXBRER2ru 01-29-2025 MR/POSTOPAN2 [facility] Medical Records Department [address] [place] [address] Anesthesia Postop Eval II 01/29/25 1016 MR#: [id number] Acct: [id number] Name: DALLAS MARTIN Rep #: [id number] : 1960 64 From: Wander Olivarez MD PCP: Jennifer Heaton LUTE PACKER OR APPLIER-C Status:[facility] Y Race: C Location: [place] Anesthesia Postop Eval I Sum Postop Eval Completion status Anesthesia document: Postop Eval 1 completed: Yes Anesthesia Postop Eval I Summary Anesthesia Postop Eval I Summary: Anesthesia Postop Eval I: Assessment Summary Airway patent Yes 01/29/25 08:37 [email or web address] Spontaneous unlabored Yes 01/29/25 08:37 [email or web address] respirations Mental status Asleep 01/29/25 08:37 [email or web address] nausea No 01/29/25 08:37 [email or web address] Vomiting No 01/29/25 08:37 [email or web address] Anesthesia Postop Eval I: Fluid Summary Crystalloid volume administer 400 01/29/25 08:37 [email or web address] (ml) Colloids volume administered ( ml) Blood Product volume administered (ml) Total IV fluid infused 400 01/29/25 08:37 [email or web address] Anesthesia Postop Eval I: Summary Notes Anesthesia Complication No 01/29/25 08:37 [email or web address] Anesthesia Complication Comment: Post-operative progress note Anesthesia: Postop Eval II Evaluation Mental status: Awake and Calm Pain Level: 0 nausea: No Vomiting: No Complications Anesthesia Complication: No 01/29/25 1016 Date Wander Crystaligner Signature: Date CC: Signed [facility] [place] MR/PATDeepa 01-25-2025 MR/PAT.ANE [facility] Medical Records Department [address] [facility] [place] [address] PAT - Anesthesia 01/25/25 1428 MR#: [id number] Acct: [id number] Name: DALLAS MARTIN Rep #: [id number] : 1960 64 From: Ronny Bernal MD PCP: Jennifer Heaton LUTE PACKER OR APPLIER-C Status:PRE [facility] Y Race: C Location: EN Pre-Assessment Diagnosis/Proposed Procedure Planned Operative Procedure(s): COLONOSCOPY Anesthesia History Anesthesia History - router operator: Anesthesia History - router operator Hx Hospitalization No 01/24/25 13:34 Any Problems With Anesthesia No 01/24/25 13:34 Cholinesterase deficiency No 01/24/25 13:34 You/Your Family Experience No 01/24/25 13:34 fever (hyperthermia) with Relationship Recent Exposure to Contagious Disease Does patient have nerve No 01/24/25 13:34 stimulator Patient instructed to have device shut off --Does patient have Pacemaker or ICD? When Was Last Pacemaker Check QUESTION #4 FULL TEXT: You/Your Family Experience fever (hyperthermia) with Anesthesia Last Oral Intake Last Oral intake: Last Oral Intake NPO since Meds taken in AM with sips of water? 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 Female No 01/24/25 13:34 HX of Motion Sickness No 01/24/25 13:34 HX of N/V After Surgery No 01/24/25 13:34 Non-Smoker Yes 01/24/25 13:34 Duration of Surgery greater No 01/24/25 13:34 than 60 minutes Number of Risk Factors 1 01/24/25 13:34 PONV Score Low Risk 01/24/25 13:34 Height Weight Height Weight: Anesthesia: Height Weight Height 5 ft 7 in 08/24/24 14:25 Respiratory Assessment Respiratory Assessment - router operator: Respiratory Tract Infection Hx - router operator Hx Respiratory Tract Infection No 01/24/25 13:34 STOP Sleep Apnea STOP Sleep Apnea - router operator: STOP Sleep Apnea - router operator Hx Hypertension Yes: CONTROLLED WITH MEDS 01/24/25 13:34 Hx Sleep Apnea No 01/24/25 13:34 CPAP BIPAP Do you snore loudly (louder No 01/24/25 13:34 than talking or can be heard Do you often feel tired/ No 01/24/25 13:34 fatigued/ sleepy during daytime? Has anyone observed you stop No 01/24/25 13:34 breathing during sleep? STOP Results Negative 01/24/25 13:34 QUESTION #5 FULL TEXT : Do you snore loudly (louder than talking or can be heard through closed doors)? 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 Specify any problems Hx of Preganancy in last 3 N/A 01/24/25 13:34 Months Nurse Filling Out Transfusion [email or web address] 01/24/25 13:34 Questions: Date: 01/24/25 01/24/25 13:34 Time: 13:35 01/24/25 13:34 Patient unable to answer at this time (ie. confused, unrespo /Reproduction History /Reproductive History - router operator: /Reproductive Hx- router operator Hx Now Gestational Age (in weeks): EDC: Hx Hx Para Hx Section SAB PFSH Medical History (Updated 01/24/25 @ 13:42 by Gideon Barclay) History of transesophageal echocardiography ([place]) Wears contact lenses Non-smoker History of echocardiogram Cardiology follow-up encounter Endocarditis Prostate carcinoma BPH (benign prostatic hyperplasia) Lumbar discitis GERD (gastroesophageal reflux disease) Hypertension Home Medications ???Medication ???Instructions ???Recorded ???Last Taken ???Type lisinopril 10 mg tablet 10 mg PO QHS 04/08/14 Unknown Hist ory cholecalciferol (vitamin D3) 25 25 mcg PO QDAY 07/05/24 Unknown Hi story mcg (1,000 unit) capsule omeprazole 40 mg capsule,delayed 40 mg PO QDAY 07/05/24 Unknown His tory release trazodone 50 mg tablet 50 mg PO QHS 07/25/24 Unknown Hist ory aspirin 325 mg tablet (Melina 325 mg PO QDAY PRN pain 01/10/25 U nknown History Aspirin) hydrochlorothiazide 12.5 mg capsule 12.5 mg PO QDAY Blood Pressure 01/10/25 Unknown History ibuprofen 600 mg tablet 600 mg PO QDAY PRN pain 01/10/25 U nknown Hi (more content not included)... 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 When Was Last Pacemaker Check QUESTION #4 FULL TEXT: You/Your Family Experience fever (hyperthermia) with Anesthesia Last Oral Intake Last Oral intake: Last Oral Intake NPO since Meds taken in AM with sips of water? 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 Female No 01/24/25 13:34 HX of Motion Sickness No 01/24/25 13:34 HX of N/V After Surgery No 01/24/25 13:34 Non-Smoker Yes 01/24/25 13:34 Duration of Surgery greater No 01/24/25 13:34 than 60 minutes Number of Risk Factors 1 01/24/25 13:34 PONV Score Low Risk 01/24/25 13:34 Height Weight Height Weight: Anesthesia: Height Weight Height 5 ft 7 in 08/24/24 14:25 Respiratory Assessment Respiratory Assessment - router operator: Respiratory Tract Infection Hx - router operator Hx Respiratory Tract Infection No 01/24/25 13:34 STOP Sleep Apnea STOP Sleep Apnea - router operator: STOP Sleep Apnea - router operator Hx Hypertension Yes: CONTROLLED WITH MEDS 01/24/25 13:34 Hx Sleep Apnea No 01/24/25 13:34 CPAP BIPAP Do you snore loudly (louder No 01/24/25 13:34 than talking or can be heard Do you often feel tired/ No 01/24/25 13:34 fatigued/ sleepy during daytime? Has anyone observed you stop No 01/24/25 13:34 breathing during sleep? STOP Results Negative 01/24/25 13:34 QUESTION #5 FULL TEXT : Do you snore loudly (louder than talking or can be heard through closed doors)? 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 Specify any problems Hx of Preganancy in last 3 N/A 01/24/25 13:34 Months Nurse Filling Out Transfusion [email or web address] 01/24/25 13:34 Questions: Date: 01/24/25 01/24/25 13:34 Time: 13:35 01/24/25 13:34 Patient unable to answer at this time (ie. confused, unrespo /Reproduction History /Reproductive History - router operator: /Reproductive Hx- router operator Hx Now Gestational Age (in weeks): EDC: Hx Hx Para Hx Section [facility] Medical History (Updated 01/24/25 @ 13:42 by Gideon Barclay) History of transesophageal echocardiography ([place]) Wears contact lenses Non-smoker History of echocardiogram Cardiology follow-up encounter Endocarditis Prostate carcinoma BPH (benign prostatic hyperplasia) Lumbar discitis GERD (gastroesophageal reflux disease) Hypertension Home Medications ???Medication ???Instructions ???Recorded ???Last Taken ???Type lisinopril 10 mg tablet 10 mg PO QHS 04/08/14 Unknown Hist ory cholecalciferol (vitamin D3) 25 25 mcg PO QDAY 07/05/24 Unknown Hi story mcg (1,000 unit) capsule omeprazole 40 mg capsule,delayed 40 mg PO QDAY 07/05/24 Unknown His tory release trazodone 50 mg tablet 50 mg PO QHS 07/25/24 Unknown Hist ory aspirin 325 mg tablet (Melina 325 mg PO QDAY PRN pain 01/10/25 U nknown History Aspirin) hydrochlorothiazide 12.5 mg capsule 12.5 mg PO QDAY Blood Pressure 01/10/25 Unknown History ibuprofen 600 mg tablet 600 mg PO QDAY PRN pain 01/10/25 U nkn (more content not included)... Normal [place] Testosterone, Total / Freeon 11-26-2024 TESTOSTER,FREE 12.87 ng/dL Normal 5.00-21.00 [place] Comment on above: Order Comment: N Performed By: #### L 501.9985, L100.0100, L3100.5310, L500.4050, L501.9520, L500.4100 ####[place] [address] [place], [place], [address] TESTOSTER,TOTAL 499 ng/dL Normal 264-916 [place] Comment on above: Order Comment: N Result Comment: Adul t male reference interval is based on a population of healthy nonobese males (BMI <30) between 19 and 39 years old. alberto Sun.al. JCEM 2017,102;9470-3116. PMID: [id number]. Performed By: #### L 501.9985, L100.0100, L3100.5310, L500.4050, L501.9520, L500.4100 ####[place] [address] [place], [place], [id number] TESTOSTERONE,%F 2.58 Normal 1.50-4.20 [place] Comment on above: Order Comment: N Result Comment: Perf ormed at: [facility] [address] [id number] [employer] Metal: Bakari Vazquez PhD, Phone: [phone] Performed at: [facility] [address] [id number] [employer] Saw Operator Metal: Arthur Perez MD, Phone: [phone] Performed By: #### L 501.9985, L100.0100, L3100.5310, L500.4050, L501.9520, L500.4100 ####[place] [address] [place], [place], [id number] Absolute lymphocyte countOrd ered By: Jennifer Heaton on 11-07-2024 Lymphocytes Auto (Unsp spec) [#/Vol] 1.94 10*3/uL 0.83-4.51 [place] Absolute neutrophil countOrd ered By: buluvinicio Beam on 11-07-2024 Neutrophils (Bld) [#/Vol] 4.8 10*3/uL 2.0-7.7 [place] Anion gap in Serum or Plasma Ordered By: Christeln Sudarshan on 11-07-2024 Anion gap [Moles/Vol] 13 mmol/L 5-15 [facility] Automated lymphocyte count a s percentage of total leukocytesOrdered By: Jennifer Heaton on 11-07-2024 Lymphocytes/100 WBC Auto (Unsp spec) 25.8 % 19-41 [place] BUN/creatinine ratioOrdered By: Zebulun Beam on 11-07-2024 Urea nitrogen/Creatinine [Mass ratio] 19.3 mg/mg 10- [place] Basophil percentageOrdered B y: Zebulun Beam on 11-07-2024 Basophils/100 WBC (Bld) 1.2 % High 0-1 [facility] Bilirubin, totalOrdered By: Zebulun Beam on 11-07-2024 Bilirubin [Mass/Vol] 0.39 mg/dL 0.00-1.30 [facility] CBC W/Diff, Automatedon 10-17 Absolute Lymph 1.94 X10 3/uL Normal 0.83-4.51 [place] Comment on above: Performed By: #### L 501.9985, L100.0100, L3100.5310, L500.4050, L501.9520, L500.4100 ####[place] [address] [place], [address] Absolute Neut 4.8 X10 3/uL Normal 2.0-7.7 [place] Comment on above: Performed By: #### L 501.9985, L100.0100, L3100.5310, L500.4050, L501.9520, L500.4100 ####[place] [address] [place], [address] Basophils/100 WBC (Bld) 1.2 % High 0-1 [facility] Comment on above: Performed By: #### L 501.9985, L100.0100, L3100.5310, L500.4050, L501.9520, L500.4100 ####[place] [address] [place], [address] Eosinophils/100 WBC (Bld) 0.8 % Normal 0-5 [place] Comment on above: Performed By: #### L 501.9985, L100.0100, L3100.5310, L500.4050, L501.9520, L500.4100 ####[place] [address] [place], [address] Erythrocyte distribution width (RBC) [Ratio] 13.8 % Normal 11.6-14.6 [place] Comment on above: Performed By: #### L 501.9985, L100.0100, L3100.5310, L500.4050, L501.9520, L500.4100 ####[place] [address] [place], [address] Hematocrit (Bld) [Volume fraction] 45.0 % Normal 40-54 [place] Comment on above: Performed By: #### L 501.9985, L100.0100, L3100.5310, L500.4050, L501.9520, L500.4100 ####[place] [address] [place], [address] Hemoglobin (Bld) [Mass/Vol] 15.2 g/dL Normal 13.0-16.5 [place] Comment on above: Performed By: #### L 501.9985, L100.0100, L3100.5310, L500.4050, L501.9520, L500.4100 ####[place] [address] [place], [address] IG% 0.500 Normal 0.0-0.9 [place] Comment on above: Result Comment: IG% - Immature Granulocytes (promyelocytes, myelocytes and metamyelocytes) > 1% indicates that a LEFT SHIFT is Present. Performed By: #### L 501.9985, L100.0100, L3100.5310, L500.4050, L501.9520, L500.4100 ####[place] [address] [place], [address] Lymphocytes/100 WBC (Bld) 25.8 % Normal 19-41 [place] Comment on above: Performed By: #### L 501.9985, L100.0100, L3100.5310, L500.4050, L501.9520, L500.4100 ####[place] [address] [place], [address] MCH (RBC) [Entitic mass] 29.6 pg Normal 27.0-32.0 [place] Comment on above: Performed By: #### L 501.9985, L100.0100, L3100.5310, L500.4050, L501.9520, L500.4100 ####[place] [address] [place], [address] MCHC (RBC) [Mass/Vol] 33.8 g/dL Normal 32-36 [facility] Comment on above: Performed By: #### L 501.9985, L100.0100, L3100.5310, L500.4050, L501.9520, L500.4100 ####[place] [address] [place], [address] MCV (RBC) [Entitic vol] 87.7 fL Normal 80-94 [facility] Comment on above: Performed By: #### L 501.9985, L100.0100, L3100.5310, L500.4050, L501.9520, L500.4100 ####[place] [address] [place], [address] Monocytes/100 WBC (Bld) 7.9 % Normal 0-10 [facility] Comment on above: Performed By: #### L 501.9985, L100.0100, L3100.5310, L500.4050, L501.9520, L500.4100 ####[place] [address] [place], [address] Neutrophils/100 WBC (Bld) 63.8 % Normal 47-70 [place] Comment on above: Performed By: #### L 501.9985, L100.0100, L3100.5310, L500.4050, L501.9520, L500.4100 ####[place] [address] [place], [address] Nucleated RBC (Bld) [#/Vol] 0 10*3/uL Normal 0-5 [place] Comment on above: Performed By: #### L 501.9985, L100.0100, L3100.5310, L500.4050, L501.9520, L500.4100 ####[place] [address] [place], [address] Platelet mean volume (Bld) [Entitic vol] 9.7 fL Normal 6.2-12.0 [place] Comment on above: Performed By: #### L 501.9985, L100.0100, L3100.5310, L500.4050, L501.9520, L500.4100 ####[place] [address] [place], [address] Platelets (Bld) [#/Vol] 231 10*3/uL Normal 150-450 [place] Comment on above: Performed By: #### L 501.9985, L100.0100, L3100.5310, L500.4050, L501.9520, L500.4100 ####[place] [address] [place], [address] RBC (Bld) [#/Vol] 5.13 10*6/uL Normal 4.6-6.2 [facility] Comment on above: Performed By: #### L 501.9985, L100.0100, L3100.5310, L500.4050, L501.9520, L500.4100 ####[place] [address] [place], [address] RDW SD 44.5 fl High 35.1-43.9 [place] Comment on above: Performed By: #### L 501.9985, L100.0100, L3100.5310, L500.4050, L501.9520, L500.4100 ####[place] [address] [place], [place], [id number] WBC (Bld) [#/Vol] 7.5 10*3/uL Normal 4.4-11.0 [facility] Comment on above: Performed By: #### L 501.9985, L100.0100, L3100.5310, L500.4050, L501.9520, L500.4100 ####[place] [address] [place], [address] Calculated very low density lipoprotein (VLDL) cholesterol measurementOrdered By: Elmiralun Beam on 11-07-2024 Calculated very low density lipoprotein (VLDL) cholesterol measurement 23 mg/dL [place] VLDL Cholesterol 23 mg/dL [place] Carbon dioxide, total [Moles /volume] in Central venous bloodOrdered By: Zebulun Beam on 11-07-2024 CO2 [Moles/Vol] 22.7 mmol/L 21.0-32.0 [place] Chloride assayOrdered By: Kwasi vásquezun Beam on 11-07-2024 Chloride [Moles/Vol] 101 mmol/L 98-108 [facility] Comprehensive Metabolic Prof ilon 11-07-2024 Albumin [Mass/Vol] 4.5 g/dL Normal 3.4-4.8 [facility] Comment on above: Performed By: #### L 501.9985, L100.0100, L3100.5310, L500.4050, L501.9520, L500.4100 ####[place] [address] [place], [place], [id number] Albumin/Globulin [Mass ratio] 1.6 {ratio} Normal 0.9-2.4 [place] Comment on above: Performed By: #### L 501.9985, L100.0100, L3100.5310, L500.4050, L501.9520, L500.4100 ####[place] [address] [place], [address] ALK PHOS 68 U/L Normal 40-129 [place] Comment on above: Performed By: #### L 501.9985, L100.0100, L3100.5310, L500.4050, L501.9520, L500.4100 ####[place] [address] [place], [address] ALT [Catalytic activity/Vol] 25 U/L Normal <=46 [place] Comment on above: Performed By: #### L 501.9985, L100.0100, L3100.5310, L500.4050, L501.9520, L500.4100 ####[place] [address] [place], [address] AST [Catalytic activity/Vol] 25 U/L Normal <=37 [place] Comment on above: Performed By: #### L 501.9985, L100.0100, L3100.5310, L500.4050, L501.9520, L500.4100 ####[place] [address] [place], [address] Bilirubin [Mass/Vol] 0.39 mg/dL Normal 0.00-1.30 [facility] Comment on above: Performed By: #### L 501.9985, L100.0100, L3100.5310, L500.4050, L501.9520, L500.4100 ####[place] [address] [place], [address] BUN/CRE 19.3 RATIO Normal 10-20 [place] Comment on above: Performed By: #### L 501.9985, L100.0100, L3100.5310, L500.4050, L501.9520, L500.4100 ####[place] [address] [place], [address] Calcium [Mass/Vol] 9.9 mg/dL Normal 7.6-11.0 [facility] Comment on above: Performed By: #### L 501.9985, L100.0100, L3100.5310, L500.4050, L501.9520, L500.4100 ####[place] [address] [place], [address] Chloride [Moles/Vol] 101 mmol/L Normal 98-108 [facility] Comment on above: Performed By: #### L 501.9985, L100.0100, L3100.5310, L500.4050, L501.9520, L500.4100 ####[place] [address] [place], [address] CO2 [Moles/Vol] 22.7 mmol/L Normal 21.0-32.0 [place] Comment on above: Performed By: #### L 501.9985, L100.0100, L3100.5310, L500.4050, L501.9520, L500.4100 ####[place] [address] [place], [address] Creatinine [Mass/Vol] 1.20 mg/dL Normal 0.70-1.20 [facility] Comment on above: Performed By: #### L 501.9985, L100.0100, L3100.5310, L500.4050, L501.9520, L500.4100 ####[place] [address] [place], [address] GAP 13 Normal 5-15 [place] Comment on above: Performed By: #### L 501.9985, L100.0100, L3100.5310, L500.4050, L501.9520, L500.4100 ####[place] [address] [place], [address] GFR/1.73 sq M.predicted among non-blacks MDRD (S/P/Bld) [Vol rate/Area] 67 mL/min/{1.73_m2} Normal >60 [place] Comment on above: Result Comment: mL/m in/1.73m2 CKD-EPI Creatinine Equation (2020) Performed By: #### L 501.9985, L100.0100, L3100.5310, L500.4050, L501.9520, L500.4100 ####[place] [address] [place], [address] Globulin (S) [Mass/Vol] 2.9 g/dL Normal 2.2-4.2 [facility] Comment on above: Performed By: #### L 501.9985, L100.0100, L3100.5310, L500.4050, L501.9520, L500.4100 ####[place] [address] [place], [address] Glucose [Mass/Vol] 96 mg/dL Normal 70-99 [facility] Comment on above: Performed By: #### L 501.9985, L100.0100, L3100.5310, L500.4050, L501.9520, L500.4100 ####[place] [address] [place], [address] Potassium [Moles/Vol] 4.6 mmol/L Normal 3.3-5.1 [facility] Comment on above: Performed By: #### L 501.9985, L100.0100, L3100.5310, L500.4050, L501.9520, L500.4100 ####[place] [address] [place], [address] Sodium [Moles/Vol] 137 mmol/L Normal 133-145 [facility] Comment on above: Performed By: #### L 501.9985, L100.0100, L3100.5310, L500.4050, L501.9520, L500.4100 ####[place] [address] [place], [place], [phone]) T PROT 7.4 g/dL Normal 5.9-8.4 [place] Comment on above: Performed By: #### L 501.9985, L100.0100, L3100.5310, L500.4050, L501.9520, L500.4100 ####[place] [address] [place], [place], [phone]) Urea nitrogen [Mass/Vol] 23 mg/dL High 4-19 [place] Comment on above: Performed By: #### L 501.9985, L100.0100, L3100.5310, L500.4050, L501.9520, L500.4100 ####[place] [address] [place], [place], [id number] Eosinophil percentageOrdered By: Zebulun Beam on 11-07-2024 Eosinophils/100 WBC (Bld) 0.8 % 0-5 [place] Erythrocyte distribution wid th (RBC) [Ratio]Ordered By: Zebulun Beam on 11-07-2024 Erythrocyte distribution width (RBC) [Entitic vol] 44.5 fL High 35.1-43.9 [place] Erythrocyte distribution wid th ratioOrdered By: Zebulun Beam on 11-07-2024 Erythrocyte distribution width (RBC) [Ratio] 13.8 % 11.6-14.6 [place] Erythrocyte distribution wid th standard deviationOrdered By: Zebulun Beam on 11-07-2024 Erythrocyte distribution width (RBC) [Ratio] 44.5 fl High 35.1-43.9 [place] Free testosterone percentage Ordered By: Zebulun Beam on 11-07-2024 Testosterone Free/Testosterone.total [Mass fraction] 2.58 % 1.50-4.20 [place] Comment on above: Performed at: [facility] [address], [place] [id number] Director: Bakari Vazquez PhD, Phone: [phone] at: [address] [id number] Director: Arthur Perez MD, Phone: [phone] GFR/1.73 sq M.predicted lesli g non-blacks MDRD (S/P/Bld) [Vol rate/Area]Ordered By: Jennifer Heaton on 11-07-2024 Estimated GFR (MDRD) Non-Af Amer 67 >60 [place] Comment on above: mL/min/1.73m2 CKD-EP I Creatinine Equation (2020) Glomerular filtration rate ( GFR) estimation/1.73 sq m using serum, plasma, or whole bOrdered By: Jennifer Heaton on 11-07-2024 GFR/1.73 sq M.predicted among non-blacks MDRD (S/P/Bld) [Vol rate/Area] 67 mL/min/{1.73_m2} >60 [place] Comment on above: mL/min/1.73m2 CKD-EP I Creatinine Equation (2020) Hematocrit Auto (Bld) [Volum e fraction]Ordered By: Jennifer Heaton on 11-07-2024 Hematocrit (Bld) [Volume fraction] 45.0 % 40-54 [place] Hemoglobin A1con 11-07-2024 HbA1c (Bld) [Mass fraction] 5.2 % Normal <=5.6 [place] Comment on above: Result Comment: Norm al < 5.7 % Prediabetic 5.7 - 6.4 % Diabetic >or= 6.5 % Please note range changes. Performed By: #### L 501.9956, L100.0100, L3100.5310, L500.4050, L501.9520, L500.4100 ####[place] [address] [place], [place], [id number] Hemoglobin A1c percentageOrd ered By: Jennifer Heaton on 11-07-2024 HbA1c (Bld) [Mass fraction] 5.2 % <5.7 [place] Comment on above: Normal < 5.7 % Predi abetic 5.7 - 6.4 % Diabetic >or= 6.5 % Please note range changes. Hemoglobin measurementOrdere d By: Jennifer Heaton on 11-07-2024 Hemoglobin (Bld) [Mass/Vol] 15.2 g/dL 13.0-16.5 [place] Immature granulocytes/100 WB C Auto (Bld)Ordered By: [facility] Heaton on 11-07-2024 Immature granulocytes/100 WBC (Bld) 0.500 % 0.0-0.9 [place] Comment on above: IG% - Immature Granu locytes (promyelocytes, myelocytes and metamyelocytes) > 1% indicates that a LEFT SHIFT is Present. LDL calc ser/plasOrdered By: Jennifer Heaton on 11-07-2024 Cholesterol in LDL [Mass/Vol] 140 mg/dL [place] Comment on above: Yybcvyqqog=967-583 m g/dL & Higher Oxtx=130 mg/dL or greater LDL Cholesterol, Calculated 140 mg/dL [place] Comment on above: Xdnduowkaw=788-134 m g/dL & Higher Rjrm=270 mg/dL or greater Laboratory - Chemistry and C hemistry - challengeOrdered By: Jennifer Heaton on 11-07-2024 AST [Catalytic activity/Vol] 25 U/L <38 [place] Lipid Profileon 11-07-2024 CHOL:HDL 3.58 Normal [place] Comment on above: Performed By: #### L 501.9985, L100.0100, L3100.5310, L500.4050, L501.9520, L500.4100 ####[place] [address] [place], [place], [address] Cholesterol [Mass/Vol] 225 mg/dL High <=200 [facility] Comment on above: Result Comment: Chol esterol level, Desirable <200 mg/dL Borderline high cholesterol 200-239 mg/dL High cholesterol >=240 mg/dL Recommendations of the NCEP Adult Treatment Panel for the following risk-cutoff thresholds for the [place] population. Performed By: #### L 501.9985, L100.0100, L3100.5310, L500.4050, L501.9520, L500.4100 ####[place] [address] [place], [address] Cholesterol in HDL [Mass/Vol] 63 mg/dL Normal [place] Comment on above: Result Comment: [place] onal Cholesterol Education Program (NCEP) guidelines: <40 mg/dL: Low HDL-cholesterol (major risk factor for CHD) >= 60 mg/dL: High HDL-cholesterol (negative risk factor for CHD) HDL-cholesterol is affected by a number of factors, e.g. smoking, exercise, hormones, sex and age. Performed By: #### L 501.9985, L100.0100, L3100.5310, L500.4050, L501.9520, L500.4100 ####[place] [address] [place], [address] Cholesterol in LDL [Mass/Vol] 140 mg/dL Normal [place] Comment on above: Result Comment: Bord ohhqsj=842-512 mg/dL Higher Kpyi=090 mg/dL or greater Performed By: #### L 501.9985, L100.0100, L3100.5310, L500.4050, L501.9520, L500.4100 ####[place] [address] [place], [address] Cholesterol in VLDL [Mass/Vol] 23 mg/dL Normal 5-40 [place] Comment on above: Performed By: #### L 501.9985, L100.0100, L3100.5310, L500.4050, L501.9520, L500.4100 ####[place] [address] [place], [address] Triglyceride [Mass/Vol] 113 mg/dL Normal [facility] Comment on above: Result Comment: The drugs N-Acetylcysteine and Metamizole may falsely depress this assay. Normal range: <150 mg/dL Borderline High: 150-199 mg/dL High: 200-499 mg/dL Very High: >500 mg/dL Performed By: #### L 501.9985, L100.0100, L3100.5310, L500.4050, L501.9520, L500.4100 ####[place] [address] [place], [address] Lymphocytes Auto (Unsp spec) [#/Vol]Ordered By: Zebulun Beam on 11-07-2024 Lymphocytes (Bld) [#/Vol] 1.94 10*3/uL 0.83-4.51 [place] Lymphocytes/100 WBC Auto (Un sp spec)Ordered By: Zebulun Beam on 11-07-2024 Lymphocytes/100 WBC (Bld) 25.8 % 19-41 [place] MCV (mean corpuscular volume ) determinationOrdered By: Zebulun Beam on 11-07-2024 MCV (RBC) [Entitic vol] 87.7 fL 80-94 [facility] Mean corpuscular hemoglobin (MCH) determinationOrdered By: matildalun Beam on 11-07-2024 MCH (RBC) [Entitic mass] 29.6 pg 27.0-32.0 [place] Mean corpuscular hemoglobin concentration (MCHC) determinationOrdered By: Zebulun Beam on 11-07-2024 MCHC (RBC) [Mass/Vol] 33.8 g/dL 32-36 [facility] Mean platelet volume determi nationOrdered By: Zebulun Beam on 11-07-2024 Platelet mean volume (Bld) [Entitic vol] 9.7 fL 6.2-12.0 [place] Monocyte percentageOrdered B y: Zebulun Beam on 11-07-2024 Monocytes/100 WBC (Bld) 7.9 % 0-10 [facility] Neutrophil percentageOrdered By: Zebulun Beam on 11-07-2024 Neutrophils/100 WBC (Bld) 63.8 % 47-70 [place] Nucleated red blood cell per centageOrdered By: Zebulun Beam on 11-07-2024 Nucleated RBC/100 WBC (Bld) [Ratio] 0 % 0-5 [place] Platelet countOrdered By: Kwasi bulun Beam on 11-07-2024 Platelets (Bld) [#/Vol] 231 10*3/uL 150-450 [place] Potassium (Unsp spec) [Mass/ Vol]Ordered By: Jennifer Heaton on 11-07-2024 Potassium [Moles/Vol] 4.6 mmol/L 3.3-5.1 [facility] Potassium measurement (mass/ volume)Ordered By: Jennifer Heaton on 11-07-2024 Potassium (Unsp spec) [Mass/Vol] 4.6 mmol/L 3.3-5.1 [place] RBC Auto (Bld) [#/Vol]Ordere d By: Jennifer Heaton on 11-07-2024 RBC (Bld) [#/Vol] 5.13 10*6/uL 4.6-6.2 [facility] Screening total cholesterol/ high density lipoprotein (HDL) cholesterol ratioOrdered By: Jennifer Heaton on 11-07-2024 Cholesterol.total/Aleshia sterol in HDL [Mass ratio] 3.58 {ratio} [place] Serum creatinine measurement (mass/volume)Ordered By: Jennifer Heaton on 11-07-2024 Creatinine [Mass/Vol] 1.20 mg/dL 0.70-1.20 [facility] Serum globulin measurementOr dered By: Jennifer Heaton on 11-07-2024 Globulin (S) [Mass/Vol] 2.9 g/dL 2.2-4.2 [facility] Serum glucose measurement (m ass/volume)Ordered By: Jennifer Heaton on 11-07-2024 Glucose [Mass/Vol] 96 mg/dL 70-99 [facility] Serum or plasma alanine cortez otransferase (ALT) measurementOrdered By: Jennifer Heaton on 11-07-2024 ALT [Catalytic activity/Vol] 25 U/L <47 [place] Serum or plasma albumin belén urement (mass/volume)Ordered By: Jennifer Heaton on 11-07-2024 Albumin [Mass/Vol] 4.5 g/dL 3.4-4.8 [facility] Serum or plasma albumin/glob ulin mass ratioOrdered By: Jennifer Heaton on 11-07-2024 Albumin/Globulin [Mass ratio] 1.6 {ratio} 0.9-2.4 [place] Serum or plasma alkaline kavitha sphatase measurementOrdered By: Jennifer Heaton on 11-07-2024 ALP [Catalytic activity/Vol] 68 U/L 40-129 [place] Serum or plasma calcium belén urement (mass/volume)Ordered By: Elmiravinicio Heaton on 11-07-2024 Calcium [Mass/Vol] 9.9 mg/dL 7.6-11.0 [facility] Serum or plasma cholesterol in HDL measurement (mass/volume)Ordered By: Jennifer Heaton on 11-07-2024 Cholesterol in HDL [Mass/Vol] 63 mg/dL >40 [place] Comment on above: National Cholesterol Education Program (NCEP) guidelines:<40 mg/dL: Low HDL-cholesterol (major risk factor for CHD)>= 60 mg/dL: High HDL-cholesterol (negative risk factor for CHD)HDL-cholesterol is affected by a number of factors, e.g. smoking, exercise, hormones, sex and age. Serum or plasma cholesterol measurement (mass/volume)Ordered By: Jennifer Heaton on 11-07-2024 Cholesterol [Mass/Vol] 225 mg/dL High <201 [facility] Comment on above: Cholesterol level, D esirable <200 mg/dLBorderline high cholesterol 200-239 mg/dLHigh cholesterol >=240 mg/dLRecommendations of the NCEP Adult Treatment Panel for the following risk-cutoff thresholds for the [place] population. Serum or plasma free testost erone measurement (mass/volume)Ordered By: Jennifer Heaton on 11-07-2024 Testosterone Free [Mass/Vol] 12.87 ng/dL 5.00-21.00 [place] Serum or plasma urea nitroge n measurement (mass/volume)Ordered By: Jennifer Heaton on 11-07-2024 Urea nitrogen [Mass/Vol] 23 mg/dL High 4-19 [place] Sodium levelOrdered By: Elmira Heaton on 11-07-2024 Sodium [Moles/Vol] 137 mmol/L 133-145 [facility] TSH DL <= 0.005 mIU/L QnOrde red By: Jennifer Heaton on 11-07-2024 Thyroid Stimulating Hormone (TSH) 1.510 uIU/mL 0.300-4.200 [place] TSH Qn 1.510 uIU/mL 0.300-4.200 [place] Testosterone, totalOrdered B y: Jennifer Heaton on 11-07-2024 Testosterone [Mass/Vol] 499 ng/dL 264-916 [facility] Comment on above: Adult male reference interval is based on a population ofhealthy nonobese males (BMI <30) between 19 and 39 yearsold. alberto Sun.al. JCEM 2017,102;8241-2032. PMID:[id number]. Thyroid Stim Hormone (TSH)on 11-07-2024 TSH 1.510 uIU/mL Normal 0.300-4.200 [place] Comment on above: Performed By: #### L 501.9985, L100.0100, L3100.5310, L500.4050, L501.9520, L500.4100 ####[place] [id number] [place], [place], [id number] Total proteinOrdered By: Carlyle Heaton on 11-07-2024 Protein [Mass/Vol] 7.4 g/dL 5.9-8.4 [facility] Triglycerides measurementOrd ered By: Jennifer Heaton on 11-07-2024 Triglyceride [Mass/Vol] 113 mg/dL <199 [facility] Comment on above: The drugs N-Acetylcy steine and Metamizole may falsely depress this assay. Normal range: <150 mg/dLBorderline High: 150-199 mg/dLHigh: 200-499 mg/dLVery High: >500 mg/dL White blood cell (WBC) count Ordered By: Jennifer Heaton on 11-07-2024 WBC (Bld) [#/Vol] 7.5 10*3/uL 4.4-11.0 [facility] PT D/C Summary (1)on 025 PT D/C Summary (1) [facility] [place] [address] / REHABILITATION SERVICES DISCHARGE SUMMARY MR#: [id number] Acct: [id number] Name: DALLAS MARTIN Rep #: [id number] : 1960 63 From: Dat Frost PT, Taylor. T, OCS Referring Dr.: Dr. Edison Sena MD Status: REG RCR Insurance: [employer] SELF PAY INSURANCE Discharge Summary D/C summary: [...] flexion right 49.9 ,left 39.9 ,hip abd 36.8 left ,right 30.2 LUMBAR ROM: flexion WFL ,extension [...] please feel free to call me at [phone]. Thank you for the referral of this patient. Sincerely, Dat Frost PT, Cert MDT, OCS Balance/Gait/Functional tests Balance/Special Test Scores Oswestry Low Back Score: 2 Improvement % Improvement: 50 09/25/24 8949 CC: Dr. Edison Sena MD; Carlyle Beam HEBERT Signed Normal [place] Inital Evaluation (1) - PTon 08-29-2024 Inital Evaluation (1) - PT [facility] [address] [place] [address] / REHABILITATION SERVICES INITIAL EVALUATION MR#: [id number] Acct: [id number] Name: DALLAS MARTIN Rep #: [id number] : 1960 63 From: Dat Frost PT, Cert. T, OCS Referring Dr.: Dr. Edison Sena MD Status: REG RCR Insurance: [employer] SELF PAY INSURANCE Patient's Visit Information Visit Information Visit Information: DALLAS MARTIN is a 63 year old M referred to Physical Therapy by Dr. Edison Sena MD with a diagnosis of SPONDYLOLISTHESIS ,LUMBAR ,PERSOANL HISTORY OF ILLNESS. Date of Evaluation: 08/29/24 Physical Therapist: Dat Frost PT, Cert T, OCS Visit Plan Frequency: 2x /Week Duration: 4 Weeks Plan: PT INTERVENTIONS DLS ,POSTURAL EX'S ,HIP STRENGTHENING ,LE FLEXABILITY AND ACTIVITY MODIFICATION Subjective Subjective: This 63 y/o male presents to physical therapy with lumbar pain. Patient has had lumbar pain has been intermittent but recently April of 2024 he had strep bacteria and ended up with the bacteria growing in his spine and on his heart. Patient was then on an anti-biotic for 6 weeks which did clear the infection and is now dealing with the after effects of the infection.Patient seen DR Sena recommended x-rays Moderate multilevel degenerative disc and facet disease in the lumbar spine.1.1 cm anterolisthesis of L5 relative to S1 does not appear significantly different between either image. No evidence of significant instability of the lumbar spine on the provided images . Medication meloxicam but stopped . But pain management. Patient pain located symmetrical lumbar. Aggravating factors bending ,lifting ,transition from sit-stand. . Alleviating walking. Cough/sneeze . Bowel/bladder-.Denies paresthesia/tingling -. Patient sleeping okay. Patient condition affects QOL and function. Patient goals to get stronger, SOCAIL: VOCATION: retired Pain Bilateral Back: Pain Intensity (Out of 10): 3 Pain Intensity Range: 10 Objective Objective: POSTURE: mild forward posture GAIT: reciprocal pattern NEURO: denies paresthesia/tingling , reflexes L3-4,L4-5,L5-S1 2/3 FLEXABILITY: hamstrings WFL MMT: quads/hams 4/5( peak force) hip flexion right 25.3 ,left 25.9 ,hip abd 21.9 left ,right 22.1 LUMBAR ROM: flexion min loss ,extension mod/severe pain ,side glides mod loss Special Tests L/S Slump test left side: Negative L/S Slump test right side: Negative L/S Left Straight Leg Raise: Negative L/S Right Straight Leg Raise: Negative Lumbar Standing: Flexion - Mechanical Response: No effect Lumbar Standing: Flexion - Symptoms During Testing: No effect Lumbar Standing: Flexion - Symptoms After Testing: No effect Lumbar Standing: Extension - Mechanical Response: No effect Lumbar Standing: Extension - Symptoms During Testing: Increases Lumbar Standing: Extension - Symptoms After Testing: No effect Lumbar Standing: Right Side [place] - Symptoms During Testing: No effect Lumbar Standing: Right Side [place] - Symptoms After Testing: No effect Lumbar Standing: Left Side [place] - Mechanical Response: No effect Lumbar Standing: Left Side [place] - Symptoms During Testing: No effect Lumbar Standing: Left Side [place] - Symptoms After Testing: No effect Balance/Special Test Scores Oswestry Low Back Score: 26 Goals Goal 1:: Patient to be I with HEP for back Goal Time Frame: 4-6 Weeks Goal 2:: Patient to demonstrate 60% improvement with less pain and improved function Goal Time Frame: 4-6 Weeks Goal 3:: Patient improve lumbar ROM for function of recovery for ADLS Goal Time Frame: 4-6 Weeks Goal 4:: Patient to improve peak force hips by 5-10 # to improve function Goal Time Frame: 4-6 Weeks Rehabilitation Potential Physical Therapy Diagnosis: This patient has lumbar pain with pain with extension and positioning with illness in spine from strep infection thus benefit from skilled PT Rehabilitation Potential: Good Anticipated Interventions Patient/Client Instruction: Educate patient on: Condition and Plan of Care For the Purpose of:: To decrease pain, To increase ROM, To improve muscle performance and motor function, To increase tolerance to activity/condition/posi tion, To improve ability of physical actions for home/community/work/lei sure, To improve health of tissue, To decrease soft tissue restriction, To increase flexibility/ROM, To prevent re-injury and To improve tolerance to ADL's Therapeutic Exercise to Include: Strength training, Postural training, Flexibilty training, Dynamic Lumbar Stabilization and Dodie Exercises For the Purpose of:: To decrease pain, To increase ROM, To improve muscle performance and motor function, To increase tolerance to activity/condition/posi tion, To improve ability of physical actio ns for home/community/work/lei sure, To improve hea (more content not included)... Normal [place] L/S Spine Bending Flex/[place] 08-24-2024 L/S Spine Bending Flex/Ext [facility] [address] [place] [address] L/S Spine Bending Flex/Ext MR#: [id number] Acct: [id number] Name: DALLAS MARTIN Rep #: [id number] : 1960 M 63 From: Harish Melgar i, DO PCP: Carlyle Heaton Status: DEP AMB Study: L/S Spine Bending Flex/Ext Date of Exam: 08/24 Exam# [id number] Ordering Dr: She Ferrer PROCEDURE: Lumbar spine radiographs, two views REASON FOR EXAM: Pain TECHNIQUE: Lateral flexion/extension lumbar spine radiographs were obtained. COMPARISON: None available FINDINGS: Lateral flexion and extension views of the lumbar spine were obtained, total of 2 images. The bones are osteopenic. No acute lumbar vertebral body fracture. Moderate multilevel degenerative disc and facet disease in the lumbar spine. 1.1 cm anterolisthesis of L5 relative to S1 does not appear significantly changed between either image. No evidence of significant instability. RAD/L/S Spine Bending Flex/Ext IMPRESSION: No acute bony abnormality of the lumbar spine. Moderate multilevel degenerative disc and facet disease in the lumbar spine. 1.1 cm anterolisthesis of L5 relative to S1 does not appear significantly different between either image. No evidence of significant instability of the lumbar spine on the provided images. Reading Location: [facility] CC: ROBERTO Calabrese; Carlyle Heaton Construction Job Cost Estimator: Signed Normal [place] Orthopedic Visit Reporton Orthopedic Visit Report [facility] [place] [address] OFFICE VISIT Date of Service: 08/24/24 MR#: [id number] Acct: [id number] Name: DALLAS MARTIN Rep #: [id number] : 1960 Provider: Dr. Edison Sena MD Age/Sex: 63/M Location: [facility].SIMONE Status: Signed Intake Vital Signs 05/07/24 14:18 07/25/24 14:06 08/24/24 14:25 Height 5 ft 7 in 5 ft 7 in 5 ft 7 in Weight: 174 lb 174 lb 8 oz BMI 27.2 27.3 BP 137/80 H Blood Pressure Location Lt brachial Position Sitting Respiration 18 Pulse 103 H Pulse Source Monitor Pulse Oximetry (%) 97 Oxygen Delivery Method room air Intake Visit Reasons: LUMBAR SPINE Accompanied by: Self Is patient in pain?: Yes Pain scale (1-10): 3 Allergies No Known Allergies Allergy (Verified 08/24/24 14:26) Medications ???Medication ???Instructions ???Recorded ???Confirmed ???Type lisinopril 10 mg tablet 10 mg PO QHS 04/08/14 08/24/24 His tory magnesium oxide 400 mg (241.3 mg 400 mg PO QHS 05/03/24 08/24/24 Hi story magnesium) tablet acetaminophen 325 mg tablet 650 mg (2 x 325 mg) PO Q4H PRN PRN 05/08/24 08/24/24 Rx Fever, pain -04/26 #0 tabs cholecalciferol (vitamin D3) 25 25 mcg PO QDAY 07/05/24 08/24/24 H istory mcg (1,000 unit) capsule omeprazole 40 mg capsule,delayed 40 mg PO QDAY 07/05/24 08/24/24 Hi story release hydrochlorothiazide 12.5 mg capsule 12.5 mg PO QDAY PRN Blood Press ure 07/25/24 08/24/24 History trazodone 50 mg tablet 50 mg PO QHS 07/25/24 08/24/24 His tory Have you fallen in the past year?: Yes PFSH Medical History Endocarditis Prostate carcinoma Lumbar discitis BPH (benign prostatic hyperplasia) GERD (gastroesophageal reflux disease) Hypertension Surgical History History of transurethral resection of prostate S/P colonoscopy H/O wisdom tooth extraction History of tonsillectomy and adenoidectomy Social History household members: spouse Smoking Status: Never smoker alcohol intake: current alcohol intake frequency: holidays/special occasions only substance use type: does not use caffeine: Yes HPI LUMBAR SPINE Details: This documentation accurately reflects the service provided and the decisions made by me, Dr. Edison Sena MD 08/24/24 0881. Part of today???s visit was documented by Kyleigh PADGETT, acting as scribe. DALLAS MARTIN is a 63 year old M here today NEW patient for low back pain. He states that he had had back pain his whole life but recently in April of 2024 he had strep bacteria and ended up with the bacteria growing in his spine and on his heart. He was then on an anti-biotic for 6 weeks which did clear the infection and is now dealing with the after effects of the infection. He was given Meloxicam which was helpful then he got to a point here it was no longer helpful so he discontinued it and started take Aleve. He did recently have a sonogram of his heart for the infection that did show some remenance of the infection. He is no longer being treat for any infection as it has resolved. He does have some BL leg stiffness but denies radicular symptoms. He states that his main concern is him not being able to sleep in his bed due to pain, he is currently sleeping on his couch as sleeping against the couch cushions gives him extra support that makes it more comfortable for him. He states that his pain is constant. He denies PT and injections but he does do exercises at home. He did have xrays and an MRI in April when he had the infection but no others since. Patient states the pain is more of a stiffness. When sitting down for a prolonged period of time when he sits up he feels like he needs to stretch out the back. Anti-biotics were prescribed to him by Dr. Guerrier and the last time he saw him was June 2024. Ortho Exam General General: Yes no acute distress Neurologic: Yes alert and Yes oriented x3 Psychologic: Yes reasonable and appropriate Spine SPINE TESTING CERVICAL THORACIC LUMBAR Musculoskeletal Strength 0=absent - 5=normal Details: Examination the back shows right paraspinal tenderness. Neurologic motion of lower extremity shows 5 x 5 power normal shows normal sensations in all dermatomes. Coding Level of Care Code Off vis,new,level 4 Diagnoses Spondylolisthesis, lumbar region M43.16 Other intervertebral disc degeneration, lumbar region with discogenic back pain and lower extremity pain M51.362 Time Spent (min) 45 Assessment and Plan Assessment and Plan (1) Spondylolisthesis, lumbar region: Status: Acute (2) Other intervertebral disc degeneration, lumbar region with di (more content not included)... Normal [place] Echo, Limited Studyon 2024 Echo, Limited Study [facility] [address] [place] [address] Echo, Limited Study 08/15/24 1412 MR#: [id number] Acct: [id number] Name: DALLAS MARTIN Rep #: [id number] : 1960 63 From: Reese Munoz MD Attending Dr: Dr. Brian Lim MD [facility]: Brian Lim MD Date: 08/15/24 Location: [facility] Sex: M C Admitted: Version 2 Reason For Study: MV and AV Endocarditis Procedure This was a limited 2D transthoracic echocardiogram. Exam performed in department. Left Ventricle Normal LV size. Left ventricular systolic function is normal. The left ventricular ejection fraction is 60 %. No regional wall motion abnormalities noted. Right Ventricle Normal RV size. Normal systolic function. Mitral Valve Moderate focal mitral valve thickening. Mild (1+) eccentric mitral valve insufficiency. Aortic Valve Trisinus/trileaflet aortic valve. Mild focal aortic valve thickening. Moderate (2+) eccentric aortic valve insufficiency. Pulmonic Valve Normal pulmonic valve. Great Vessels Normal aortic root. The pulmonary artery is normal size. Normal inferior vena cava. Pericardium/Pleural No pericardial effusion. MMode/2D Measurements Calculations LVIDd: 3.9 cm IVSd: 0.92 cm Ao root diam: 3.0 cm LVIDs: 2.2 cm LVPWd: 1.0 cm FS: 42.8 % SV(MOD-sp4): 55.9 ml SV(sp4-el): 57.8 ml LVAd ap4: 29.5 cm2 LVLd ap4: 8.6 cm SI(MOD-sp4): 29.6 ml/m2 EDV(MOD-sp4): 84.0 ml EDV(sp4-el): 85.7 ml LVAs ap4: 15.6 cm2 LVLs ap4: 7.4 cm ESV(MOD-sp4): 28.1 ml ESV(sp4-el): 27.9 ml EF(MOD-sp4): 66.6 % EF(sp4-el): 67.4 % LA dimension(2D): 3.8 cm Doppler Measurements Calculations Ao V2 max: 166.5 cm/sec AI max ean: 414.5 cm/sec LV V1 max: 139.6 cm/sec Ao max P.1 mmHg AI max P.0 mmHg LV V1 max P.8 mmHg AI dec slope: 394.8 cm/sec2 AI P1/2t: 307.5 msec ECHO/Echo, Limited Study Interpretation Summary Normal LV size. Left ventricular systolic function is normal. The left ventricular ejection fraction is 60 %. Moderate focal mitral valve thickening. Mild (1+) eccentric mitral valve insufficiency. Mild focal aortic valve thickening. Compared to the previous the lesions on the mitral and aortic valves are much smaller. Likely suggestive of healed vegetations Moderate (2+) eccentric aortic valve insufficiency. Ordering Physician: Brian Lim Referring Physician: Carlyle Heaton Performed By: Guillermina Zapien RDCS 08/16/24 0750 Date Reese Munoz MD CC: Dr. Brian Lim MD; Carlyle Heaton Date Dictated: 08/15/24 1412 Date Transcribed: 08/15/24 1603 Construction Job Cost Estimator: Bebe Fernandez [place] 12 [address] E[address] performed by [facility] on 07-25-2024 12 Lead EKG performed by [facility] [address] [place] [id number] 12 Lead EKG performed by [facility] 07/25/24 1104 MR#: [id number] Acct: [id number] Name: DALLAS MARTIN Rep #: [id number] : 1960 63 From: Brian Lim MD Attending Dr: Dr. Brian Lim MD Status: DE P AMB Ordering Dr: Brian Lim MD Date: 07/25/24 Location: [facility] Sex: M C Admitted: [facility]/12 Lead EKG performed by [facility] ECG Report Interpretation ---Sinus Rhythm WITHIN NORMAL LIMITSElectronically signed on 07/25/2024 at 15:[address] Brian Lim [employer] Version 8610 07/25/24 1513 Date Brian Lim MD CC: Carlyle Heaton Date Dictated: 07/25/24 110 Date Transcribed: 07/25/241103 Construction Job Cost Estimator: Signed Normal [place] Cardiology Visit Reporton Cardiology Visit Report [facility] [address] [place] [address] OFFICE VISIT Date of Service: 07/25/24 MR#: [id number] Acct: [id number] Name: DALLAS MARTIN Rep #: [id number] : 1960 Provider: Dr. Brian garnica MD Age/Sex: 63/M Location: [facility] Status: Signed with Addenda ADDENDUM by Dr. Brian Lim MD on 07/25/24 at 1509 HPI History of Present Illness Details: ECG in the office today showed sinus rhythm at 97 bpm and is within normal limits. His ECG done May 08, 2024 early in his admission for SBE showed sinus tachycardia at 120 bpm nonspecific T wave changes anteriorly. The current EKG is within normal limits. Assessment and Plan Assessment and Plan (1) Endocarditis: Status: Acute Qualifiers: Endocarditis type: infective Infective endocarditis organism: bacterial Chronicity: unspecified Qualified Code(s): I33.0 - Acute and subacute infective endocarditis (2) Hypertension: Status: Chronic Qualifiers: Hypertension type: primary hypertension Qualified Code(s): I10 - Essential (primary) hypertension Orders: Orders 12 Lead EKG performed by [facility] Today I10 - Essential (primary) hypertension, I38 - Endocarditis, valve unspecified Echo, Limited Study 2 Weeks I38 - Endocarditis, valve unspecified Plan Details Follow Up: 1 Year (With Dr. Lim and as needed) 07/25/24 1509 Date Brian Lim MD cc: Carlyle Heaton * Signed HPI HPI History of Present Illness Details: Patient is a 63-year-old white male that comes in for a new patient visit. The patient had been evaluated and treated for SBE with a strep bacteria back in April 2024 at [place]. The patient presented originally with discitis and a GUANAKITO revealed that he had mitral and aortic valve vegetations. The patient was treated with IV antibiotics for 6 weeks ending June 13, 2024. Since that point in time the patient has done well he did have an episode of a couple of nights of night sweats which was his original presenting complaint. White blood cell count was slightly elevated at 12 it had been 8 after his treatment. He was evaluated by his primary care physician and consulted with the infectious disease team. The patient had not been sleeping well and he was placed on trazodone and omeprazole and his symptoms have resolved. Patient reports that he is fairly active in his home environment he denies any syncope or near syncope denies any lower extremity edema denies any PND orthopnea. He does have a history of hypertension and his blood pressure is well-controlled on his current medical therapy.. The patient's GUANAKITO 05/08/2024 showed normal LV systolic function EF of 65% there was diffuse mitral valve thickening with a mobile mass noted on the anterior leaflet with a smaller mass on the posterior leaflet with soft and hard components present. There is a tiny mobile mass noted on the noncoronary cusp of the aortic valve. Intake Vital Signs 05/07/24 14:18 07/25/24 14:06 Height 5 ft 7 in 5 ft 7 in Weight: 174 lb BMI 27.2 BP 137/80 H Blood Pressure Location Lt brachial Position Sitting Respiration 18 Pulse 103 H Pulse Source Monitor Pulse Oximetry (%) 97 Oxygen Delivery Method room air Intake Visit Reasons: ENDOCARDITIS (BEAM) Internal Combustion Engine Inspector Required: No Accompanied by: Self Is patient in pain?: No Allergies No Known Allergies Allergy (Verified 07/25/24 14:06) Medications ???Medication ???Instructions ???Recorded ???Confirmed ???Type lisinopril 10 mg tablet 10 mg PO QHS 04/08/14 07/25/24 History magnesium oxide 400 mg (241.3 mg 400 mg PO QHS 05/03/24 07/25/24 History magnesium) tablet acetaminophen 325 mg tablet 650 mg (2 x 325 mg) PO Q4H PRN PRN 05/08/24 07/25/24 Rx Fever, pain 1-04/26 #0 tabs cholecalciferol (vitamin D3) 25 25 mcg PO QDAY 07/05/24 07/25/24 History mcg (1,000 unit) capsule meloxicam 15 mg tablet 15 mg PO QDAY PRN 07/05/24 07/25/24 History omeprazole 40 mg capsule,delayed 40 mg PO QDAY 07/05/24 07/25/24 History release hydrochlorothiazide 12.5 mg capsule 12.5 mg PO QDAY PRN Blood Pressure 07/25/24 07/25/24 History trazodone 50 mg tablet 50 mg PO QHS 07/25/24 07/25/24 History Ejection fraction %: 65 Have you fallen in the past year?: Yes PFSH Medical History Endocarditis Prostate carcinoma Lumbar discitis BPH (benign prostatic hyperplasia) GERD (gastroesophageal reflux disease) Hypertension Surgical History History of transurethral resection of prostate S/P colonoscopy H/O wisdom tooth extraction History of tonsillectomy and adenoidectomy Soc (more content not included)... Normal [place] Absolute neutrophil countOrd ered By: Kwasilouann Beam on 07-16-2024 Neutrophils (Bld) [#/Vol] 8.8 10*3/uL High 2.0-7.7 [place] Basophil percentageOrdered B y: Zebulun Beam on 07-16-2024 Basophils/100 WBC (Bld) 0.6 % 0-1 [facility] CBC W/Diff, Automatedon 06-19 Absolute Lymph 2.26 X10 3/uL Normal 0.83-4.51 [facility] Comment on above: Performed By: #### L 100.0500, L101.9900, L500.2500 #### [facility] [address] [place], [address] Absolute Neut 8.8 X10 3/uL High 2.0-7.7 [facility] Comment on above: Performed By: #### L 100.0500, L101.9900, L500.2500 #### [facility] [address] [place], [address] Basophils/100 WBC (Bld) 0.6 % Normal 0-1 [facility] Comment on above: Performed By: #### L 100.0500, L101.9900, L500.2500 #### [facility] [address] [place], [address] Eosinophils/100 WBC (Bld) 0.8 % Normal 0-5 [facility] Comment on above: Performed By: #### L 100.0500, L101.9900, L500.2500 #### [facility] [address] [place], [address] Erythrocyte distribution width (RBC) [Ratio] 13.3 % Normal 11.6-14.6 [facility] Comment on above: Performed By: #### L 100.0500, L101.9900, L500.2500 #### [facility] [address] [place], [address] Hematocrit (Bld) [Volume fraction] 40.0 % Normal 40-54 [facility] Comment on above: Performed By: #### L 100.0500, L101.9900, L500.2500 #### [facility] [address] [place], [address] Hemoglobin (Bld) [Mass/Vol] 12.9 g/dL Low 13.0-16.5 [facility] Comment on above: Performed By: #### L 100.0500, L101.9900, L500.2500 #### [facility] [address] [place], [address] IG% 1.100 High 0.0-0.9 [facility] Comment on above: Result Comment: IG% - Immature Granulocytes (promyelocytes, myelocytes and metamyelocytes) > 1% indicates that a LEFT SHIFT is Present. Performed By: #### L 100.0500, L101.9900, L500.2500 #### [facility] [address] [place], [address] Lymphocytes/100 WBC (Bld) 18.5 % Low 19-41 [facility] Comment on above: Performed By: #### L 100.0500, L101.9900, L500.2500 #### [facility] [address] [place], [address] MCH (RBC) [Entitic mass] 29.0 pg Normal 27.0-32.0 [facility] Comment on above: Performed By: #### L 100.0500, L101.9900, L500.2500 #### [facility] [address] [place], [address] MCHC (RBC) [Mass/Vol] 32.3 g/dL Normal 32-36 [facility] Comment on above: Performed By: #### L 100.0500, L101.9900, L500.2500 #### [facility] [address] [place], [address] MCV (RBC) [Entitic vol] 89.9 fL Normal 80-94 [facility] Comment on above: Performed By: #### L 100.0500, L101.9900, L500.2500 #### [facility] [address] [place], [address] Monocytes/100 WBC (Bld) 6.8 % Normal 0-10 [facility] Comment on above: Performed By: #### L 100.0500, L101.9900, L500.2500 #### [facility] [address] [place], [address] Neutrophils/100 WBC (Bld) 72.2 % High 47-70 [facility] Comment on above: Performed By: #### L 100.0500, L101.9900, L500.2500 #### [facility] [address] [place], [address] Nucleated RBC (Bld) [#/Vol] 0 10*3/uL Normal 0-5 [facility] Comment on above: Performed By: #### L 100.0500, L101.9900, L500.2500 #### [facility] [address] [place], [address] Platelet mean volume (Bld) [Entitic vol] 9.4 fL Normal 6.2-12.0 [facility] Comment on above: Performed By: #### L 100.0500, L101.9900, L500.2500 #### [facility] [address] [place], [address] Platelets (Bld) [#/Vol] 237 10*3/uL Normal 150-450 [facility] Comment on above: Performed By: #### L 100.0500, L101.9900, L500.2500 #### [facility] [address] [place], [address] RBC (Bld) [#/Vol] 4.45 10*6/uL Low 4.6-6.2 [facility] Comment on above: Performed By: #### L 100.0500, L101.9900, L500.2500 #### [facility] [address] [place], [address] RDW SD 43.7 fl Normal 35.1-43.9 [facility] Comment on above: Performed By: #### L 100.0500, L101.9900, L500.2500 #### [facility] [address] [place], [address] WBC (Bld) [#/Vol] 12.2 10*3/uL High 4.4-11.0 [facility] Comment on above: Performed By: #### L 100.0500, L101.9900, L500.2500 #### [facility] [address] [place], [address] Eosinophil percentageOrdered By: [facility] on 07-16-2024 Eosinophils/100 WBC (Bld) 0.8 % 0-5 [facility] Erythrocyte distribution wid th ratioOrdered By: [facility] Beam on 07-16-2024 Erythrocyte distribution width (RBC) [Ratio] 13.3 % 11.6-14.6 [facility] Erythrocyte distribution wid th standard deviationOrdered By: [facility] Beam on 07-16-2024 Erythrocyte distribution width (RBC) [Entitic vol] 43.7 fL 35.1-43.9 [facility] Hematocrit Auto (Bld) [Volum e fraction]Ordered By: [facility] on 07-16-2024 Hematocrit (Bld) [Volume fraction] 40.0 % 40-54 [facility] Hemoglobin measurementOrdere d By: [facility] on 07-16-2024 Hemoglobin (Bld) [Mass/Vol] 12.9 g/dL Low 13.0-16.5 [facility] Immature granulocytes/100 WB C Auto (Bld)Ordered By: [facility] on 07-16-2024 Immature granulocytes/100 WBC (Bld) 1.100 % High 0.0-0.9 [facility] Comment on above: IG% - Immature Granu locytes (promyelocytes, myelocytes and metamyelocytes) > 1% indicates that a LEFT SHIFT is Present. Lymphocytes Auto (Unsp spec) [#/Vol]Ordered By: [facility] on 07-16-2024 Lymphocytes (Bld) [#/Vol] 2.26 10*3/uL 0.83-4.51 [facility] Lymphocytes/100 WBC Auto (Un sp spec)Ordered By: [facility] on 07-16-2024 Lymphocytes/100 WBC (Bld) 18.5 % Low 19-41 [facility] MCV (mean corpuscular volume ) determinationOrdered By: [facility] on 07-16-[facility] MCV (RBC) [Entitic vol] 89.9 fL 80-94 [facility] Mean corpuscular hemoglobin (MCH) determinationOrdered By: [facility] on 07-16-2024 MCH (RBC) [Entitic mass] 29.0 pg 27.0-32.0 [facility] Mean corpuscular hemoglobin concentration (MCHC) determinationOrdered By: Zebulun Beam on 07-16-2024 MCHC (RBC) [Mass/Vol] 32.3 g/dL 32-36 [facility] Mean platelet volume determi nationOrdered By: Zebulun Beam on 07-16-2024 Platelet mean volume (Bld) [Entitic vol] 9.4 fL 6.2-12.0 [facility] Monocyte percentageOrdered B y: [facility] Beam on 07-16-2024 Monocytes/100 WBC (Bld) 6.8 % 0-10 [facility] Neutrophil percentageOrdered By: Zebul[facility] Beam on 07-16-2024 Neutrophils/100 WBC (Bld) 72.2 % High 47-70 [facility] Nucleated red blood cell per centageOrdered By: [facility] Beam on 07-16-2024 Nucleated RBC/100 WBC (Bld) [Ratio] 0 % 0-5 [facility] Platelet countOrdered By: Ze [facility] Beam on 07-16-2024 Platelets (Bld) [#/Vol] 237 10*3/uL 150-450 [facility] RBC Auto (Bld) [#/Vol]Ordere d By: [facility] Beam on 07-16-2024 RBC (Bld) [#/Vol] 4.45 10*6/uL Low 4.6-6.2 [facility] White blood cell (WBC) count Ordered By: Zebulun Beam on 07-16-2024 WBC (Bld) [#/Vol] 12.2 10*3/uL High 4.4-11.0 [facility] Diagnostic total prostate sp ecific antigen (PSA) measurementOrdered By: Jignesh Newell on 06-12-2024 Prostate Specific Antigen Total 3.08 ng/mL 0.0-4.0 [facility] Comment on above: This test was perfor med using the TPSA assay method [facility]. Values obtained with differentassay methods cannot be used interchangably.When changing PSA assays in the course of monitoring apatient, additional sequential testing should be carriedout to confirm baseline values. PSA,Total- Diagnosticon 11-2 PSA, DIAGNOSTIC 3.08 ng/mL Normal 0.0-4.0 [facility] Comment on above: Result Comment: This test was performed using the TPSA assay method for the [employer] chemistry system. Values obtained with different assay methods cannot be used interchangably. When changing PSA assays in the course of monitoring a patient, additional sequential testing should be carried out to confirm baseline values. Performed By: #### L 501.9940 ####[facility] [address] [place], [address] Basic Metabolic Profile (BMP )on 06-11-2024 BUN/CRE 27.1 RATIO High 10-20 [facility] Comment on above: Performed By: #### L 100.0100, L500.2500 #### [facility] [address] [place], [address] CA,Total 9.1 mg/dL Normal 8.5-10.1 [facility] Comment on above: Performed By: #### L 100.0100, L500.2500 #### [facility] [address] [place], [address] Chloride [Moles/Vol] 106 mmol/L Normal 98-107 [facility] Comment on above: Performed By: #### L 100.0100, L500.2500 #### [facility] [address] [place], [address] CO2 [Moles/Vol] 23.0 mmol/L Normal 21.0-32.0 [facility] Comment on above: Performed By: #### L 100.0100, L500.2500 #### [facility] [address] [place], [address] Creatinine [Mass/Vol] 0.96 mg/dL Normal 0.70-1.30 [facility] Comment on above: Result Comment: The validity of the calculated GFR GFRAA in patients over 70 years has not been determined. Clinical correlation is essential. Performed By: #### L 100.0100, L500.2500 #### [facility] [address] [place], [address] EST GFR - AA 101 mL/min Normal >60 [facility] Comment on above: Result Comment: Afri can Guinean GFR Calc Performed By: #### L 100.0100, L500.2500 #### [facility] [address] [place], [address] GAP 7 Normal 5-15 [facility] Comment on above: Performed By: #### L 100.0100, L500.2500 #### [facility] [address] [place], [address] GFR/1.73 sq M.predicted among non-blacks MDRD (S/P/Bld) [Vol rate/Area] 83 mL/min/{1.73_m2} Normal >60 [facility] Comment on above: Result Comment: Non- GFR Calc Performed By: #### L 100.0100, L500.2500 #### [facility] [address] [place], [address] Glucose [Mass/Vol] 97 mg/dL Normal 74-106 [facility] Comment on above: Performed By: #### L 100.0100, L500.2500 #### [facility] [address] [place], [address] Potassium [Moles/Vol] 4.5 mmol/L Normal 3.5-5.1 [facility] Comment on above: Performed By: #### L 100.0100, L500.2500 #### [facility] [address] [place], [address] Sodium [Moles/Vol] 136 mmol/L Normal 136-145 [facility] Comment on above: Performed By: #### L 100.0100, L500.2500 #### [facility] [address] [place], [address] Urea nitrogen [Mass/Vol] 26 mg/dL High 7-18 [facility] Comment on above: Performed By: #### L 100.0100, L500.2500 #### [facility] [address] [place], [address] Blood urea nitrogen (BUN)/cr eatinine ratioOrdered By: Sriram Guerrier on 06-11-2024 Urea nitrogen/Creatinine [Mass ratio] 27.1 mg/mg High 10-20 [facility] CBC-Complete Blood Cnt No Di ffon 06-11-2024 Erythrocyte distribution width (RBC) [Ratio] 15.7 % High 11.6-14.6 [facility] Comment on above: Performed By: #### L 100.0500, L101.9900, L500.2500 #### [facility] [address] [facility] [place], [address] Hematocrit (Bld) [Volume fraction] 32.4 % Low 40-54 [facility] Comment on above: Performed By: #### L 100.0500, L101.9900, L500.2500 #### [facility] [address] [place], [address] Hemoglobin (Bld) [Mass/Vol] 10.4 g/dL Low 13.0-16.5 [facility] Comment on above: Performed By: #### L 100.0500, L101.9900, L500.2500 #### [facility] [address] [place], [address] MCH (RBC) [Entitic mass] 29.6 pg Normal 27.0-32.0 [facility] Comment on above: Performed By: #### L 100.0500, L101.9900, L500.2500 #### [facility] [address] [place], [address] MCHC (RBC) [Mass/Vol] 32.1 g/dL Normal 32-36 [facility] Comment on above: Performed By: #### L 100.0500, L101.9900, L500.2500 #### [facility] [address] [place], [address] MCV (RBC) [Entitic vol] 92.3 fL Normal 80-94 [facility] Comment on above: Performed By: #### L 100.0500, L101.9900, L500.2500 #### [facility] [address] [place], [address] Platelet mean volume (Bld) [Entitic vol] 9.3 fL Normal 6.2-12.0 [facility] Comment on above: Performed By: #### L 100.0500, L101.9900, L500.2500 #### [facility] [address] [place], [address] Platelets (Bld) [#/Vol] 286 10*3/uL Normal 150-450 [facility] Comment on above: Performed By: #### L 100.0500, L101.9900, L500.2500 #### [facility] [address] [place], [address] RBC (Bld) [#/Vol] 3.51 10*6/uL Low 4.6-6.2 [facility] Comment on above: Performed By: #### L 100.0500, L101.9900, L500.2500 #### [facility] [address] [place], [address] RDW SD 53.1 fl High 35.1-43.9 [facility] Comment on above: Performed By: #### L 100.0500, L101.9900, L500.2500 #### [facility] [address] [place], [address] WBC (Bld) [#/Vol] 6.6 10*3/uL Normal 4.4-11.0 [facility] Comment on above: Performed By: #### L 100.0500, L101.9900, L500.2500 #### [facility] [address] [place], [place], [address] Carbon dioxide measurementOr dered By: Sriram Guerrier on 06-11-2024 CO2 [Moles/Vol] 23.0 mmol/L 21.0-32.0 [facility] Chloride measurementOrdered By: Sriram Guerrier on 06-11-2024 Chloride [Moles/Vol] 106 mmol/L 98-107 [facility] Erythrocyte Sed Rateon 06-11 SED RATE 27 mm/hr High 0-20 [facility] Comment on above: Performed By: #### L 100.0500, L101.9900, L500.2500 #### [facility] [address] [place], [place], [address] Erythrocyte distribution wid th ratioOrdered By: Sriram Guerrier on 06-11-2024 Erythrocyte distribution width (RBC) [Ratio] 15.7 % High 11.6-14.6 [facility] Erythrocyte distribution wid th standard deviationOrdered By: Sriram Guerrier on 06-11-2024 Erythrocyte distribution width (RBC) [Entitic vol] 53.1 fL High 35.1-43.9 [facility] Erythrocyte sedimentation ra teOrdered By: Sriram Guerrier on 06-11-2024 ESR (Bld) [Velocity] 27 mm/h High 0-20 [facility] Estimated glomerular filtrat ion rate (GFR) AmericanOrdered By: Sriram Guerrier on 06-11-2024 Estimated GFR (MDRD) Amer 101 mL/min >60 [facility] Comment on above: GFR Calc Glomerular filtration rate ( GFR) estimationOrdered By: Sriram Guerrier on 06-11-2024 Estimated GFR (MDRD) Non-Af Amer 83 mL/min >60 [facility] Comment on above: Non- GFR Calc Glucose measurementOrdered B y: Sriram Guerrier on 06-11-2024 Glucose [Mass/Vol] 97 mg/dL 74-106 [facility] Hematocrit Auto (Bld) [Volum e fraction]Ordered By: Sriram Guerrier on 06-11-2024 Hematocrit (Bld) [Volume fraction] 32.4 % Low 40-54 [facility] Hemoglobin measurementOrdere d By: Sriram Guerrier on 06-11-2024 Hemoglobin (Bld) [Mass/Vol] 10.4 g/dL Low 13.0-16.5 [facility] MCV (mean corpuscular volume ) determinationOrdered By: Sriram Guerrier on 06-11-2024 MCV (RBC) [Entitic vol] 92.3 fL 80-94 [facility] Mean corpuscular hemoglobin (MCH) determinationOrdered By: Sriram Guerrier on 06-11-2024 MCH (RBC) [Entitic mass] 29.6 pg 27.0-32.0 [facility] Mean corpuscular hemoglobin concentration (MCHC) determinationOrdered By: Sriram Guerrier on 06-11-2024 MCHC (RBC) [Mass/Vol] 32.1 g/dL 32-36 [facility] Mean platelet volume determi nationOrdered By: Sriram Guerrier on 06-11-2024 Platelet mean volume (Bld) [Entitic vol] 9.3 fL 6.2-12.0 [facility] Platelet countOrdered By: tSephanie Guerrier on 06-11-2024 Platelets (Bld) [#/Vol] 286 10*3/uL 150-450 [facility] Potassium measurementOrdered By: Sriram Guerrier on 06-11-2024 Potassium [Moles/Vol] 4.5 mmol/L 3.5-5.1 [facility] RBC Auto (Bld) [#/Vol]Ordere d By: Sriram Guerrier on 06-11-2024 RBC (Bld) [#/Vol] 3.51 10*6/uL Low 4.6-6.2 [facility] Serum anion gap measurementO rdered By: Sriram Guerrier on 06-11-2024 Anion gap [Moles/Vol] 7 mmol/L 5-15 [facility] Serum or plasma calcium belén urement (mass/volume)Ordered By: Sriram Guerrier on 06-11-2024 Calcium [Mass/Vol] 9.1 mg/dL 8.5-10.1 [facility] Serum or plasma creatinine m easurement (mass/volume)Ordered By: Sriram Guerrier on 06-11-2024 Creatinine [Mass/Vol] 0.96 mg/dL 0.70-1.30 [facility] Comment on above: The validity of the calculated GFR & GFRAA in patients over 70 years has not been determined. Clinical correlation is essential. Serum or plasma urea nitroge n measurement (mass/volume)Ordered By: Sriram Guerrier on 06-11-2024 Urea nitrogen [Mass/Vol] 26 mg/dL High 7-18 [facility] Sodium levelOrdered By: Anthony Guerrier on 06-11-2024 Sodium [Moles/Vol] 136 mmol/L 136-145 [facility] White blood cell (WBC) count Ordered By: Sriram Guerrier on 06-11-2024 WBC (Bld) [#/Vol] 6.6 10*3/uL 4.4-11.0 [facility] Basic Metabolic Profile (BMP )on 06-04-2024 BUN/CRE 23.4 RATIO High 10-20 [facility] Comment on above: Performed By: #### L 500.2500, L100.0500, L101.9900 ####[facility] [address] [place], [address] CA,Total 9.3 mg/dL Normal 8.5-10.1 [facility] Comment on above: Performed By: #### L 500.2500, L100.0500, L101.9900 ####[facility] [address] [place], [address] Chloride [Moles/Vol] 105 mmol/L Normal 98-107 [facility] Comment on above: Performed By: #### L 500.2500, L100.0500, L101.9900 ####[facility] [address] [place], [address] CO2 [Moles/Vol] 25.0 mmol/L Normal 21.0-32.0 [facility] Comment on above: Performed By: #### L 500.2500, L100.0500, L101.9900 ####[facility] [address] [place], [address] Creatinine [Mass/Vol] 0.94 mg/dL Normal 0.70-1.30 [facility] Comment on above: Result Comment: The validity of the calculated GFR GFRAA in patients over 70 years has not been determined. Clinical correlation is essential. Performed By: #### L 500.2500, L100.0500, L101.9900 ####[facility] [address] [place], [address] EST GFR - AA 103 mL/min Normal >60 [facility] Comment on above: Result Comment: Afri can Guinean GFR Calc Performed By: #### L 500.2500, L100.0500, L101.9900 ####[facility] [address] [place], [address] GAP 8 Normal 5-15 [facility] Comment on above: Performed By: #### L 500.2500, L100.0500, L101.9900 ####[facility] [address] [place], [address] GFR/1.73 sq M.predicted among non-blacks MDRD (S/P/Bld) [Vol rate/Area] 85 mL/min/{1.73_m2} Normal >60 [facility] Comment on above: Result Comment: Non- GFR Calc Performed By: #### L 500.2500, L100.0500, L101.9900 ####[facility] [address] [place], [address] Glucose [Mass/Vol] 67 mg/dL Low 74-106 [facility] Comment on above: Performed By: #### L 500.2500, L100.0500, L101.9900 ####[facility] [address] [place], [address] Potassium [Moles/Vol] 4.3 mmol/L Normal 3.5-5.1 [facility] Comment on above: Performed By: #### L 500.2500, L100.0500, L101.9900 ####[facility] [address] [place], [address] Sodium [Moles/Vol] 137 mmol/L Normal 136-145 [facility] Comment on above: Performed By: #### L 500.2500, L100.0500, L101.9900 ####[facility] [address] [place], [address] Urea nitrogen [Mass/Vol] 22 mg/dL High 7-18 [facility] Comment on above: Performed By: #### L 500.2500, L100.0500, L101.9900 ####[facility] [address] [place], [address] CBC-Complete Blood Cnt No Di ffon 06-04-2024 Erythrocyte distribution width (RBC) [Ratio] 15.9 % High 11.6-14.6 [facility] Comment on above: Performed By: #### L 500.2500, L100.0500, L101.9900 ####[facility] [address] [place], [address] Hematocrit (Bld) [Volume fraction] 31.5 % Low 40-54 [facility] Comment on above: Performed By: #### L 500.2500, L100.0500, L101.9900 ####[facility] [address] [place], [address] Hemoglobin (Bld) [Mass/Vol] 10.0 g/dL Low 13.0-16.5 [facility] Comment on above: Performed By: #### L 500.2500, L100.0500, L101.9900 ####[facility] [address] [place], [address] MCH (RBC) [Entitic mass] 29.4 pg Normal 27.0-32.0 [facility] Comment on above: Performed By: #### L 500.2500, L100.0500, L101.9900 ####[facility] [address] [place], [address] MCHC (RBC) [Mass/Vol] 31.7 g/dL Low 32-36 [facility] Comment on above: Performed By: #### L 500.2500, L100.0500, L101.9900 ####[facility] [address] [place], [address] MCV (RBC) [Entitic vol] 92.6 fL Normal 80-94 [facility] Comment on above: Performed By: #### L 500.2500, L100.0500, L101.9900 ####[facility] [address] [place], [address] Platelet mean volume (Bld) [Entitic vol] 9.4 fL Normal 6.2-12.0 [facility] Comment on above: Performed By: #### L 500.2500, L100.0500, L101.9900 ####[facility] [address] [place], [address] Platelets (Bld) [#/Vol] 278 10*3/uL Normal 150-450 [facility] Comment on above: Performed By: #### L 500.2500, L100.0500, L101.9900 ####[facility] [address] [place], [address] RBC (Bld) [#/Vol] 3.40 10*6/uL Low 4.6-6.2 [facility] Comment on above: Performed By: #### L 500.2500, L100.0500, L101.9900 ####[facility] [address] [place], [address] RDW SD 53.3 fl High 35.1-43.9 [facility] Comment on above: Performed By: #### L 500.2500, L100.0500, L101.9900 ####[facility] [address] [place], [address] WBC (Bld) [#/Vol] 6.8 10*3/uL Normal 4.4-11.0 [facility] Comment on above: Performed By: #### L 500.2500, L100.0500, L101.9900 ####[facility] [address] [place], [address] Erythrocyte Sed Rateon 06-04 SED RATE 40 mm/hr High 0-20 [facility] Comment on above: Performed By: #### L 500.2500, L100.0500, L101.9900 ####[facility] [address] [place], [address] Basic Metabolic Profile (BMP )on 05-28-2024 BUN/CRE 27.7 RATIO High 10-20 [facility] Comment on above: Performed By: #### L 101.9900, L500.2500, L100.0500 ####[facility] [address] [place], [address] CA,Total 9.6 mg/dL Normal 8.5-10.1 [facility] Comment on above: Performed By: #### L 101.9900, L500.2500, L100.0500 ####[facility] [address] [place], [address] Chloride [Moles/Vol] 103 mmol/L Normal 98-107 [facility] Comment on above: Performed By: #### L 101.9900, L500.2500, L100.0500 ####[facility] [address] [place], [address] CO2 [Moles/Vol] 22.0 mmol/L Normal 21.0-32.0 [facility] Comment on above: Performed By: #### L 101.9900, L500.2500, L100.0500 ####[facility] [address] [place], [address] Creatinine [Mass/Vol] 0.98 mg/dL Normal 0.70-1.30 [facility] Comment on above: Result Comment: The validity of the calculated GFR GFRAA in patients over 70 years has not been determined. Clinical correlation is essential. Performed By: #### L 101.9900, L500.2500, L100.0500 ####[facility] [address] [place], [address] EST GFR - AA 99 mL/min Normal >60 [facility] Comment on above: Result Comment: Afri can Guinean GFR Calc Performed By: #### L 101.9900, L500.2500, L100.0500 ####[facility] [address] [place], [address] GAP 10 Normal 5-15 [facility] Comment on above: Performed By: #### L 101.9900, L500.2500, L100.0500 ####[facility] [address] [place], [address] GFR/1.73 sq M.predicted among non-blacks MDRD (S/P/Bld) [Vol rate/Area] 82 mL/min/{1.73_m2} Normal >60 [facility] Comment on above: Result Comment: Non- GFR Calc Performed By: #### L 101.9900, L500.2500, L100.0500 ####[facility] [address] [place], [address] Glucose [Mass/Vol] 100 mg/dL Normal 74-106 [facility] Comment on above: Result Comment: Fast ing Glucose result from 100 to 125 mg/dL suggests IMPAIRED HOMEOSTASIS per A.D.A. criteria. Performed By: #### L 101.9900, L500.2500, L100.0500 ####[facility] [address] [place], [address] Potassium [Moles/Vol] 4.5 mmol/L Normal 3.5-5.1 [facility] Comment on above: Performed By: #### L 101.9900, L500.2500, L100.0500 ####[place] [address] [place], [address] Sodium [Moles/Vol] 135 mmol/L Low 136-145 [facility] Comment on above: Performed By: #### L 101.9900, L500.2500, L100.0500 ####[place] [address] [place], [address] Urea nitrogen [Mass/Vol] 27 mg/dL High 7-18 [place] Comment on above: Performed By: #### L 101.9900, L500.2500, L100.0500 ####[place] [address] [place], [address] CBC-Complete Blood Cnt No Di ffon 05-28-2024 Erythrocyte distribution width (RBC) [Ratio] 16.2 % High 11.6-14.6 [place] Comment on above: Performed By: #### L 101.9900, L500.2500, L100.0500 ####[place] [address] [place], [address] Hematocrit (Bld) [Volume fraction] 30.7 % Low 40-54 [place] Comment on above: Performed By: #### L 101.9900, L500.2500, L100.0500 ####[place] [address] [place], [address] Hemoglobin (Bld) [Mass/Vol] 9.7 g/dL Low 13.0-16.5 [place] Comment on above: Performed By: #### L 101.9900, L500.2500, L100.0500 ####[place] [address] [place], [address] MCH (RBC) [Entitic mass] 29.1 pg Normal 27.0-32.0 [place] Comment on above: Performed By: #### L 101.9900, L500.2500, L100.0500 ####[place] [address] [place], [address] MCHC (RBC) [Mass/Vol] 31.6 g/dL Low 32-36 [facility] Comment on above: Performed By: #### L 101.9900, L500.2500, L100.0500 ####[place] [address] [place], [address] MCV (RBC) [Entitic vol] 92.2 fL Normal 80-94 [facility] Comment on above: Performed By: #### L 101.9900, L500.2500, L100.0500 ####[place] [address] [place], [address] Platelet mean volume (Bld) [Entitic vol] 9.6 fL Normal 6.2-12.0 [place] Comment on above: Performed By: #### L 101.9900, L500.2500, L100.0500 ####[place] [address] [place], [address] Platelets (Bld) [#/Vol] 321 10*3/uL Normal 150-450 [place] Comment on above: Performed By: #### L 101.9900, L500.2500, L100.0500 ####[place] [address] [place], [address] RBC (Bld) [#/Vol] 3.33 10*6/uL Low 4.6-6.2 [facility] Comment on above: Performed By: #### L 101.9900, L500.2500, L100.0500 ####[place] [address] [place], [address] RDW SD 54.1 fl High 35.1-43.9 [facility] Comment on above: Performed By: #### L 101.9900, L500.2500, L100.0500 ####[place] [address] [place], [address] WBC (Bld) [#/Vol] 8.4 10*3/uL Normal 4.4-11.0 [facility] Comment on above: Performed By: #### L 101.9900, L500.2500, L100.0500 ####[place] [address] [place], [address] Erythrocyte Sed Rateon 05-28 SED RATE 35 mm/hr High 0-20 [place] Comment on above: Performed By: #### L 101.9900, L500.2500, L100.0500 ####[place] [address] [place], [address] Basic Metabolic Profile (BMP )on 05-21-2024 BUN/CRE 19.9 RATIO Normal 10-20 [place] Comment on above: Performed By: #### L 100.0500, L101.9900, L500.2500 #### [facility] [address] [place], [address] CA,Total 9.2 mg/dL Normal 8.5-10.1 [place] Comment on above: Performed By: #### L 100.0500, L101.9900, L500.2500 #### [facility] [address] [place], [address] Chloride [Moles/Vol] 102 mmol/L Normal 98-107 [facility] Comment on above: Performed By: #### L 100.0500, L101.9900, L500.2500 #### [facility] [address] [place], [address] CO2 [Moles/Vol] 24.0 mmol/L Normal 21.0-32.0 [place] Comment on above: Performed By: #### L 100.0500, L101.9900, L500.2500 #### [facility] [address] [place], [address] Creatinine [Mass/Vol] 0.95 mg/dL Normal 0.70-1.30 [facility] Comment on above: Result Comment: The validity of the calculated GFR GFRAA in patients over 70 years has not been determined. Clinical correlation is essential. Performed By: #### L 100.0500, L101.9900, L500.2500 #### [facility] [address] [place], [address] EST GFR - AA 102 mL/min Normal >60 [facility] Comment on above: Result Comment: Afri can Guinean GFR Calc Performed By: #### L 100.0500, L101.9900, L500.2500 #### [facility] [address] [place], [address] GAP 7 Normal 5-15 [facility] Comment on above: Performed By: #### L 100.0500, L101.9900, L500.2500 #### [facility] [address] [place], [address] GFR/1.73 sq M.predicted among non-blacks MDRD (S/P/Bld) [Vol rate/Area] 84 mL/min/{1.73_m2} Normal >60 [facility] Comment on above: Result Comment: Non- GFR Calc Performed By: #### L 100.0500, L101.9900, L500.2500 #### [facility] [address] [place], [address] Glucose [Mass/Vol] 95 mg/dL Normal 74-106 [facility] Comment on above: Performed By: #### L 100.0500, L101.9900, L500.2500 #### [facility] [address] [place], [address] Potassium [Moles/Vol] 4.3 mmol/L Normal 3.5-5.1 [facility] Comment on above: Performed By: #### L 100.0500, L101.9900, L500.2500 #### [facility] [address] [place], [address] Sodium [Moles/Vol] 133 mmol/L Low 136-145 [facility] Comment on above: Performed By: #### L 100.0500, L101.9900, L500.2500 #### [facility] [address] [place], [address] Urea nitrogen [Mass/Vol] 19 mg/dL High 7-18 [facility] Comment on above: Performed By: #### L 100.0500, L101.9900, L500.2500 #### [facility] [address] [place], [address] CBC-Complete Blood Cnt No Di ffon 05-21-2024 Erythrocyte distribution width (RBC) [Ratio] 16.0 % High 11.6-14.6 [facility] Comment on above: Performed By: #### L 100.0500, L101.9900, L500.2500 #### [facility] [address] [place], [address] Hematocrit (Bld) [Volume fraction] 29.2 % Low 40-54 [facility] Comment on above: Performed By: #### L 100.0500, L101.9900, L500.2500 #### [facility] [address] [place], [address] Hemoglobin (Bld) [Mass/Vol] 9.4 g/dL Low 13.0-16.5 [facility] Comment on above: Performed By: #### L 100.0500, L101.9900, L500.2500 #### [facility] [address] [place], [address] MCH (RBC) [Entitic mass] 29.2 pg Normal 27.0-32.0 [facility] Comment on above: Performed By: #### L 100.0500, L101.9900, L500.2500 #### [facility] [address] [place], [address] MCHC (RBC) [Mass/Vol] 32.2 g/dL Normal 32-36 [facility] Comment on above: Performed By: #### L 100.0500, L101.9900, L500.2500 #### [facility] [address] [place], [address] MCV (RBC) [Entitic vol] 90.7 fL Normal 80-94 [facility] Comment on above: Performed By: #### L 100.0500, L101.9900, L500.2500 #### [facility] [address] [place], [address] Platelet mean volume (Bld) [Entitic vol] 9.7 fL Normal 6.2-12.0 [facility] Comment on above: Performed By: #### L 100.0500, L101.9900, L500.2500 #### [facility] [address] [place], [address] Platelets (Bld) [#/Vol] 310 10*3/uL Normal 150-450 [facility] Comment on above: Performed By: #### L 100.0500, L101.9900, L500.2500 #### [facility] [address] [place], [address] RBC (Bld) [#/Vol] 3.22 10*6/uL Low 4.6-6.2 [facility] Comment on above: Performed By: #### L 100.0500, L101.9900, L500.2500 #### [facility] [address] [place], [address] RDW SD 52.9 fl High 35.1-43.9 [facility] Comment on above: Performed By: #### L 100.0500, L101.9900, L500.2500 #### [facility] [address] [place], [address] WBC (Bld) [#/Vol] 10.5 10*3/uL Normal 4.4-11.0 [facility] Comment on above: Performed By: #### L 100.0500, L101.9900, L500.2500 #### [facility] [address] [place], [address] Erythrocyte Sed Rateon 05-21 SED RATE 57 mm/hr High [facility] Comment on above: Performed By: #### L 100.0500, L101.9900, L500.2500 #### [facility] [address] [place], [address] Basic Metabolic Profile (BMP )on 05-15-2024 BUN/CRE 21.3 RATIO High 05-06 [facility] Comment on above: Order Comment: FAX R ESULTS TO [phone] Performed By: #### L 100.0100, L500.2500 #### [facility] [address] [place], [address] CA,Total 9.7 mg/dL Normal 8.5-10.1 [facility] Comment on above: Order Comment: FAX R ESULTS TO [phone] Performed By: #### L 100.0100, L500.2500 #### [facility] [address] [place], [address] Chloride [Moles/Vol] 100 mmol/L Normal 98-107 [facility] Comment on above: Order Comment: FAX R ESULTS TO [phone] Performed By: #### L 100.0100, L500.2500 #### [facility] [address] [place], [address] CO2 [Moles/Vol] 26.0 mmol/L Normal 21.0-32.0 [facility] Comment on above: Order Comment: FAX R ESULTS TO [phone] Performed By: #### L 100.0100, L500.2500 #### [facility] [address] [place], [address] Creatinine [Mass/Vol] 0.98 mg/dL Normal 0.70-1.30 [facility] Comment on above: Order Comment: FAX R ESULTS TO [phone] Result Comment: The validity of the calculated GFR GFRAA in patients over 70 years has not been determined. Clinical correlation is essential. Performed By: #### L 100.0100, L500.2500 #### [facility] [address] [place], [address] EST GFR - AA 98 mL/min Normal >60 [facility] Comment on above: Order Comment: FAX R ESULTS TO [phone] Result Comment: Afri can Guinean GFR Calc Performed By: #### L 100.0100, L500.2500 #### [facility] [address] [place], [address] GAP 7 Normal 5-15 [facility] Comment on above: Order Comment: FAX R ESULTS TO [phone] Performed By: #### L 100.0100, L500.2500 #### [facility] [address] [place], [address] GFR/1.73 sq M.predicted among non-blacks MDRD (S/P/Bld) [Vol rate/Area] 81 mL/min/{1.73_m2} Normal >60 [facility] Comment on above: Order Comment: FAX R ESULTS TO [phone] Result Comment: Non- GFR Calc Performed By: #### L 100.0100, L500.2500 #### [facility] [address] [place], [address] Glucose [Mass/Vol] 130 mg/dL High 74-106 [facility] Comment on above: Order Comment: FAX R ESULTS TO [phone] Result Comment: Fast ing Glucose result greater than or equal to 126 mg/dL suggests DIABETES MELLITUS per A.D.A. criteria. Performed By: #### L 100.0100, L500.2500 #### [facility] [address] [place], [address] Potassium [Moles/Vol] 4.2 mmol/L Normal 3.5-5.1 [facility] Comment on above: Order Comment: FAX R ESULTS TO [phone] Performed By: #### L 100.0100, L500.2500 #### [facility] [address] [place], [address] Sodium [Moles/Vol] 133 mmol/L Low 136-145 [facility] Comment on above: Order Comment: FAX R ESULTS TO [phone] Performed By: #### L 100.0100, L500.2500 #### [facility] [address] [place], [address] Urea nitrogen [Mass/Vol] 21 mg/dL High 7-18 [facility] Comment on above: Order Comment: FAX R ESULTS TO [phone] Performed By: #### L 100.0100, L500.2500 #### [facility] [address] [place], [address] CBC-Complete Blood Cnt No Di ayaanon 05-15-2024 Erythrocyte distribution width (RBC) [Ratio] 15.9 % High 11.6-14.6 [facility] Comment on above: Performed By: #### L 100.0100, L500.2500 #### [facility] [address] [place], [address] Hematocrit (Bld) [Volume fraction] 30.9 % Low 40-54 [facility] Comment on above: Performed By: #### L 100.0100, L500.2500 #### [facility] [address] [place], [address] Hemoglobin (Bld) [Mass/Vol] 9.9 g/dL Low 13.0-16.5 [facility] Comment on above: Performed By: #### L 100.0100, L500.2500 #### [facility] [address] [place], [address] MCH (RBC) [Entitic mass] 29.1 pg Normal 27.0-32.0 [facility] Comment on above: Performed By: #### L 100.0100, L500.2500 #### [facility] [address] [place], [address] MCHC (RBC) [Mass/Vol] 32.0 g/dL Normal 32-36 [facility] Comment on above: Performed By: #### L 100.0100, L500.2500 #### [facility] [address] [place], [address] MCV (RBC) [Entitic vol] 90.9 fL Normal 80-94 [facility] Comment on above: Performed By: #### L 100.0100, L500.2500 #### [facility] [address] [place], [address] Platelet mean volume (Bld) [Entitic vol] 10.0 fL Normal 6.2-12.0 [facility] Comment on above: Performed By: #### L 100.0100, L500.2500 #### [facility] [address] [place], [address] Platelets (Bld) [#/Vol] 333 10*3/uL Normal 150-450 [facility] Comment on above: Performed By: #### L 100.0100, L500.2500 #### [facility] [address] [place], [address] RBC (Bld) [#/Vol] 3.40 10*6/uL Low 4.6-6.2 [facility] Comment on above: Performed By: #### L 100.0100, L500.2500 #### [facility] [address] [place], [address] RDW SD 51.8 fl High 35.1-43.9 [facility] Comment on above: Performed By: #### L 100.0100, L500.2500 #### [facility] [address] [place], [address] WBC (Bld) [#/Vol] 12.7 10*3/uL High 4.4-11.0 [facility] Comment on above: Performed By: #### L 100.0100, L500.2500 #### [facility] [address] [place], [address] Erythrocyte Sed Rateon 05-15 SED RATE 47 mm/hr High 0-20 [facility] Comment on above: Performed By: #### L 100.0100, L500.2500 #### [facility] [address] [place], [address] Basic Metabolic Profile (BMP )on 05-12-2024 BUN Normal 7-18 [facility] Comment on above: Result Comment: Canc elled via OM: Order cancelled - Patient discharged Performed By: #### L 500.2500, L100.0100 ####[place] [address] [place], [address] BUN/CRE Normal 10-20 [facility] Comment on above: Result Comment: Canc elled via OM: Order cancelled - Patient discharged Performed By: #### L 500.2500, L100.0100 ####[place] [address] [place], [address] CA,Total Normal 8.5-10.1 [facility] Comment on above: Result Comment: Canc elled via OM: Order cancelled - Patient discharged Performed By: #### L 500.2500, L100.0100 ####[place] [address] [place], [address] CL Normal 98-107 [facility] Comment on above: Result Comment: Canc elled via OM: Order cancelled - Patient discharged Performed By: #### L 500.2500, L100.0100 ####[place] [address] [place], [address] CO2 Normal 21.0-32.0 [facility] Comment on above: Result Comment: Canc elled via OM: Order cancelled - Patient discharged Performed By: #### L 500.2500, L100.0100 ####[place] [address] [place], [address] CREAT,SERUM Normal 0.70-1.30 [facility] Comment on above: Result Comment: Canc elled via OM: Order cancelled - Patient discharged Performed By: #### L 500.2500, L100.0100 ####[place] [address] [place], [address] EST GFR Normal >60 [facility] Comment on above: Result Comment: Canc elled via OM: Order cancelled - Patient discharged Performed By: #### L 500.2500, L100.0100 ####[place] [address] [place], [address] EST GFR - AA Normal >60 [facility] Comment on above: Result Comment: Canc elled via OM: Order cancelled - Patient discharged Performed By: #### L 500.2500, L100.0100 ####[place] [address] [place], [address] GAP Normal 5-15 [facility] Comment on above: Result Comment: Canc elled via OM: Order cancelled - Patient discharged Performed By: #### L 500.2500, L100.0100 ####[place] [address] [place], [address] GLU Normal 74-106 [facility] Comment on above: Result Comment: Canc elled via OM: Order cancelled - Patient discharged Performed By: #### L 500.2500, L100.0100 ####[place] [address] [place], [address] Potassium Normal 3.5-5.1 [facility] Comment on above: Result Comment: Canc elled via OM: Order cancelled - Patient discharged Performed By: #### L 500.2500, L100.0100 ####[place] [address] [place], [address] Basic Metabolic Profile (BMP) Normal 136-145 [facility] Comment on above: Result Comment: Canc elled via OM: Order cancelled - Patient discharged Performed By: #### L 500.2500, L100.0100 ####[place] [address] [place], [address] CBC W/Diff, Automatedon 10-2 Absolute Neut Normal 2.0-7.7 [facility] Comment on above: Result Comment: Canc elled via OM: Order cancelled - Patient discharged Performed By: #### L 500.2500, L100.0100 ####[place] [address] [place], [address] HCT Normal 40-54 [facility] Comment on above: Result Comment: Canc elled via OM: Order cancelled - Patient discharged Performed By: #### L 500.2500, L100.0100 ####[place] [address] [place], [address] HGB Normal 13.0-16.5 [facility] Comment on above: Result Comment: Canc elled via OM: Order cancelled - Patient discharged Performed By: #### L 500.2500, L100.0100 ####[place] [address] [place], [address] MCH Normal 27.0-32.0 [facility] Comment on above: Result Comment: Canc elled via OM: Order cancelled - Patient discharged Performed By: #### L 500.2500, L100.0100 ####[place] [address] [place], [address] MCHC Normal 32-36 [facility] Comment on above: Result Comment: Canc elled via OM: Order cancelled - Patient discharged Performed By: #### L 500.2500, L100.0100 ####[place] [address] [place], [address] MCV Normal 80-94 [facility] Comment on above: Result Comment: Canc elled via OM: Order cancelled - Patient discharged Performed By: #### L 500.2500, L100.0100 ####[place] [address] [place], [address] NEUT% Normal 47-70 [facility] Comment on above: Result Comment: Canc elled via OM: Order cancelled - Patient discharged Performed By: #### L 500.2500, L100.0100 ####[place] [address] [place], [address] PLT Normal 150-450 [facility] Comment on above: Result Comment: Canc elled via OM: Order cancelled - Patient discharged Performed By: #### L 500.2500, L100.0100 ####[place] [address] [place], [address] RBC Normal 4.6-6.2 [facility] Comment on above: Result Comment: Canc elled via OM: Order cancelled - Patient discharged Performed By: #### L 500.2500, L100.0100 ####[place] [address] [place], [address] RDW CV Normal 11.6-14.6 [facility] Comment on above: Result Comment: Canc elled via OM: Order cancelled - Patient discharged Performed By: #### L 500.2500, L100.0100 ####[place] [address] [place], [address] RDW SD Normal 35.1-43.9 [facility] Comment on above: Result Comment: Canc elled via OM: Order cancelled - Patient discharged Performed By: #### L 500.2500, L100.0100 ####[place] [address] [place], [address] WBC Normal 4.4-11.0 [facility] Comment on above: Result Comment: Canc elled via OM: Order cancelled - Patient discharged Performed By: #### L 500.2500, L100.0100 ####[place] [address] [place], [address] Basic Metabolic Profile (BMP )on 05-11-2024 BUN Normal 7-18 [facility] Comment on above: Result Comment: Canc elled via OM: Order cancelled - Patient discharged Performed By: #### L 100.0100, L500.2500 #### [facility] [address] [place], [address] BUN/CRE Normal 10-20 [facility] Comment on above: Result Comment: Canc elled via OM: Order cancelled - Patient discharged Performed By: #### L 100.0100, L500.2500 #### [facility] [address] [place], [address] CA,Total Normal 8.5-10.1 [facility] Comment on above: Result Comment: Canc elled via OM: Order cancelled - Patient discharged Performed By: #### L 100.0100, L500.2500 #### [facility] [address] [place], [address] CL Normal 98-107 [facility] Comment on above: Result Comment: Canc elled via OM: Order cancelled - Patient discharged Performed By: #### L 100.0100, L500.2500 #### [facility] [address] [place], [address] CO2 Normal 21.0-32.0 [facility] Comment on above: Result Comment: Canc elled via OM: Order cancelled - Patient discharged Performed By: #### L 100.0100, L500.2500 #### [facility] [address] [place], [address] CREAT,SERUM Normal 0.70-1.30 [facility] Comment on above: Result Comment: Canc elled via OM: Order cancelled - Patient discharged Performed By: #### L 100.0100, L500.2500 #### [facility] [address] [place], [address] EST GFR Normal >60 [facility] Comment on above: Result Comment: Canc elled via OM: Order cancelled - Patient discharged Performed By: #### L 100.0100, L500.2500 #### [facility] [address] [place], [address] EST GFR - AA Normal >60 [facility] Comment on above: Result Comment: Canc elled via OM: Order cancelled - Patient discharged Performed By: #### L 100.0100, L500.2500 #### [facility] [address] [place], [address] GAP Normal 5-15 [facility] Comment on above: Result Comment: Canc elled via OM: Order cancelled - Patient discharged Performed By: #### L 100.0100, L500.2500 #### [facility] [address] [place], [address] GLU Normal 74-106 [facility] Comment on above: Result Comment: Canc elled via OM: Order cancelled - Patient discharged Performed By: #### L 100.0100, L500.2500 #### [facility] [address] [place], [address] Potassium Normal 3.5-5.1 [facility] Comment on above: Result Comment: Canc elled via OM: Order cancelled - Patient discharged Performed By: #### L 100.0100, L500.2500 #### [facility] [address] [place], [address] Basic Metabolic Profile (BMP) Normal 136-145 [facility] Comment on above: Result Comment: Canc elled via OM: Order cancelled - Patient discharged Performed By: #### L 100.0100, L500.2500 #### [facility] [address] [place], [address] CBC W/Diff, Automatedon 10-2 Absolute Neut Normal 2.0-7.7 [facility] Comment on above: Result Comment: Canc elled via OM: Order cancelled - Patient discharged Performed By: #### L 100.0100, L500.2500 #### [facility] [address] [place], [address] HCT Normal 40-54 [facility] Comment on above: Result Comment: Canc elled via OM: Order cancelled - Patient discharged Performed By: #### L 100.0100, L500.2500 #### [facility] [address] [place], [address] HGB Normal 13.0-16.5 [facility] Comment on above: Result Comment: Canc elled via OM: Order cancelled - Patient discharged Performed By: #### L 100.0100, L500.2500 #### [facility] [address] [place], [address] MCH Normal 27.0-32.0 [facility] Comment on above: Result Comment: Canc elled via OM: Order cancelled - Patient discharged Performed By: #### L 100.0100, L500.2500 #### [facility] [address] [place], [address] MCHC Normal 32-36 [facility] Comment on above: Result Comment: Canc elled via OM: Order cancelled - Patient discharged Performed By: #### L 100.0100, L500.2500 #### [facility] [address] [place], [address] MCV Normal 80-94 [facility] Comment on above: Result Comment: Canc elled via OM: Order cancelled - Patient discharged Performed By: #### L 100.0100, L500.2500 #### [facility] [address] [place], [address] NEUT% Normal 47-70 [facility] Comment on above: Result Comment: Canc elled via OM: Order cancelled - Patient discharged Performed By: #### L 100.0100, L500.2500 #### [facility] [address] [place], [address] PLT Normal 150-450 [facility] Comment on above: Result Comment: Canc elled via OM: Order cancelled - Patient discharged Performed By: #### L 100.0100, L500.2500 #### [facility] [address] [place], [address] RBC Normal 4.6-6.2 [facility] Comment on above: Result Comment: Canc elled via OM: Order cancelled - Patient discharged Performed By: #### L 100.0100, L500.2500 #### [facility] [address] [place], [address] RDW CV Normal 11.6-14.6 [facility] Comment on above: Result Comment: Canc elled via OM: Order cancelled - Patient discharged Performed By: #### L 100.0100, L500.2500 #### [facility] [address] [place], [address] RDW SD Normal 35.1-43.9 [facility] Comment on above: Result Comment: Canc elled via OM: Order cancelled - Patient discharged Performed By: #### L 100.0100, L500.2500 #### [facility] [address] [place], [address] WBC Normal 4.4-11.0 [facility] Comment on above: Result Comment: Canc elled via OM: Order cancelled - Patient discharged Performed By: #### L 100.0100, L500.2500 #### [facility] [address] [place], [address] Basic Metabolic Profile (BMP )on 05-10-2024 BUN Normal 7-18 [facility] Comment on above: Result Comment: Canc elled via OM: Order cancelled - Patient discharged Performed By: #### L 100.0100, L500.2500 #### [facility] [address] [place], [address] BUN/CRE Normal 10-20 [facility] Comment on above: Result Comment: Canc elled via OM: Order cancelled - Patient discharged Performed By: #### L 100.0100, L500.2500 #### [facility] [address] [place], [address] CA,Total Normal 8.5-10.1 [facility] Comment on above: Result Comment: Canc elled via OM: Order cancelled - Patient discharged Performed By: #### L 100.0100, L500.2500 #### [facility] [address] [place], [address] CL Normal 98-107 [facility] Comment on above: Result Comment: Canc elled via OM: Order cancelled - Patient discharged Performed By: #### L 100.0100, L500.2500 #### [facility] [address] [place], [address] CO2 Normal 21.0-32.0 [facility] Comment on above: Result Comment: Canc elled via OM: Order cancelled - Patient discharged Performed By: #### L 100.0100, L500.2500 #### [facility] [address] [place], [address] CREAT,SERUM Normal 0.70-1.30 [facility] Comment on above: Result Comment: Canc elled via OM: Order cancelled - Patient discharged Performed By: #### L 100.0100, L500.2500 #### [facility] [address] [place], [address] EST GFR Normal >60 [facility] Comment on above: Result Comment: Canc elled via OM: Order cancelled - Patient discharged Performed By: #### L 100.0100, L500.2500 #### [facility] [address] [place], [address] EST GFR - AA Normal >60 [facility] Comment on above: Result Comment: Canc elled via OM: Order cancelled - Patient discharged Performed By: #### L 100.0100, L500.2500 #### [facility] [address] [place], [address] GAP Normal 5-15 [facility] Comment on above: Result Comment: Canc elled via OM: Order cancelled - Patient discharged Performed By: #### L 100.0100, L500.2500 #### [facility] [address] [place], [address] GLU Normal 74-106 [facility] Comment on above: Result Comment: Canc elled via OM: Order cancelled - Patient discharged Performed By: #### L 100.0100, L500.2500 #### [facility] [address] [place], [address] Potassium Normal 3.5-5.1 [facility] Comment on above: Result Comment: Canc elled via OM: Order cancelled - Patient discharged Performed By: #### L 100.0100, L500.2500 #### [facility] [address] [place], [address] Basic Metabolic Profile (BMP) Normal 136-145 [facility] Comment on above: Result Comment: Canc elled via OM: Order cancelled - Patient discharged Performed By: #### L 100.0100, L500.2500 #### [facility] [address] [place], [address] CBC W/Diff, Automatedon 10-2 Absolute Neut Normal 2.0-7.7 [facility] Comment on above: Result Comment: Canc elled via OM: Order cancelled - Patient discharged Performed By: #### L 100.0100, L500.2500 #### [facility] [address] [place], [address] HCT Normal 40-54 [facility] Comment on above: Result Comment: Canc elled via OM: Order cancelled - Patient discharged Performed By: #### L 100.0100, L500.2500 #### [facility] [address] [place], [address] HGB Normal 13.0-16.5 [facility] Comment on above: Result Comment: Canc elled via OM: Order cancelled - Patient discharged Performed By: #### L 100.0100, L500.2500 #### [facility] [address] [place], [address] MCH Normal 27.0-32.0 [facility] Comment on above: Result Comment: Canc elled via OM: Order cancelled - Patient discharged Performed By: #### L 100.0100, L500.2500 #### [facility] [address] [place], [address] MCHC Normal 32-36 [facility] Comment on above: Result Comment: Canc elled via OM: Order cancelled - Patient discharged Performed By: #### L 100.0100, L500.2500 #### [facility] [address] [place], [address] MCV Normal 80-94 [facility] Comment on above: Result Comment: Canc elled via OM: Order cancelled - Patient discharged Performed By: #### L 100.0100, L500.2500 #### [facility] [address] [place], [address] NEUT% Normal 47-70 [facility] Comment on above: Result Comment: Canc elled via OM: Order cancelled - Patient discharged Performed By: #### L 100.0100, L500.2500 #### [facility] [address] [place], [address] PLT Normal 150-450 [facility] Comment on above: Result Comment: Canc elled via OM: Order cancelled - Patient discharged Performed By: #### L 100.0100, L500.2500 #### [facility] [address] [place], [address] RBC Normal 4.6-6.2 [facility] Comment on above: Result Comment: Canc elled via OM: Order cancelled - Patient discharged Performed By: #### L 100.0100, L500.2500 #### [facility] [address] [place], [address] RDW CV Normal 11.6-14.6 [facility] Comment on above: Result Comment: Canc elled via OM: Order cancelled - Patient discharged Performed By: #### L 100.0100, L500.2500 #### [facility] [address] [place], [address] RDW SD Normal 35.1-43.9 [facility] Comment on above: Result Comment: Canc elled via OM: Order cancelled - Patient discharged Performed By: #### L 100.0100, L500.2500 #### [facility] [address] [place], [address] WBC Normal 4.4-11.0 [facility] Comment on above: Result Comment: Canc elled via OM: Order cancelled - Patient discharged Performed By: #### L 100.0100, L500.2500 #### [facility] [address] [place], [address] Basic Metabolic Profile (BMP )on 05-09-2024 BUN Normal - [facility] Comment on above: Result Comment: Canc elled via OM: Order cancelled - Patient discharged Performed By: #### L 100.0500, L101.9900, L500.2500 #### [facility] [address] [place], [address] BUN/CRE Normal - [facility] Comment on above: Result Comment: Canc elled via OM: Order cancelled - Patient discharged Performed By: #### L 100.0500, L101.9900, L500.2500 #### [facility] [address] [place], [address] CA,Total Normal 8.5-10.1 [facility] Comment on above: Result Comment: Canc elled via OM: Order cancelled - Patient discharged Performed By: #### L 100.0500, L101.9900, L500.2500 #### [facility] [address] [place], [address] CL Normal 98-107 [facility] Comment on above: Result Comment: Canc elled via OM: Order cancelled - Patient discharged Performed By: #### L 100.0500, L101.9900, L500.2500 #### [facility] [address] [place], [address] CO2 Normal 21.0-32.0 [facility] Comment on above: Result Comment: Canc elled via OM: Order cancelled - Patient discharged Performed By: #### L 100.0500, L101.9900, L500.2500 #### [facility] [address] [place], [address] CREAT,SERUM Normal 0.70-1.30 [facility] Comment on above: Result Comment: Canc elled via OM: Order cancelled - Patient discharged Performed By: #### L 100.0500, L101.9900, L500.2500 #### [facility] [address] [place], [address] EST GFR Normal >60 [facility] Comment on above: Result Comment: Canc elled via OM: Order cancelled - Patient discharged Performed By: #### L 100.0500, L101.9900, L500.2500 #### [facility] [address] [place], [address] EST GFR - AA Normal >60 [facility] Comment on above: Result Comment: Canc elled via OM: Order cancelled - Patient discharged Performed By: #### L 100.0500, L101.9900, L500.2500 #### [facility] [address] [place], [address] GAP Normal 5-15 [facility] Comment on above: Result Comment: Canc elled via OM: Order cancelled - Patient discharged Performed By: #### L 100.0500, L101.9900, L500.2500 #### [facility] [address] [place], [address] GLU Normal 74-106 [facility] Comment on above: Result Comment: Canc elled via OM: Order cancelled - Patient discharged Performed By: #### L 100.0500, L101.9900, L500.2500 #### [facility] [address] [place], [address] Potassium Normal 3.5-5.1 [facility] Comment on above: Result Comment: Canc elled via OM: Order cancelled - Patient discharged Performed By: #### L 100.0500, L101.9900, L500.2500 #### [facility] [address] [place], [address] Basic Metabolic Profile (BMP) Normal 136-145 [facility] Comment on above: Result Comment: Canc elled via OM: Order cancelled - Patient discharged Performed By: #### L 100.0500, L101.9900, L500.2500 #### [facility] [address] [place], [address] CBC W/Diff, Automatedon 10-2 Absolute Neut Normal 2.0-7.7 [facility] Comment on above: Result Comment: Canc elled via OM: Order cancelled - Patient discharged Performed By: #### L 100.0500, L101.9900, L500.2500 #### [facility] [address] [place], [address] HCT Normal 40-54 [facility] Comment on above: Result Comment: Canc elled via OM: Order cancelled - Patient discharged Performed By: #### L 100.0500, L101.9900, L500.2500 #### [facility] [address] [place], [address] HGB Normal 13.0-16.5 [facility] Comment on above: Result Comment: Canc elled via OM: Order cancelled - Patient discharged Performed By: #### L 100.0500, L101.9900, L500.2500 #### [facility] [address] [place], [address] MCH Normal 27.0-32.0 [facility] Comment on above: Result Comment: Canc elled via OM: Order cancelled - Patient discharged Performed By: #### L 100.0500, L101.9900, L500.2500 #### [facility] [address] [place], [address] MCHC Normal 32-36 [facility] Comment on above: Result Comment: Canc elled via OM: Order cancelled - Patient discharged Performed By: #### L 100.0500, L101.9900, L500.2500 #### [facility] [address] [place], [address] MCV Normal 80-94 [facility] Comment on above: Result Comment: Canc elled via OM: Order cancelled - Patient discharged Performed By: #### L 100.0500, L101.9900, L500.2500 #### [facility] [address] [place], [address] NEUT% Normal 47-70 [facility] Comment on above: Result Comment: Canc elled via OM: Order cancelled - Patient discharged Performed By: #### L 100.0500, L101.9900, L500.2500 #### [facility] [address] [place], [address] PLT Normal 150-450 [facility] Comment on above: Result Comment: Canc elled via OM: Order cancelled - Patient discharged Performed By: #### L 100.0500, L101.9900, L500.2500 #### [facility] [address] [place], [address] RBC Normal 4.6-6.2 [facility] Comment on above: Result Comment: Canc elled via OM: Order cancelled - Patient discharged Performed By: #### L 100.0500, L101.9900, L500.2500 #### [facility] [address] [place], [address] RDW CV Normal 11.6-14.6 [facility] Comment on above: Result Comment: Canc elled via OM: Order cancelled - Patient discharged Performed By: #### L 100.0500, L101.9900, L500.2500 #### [facility] [address] [place], [address] RDW SD Normal 35.1-43.9 [facility] Comment on above: Result Comment: Canc elled via OM: Order cancelled - Patient discharged Performed By: #### L 100.0500, L101.9900, L500.2500 #### [facility] [address] [place], [address] WBC Normal 4.4-11.0 [facility] Comment on above: Result Comment: Canc elled via OM: Order cancelled - Patient discharged Performed By: #### L 100.0500, L101.9900, L500.2500 #### [facility] [address] [place], [address] 12 Lead EKGon 05-08-2024 12 Lead EKG [facility] [address] [place] [address] 12 Lead EKG 05/08/24 1723 MR#: [id number] Acct: [id number] Name: DALLAS MARTIN Rep #: [id number] : 1960 63 From: Reese Munoz MD Attending Dr: Dr. Jessi Ivan DO Status: DIS I N Ordering Dr: Jessi Ivan DO Date: 05/08/24 Location: [facility]3 Sex: M C Admitted: 05/03/24 Test Reason : TACHY Blood Pressure : / mmHG Vent. Rate : 120 BPM Atrial Rate : 120 BPM P-R Int : 166 ms QRS Dur : 072 ms QT Int : 312 ms P-R-T Axes : 004 050 011 degrees QTc Int : 440 ms Sinus tachycardia Possible Left atrial enlargement T wave abnormality, consider anterior ischemia Abnormal ECG No previous ECGs available Confirmed by ALEXANDER MASON, REESE ([id number]), photo editor MONICA LOPEZ ([id number]) on 05/09/2024 2:09:24 PM Referred By: Ottoniel Hutchinson Confirmed By:REESE MUNOZ MD 05/09/24 1409 Date Reese Munoz MD CC: Dr. Ottoniel Hutchinson MD; Dr. Rosie Trejo MD; Dr. Jessi Ivan DO Signed Normal [facility] Basic Metabolic Profile (BMP )on 05-08-2024 BUN/CRE 24.0 RATIO High - [facility] Comment on above: Performed By: #### L 100.0100, L500.2500 #### [facility] [address] [facility] [place], [address] CA,Total 9.8 mg/dL Normal 8.5-10.1 [facility] Comment on above: Performed By: #### L 100.0100, L500.2500 #### [facility] [address] [facility] [place], [address] Chloride [Moles/Vol] 101 mmol/L Normal 98-107 [facility] Comment on above: Performed By: #### L 100.0100, L500.2500 #### [facility] [address] [facility] [place], [address] CO2 [Moles/Vol] 24.0 mmol/L Normal 21.0-32.0 [facility] Comment on above: Performed By: #### L 100.0100, L500.2500 #### [facility] [address] [place], [address] Creatinine [Mass/Vol] 0.88 mg/dL Normal 0.70-1.30 [facility] Comment on above: Result Comment: The validity of the calculated GFR GFRAA in patients over 70 years has not been determined. Clinical correlation is essential. Performed By: #### L 100.0100, L500.2500 #### [facility] [address] [place], [address] ECRCL 78.24 ml/min Normal [facility] Comment on above: Performed By: #### L 100.0100, L500.2500 #### [facility] [address] [place], [address] EST GFR - AA 112 mL/min Normal >60 [facility] Comment on above: Result Comment: Afri can Guinean GFR Calc Performed By: #### L 100.0100, L500.2500 #### [facility] [address] [place], [address] GAP 7 Normal 5-15 [facility] Comment on above: Performed By: #### L 100.0100, L500.2500 #### [facility] [address] [place], [address] GFR/1.73 sq M.predicted among non-blacks MDRD (S/P/Bld) [Vol rate/Area] 93 mL/min/{1.73_m2} Normal >60 [facility] Comment on above: Result Comment: Non- GFR Calc Performed By: #### L 100.0100, L500.2500 #### [facility] [address] [place], [address] Glucose [Mass/Vol] 99 mg/dL Normal 74-106 [facility] Comment on above: Performed By: #### L 100.0100, L500.2500 #### [facility] [address] [place], [address] Potassium [Moles/Vol] 4.0 mmol/L Normal 3.5-5.1 [facility] Comment on above: Performed By: #### L 100.0100, L500.2500 #### [facility] [address] [place], [address] Sodium [Moles/Vol] 132 mmol/L Low 136-145 [facility] Comment on above: Performed By: #### L 100.0100, L500.2500 #### [facility] [address] [place], [address] Urea nitrogen [Mass/Vol] 21 mg/dL High 7-18 [facility] Comment on above: Performed By: #### L 100.0100, L500.2500 #### [facility] [address] [place], [address] CBC W/Diff, Automatedon 10-2 2-2023 Absolute Lymph 1.89 X10 3/uL Normal 0.83-4.51 [facility] Comment on above: Performed By: #### L 100.0100, L500.2500 #### [facility] [address] [place], [address] Absolute Neut 11.8 X10 3/uL High 2.0-7.7 [facility] Comment on above: Performed By: #### L 100.0100, L500.2500 #### [facility] [address] [place], [address] Basophils/100 WBC (Bld) 0.7 % Normal 0-1 [facility] Comment on above: Performed By: #### L 100.0100, L500.2500 #### [facility] [address] [place], [address] Eosinophils/100 WBC (Bld) 1.0 % Normal 0-5 [facility] Comment on above: Performed By: #### L 100.0100, L500.2500 #### [facility] [address] [place], [address] Erythrocyte distribution width (RBC) [Ratio] 15.3 % High 11.6-14.6 [facility] Comment on above: Performed By: #### L 100.0100, L500.2500 #### [facility] [address] [place], [address] Hematocrit (Bld) [Volume fraction] 30.6 % Low 40-54 [facility] Comment on above: Performed By: #### L 100.0100, L500.2500 #### [facility] [address] [place], [address] Hemoglobin (Bld) [Mass/Vol] 10.2 g/dL Low 13.0-16.5 [facility] Comment on above: Performed By: #### L 100.0100, L500.2500 #### [facility] [address] [place], [address] IG% 2.400 High 0.0-0.9 [facility] Comment on above: Result Comment: IG% - Immature Granulocytes (promyelocytes, myelocytes and metamyelocytes) > 1% indicates that a LEFT SHIFT is Present. Performed By: #### L 100.0100, L500.2500 #### [facility] [address] [place], [address] Lymphocytes/100 WBC (Bld) 12.2 % Low 19-41 [facility] Comment on above: Performed By: #### L 100.0100, L500.2500 #### [facility] [address] [place], [address] MCH (RBC) [Entitic mass] 29.1 pg Normal 27.0-32.0 [facility] Comment on above: Performed By: #### L 100.0100, L500.2500 #### [facility] [address] [place], [address] MCHC (RBC) [Mass/Vol] 33.3 g/dL Normal 32-36 [facility] Comment on above: Performed By: #### L 100.0100, L500.2500 #### [facility] [address] [place], [address] MCV (RBC) [Entitic vol] 87.2 fL Normal 80-94 [facility] Comment on above: Performed By: #### L 100.0100, L500.2500 #### [facility] [address] [place], [address] Monocytes/100 WBC (Bld) 7.5 % Normal 0-10 [facility] Comment on above: Performed By: #### L 100.0100, L500.2500 #### [facility] [address] [place], [address] Neutrophils/100 WBC (Bld) 76.2 % High 47-70 [facility] Comment on above: Performed By: #### L 100.0100, L500.2500 #### [facility] [address] [place], [address] Nucleated RBC (Bld) [#/Vol] 0 10*3/uL Normal 0-5 [facility] Comment on above: Performed By: #### L 100.0100, L500.2500 #### [facility] [address] [place], [address] Platelet mean volume (Bld) [Entitic vol] 8.5 fL Normal 6.2-12.0 [facility] Comment on above: Performed By: #### L 100.0100, L500.2500 #### [facility] [address] [place], [address] Platelets (Bld) [#/Vol] 368 10*3/uL Normal 150-450 [facility] Comment on above: Performed By: #### L 100.0100, L500.2500 #### [facility] [address] [place], [address] RBC (Bld) [#/Vol] 3.51 10*6/uL Low 4.6-6.2 [facility] Comment on above: Performed By: #### L 100.0100, L500.2500 #### [facility] [address] [place], [address] RDW SD 47.0 fl High 35.1-43.9 [facility] Comment on above: Performed By: #### L 100.0100, L500.2500 #### [facility] [address] [place], [address] WBC (Bld) [#/Vol] 15.5 10*3/uL High 4.4-11.0 [facility] Comment on above: Performed By: #### L 100.0100, L500.2500 #### [facility] [address] [place], [address] Comprehensive Metabolic Prof [facility] 05-08-2024 Albumin [Mass/Vol] 2.6 g/dL Low 3.2-5.0 [facility] Comment on above: Performed By: #### L 100.0100, L500.2500 #### [facility] [address] [place], [address] Albumin/Globulin [Mass ratio] 0.6 {ratio} Low 0.9-2.4 [facility] Comment on above: Performed By: #### L 100.0100, L500.2500 #### [facility] [address] [place], [address] ALK P 131 U/L High 45-117 [facility] Comment on above: Performed By: #### L 100.0100, L500.2500 #### [facility] [address] [place], [address] ALT [Catalytic activity/Vol] 128 U/L High 16-61 [facility] Comment on above: Performed By: #### L 100.0100, L500.2500 #### [facility] [address] [place], [address] AST [Catalytic activity/Vol] 60 U/L High 15-37 [facility] Comment on above: Performed By: #### L 100.0100, L500.2500 #### [facility] [address] [place], [address] Bilirubin [Mass/Vol] 0.80 mg/dL Normal 0.20-1.00 [facility] Comment on above: Result Comment: For patients on eltrombopag therapy, use of Dimension [place] TBIL is not recommended. Performed By: #### L 100.0100, L500.2500 #### [facility] [address] [place], [address] Globulin (S) [Mass/Vol] 4.5 g/dL High 2.2-4.2 [facility] Comment on above: Performed By: #### L 100.0100, L500.2500 #### [facility] [address] [place], [address] T PROT 7.1 g/dL Normal 6.4-8.2 [facility] Comment on above: Performed By: #### L 100.0100, L500.2500 #### [facility] [address] [place], [address] Culture, Blood (WB)on 2023 CUB No growth in 5 days. Normal [facility] Comment on above: Performed By: #### M 200.1000 ####[facility] [address] [place], [address] Echo Transesophageal (GUANAKITO)on 05-08-2024 Echo Transesophageal (GUANAKITO) [facility] [address] [place] [address] Echo Transesophageal (GUANAKITO) 05/08/24 1051 MR#: [id number] Acct: [id number] Name: DALLAS MARTIN Rep #: [id number] : 1960 63 From: Reese Munoz MD Attending Dr: Dr. Jessi Ivan, Status: ADM I N Ordering Dr: Jessi Ivan DO Date: 05/08/24 Location: [facility]3 Sex: M C Admitted: 05/03/24 Reason For Study: MV Endocarditis Medication GUANAKITO probe 6VT-D (SN [id number]) passed without difficulty. No complications were noted. Cetacaine Topical [place] given X3 orally. Versed 2 mg given slow IVP. Fentanyl 50 mcg given slow IVP. Performed a rapid injection of agitated mix of 9 cc saline and 1cc air to assess for atrial septal defect. Left Ventricle Normal LV size. Left ventricular systolic function is normal. The left ventricular ejection fraction is 65 %. No regional wall motion abnormalities noted. Right Ventricle Normal RV size. Normal systolic function. Atria Bubble contrast study negative for right to left interatrial shunt. Normal left atrium. No thrombus is detected in the left atrial appendage. Normal right atrium. Prominent eustachian valve. Mitral Valve Diffuse mitral valve thickening noted in the midsegment of the anterior and posterior valves with mobile mass noted especially on the anterior leaflet with a smaller mass on the posterior leaflet with soft and hard components present. Mild (1+) eccentric mitral valve insufficiency. Aortic Valve Trisinus/trileaflet aortic valve. Tiny mobile mass noted on the noncoronary cusp of the aortic valve. Pulmonic Valve Normal pulmonic valve. Vessels Normal aortic root. Normal arch. The pulmonary artery is normal size. Pulmonary venous flow normal. Pericardium No pericardial effusion. ECHO/Echo Transesophageal (GUANAKITO) Interpretation Summary Normal LV size. Left ventricular systolic function is normal. The left ventricular ejection fraction is 65 %. Diffuse mitral valve thickening noted in the midsegment of the anterior and posterior valves with mobile mass noted especially on the anterior leaflet with a smaller mass on the posterior leaflet with soft and hard components present. Tiny mobile mass noted on the noncoronary cusp of the aortic valve Ordering Physician: Jessi Ivan Referring Physician: Rosie [facility] Performed By: Deborah Ross RVT, RDCS and Student 05/08/24 1300 Date Reese Munoz MD CC: Dr. Ottoniel Hutchinson MD; Dr. Rosie Trejo MD; Dr. 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, [address] CA,Total 9.5 mg/dL Normal 8.5-10.1 [facility] Comment on above: Performed By: #### L 100.0500, L101.9900, L500.2500 #### [facility] [address] [place], [address] Chloride [Moles/Vol] 100 mmol/L Normal 98-107 [facility] Comment on above: Performed By: #### L 100.0500, L101.9900, L500.2500 #### [facility] [address] [place], [address] CO2 [Moles/Vol] 23.0 mmol/L Normal 21.0-32.0 [facility] Comment on above: Performed By: #### L 100.0500, L101.9900, L500.2500 #### [facility] [address] [place], [address] Creatinine [Mass/Vol] 0.78 mg/dL Normal 0.70-1.30 [facility] Comment on above: Result Comment: The validity of the calculated GFR GFRAA in patients over 70 years has not been determined. Clinical correlation is essential. Performed By: #### L 100.0500, L101.9900, L500.2500 #### [facility] [address] [place], [address] ECRCL 86.07 ml/min Normal [facility] Comment on above: Performed By: #### L 100.0500, L101.9900, L500.2500 #### [facility] [address] [place], [address] EST GFR - AA 129 mL/min Normal >60 [facility] Comment on above: Result Comment: Afri can Guinean GFR Calc Performed By: #### L 100.0500, L101.9900, L500.2500 #### [facility] [address] [place], [address] GAP 11 Normal 5-15 [facility] Comment on above: Performed By: #### L 100.0500, L101.9900, L500.2500 #### [facility] [address] [place], [address] GFR/1.73 sq M.predicted among non-blacks MDRD (S/P/Bld) [Vol rate/Area] 106 mL/min/{1.73_m2} Normal >60 [facility] Comment on above: Result Comment: Non- GFR Calc Performed By: #### L 100.0500, L101.9900, L500.2500 #### [facility] [address] [place], [address] Glucose [Mass/Vol] 100 mg/dL Normal 74-106 [facility] Comment on above: Result Comment: Fast ing Glucose result from 100 to 125 mg/dL suggests IMPAIRED HOMEOSTASIS per A.D.A. criteria. Performed By: #### L 100.0500, L101.9900, L500.2500 #### [facility] [address] [place], [address] Potassium [Moles/Vol] 3.9 mmol/L Normal 3.5-5.1 [facility] Comment on above: Performed By: #### L 100.0500, L101.9900, L500.2500 #### [facility] [address] [place], [address] Sodium [Moles/Vol] 134 mmol/L Low 136-145 [facility] Comment on above: Performed By: #### L 100.0500, L101.9900, L500.2500 #### [facility] [address] [place], [address] Urea nitrogen [Mass/Vol] 17 mg/dL Normal 7-18 [facility] Comment on above: Performed By: #### L 100.0500, L101.9900, L500.2500 #### [facility] [address] [place], [address] CBC W/Diff, Automatedon 10-2 Absolute Lymph 1.71 X10 3/uL Normal 0.83-4.51 [facility] Comment on above: Performed By: #### L 100.0500, L101.9900, L500.2500 #### [facility] [address] [place], [address] Absolute Neut 10.4 X10 3/uL High 2.0-7.7 [facility] Comment on above: Performed By: #### L 100.0500, L101.9900, L500.2500 #### [facility] [address] [place], [address] Basophils/100 WBC (Bld) 0.6 % Normal 0-1 [facility] Comment on above: Performed By: #### L 100.0500, L101.9900, L500.2500 #### [facility] [address] [place], [address] Eosinophils/100 WBC (Bld) 1.4 % Normal 0-5 [facility] Comment on above: Performed By: #### L 100.0500, L101.9900, L500.2500 #### [facility] [address] [place], [address] Erythrocyte distribution width (RBC) [Ratio] 15.0 % High 11.6-14.6 [facility] Comment on above: Performed By: #### L 100.0500, L101.9900, L500.2500 #### [facility] [address] [place], [address] Hematocrit (Bld) [Volume fraction] 30.3 % Low 40-54 [facility] Comment on above: Performed By: #### L 100.0500, L101.9900, L500.2500 #### [facility] [address] [place], [address] Hemoglobin (Bld) [Mass/Vol] 10.1 g/dL Low 13.0-16.5 [facility] Comment on above: Performed By: #### L 100.0500, L101.9900, L500.2500 #### [facility] [address] [place], [address] IG% 2.800 High 0.0-0.9 [facility] Comment on above: Result Comment: IG% - Immature Granulocytes (promyelocytes, myelocytes and metamyelocytes) > 1% indicates that a LEFT SHIFT is Present. Performed By: #### L 100.0500, L101.9900, L500.2500 #### [facility] [address] [place], [address] Lymphocytes/100 WBC (Bld) 12.3 % Low 19-41 [facility] Comment on above: Performed By: #### L 100.0500, L101.9900, L500.2500 #### [facility] [address] [place], [address] MCH (RBC) [Entitic mass] 28.9 pg Normal 27.0-32.0 [facility] Comment on above: Performed By: #### L 100.0500, L101.9900, L500.2500 #### [facility] [address] [place], [address] MCHC (RBC) [Mass/Vol] 33.3 g/dL Normal 32-36 [facility] Comment on above: Performed By: #### L 100.0500, L101.9900, L500.2500 #### [facility] [address] [place], [address] MCV (RBC) [Entitic vol] 86.8 fL Normal 80-94 [facility] Comment on above: Performed By: #### L 100.0500, L101.9900, L500.2500 #### [facility] [address] [place], [address] Monocytes/100 WBC (Bld) 8.3 % Normal 0-10 [facility] Comment on above: Performed By: #### L 100.0500, L101.9900, L500.2500 #### [facility] [address] [place], [address] Neutrophils/100 WBC (Bld) 74.6 % High 47-70 [facility] Comment on above: Performed By: #### L 100.0500, L101.9900, L500.2500 #### [facility] [address] [place], [address] Nucleated RBC (Bld) [#/Vol] 0 10*3/uL Normal 0-5 [facility] Comment on above: Performed By: #### L 100.0500, L101.9900, L500.2500 #### [facility] [address] [place], [address] Platelet mean volume (Bld) [Entitic vol] 8.8 fL Normal 6.2-12.0 [facility] Comment on above: Performed By: #### L 100.0500, L101.9900, L500.2500 #### [facility] [address] [place], [address] Platelets (Bld) [#/Vol] 391 10*3/uL Normal 150-450 [facility] Comment on above: Performed By: #### L 100.0500, L101.9900, L500.2500 #### [facility] [address] [place], [address] RBC (Bld) [#/Vol] 3.49 10*6/uL Low 4.6-6.2 [facility] Comment on above: Performed By: #### L 100.0500, L101.9900, L500.2500 #### [facility] [address] [place], [address] RDW SD 47.3 fl High 35.1-43.9 [facility] Comment on above: Performed By: #### L 100.0500, L101.9900, L500.2500 #### [facility] [address] [place], [address] WBC (Bld) [#/Vol] 14.0 10*3/uL High 4.4-11.0 [facility] Comment on above: Performed By: #### L 100.0500, L101.9900, L500.2500 #### [facility] [address] [place], [address] Culture, Blood (WB)on 2023 CUB Blood cultures x2 fr om two different sites AMENDED GRAM STAIN FOR POSTIIVE AEROBIC AND POSITIVE ANAEROBIC BOTTLES= GRAM POSIITIVE COCCI IN CHAINS Culture, Blood (WB) AMENDED GRAM STAIN RESULTS CALLED TO Murray GRIFFITHS 05/05/24 1008 Yumiko Vega. REPORT READ BACK BY . Culture, Blood (WB) Streptococcus gordonii Amount Growth Growth Streptococcus gordonii: REACTION Ampicillin Islt CARLOS <=0.25 Penicillin G Islt CARLOS <=0.06 S Cefotaxime Islt CARLOS <=0.12 S cefTRIAXone Islt CARLOS <=0.12 S Erythromycin Islt CARLOS <=0.12 S Vancomycin Islt CARLOS 0.5 S Normal [facility] Comment on above: Performed By: #### L 100.0500, L101.9900, L500.2500 #### [facility] [address] [place], [address] Vancomycin, Trough Levelon VANCO, TROUGH 21.8 ug/mL High 5.0-15.0 [facility] Comment on above: Order Comment: 1030 Result Comment: VANC OMYCIN STANDARED DRUG THERAPY TROUGH LEVEL: 5.0 - 15.0 mg/L VANCOMYCIN HIGH INTENSITY THERAPY TROUGH LEVEL: 15.0 - 20.0 mg/L High Intensity therapy recommended for serious life threatening infections include: - Meningitis -Endocarditis -Pneumonia (Ventilator/Healtcare Associated) -Sepsis PLEASE CONTACT PHARMACY SERVICES (#[phone]) FOR INTERPRETATION OF RESULTS. Performed By: #### L 100.0500, L101.9900, L500.2500 #### [facility] [address] [place], [address] Basic Metabolic Profile (BMP )on 05-06-2024 BUN/CRE 18.7 RATIO Normal 05-06 [facility] Comment on above: Performed By: #### L 100.0100, L500.2500 #### [facility] [address] [place], [address] CA,Total 9.4 mg/dL Normal 8.5-10.1 [facility] Comment on above: Performed By: #### L 100.0100, L500.2500 #### [facility] [address] [place], [address] Chloride [Moles/Vol] 101 mmol/L Normal 98-107 [facility] Comment on above: Performed By: #### L 100.0100, L500.2500 #### [facility] [address] [place], [address] CO2 [Moles/Vol] 25.0 mmol/L Normal 21.0-32.0 [facility] Comment on above: Performed By: #### L 100.0100, L500.2500 #### [facility] [address] [place], [address] Creatinine [Mass/Vol] 0.91 mg/dL Normal 0.70-1.30 [facility] Comment on above: Result Comment: The validity of the calculated GFR GFRAA in patients over 70 years has not been determined. Clinical correlation is essential. Performed By: #### L 100.0100, L500.2500 #### [facility] [address] [place], [address] ECRCL 75.66 ml/min Normal [facility] Comment on above: Performed By: #### L 100.0100, L500.2500 #### [facility] [address] [place], [address] EST GFR - AA 107 mL/min Normal >60 [facility] Comment on above: Result Comment: Afri can Guinean GFR Calc Performed By: #### L 100.0100, L500.2500 #### [facility] [address] [place], [address] GAP 6 Normal 5-15 [facility] Comment on above: Performed By: #### L 100.0100, L500.2500 #### [facility] [address] [place], [address] GFR/1.73 sq M.predicted among non-blacks MDRD (S/P/Bld) [Vol rate/Area] 89 mL/min/{1.73_m2} Normal >60 [facility] Comment on above: Result Comment: Non- GFR Calc Performed By: #### L 100.0100, L500.2500 #### [facility] [address] [place], [address] Glucose [Mass/Vol] 97 mg/dL Normal 74-106 [facility] Comment on above: Performed By: #### L 100.0100, L500.2500 #### [facility] [address] [place], [address] Potassium [Moles/Vol] 3.9 mmol/L Normal 3.5-5.1 [facility] Comment on above: Performed By: #### L 100.0100, L500.2500 #### [facility] [address] [place], [address] Sodium [Moles/Vol] 132 mmol/L Low 136-145 [facility] Comment on above: Performed By: #### L 100.0100, L500.2500 #### [facility] [address] [place], [address] Urea nitrogen [Mass/Vol] 17 mg/dL Normal 7-18 [facility] Comment on above: Performed By: #### L 100.0100, L500.2500 #### [facility] [address] [place], [address] CBC W/Diff, Automatedon 10-2 0 Absolute Lymph 2.18 X10 3/uL Normal 0.83-4.51 [facility] Comment on above: Performed By: #### L 100.0100, L500.2500 #### [facility] [address] [place], [address] Absolute Neut 9.2 X10 3/uL High 2.0-7.7 [facility] Comment on above: Performed By: #### L 100.0100, L500.2500 #### [facility] [address] [place], [address] Basophils/100 WBC (Bld) 0.6 % Normal 0-1 [facility] Comment on above: Performed By: #### L 100.0100, L500.2500 #### [facility] [address] [place], [address] Eosinophils/100 WBC (Bld) 2.0 % Normal 0-5 [facility] Comment on above: Performed By: #### L 100.0100, L500.2500 #### [facility] [address] [place], [address] Erythrocyte distribution width (RBC) [Ratio] 14.9 % High 11.6-14.6 [facility] Comment on above: Performed By: #### L 100.0100, L500.2500 #### [facility] [address] [place], [address] Hematocrit (Bld) [Volume fraction] 30.6 % Low 40-54 [facility] Comment on above: Performed By: #### L 100.0100, L500.2500 #### [facility] [address] [place], [address] Hemoglobin (Bld) [Mass/Vol] 9.8 g/dL Low 13.0-16.5 [facility] Comment on above: Performed By: #### L 100.0100, L500.2500 #### [facility] [address] [place], [address] IG% 3.700 High 0.0-0.9 [facility] Comment on above: Result Comment: IG% - Immature Granulocytes (promyelocytes, myelocytes and metamyelocytes) > 1% indicates that a LEFT SHIFT is Present. Performed By: #### L 100.0100, L500.2500 #### [facility] [address] [place], [address] Lymphocytes/100 WBC (Bld) 16.1 % Low 19-41 [facility] Comment on above: Performed By: #### L 100.0100, L500.2500 #### [facility] [address] [place], [address] MCH (RBC) [Entitic mass] 27.9 pg Normal 27.0-32.0 [facility] Comment on above: Performed By: #### L 100.0100, L500.2500 #### [facility] [address] [place], [address] MCHC (RBC) [Mass/Vol] 32.0 g/dL Normal 32-36 [facility] Comment on above: Performed By: #### L 100.0100, L500.2500 #### [facility] [address] [place], [address] MCV (RBC) [Entitic vol] 87.2 fL Normal 80-94 [facility] Comment on above: Performed By: #### L 100.0100, L500.2500 #### [facility] [address] [place], [address] Monocytes/100 WBC (Bld) 9.3 % Normal 0-10 [facility] Comment on above: Performed By: #### L 100.0100, L500.2500 #### [facility] [address] [place], [address] Neutrophils/100 WBC (Bld) 68.3 % Normal 47-70 [facility] Comment on above: Performed By: #### L 100.0100, L500.2500 #### [facility] [address] [place], [address] Nucleated RBC (Bld) [#/Vol] 0 10*3/uL Normal 0-5 [facility] Comment on above: Performed By: #### L 100.0100, L500.2500 #### [facility] [address] [place], [address] Platelet mean volume (Bld) [Entitic vol] 8.8 fL Normal 6.2-12.0 [facility] Comment on above: Performed By: #### L 100.0100, L500.2500 #### [facility] [address] [place], [address] Platelets (Bld) [#/Vol] 396 10*3/uL Normal 150-450 [facility] Comment on above: Performed By: #### L 100.0100, L500.2500 #### [facility] [address] [place], [address] RBC (Bld) [#/Vol] 3.51 10*6/uL Low 4.6-6.2 [facility] Comment on above: Performed By: #### L 100.0100, L500.2500 #### [facility] [address] [place], [address] RDW SD 46.5 fl High 35.1-43.9 [facility] Comment on above: Performed By: #### L 100.0100, L500.2500 #### [facility] [address] [place], [address] WBC (Bld) [#/Vol] 13.5 10*3/uL High 4.4-11.0 [facility] Comment on above: Performed By: #### L 100.0100, L500.2500 #### [facility] [address] [place], [address] BC GPC IDon 05-05-2024 BC GPC ID Blood cultures x2 fr om two different sites Enterococcus sp. Not Detected Listeria spp Not Detected NAAT METHOD Testing was performed using nucleic acid amplification Staphylococcus sp. Not Detected Streptococcus spp. A DETECTED A mecA Testing not performed Huong/vanB Not Detected Strep not Strep pneumo Normal [facility] Comment on above: Performed By: #### L 100.0500, L101.9900, L500.2500 #### [facility] [address] [place], [address] Basic Metabolic Profile (BMP )on 05-05-2024 BUN/CRE 24.9 RATIO High 05-06 [facility] Comment on above: Performed By: #### L 100.0500, L101.9900, L500.2500 #### [facility] [address] [place], [address] CA,Total 9.3 mg/dL Normal 8.5-10.1 [facility] Comment on above: Performed By: #### L 100.0500, L101.9900, L500.2500 #### [facility] [address] [place], [address] Chloride [Moles/Vol] 103 mmol/L Normal 98-107 [facility] Comment on above: Performed By: #### L 100.0500, L101.9900, L500.2500 #### [facility] [address] [place], [address] CO2 [Moles/Vol] 25.0 mmol/L Normal 21.0-32.0 [facility] Comment on above: Performed By: #### L 100.0500, L101.9900, L500.2500 #### [facility] [address] [place], [address] Creatinine [Mass/Vol] 0.84 mg/dL Normal 0.70-1.30 [facility] Comment on above: Result Comment: The validity of the calculated GFR GFRAA in patients over 70 years has not been determined. Clinical correlation is essential. Performed By: #### L 100.0500, L101.9900, L500.2500 #### [facility] [address] [place], [address] ECRCL 81.97 ml/min Normal [facility] Comment on above: Performed By: #### L 100.0500, L101.9900, L500.2500 #### [facility] [address] [place], [address] EST GFR - AA 117 mL/min Normal >60 [facility] Comment on above: Result Comment: Afri can Guinean GFR Calc Performed By: #### L 100.0500, L101.9900, L500.2500 #### [facility] [address] [place], [address] GAP 5 Normal 5-15 [facility] Comment on above: Performed By: #### L 100.0500, L101.9900, L500.2500 #### [facility] [address] [place], [address] GFR/1.73 sq M.predicted among non-blacks MDRD (S/P/Bld) [Vol rate/Area] 97 mL/min/{1.73_m2} Normal >60 [facility] Comment on above: Result Comment: Non- GFR Calc Performed By: #### L 100.0500, L101.9900, L500.2500 #### [facility] [address] [place], [address] Glucose [Mass/Vol] 96 mg/dL Normal 74-106 [facility] Comment on above: Performed By: #### L 100.0500, L101.9900, L500.2500 #### [facility] [address] [place], [address] Potassium [Moles/Vol] 4.0 mmol/L Normal 3.5-5.1 [facility] Comment on above: Performed By: #### L 100.0500, L101.9900, L500.2500 #### [facility] [address] [place], [address] Sodium [Moles/Vol] 133 mmol/L Low 136-145 [facility] Comment on above: Performed By: #### L 100.0500, L101.9900, L500.2500 #### [facility] [address] [place], [address] Urea nitrogen [Mass/Vol] 21 mg/dL High 7-18 [facility] Comment on above: Performed By: #### L 100.0500, L101.9900, L500.2500 #### [facility] [address] [place], [address] CBC W/Diff, Automatedon 10-1 Absolute Lymph 2.18 X10 3/uL Normal 0.83-4.51 [facility] Comment on above: Performed By: #### L 100.0500, L101.9900, L500.2500 #### [facility] [address] [place], [address] Absolute Neut 7.3 X10 3/uL Normal 2.0-7.7 [facility] Comment on above: Performed By: #### L 100.0500, L101.9900, L500.2500 #### [facility] [address] [place], [address] Basophils/100 WBC (Bld) 0.7 % Normal 0-1 [facility] Comment on above: Performed By: #### L 100.0500, L101.9900, L500.2500 #### [facility] [address] [place], [address] Eosinophils/100 WBC (Bld) 1.8 % Normal 0-5 [facility] Comment on above: Performed By: #### L 100.0500, L101.9900, L500.2500 #### [facility] [address] [place], [address] Erythrocyte distribution width (RBC) [Ratio] 14.9 % High 11.6-14.6 [facility] Comment on above: Performed By: #### L 100.0500, L101.9900, L500.2500 #### [facility] [address] [place], [address] Hematocrit (Bld) [Volume fraction] 30.7 % Low 40-54 [facility] Comment on above: Performed By: #### L 100.0500, L101.9900, L500.2500 #### [facility] [address] [place], [address] Hemoglobin (Bld) [Mass/Vol] 10.0 g/dL Low 13.0-16.5 [facility] Comment on above: Performed By: #### L 100.0500, L101.9900, L500.2500 #### [facility] [address] [place], [address] IG% 4.100 High 0.0-0.9 [facility] Comment on above: Result Comment: IG% - Immature Granulocytes (promyelocytes, myelocytes and metamyelocytes) > 1% indicates that a LEFT SHIFT is Present. Performed By: #### L 100.0500, L101.9900, L500.2500 #### [facility] [address] [place], [address] Lymphocytes/100 WBC (Bld) 18.9 % Low 19-41 [facility] Comment on above: Performed By: #### L 100.0500, L101.9900, L500.2500 #### [facility] [address] [place], [address] MCH (RBC) [Entitic mass] 28.5 pg Normal 27.0-32.0 [facility] Comment on above: Performed By: #### L 100.0500, L101.9900, L500.2500 #### [facility] [address] [place], [address] MCHC (RBC) [Mass/Vol] 32.6 g/dL Normal 32-36 [facility] Comment on above: Performed By: #### L 100.0500, L101.9900, L500.2500 #### [facility] [address] [place], [address] MCV (RBC) [Entitic vol] 87.5 fL Normal 80-94 [facility] Comment on above: Performed By: #### L 100.0500, L101.9900, L500.2500 #### [facility] [address] [place], [address] Monocytes/100 WBC (Bld) 11.3 % High 0-10 [facility] Comment on above: Performed By: #### L 100.0500, L101.9900, L500.2500 #### [facility] [address] [place], [address] Neutrophils/100 WBC (Bld) 63.2 % Normal 47-70 [facility] Comment on above: Performed By: #### L 100.0500, L101.9900, L500.2500 #### [facility] [address] [place], [address] Nucleated RBC (Bld) [#/Vol] 0 10*3/uL Normal 0-5 [facility] Comment on above: Performed By: #### L 100.0500, L101.9900, L500.2500 #### [facility] [address] [place], [address] Platelet mean volume (Bld) [Entitic vol] 8.8 fL Normal 6.2-12.0 [facility] Comment on above: Performed By: #### L 100.0500, L101.9900, L500.2500 #### [facility] [address] [place], [address] Platelets (Bld) [#/Vol] 349 10*3/uL Normal 150-450 [facility] Comment on above: Performed By: #### L 100.0500, L101.9900, L500.2500 #### [facility] [address] [place], [address] RBC (Bld) [#/Vol] 3.51 10*6/uL Low 4.6-6.2 [facility] Comment on above: Performed By: #### L 100.0500, L101.9900, L500.2500 #### [facility] [address] [place], [address] RDW SD 47.5 fl High 35.1-43.9 [facility] Comment on above: Performed By: #### L 100.0500, L101.9900, L500.2500 #### [facility] [address] [place], [address] WBC (Bld) [#/Vol] 11.5 10*3/uL High 4.4-11.0 [facility] Comment on above: Performed By: #### L 100.0500, L101.9900, L500.2500 #### [facility] [address] [place], [address] Echo Completeon 05-05-2024 Echo Complete [facility] [address] [place] [address] Echo Complete 05/05/24 0855 MR#: [id number] Acct: [id number] Name: DALLAS MARTIN Rep #: [id number] : 1960 63 From: Reese Munoz MD Attending Dr: Dr. Jessi Ivan, DO Status: ADM I N Ordering Dr: Malena Bell MD Date: 05/05/24 Location: ANY Sex: M C Admitted: 05/03/24 Version 2 Reason For Study: ENDOCARDITIS Procedure This was a 2D Doppler, Color Flow transthoracic echocardiogram. Patient was scanned in supine position during reflux assessment. Exam performed portable in patient room. Left Ventricle Normal LV size. Left ventricular systolic function is normal. The left ventricular ejection fraction is 65 %. No regional wall motion abnormalities noted. Right Ventricle Normal RV size. Normal systolic function. Atria Normal left atrium. Normal right atrium. Mitral Valve Moderate focal mitral valve thickening. Mild (1+) mitral valve insufficiency. Tricuspid Valve Normal tricuspid valve. Aortic Valve Trisinus/trileaflet aortic valve. Pulmonic Valve Normal pulmonic valve. Great Vessels Normal aortic root. The pulmonary artery is normal size. Inferior vena cava collapse with respiration. Pericardium/Pleural No pericardial effusion. MMode/2D Measurements Calculations LVIDd: 4.3 cm IVSd: 1.1 cm LVOT diam: 2.1 cm LVIDs: 1.7 cm LVPWd: 1.1 cm LVOT area: 3.5 cm2 RVDd: 3.1 cm FS: 61.4 % asc Aorta Diam: 3.4 cm LAV(MOD-bp): 35.1 ml LVAd ap4: 22.0 cm2 LAV(MOD-bp) Indexed: 18.9 ml/m2 LVLd ap4: 7.2 cm LAV(MOD-sp2): 36.4 ml EDV(MOD-sp4): 56.5 ml LAV(MOD-sp4): 34.6 ml EDV(sp4-el): 57.3 ml LVAs ap4: 11.3 cm2 LVLs ap4: 6.0 cm ESV(MOD-sp4): 18.7 ml ESV(sp4-el): 17.8 ml EF(MOD-sp4): 66.9 % EF(sp4-el): 68.9 % LVAd ap2: 22.1 cm2 SV(MOD-sp4): 37.8 ml SV(MOD-sp2): 34.9 ml LVLd ap2: 7.5 cm EDV(MOD-sp2): 53.0 ml EDV(sp2-el): 54.8 ml LVAs ap2: 11.2 cm2 LVLs ap2: 6.0 cm ESV(MOD-sp2): 18.1 ml ESV(sp2-el): 17.8 ml EF(MOD-sp2): 65.8 % SV(sp4-el): 39.5 ml Ao sinus diam: 3.[address] Junction: 2.8 cm LA dimension(2D): 3.6 cm LA A4 area: 14.5 cm2 RA A4 area: 8.3 cm2 TAPSE: 2.0 cm Time Measurements MV dec time: 0.19 sec Doppler Measurements Calculations MV E max ean: 129.0 cm/sec Lat Peak E' Ean: 10.4 cm/sec Med Peak E' Ean: 8.0 cm/sec MV A max ean: 136.1 cm/sec E/E' lat: 12.4 E/E' med: 16.1 MV E/A: 0.95 MV dec slope: 668.5 cm/sec2 Ao V2 max: 169.4 cm/sec LV V1 max: 140.4 cm/sec Ao max P.5 mmHg LV V1 max P.9 mmHg Ao V2 mean: 118.3 cm/sec LV V1 mean P.8 mmHg Ao mean P.3 mmHg LV V1 mean: 106.4 cm/sec Ao V2 VTI: 26.7 cm LV V1 VTI: 21.3 cm AV (velocity ratio): 0.80 MACK(I,D): 2.8 cm2 MACK(V,D): 2.9 cm2 SV(LVOT): 75.5 ml PA V2 max: 140.6 cm/sec PA max PG (full): 5.3 mmHg ECHO/Echo Complete Interpretation Summary Normal LV size and function with EF 65% Normal RV size and function Thickened MV leafllet with 0.2 by 0.7cm thickening on anterior MV leaflet.. Cannot exclude endocarditis or healed vegetation Mild MR No pericardial effusion. Ordering Physician: Malena Bell Referring Physician: Rosie Trejo MD Performed By: Dannielle Cantu RDCS 05/07/241927 Date Reese Munoz MD CC: Dr. Ottoniel Hutchinson MD; Dr. Rosie Trejo MD; Dr. Jessi Ivan DO; Dr. Malena Bell MD Date Dictated: 05/05/24854 Date Transcribed: 05/05/241336 [employer] Cost Estimator: Signed Normal [place] Vancomycin, Trough [place]on VANCO, TROUGH 16.1 ug/mL High 5.0-15.0 [facility] Comment on above: Order Comment: Comme nts: Trough to be drawn 30 mins prior to scheduled [id number] Result Comment: VANC OMYCIN STANDARED DRUG THERAPY TROUGH LEVEL: 5.0 - 15.0 mg/L VANCOMYCIN HIGH INTENSITY THERAPY TROUGH LEVEL: 15.0 - 20.0 mg/L High Intensity therapy recommended for serious life threatening infections include: - Meningitis -Endocarditis -Pneumonia (Ventilator/Healtcare Associated) -Sepsis PLEASE CONTACT PHARMACY SERVICES (#[id number]) FOR INTERPRETATION OF RESULTS. Performed By: #### L 100.0100, L500.2500 #### [facility] [address] [place], [address] CBC W/Diff, Automatedon 04-17 PATH REV Reviewed Normal [place] Comment on above: Result Comment: Neut rophilic leukocytosis. Normocytic anemia. Clinical correlation necessary. Fitz Cope M.D. 05/04/24 AMENDED REPORT 05/04/24 9787 PATH REV previously reported as: Dulce christopher Performed By: #### L 100.0100, L503.6550, L503.6030, L500.4050 #### [facility] [address] [place], [address] Comprehensive Metabolic [facility] ilon 05-04-2024 Albumin [Mass/Vol] 2.3 g/dL Low 3.2-5.0 [facility] Comment on above: Performed By: #### L 100.0100, L503.6550, L503.6030, L500.4050 #### [facility] [address] [place], [address] Albumin/Globulin [Mass ratio] 0.6 {ratio} Low 0.9-2.4 [facility] Comment on above: Performed By: #### L 100.0100, L503.6550, L503.6030, L500.4050 #### [facility] [address] [place], [address] ALK P 120 U/L High 45-117 [facility] Comment on above: Performed By: #### L 100.0100, L503.6550, L503.6030, L500.4050 #### [facility] [address] [place], [address] ALT [Catalytic activity/Vol] 25 U/L Normal 16-61 [facility] Comment on above: Performed By: #### L 100.0100, L503.6550, L503.6030, L500.4050 #### [facility] [address] [place], [address] AST [Catalytic activity/Vol] 23 U/L Normal 15-37 [facility] Comment on above: Performed By: #### L 100.0100, L503.6550, L503.6030, L500.4050 #### [facility] [address] [place], [address] Bilirubin [Mass/Vol] 0.80 mg/dL Normal 0.20-1.00 [facility] Comment on above: Result Comment: For patients on eltrombopag therapy, use of Dimension [place] TBIL is not recommended. Performed By: #### L 100.0100, L503.6550, L503.6030, L500.4050 #### [facility] [address] [place], [address] BUN/CRE 22.6 RATIO High 10-20 [facility] Comment on above: Performed By: #### L 100.0100, L503.6550, L503.6030, L500.4050 #### [facility] [address] [place], [address] CA,Total 9.0 mg/dL Normal 8.5-10.1 [facility] Comment on above: Performed By: #### L 100.0100, L503.6550, L503.6030, L500.4050 #### [facility] [address] [place], [address] Chloride [Moles/Vol] 104 mmol/L Normal 98-107 [facility] Comment on above: Performed By: #### L 100.0100, L503.6550, L503.6030, L500.4050 #### [facility] [address] [place], [address] CO2 [Moles/Vol] 22.0 mmol/L Normal 21.0-32.0 [facility] Comment on above: Performed By: #### L 100.0100, L503.6550, L503.6030, L500.4050 #### [facility] [address] [place], [address] Creatinine [Mass/Vol] 0.84 mg/dL Normal 0.70-1.30 [facility] Comment on above: Result Comment: The validity of the calculated GFR GFRAA in patients over 70 years has not been determined. Clinical correlation is essential. Performed By: #### L 100.0100, L503.6550, L503.6030, L500.4050 #### [facility] [address] [place], [address] ECRCL 81.97 ml/min Normal [facility] Comment on above: Performed By: #### L 100.0100, L503.6550, L503.6030, L500.4050 #### [facility] [address] [place], [address] EST GFR - AA 118 mL/min Normal >60 [facility] Comment on above: Result Comment: Afri can Guinean GFR Calc Performed By: #### L 100.0100, L503.6550, L503.6030, L500.4050 #### [facility] [address] [place], [address] GAP 8 Normal 5-15 [facility] Comment on above: Performed By: #### L 100.0100, L503.6550, L503.6030, L500.4050 #### [facility] [address] [place], [address] GFR/1.73 sq M.predicted among non-blacks MDRD (S/P/Bld) [Vol rate/Area] 97 mL/min/{1.73_m2} Normal >60 [facility] Comment on above: Result Comment: Non- GFR Calc Performed By: #### L 100.0100, L503.6550, L503.6030, L500.4050 #### [facility] [address] [place], [address] Globulin (S) [Mass/Vol] 3.8 g/dL Normal 2.2-4.2 [facility] Comment on above: Performed By: #### L 100.0100, L503.6550, L503.6030, L500.4050 #### [facility] [address] [place], [address] Glucose [Mass/Vol] 87 mg/dL Normal 74-106 [facility] Comment on above: Performed By: #### L 100.0100, L503.6550, L503.6030, L500.4050 #### [facility] [address] [place], [address] Potassium [Moles/Vol] 4.2 mmol/L Normal 3.5-5.1 [facility] Comment on above: Performed By: #### L 100.0100, L503.6550, L503.6030, L500.4050 #### [facility] [address] [place], [address] Sodium [Moles/Vol] 134 mmol/L Low 136-145 [facility] Comment on above: Performed By: #### L 100.0100, L503.6550, L503.6030, L500.4050 #### [facility] [address] [place], [address] T PROT 6.1 g/dL Low 6.4-8.2 [facility] Comment on above: Performed By: #### L 100.0100, L503.6550, L503.6030, L500.4050 #### [facility] [address] [place], [address] Urea nitrogen [Mass/Vol] 19 mg/dL High 7-18 [facility] Comment on above: Performed By: #### L 100.0100, L503.6550, L503.6030, L500.4050 #### [facility] [address] [place], [address] Consultation - Infectious Dx on 05-04-2024 Consultation - Infectious Dx [facility] Medical Records Department [address] [place] [address] Consultation - Infectious Dx 05/04/24 1312 MR#: [id number] Acct: [id number] Name: DALLAS MARTIN Rep #: [id number] : 1960 63 From: Sriram Guerrier MD PCP: Dr. Rosie Trejo MD Status:ADM IN Location: MS3 [id number] Assessment Plan Assessment/Plan (1) Lumbar discitis: PLAN: IR aspiration not available today. Bcx pending. Will narrow to vanc/ceftriaxone. Plan at discharge will be 2 lumen picc and 6 weeks vanc/ceftriaxone, pending clinical progress and further cx results. Will follow, thank you HPI Consult Data Date of Consult: 05/04/24 HPI Narrative Reason for Consultation: discitis HPI Narrative: DALLAS MARTIN, is a 63 M with h/o BPH, presented 05/03 with about 2 months progressive lower back pain, worse with movement. Pain can be severe. A few weeks prior to back pain, developed drenching night sweats, some fever and chills. No known inciting event, no recent infections, procedures, or dental work. No loss of bowel/bladder control. Pain does not radiate. Saw PCP, MRI ordered but took 3-4 weeks to get scheduled. Admitted with discitis, started on vanc/cefepime, feeling ok today, no pain at rest in bed. Full ROS performed and neg except as noted above. [facility] Medical History BPH (benign prostatic hyperplasia) GERD (gastroesophageal reflux disease) Hypertension Home Medications ???Medication ???Instructions ???Recorded ???Last Taken ???Type aspirin-caffeine 400 mg-32 mg 1 ea PO PRN PRN Pain 04/08/14 Unknown History tablet (Anacin) hydrochlorothiazide 12.5 mg capsule 12.5 mg PO PRN PRN Blood Pressure 04/08/14 Unknown History lisinopril 10 mg tablet 10 mg PO QHS 04/08/14 Unknown History chlorpheniramine maleate 4 mg 4 mg PO QHS PRN PRN insomnia 05/03/24 Unknown History tablet (Allergy (chlorpheniramine)) magnesium oxide 400 mg (241.3 mg 400 mg PO QHS 05/03/24 Unknown History magnesium) tablet nabumetone 750 mg tablet 750 mg PO BID 05/03/24 Unknown History tramadol 50 mg tablet 50 mg PO TID PRN PRN pain 05/03/24 Unknown History Allergy/AdvReac Type Severity Reaction Status Date / Time No Known Allergies Allergy Verified 05/03/24 17:38 Family History adopted Surgical History S/P colonoscopy H/O wisdom tooth extraction History of tonsillectomy and adenoidectomy Social History household members: spouse Smoking Status: Never smoker alcohol intake: current alcohol intake frequency: holidays/special occasions only substance use type: does not use Physical Exam Const alert, oriented x3 and no apparent distress General Appearance: cooperative HEENT normocephalic and head/scalp atraumatic Eyes PERRL and EOMs intact bilaterally Neck supple and No nodes Resp normal air movement and clear to auscultation bilaterally Cardio regular rate and regular rhythm GI soft to palpation, non-tender and non-distended Extremity General Extremity: Negative for edema Skin no rashes or lesions noted Skin Narrative: minimal lumber spine tenderness Neuro CN's II-XII intact bilaterally Medical Records Data Medical Nutrition Assessment Dietitian: Malnutrition Criteria Met Start: 05/04/24 12:31 Freq: Status: Active Protocol: Document 05/04/24 12:31 SLA (Rec: 05/04/24 12:32 SLA [id number]) Nutrition Malnutrition Evidence of Malnutrition Exists Yes Malnutrition (severe): Acute Illness/Injury Evidenced By Suboptimal Energy Intake ( Severe),Weight Loss (Severe) Clinical Problem Acute Disease or Injury Related Malnutrition Etiology related to increased back pain and inadequate energy intake Signs/Symptoms as evidenced by po intake meeting <75% of est nutritional needs 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 05/04/24 06:18 05/04/24 06:18 Labs: Laboratory Results - last 24 hr 05/03/24 18:25: WBC 14.4 H, RBC 3.61 L, Hgb 10.4 L, Hct 31.3 L, MCV 86.7, MCH 28.8, MCHC 33.2, RDW Std Deviation 46.4 H, RDW Coeff of Tabitha 14.7 H, Plt Count 320, MPV 9.2, Immature Gran % (Auto) 2.200 H, Neut % (Auto) 77.8 H, Lymph % (Auto) 12.1 L, Wilson % (Auto) 7.4, Eos % (Auto) 0.2, Baso % (Auto) 0.3, Absolute Neuts (auto) 11.2 H, Absolute Lymphs (auto) 1.75, Nucleated RBC % 0, ESR 25 H, Sodium 132 L, Potassium 4.0, Chloride 101, Carbon Dioxide (more content not included)... Normal [place] Consultation - Orthopedicson 05-04-2024 Consultation - Orthopedics [facility] Medical Records Department [address] [place] [address] Consultation - Orthopedics 05/04/24 0719 MR#: [id number] Acct: [id number] Name: DALLAS MARTIN Rep #: [id number] : 1960 63 From: Vasquez Rutherford DO PCP: Dr. Rosie Trejo MD Status:ADM IN Location: [facility] [id number] HPI Consult Data Date of Consult: 05/04/24 HPI Narrative Reason for Consultation: Back pain HPI Narrative: The patient is a 63-year-old male here with complaints of acute severe exacerbation of chronic low back pain which has been worsening since February. Onset was insidious. He denies any history of back surgeries or back injections. He describes vague pain in the lumbar region especially with activity. He denies any acute numbness tingling weakness or changes in bowel or bladder function. He denies any fever chills nausea vomiting. He did present to the ER yesterday for back pain and was subsequently admitted. Labs show elevated WBC, ESR and CRP. Lumbar MRI dated 05/02/2024 shows concern for discitis at L1-2. At this time he is lying in bed resting comfortably. He does complain of lumbar pain with activity and movement. He denies any other complaints at this time [facility] Medical History BPH (benign prostatic hyperplasia) GERD (gastroesophageal reflux disease) Hypertension Home Medications ???Medication ???Instructions ???Recorded ???Last Taken ???Type aspirin-caffeine 400 mg-32 mg 1 ea PO PRN PRN Pain 04/08/14 Unknown History tablet (Anacin) hydrochlorothiazide 12.5 mg capsule 12.5 mg PO PRN PRN Blood Pressure 04/08/14 Unknown History lisinopril 10 mg tablet 10 mg PO QHS 04/08/14 Unknown History chlorpheniramine maleate 4 mg 4 mg PO QHS PRN PRN insomnia 05/03/24 Unknown History tablet (Allergy (chlorpheniramine)) magnesium oxide 400 mg (241.3 mg 400 mg PO QHS 05/03/24 Unknown History magnesium) tablet nabumetone 750 mg tablet 750 mg PO BID 05/03/24 Unknown History tramadol 50 mg tablet 50 mg PO TID PRN PRN pain 05/03/24 Unknown History Allergy/AdvReac Type Severity Reaction Status Date / Time No Known Allergies Allergy Verified 05/03/24 17:38 Family History adopted Surgical History S/P colonoscopy H/O wisdom tooth extraction History of tonsillectomy and adenoidectomy Social History household members: spouse Smoking Status: Never smoker alcohol intake: current alcohol intake frequency: holidays/special occasions only substance use type: does not use Vital Signs Vital Signs Vital Signs: 05/03/24 17:35 05/03/24 18:34 05/03/24 19:00 Temperature 98.1 F Temperature Source Oral Pulse Rate 117 H 68 Respiratory Rate 16 Respiratory Effort Respiratory Depth Respiratory Pattern Blood Pressure 138/77 H 149/87 H 140/86 H Blood Pressure Mean 97 107 104 Pulse Ox 99 99 Oxygen Delivery Method Room Air Room Air 05/03/24 19:35 05/03/24 20:00 05/03/24 21:10 Temperature 98.2 F 98.3 F Temperature Source Oral Pulse Rate 78 78 118 H Respiratory Rate 16 18 Respiratory Effort Respiratory Depth Respiratory Pattern Blood Pressure 138/88 H 136/84 H 140/95 H Blood Pressure Mean 104 101 110 Pulse Ox 97 97 Oxygen Delivery Method Room Air 05/03/24 22:55 05/04/24 06:15 Temperature 98.8 F Temperature Source Oral Pulse Rate 111 H Respiratory Rate 19 H Respiratory Effort Normal Respiratory Depth Normal Respiratory Pattern Normal Blood Pressure 131/87 H Blood Pressure Mean 101 Pulse Ox 97 Oxygen Delivery Method Room Air Room Air Weight Weight: 163 lb 15.324 oz Body Mass Index (BMI) 25.7 Physical Exam Const alert, oriented x3 and no apparent distress General Appearance: cooperative, comfortable and well kempt Neck full ROM General: normal visual inspection Resp normal respiratory effort and normal air movement Effort and Inspection: able to speak in complete sentences Cardio regular rate and peripheral pulses 2+ throughout GI soft to palpation, non-tender and non-distended Back/Spine Back/Spine Narrative: No tenderness of the cervical or thoracic spine. Minimal tenderness of the lumbar midline. Lumbar pain with movement Cervical Spine: cervical ROM normal Thoracic Spine / Upper Back: normal to inspection Extremity normal to inspection, full ROM, normal capillary refill, no clubbing, cyanosis or edema and no calf tenderness Skin no rashes or lesions noted General Skin Exam: no breakdown Neuro oriented x3, CN's II-XII intact bilaterally, moves all extremities, no focal motor deficits, no sensory deficits noted and deep t (more content not included)... Normal [place] Ferritinon 05-04-2024 Ferritin [Mass/Vol] 855 ng/mL High 26-388 [facility] Comment on above: Performed By: #### L 100.0100, L503.6550, L503.6030, L500.4050 ####[facility] [id number] [place], [address] Iron+Iron Binding Capacityon 05-04-2024 Iron [Mass/Vol] 22 ug/dL Low 65-175 [facility] Comment on above: Performed By: #### L 100.0100, L503.6550, L503.6030, L500.4050 ####[facility] [address] [place], [address] IRON SATURATION 13.3 Low 15.0-55.0 [facility] Comment on above: Performed By: #### L 100.0100, L503.6550, L503.6030, L500.4050 ####[facility] [address] [place], [address] TIBC 165 ug/dL Low 250-450 [facility] Comment on above: Performed By: #### L 100.0100, L503.6550, L503.6030, L500.4050 ####[facility] [address] [place], [address] Basic Metabolic Profile (BMP )on 05-03-2023 BUN/CRE 24.4 RATIO High 05-06 [facility] Comment on above: Performed By: #### L 100.0500, L101.9900, L500.2500 #### [facility] [address] [place], [address] CA,Total 9.3 mg/dL Normal 8.5-10.1 [facility] Comment on above: Performed By: #### L 100.0500, L101.9900, L500.2500 #### [facility] [address] [place], [address] Chloride [Moles/Vol] 101 mmol/L Normal 98-107 [facility] Comment on above: Performed By: #### L 100.0500, L101.9900, L500.2500 #### [facility] [address] [place], [address] CO2 [Moles/Vol] 23.0 mmol/L Normal 21.0-32.0 [facility] Comment on above: Performed By: #### L 100.0500, L101.9900, L500.2500 #### [facility] [address] [place], [address] Creatinine [Mass/Vol] 0.94 mg/dL Normal 0.70-1.30 [facility] Comment on above: Result Comment: The validity of the calculated GFR GFRAA in patients over 70 years has not been determined. Clinical correlation is essential. Performed By: #### L 100.0500, L101.9900, L500.2500 #### [facility] [address] [place], [address] EST GFR - AA 103 mL/min Normal >60 [facility] Comment on above: Result Comment: Afri can Guinean GFR Calc Performed By: #### L 100.0500, L101.9900, L500.2500 #### [facility] [address] [place], [address] GAP 8 Normal 5-15 [facility] Comment on above: Performed By: #### L 100.0500, L101.9900, L500.2500 #### [facility] [address] [place], [address] GFR/1.73 sq M.predicted among non-blacks MDRD (S/P/Bld) [Vol rate/Area] 85 mL/min/{1.73_m2} Normal >60 [facility] Comment on above: Result Comment: Non- GFR Calc Performed By: #### L 100.0500, L101.9900, L500.2500 #### [facility] [address] [place], [address] Glucose [Mass/Vol] 100 mg/dL Normal 74-106 [facility] Comment on above: Result Comment: Fast ing Glucose result from 100 to 125 mg/dL suggests IMPAIRED HOMEOSTASIS per A.D.A. criteria. Performed By: #### L 100.0500, L101.9900, L500.2500 #### [facility] [address] [place], [address] Potassium [Moles/Vol] 4.0 mmol/L Normal 3.5-5.1 [facility] Comment on above: Performed By: #### L 100.0500, L101.9900, L500.2500 #### [facility] [address] [place], [address] Sodium [Moles/Vol] 132 mmol/L Low 136-145 [facility] Comment on above: Performed By: #### L 100.0500, L101.9900, L500.2500 #### [facility] [address] [place], [address] Urea nitrogen [Mass/Vol] 23 mg/dL High 7-18 [facility] Comment on above: Performed By: #### L 100.0500, L101.9900, L500.2500 #### [facility] [address] [place], [address] CBC W/Diff, Automatedon 04-17 Absolute Lymph 1.75 X10 3/uL Normal 0.83-4.51 [facility] Comment on above: Performed By: #### L 100.0500, L101.9900, L500.2500 #### [facility] [address] [place], [address] Absolute Neut 11.2 X10 3/uL High 2.0-7.7 [facility] Comment on above: Performed By: #### L 100.0500, L101.9900, L500.2500 #### [facility] [address] [place], [address] Basophils/100 WBC (Bld) 0.3 % Normal 0-1 [facility] Comment on above: Performed By: #### L 100.0500, L101.9900, L500.2500 #### [facility] [address] [place], [address] Eosinophils/100 WBC (Bld) 0.2 % Normal 0-5 [facility] Comment on above: Performed By: #### L 100.0500, L101.9900, L500.2500 #### [facility] [address] [place], [address] Erythrocyte distribution width (RBC) [Ratio] 14.7 % High 11.6-14.6 [facility] Comment on above: Performed By: #### L 100.0500, L101.9900, L500.2500 #### [facility] [address] [place], [address] Hematocrit (Bld) [Volume fraction] 31.3 % Low 40-54 [facility] Comment on above: Performed By: #### L 100.0500, L101.9900, L500.2500 #### [facility] [address] [place], [address] Hemoglobin (Bld) [Mass/Vol] 10.4 g/dL Low 13.0-16.5 [facility] Comment on above: Performed By: #### L 100.0500, L101.9900, L500.2500 #### [facility] [address] [place], [address] IG% 2.200 High 0.0-0.9 [facility] Comment on above: Result Comment: IG% - Immature Granulocytes (promyelocytes, myelocytes and metamyelocytes) > 1% indicates that a LEFT SHIFT is Present. Performed By: #### L 100.0500, L101.9900, L500.2500 #### [facility] [address] [place], [address] Lymphocytes/100 WBC (Bld) 12.1 % Low 19-41 [facility] Comment on above: Performed By: #### L 100.0500, L101.9900, L500.2500 #### [facility] [address] [place], [address] MCH (RBC) [Entitic mass] 28.8 pg Normal 27.0-32.0 [facility] Comment on above: Performed By: #### L 100.0500, L101.9900, L500.2500 #### [facility] [address] [place], [address] MCHC (RBC) [Mass/Vol] 33.2 g/dL Normal 32-36 [facility] Comment on above: Performed By: #### L 100.0500, L101.9900, L500.2500 #### [facility] [address] [place], [address] MCV (RBC) [Entitic vol] 86.7 fL Normal 80-94 [facility] Comment on above: Performed By: #### L 100.0500, L101.9900, L500.2500 #### [facility] [address] [place], [address] Monocytes/100 WBC (Bld) 7.4 % Normal 0-10 [facility] Comment on above: Performed By: #### L 100.0500, L101.9900, L500.2500 #### [facility] [address] [place], [address] Neutrophils/100 WBC (Bld) 77.8 % High 47-70 [facility] Comment on above: Performed By: #### L 100.0500, L101.9900, L500.2500 #### [facility] [address] [place], [address] Nucleated RBC (Bld) [#/Vol] 0 10*3/uL Normal 0-5 [facility] Comment on above: Performed By: #### L 100.0500, L101.9900, L500.2500 #### [facility] [address] [place], [address] Platelet mean volume (Bld) [Entitic vol] 9.2 fL Normal 6.2-12.0 [facility] Comment on above: Performed By: #### L 100.0500, L101.9900, L500.2500 #### [facility] [address] [place], [address] Platelets (Bld) [#/Vol] 320 10*3/uL Normal 150-450 [facility] Comment on above: Performed By: #### L 100.0500, L101.9900, L500.2500 #### [facility] [address] [place], [address] RBC (Bld) [#/Vol] 3.61 10*6/uL Low 4.6-6.2 [facility] Comment on above: Performed By: #### L 100.0500, L101.9900, L500.2500 #### [facility] [address] [place], [address] RDW SD 46.4 fl High 35.1-43.9 [facility] Comment on above: Performed By: #### L 100.0500, L101.9900, L500.2500 #### [facility] [address] [place], [address] WBC (Bld) [#/Vol] 14.4 10*3/uL High 4.4-11.0 [facility] Comment on above: Performed By: #### L 100.0500, L101.9900, L500.2500 #### [facility] [address] [place], [address] CRPon 05-03-2024 C-REACTIVE PROT 148.00 mg/L High 0.0-3.0 [facility] Comment on above: Result Comment: C-Re active Protein (CRP) provides useful information for the diagnosis, therapy and monitoring of inflammatory processes and associated diseases. For the evaluation of Relative Risk for Cardiovascular Disease, a High Sensitivity CRP (HSCRP) should be ordered. Performed By: #### L 100.0500, L101.9900, L500.2500 #### [facility] [address] [place], [address] Emergency Department Summary on 05-03-2024 Emergency Department Summary [facility] Medical Records Department [address] [place] [address] Emergency Department Summary 05/03/24 MR#: [id number] Acct: [id number] Name: DALLAS MARTIN Rep #: [id number] : 1960 63 From: Ottoniel Hutchinson MD PCP: Dr. Rosie Trejo MD Status:REG ER Location: ED HPI History of Present Illness Chief Complaint: Back Informant: patient and spouse/S.O. Narrative Narrative: 63-year-old male states he was sent to the ER because of an abnormal MRI he had yesterday. He has had back pain for the past 5 weeks that started when he sat down on the couch, he said it hurt him suddenly and his low back. Since then hurt more to move, he expected it would go away within a couple days, he has had that happen before after lifting something heavy and getting a soreness or something. However it did not and continued to get worse. He saw his doctor had some x-rays that were negative and then this MRI yesterday that returned report today concerning for discitis. Given that he was referred here to the ER. The patient denies having any weakness or numbness in his lower extremities, abdominal pain, bowel or bladder dysfunction but he has been experiencing subjective fevers and chills for at least the past week or so, the states they measured it at 101 once. Since then the patient has been taking Tylenol every night before he goes to bed sometimes waking up in a sweat. [facility] Medical History (Updated 05/03/24 @ 19:[address] Meena Boyle MD) BPH (benign prostatic hyperplasia) GERD (gastroesophageal reflux disease) Hypertension Home Medications ???Medication ???Instructions ???Recorded ???Last Taken ???Type aspirin-caffeine 400 mg-32 mg 1 ea PO PRN PRN Pain 04/08/14 Unknown History tablet (Anacin) bethanechol chloride 25 mg tablet 50 mg PO TID 04/08/14 Unknown History hydrochlorothiazide 12.5 mg capsule 12.5 mg PO PRN PRN Blood Pressure 04/08/14 Unknown History lisinopril 10 mg tablet 10 mg PO QHS 04/08/14 Unknown History chlorpheniramine maleate 4 mg 4 mg PO QHS PRN PRN insomnia 05/03/24 Unknown History tablet (Allergy (chlorpheniramine)) magnesium oxide 400 mg (241.3 mg 400 mg PO QHS 05/03/24 Unknown History magnesium) tablet nabumetone 750 mg tablet 750 mg PO BID 05/03/24 Unknown History tramadol 50 mg tablet 50 mg PO TID PRN PRN pain 05/03/24 Unknown History Allergy/AdvReac Type Severity Reaction Status Date / Time No Known Allergies Allergy Verified 05/03/24 17:38 Surgical History S/P colonoscopy H/O wisdom tooth extraction History of tonsillectomy and adenoidectomy Social History household members: spouse Smoking Status: Never smoker alcohol intake: current alcohol intake frequency: holidays/special occasions only substance use type: does not use ROS ROS ED Constitutional Constitutional ED: Denies chills or fever(s) Eyes Eyes: Denies change in vision or diplopia ENT ENT ED: Denies rhinorrhea or sore throat Cardiovascular Cardiovascular: Denies chest pain or palpitations Respiratory/Chest Respiratory/Chest: Denies cough or dyspnea Gastrointestinal Gastrointestinal: Denies abdominal pain, diarrhea, nausea or vomiting Genitourinary Genitourinary ED: Denies dysuria or hematuria Musculoskeletal Musculoskeletal: Reports back pain; Denies neck pain Integumentary Denies abscess or rash Neurologic Neurologic: Denies headache(s), paresthesias or weakness Psychiatric Psychiatric: Denies suicidal thoughts EXAM Physical Exam Const Vital Signs: 05/03/24 17:35 05/03/24 18:34 05/03/24 19:00 Temperature 98.1 F Temperature Source Oral Pulse Rate 117 H 68 Respiratory Rate 16 Blood Pressure 138/77 H 149/87 H 140/86 H Blood Pressure Mean 97 107 104 Pulse Ox 99 99 Oxygen Delivery Method Room Air Room Air 05/03/24 19:35 Temperature 98.2 F Temperature Source Pulse Rate 78 Respiratory Rate 16 Blood Pressure 138/88 H Blood Pressure Mean 104 Pulse Ox 97 Oxygen Delivery Method Positive well nourished and well developed General Appearance ED: well developed and NAD HEENT Reports moist mucous membranes normocephalic and atraumatic Eyes PERRL and EOMs intact bilaterally Neck full ROM and supple Resp normal respiratory effort and clear to auscultation bilaterally Cardio regular rate, regular rhythm and no murmurs GI non-tender and non-distended Auscultation: normoactive bowel sounds Palpation: soft Back/Spine no CVA tenderness Back/Spine Narrative: Able to roll over slowly without distress. Normal inspection of the back. No reproducible tenderness, patient stating it feels deeper. General Back: other FR (more content not included)... Normal [facility] Erythrocyte Sed Rateon 05-03 SED RATE 25 mm/hr High 0-20 [facility] Comment on above: Performed By: #### L 100.0500, L101.9900, L500.2500 #### [facility] [address] [place], [address] H AND P Exam - Hospitaliston 05-03-2024 H&P Exam - Hospitalist [facility] Medical Records Department [address] [place] [address] H P Exam - Hospitalist 05/03/24 192 MR#: [id number] Acct: [id number] Name: DALLAS MARTIN Rep #: [id number] : 1960 63 From: Meena Boyle MD PCP: Dr. Rosie Trejo MD Status:REG ER Location: ED HPI - General General Date of Admission: 05/03/24 Date of Service: 05/03/24 Chief Complaint: Intractable lumbar back pain, abnormal outpatient MRI lumbar spine. HPI Narrative The patient is a 63 y/o M w/ PMHx: CKD stage II per GFR trending, GERD, HTN, BPH who presents to the [facility] ED on 05/03/24 per referral by his PCP secondary to 1 week history of ongoing intractable back pain, initially sitting down in a chair and feeling an odd sensation with discomfort following which has been intractable in addition to onset fever as well as chills prompting outpatient MRI lumbar spine with noted bone marrow edema with enhancement, endplate irregularity and intervertebral disc narrowing with disc enhancement at L1-2 and L2-3 with enhancement pattern purportedly favoring discitis although multilevel involvement reportedly could be seen with degenerative disc disease prompting referral to the ED to be cautious. He reports tenderness to the lumbar region as well as paresthesias with pain described as sharp and aggravated by activity. Upon initial ED evaluation he reported his pain 3 out of 10 in severity. In the ED he reports pain may be potentially mildly improved rating it 2-3 out of 10 in severity. He reports significant decrease in oral intake with nausea without any episodes of emesis. He does report a 10 to 20 pound weight loss since onset because of his difficulty eating because of pain. He denies any saddle paresthesias or loss of bowel or bladder. He denies any focal extremity or upper extremity weaknesses. Workup in the ED included T98.1, heart rate 117, BP 138/77, respiratory rate 16, 99% on room air, BMP with sodium 132, BUN/Cr 23/0.94, GFR 85, CRP 148, CBC with WBC 14.4, hemoglobin 10.4, MCV 86.7, platelet 320 with left shift, ESR 25, blood culture x 2 pending per ED. In the ED patient ministered Zofran 4 mg IV x 1, morphine 4 mg IV x 1 as well as cefepime 1 g IV x 1. ED physician did discuss case with orthospine Dr. Rutherford who recommended antibiotic therapy and would plan to evaluate patient. [facility] Medical History BPH (benign prostatic hyperplasia) GERD (gastroesophageal reflux disease) Hypertension Home Medications ???Medication ???Instructions ???Recorded ???Last Taken ???Type aspirin-caffeine 400 mg-32 mg 1 ea PO PRN PRN Pain 04/08/14 Unknown History tablet (Anacin) bethanechol chloride 25 mg tablet 50 mg PO TID 04/08/14 Unknown History hydrochlorothiazide 12.5 mg capsule 12.5 mg PO PRN PRN Blood Pressure 04/08/14 Unknown History lisinopril 10 mg tablet 10 mg PO QHS 04/08/14 Unknown History chlorpheniramine maleate 4 mg 4 mg PO QHS PRN PRN insomnia 05/03/24 Unknown History tablet (Allergy (chlorpheniramine)) magnesium oxide 400 mg (241.3 mg 400 mg PO QHS 05/03/24 Unknown History magnesium) tablet nabumetone 750 mg tablet 750 mg PO BID 05/03/24 Unknown History tramadol 50 mg tablet 50 mg PO TID PRN PRN pain 05/03/24 Unknown History Allergy/AdvReac Type Severity Reaction Status Date / Time No Known Allergies Allergy Verified 05/03/24 17:38 adopted Surgical History S/P colonoscopy H/O wisdom tooth extraction History of tonsillectomy and adenoidectomy Social History household members: spouse Smoking Status: Never smoker alcohol intake: current alcohol intake frequency: holidays/special occasions only substance use type: does not use ROS ROS Narrative Admission Review of Systems: CONSTITUTIONAL: + Weight loss of approximately 10 to 20 pounds, fever, chills, weakness or fatigue. HEENT: Eyes: No visual loss, blurred vision, double vision or yellow sclerae. Ears, Nose, Throat: No hearing loss, sneezing, congestion, runny nose or sore throat. SKIN: No rash or itching, lesions, wounds. CARDIOVASCULAR: No chest pain, chest pressure or chest discomfort, palpitations, edema, orthopnea, syncopal events. RESPIRATORY: No shortness of breath, cough or sputum, wheezing, hemoptysis. GASTROINTESTINAL: + Anorexia, nausea without emesis. No diarrhea, abdominal pain, melena, BRBPR. GENITOURINARY: No dysuria, frequency, urgency or retention. NEUROLOGICAL: + Significant lumbar spine discomfort with paresthesias but no focal weakness. No headache, dizziness, syncope, paralysis, ataxia, change in bowel or bladder control, seizure. MUSCULOSKELETAL: + muscle, back pain, joint pain or stiffness. HEMATOLOGIC: + Current lab evidence of (more content not included)... Normal [facility] Procalcitoninon 05-03-2024 Procalcitonin 0.69 ng/mL High 0.00-0.09 [facility] Comment on above: Result Comment: A procalcitonin (PCT) level above 2.0 ng/mL on the [...] ng/mL are obtained. Performed By: #### L 100.0500, L101.9900, L500.2500 #### [facility] [address] [facility] [place], [place], [address] Spine Lumbar W/WO Contraston 05-02-2024 Spine Lumbar W/WO Contrast [facility] Imaging Services [address] [place], [place] [address] Spine Lumbar W/WO Contrast MR#: [id number] Acct: [id number] Name: DALLAS MARTIN Rep #: [id number] : 1960 M 63 From: Patrica mooney MD PCP: Dr. Rosie Trejo MD Status: REG CLI Study: Spine Lumbar W/WO Contrast Date of Exam: 04/17 01/08 Exam# [id number] Ordering [place]: [place] [id number] HISTORY: discitis TECHNIQUE: Multiplanar and multisequence MR images of the lumbar spine were obtained before and after the intravenous demonstration of 17 cc Clariscan. 199 images. COMPARISON: XR 03/30/2024. FINDINGS: VERTEBRAE: Vertebral body heights maintained. Bone marrow edema with enhancement, endplate irregularity, and intervertebral space narrowing of L1-2 and L2-3. Mild enhancement of the L1-2 and L2-3 intervertebral discs. Degenerative endplate changes of L3-4, L4-5, and L5-S1 with small Schmorl''s nodes. Right L5 spondylolysis. ALIGNMENT: 3 mm anterolisthesis of L5-S1. SPINAL CANAL: Normal morphology and position of the conus medullaris at T12-L1. No epidural collection or enhancing intradural extramedullary mass. INTERVERTEBRAL DISCS: T12-L1: No significant posterior disc fusion, central canal stenosis, or foraminal narrowing based on the sagittal images. L1-2: Mild posterior disc bulge osteophyte complex with facet arthropathy resulting in mild central canal stenosis and bilateral foraminal narrowing. L2-3: Mild posterior disc bulge osteophyte complex with facet arthropathy resulting in mild central canal stenosis and moderate bilateral foraminal narrowing. L3-4: Minimal disc bulge with facet arthropathy resulting in minimal narrowing of the thecal sac and mild-moderate bilateral foraminal narrowing. L4-5: Very mild disc bulge with facet arthropathy resulting in moderate bilateral foraminal narrowing. No significant central canal stenosis. L5-S1: Mild disc bulge with facet arthropathy resulting in mild bilateral foraminal narrowing and no significant central canal stenosis. SOFT TISSUES: Posterior subcutaneous edema. No paraspinal fluid collection. MRI/Spine Lumbar W/WO Contrast IMPRESSION: Bone marrow edema with enhancement, endplate irregularity, and intervertebral disc narrowing with disc enhancement at L1-2 and L2-3. Enhancement pattern favors discitis, although multilevel involvement can be seen with degenerative disc disease. Electronically Signed: Patrica Hammer MD at 15:11 EDT , CC: Dr. Rosie Trejo MD [employer] Cost Estimator: Signed Normal [facility] No Panel InformationOrdered By: Armida Ahumada on 05-26-2023 Prostate Specific Antigen Total 4.67 ng/mL 0.0-4.0 [facility] Comment on above: This test was perfor med using the TPSA assay method for theVivonet chemistry system. Values obtained with differentassay methods cannot be used interchangably.When changing PSA assays in the course of monitoring apatient, additional sequential testing should be carriedout to confirm baseline values. Basophil percentageOrdered B y: Rosie Trejo on 04-18-2023 Bilirubin [Mass/Vol] 0.40 mg/dL 0.20-1.00 [facility] Comment on above: For patients on eltr ombopag therapy, use of Dimension [place] TBIL is not recommended. Chloride [Moles/Vol] 105 mmol/L 98-107 [facility] Glucose [Mass/Vol] 101 mg/dL 74-106 [facility] Comment on above: Fasting Glucose resu lt from 100 to 125 mg/dL suggests IMPAIRED HOMEOSTASIS per A.D.A. criteria. Potassium [Moles/Vol] 4.6 mmol/L 3.5-5.1 [facility] Protein [Mass/Vol] 7.6 g/dL 6.4-8.2 [facility] Sodium [Moles/Vol] 137 mmol/L 136-145 [facility] Laboratory - Chemistry and C hemistry - challengeOrdered By: Rosie Trejo on 04-18-2023 ALP [Catalytic activity/Vol] 54 U/L 45-117 [facility] ALT [Catalytic activity/Vol] 24 U/L 16-61 [facility] CO2 [Moles/Vol] 27.0 mmol/L 21.0-32.0 [facility] Globulin (S) [Mass/Vol] 3.3 g/dL 2.2-4.2 [facility] Urea nitrogen/Creatinine [Mass ratio] 13.6 mg/mg 10-20 [facility] No Panel InformationOrdered By: Rosie Trejo on 04-18-2023 Estimated GFR (MDRD) Amer 66 mL/min >60 [facility] Comment on above: GFR Calc Estimated GFR (MDRD) Non-Af Amer 54 mL/min >60 [facility] Comment on above: Non- GFR Calc Serum or plasma albumin belén urement (mass/volume)Ordered By: Rosie Trejo on 04-18-2023 Albumin [Mass/Vol] 4.3 g/dL 3.2-5.0 [facility] Serum or plasma albumin/glob ulin mass ratioOrdered By: Rosie Trejo on 04-18-2023 Albumin/Globulin [Mass ratio] 1.3 {ratio} 0.9-2.4 [facility] Serum or plasma calcium belén urement (mass/volume)Ordered By: Rosie Trejo on 04-18-2023 Calcium [Mass/Vol] 9.2 mg/dL 8.5-10.1 [facility] Serum or plasma creatinine m easurement (mass/volume)Ordered By: Rosie Trejo on 04-18-2023 Creatinine [Mass/Vol] 1.40 mg/dL 0.70-1.30 [facility] Comment on above: The validity of the calculated GFR & GFRAA in patients over 70 years has not been determined. Clinical correlation is essential. Serum or plasma urea nitroge n measurement (mass/volume)Ordered By: Rosie Trejo on 04-18-2023 Urea nitrogen [Mass/Vol] 19 mg/dL 7-18 [facility] Thin prep Papanicolaou smear with manual screeningOrdered By: Rosie Trejo on 04-18-2023 Thin prep Papanicolaou smear with manual screening 12 U/L 15-37 [facility] Thin prep Papanicolaou smear with manual screening 5 5-15 [facility] Final Surgical Pathology Rep [facility] 01-07-2023 Final Surgical Pathology Report . Pathology Reports Accession: Collected Date/Time: Received Date/Time: Pathologist: [id number] 01/05/2023 12:23 EDT 01/06/2023 08:14 EDT MALLIKA [...] Electronically Signed by Pathology Report verified by [facility] MALLIKA QUACH Sign out Date: 01/07/2023 11:42 Performing Lab: [facility], [address] [place] [id number] [place] [address] Pathology Dept Disclaimer If ancillary studies were utilized, the following Laboratory Developed Test (LDT) disclaimer will apply: Under CLIA requirements, [facility] is qualified to perform high complexity testing. For all ancillary stains, positive and negative controls stain appropriately. Performance characteristics of immunohistochemical and chromogenic in-situ hybridization tests have been determined by [facility]. These tests are used for clinical purposes, They should not be regarded as investigational or for research. Normal [facility] (CT) Gel ABOon 01-05-2023 ABO/Rh Interp Positive Invalid Interpretation Code [facility]) Comment on above: Performed By: #### A NSG, ABOG #### [facility] [address] [place], [place] [address] Gel ABSon 01-05-2023 Antibody Screen Gel Negative Normal [facility]) Comment on above: Performed By: #### A NSG, ABOG #### [facility] [address] [place], [place] [address] LABORATORYOrdered By: Suad Holley on 01-05-2023 ABO/Rh Interp Positive Invalid Interpretation Code AO BB SS Antibody Screen Gel Negative [facility] (01/05/23 7:06 AM) Invalid Interpretation Code AO BB SS SURGICAL PATHOLOGYon 023 Case Report Surgical Pathology Report Case: [id number] Authorizing Provider: Mireille Rao MD Collected: 07/26/2022 01:22 PM Ordering Location: Ambulatory Surgery Received: 07/26/2022 03:16 PM Pathologist: Sammy Reilly MD Specimens: A) - ANTRUM (STOMACH) BIOPSY, Antral bx for h/h B) - ESOPHAGOGASTRIC JUNCTION BIOPSY C) - ESOPHAGUS MID BIOPSY [facility] FINAL DIAGNOSIS A. Stomach, antrum, biopsy: -Portions of antral type gastric mucosa with reactive gastropathy -Negative for Helicobacter pylori organisms on routine staining -Negative for intestinal metaplasia or dysplasia B. Esophagogastric junction, biopsy: -Portions of squamous epithelium with no significant histologic abnormality -Negative for eosinophilic esophagitis B. Esophagus, mid, biopsy: -Portions of squamous epithelium with no significant histologic abnormality -Negative for eosinophilic esophagitis [facility] Gross Description A. ANTRUM (STOMACH) BIOPSY Received [...] 0.1 cm. Totally submitted in one cassette. July 26, 2022 11:24 PM Gross examination performed at [facility], [facility] Performing Lab Diagnostic interpretation performed at [facility], [address] [id number] CLIA# [id number] Call Center Receptionist: David Rodney M.D. [facility] EGD DIAGNOSTICon 07-26-2022 [facility] HISTORY PHYSICALon HISTORY PHYSICAL HNO ID: [id number] Author: Mireille Rao MD Service: General Surgery Author Type: Physician Type: HANDP Filed: 07/26/2022 11:57 AM Note Text: HISTORY AND PHYSICAL Dallas Randle Mario 1960 [...] entered by the nurse and reviewed by hi Nursing Notes: Sanjana Mendoza LPN 06/16/2022 2:12 [...] headaches, justa (more content not included)... Normal [facility] NURSING PROGon 07-26-2022 NURSING PROG HNO ID: [id number] Author: Yasmine Kimbrough RN Service: ? Author Type: Registered Nurse Type: Nursing Progress Note Filed: 07/26/2022 1:49 PM Note Text: Arrived in phase II via cart. Left lateral position. Sedated, but responds to verbal stimuli. Color normal; skin warm and dry. Respirations wnl and unlabored. Abdomen soft and with + bowel sounds in quads X 4. Patient resting comfortably. Yasmine Kimbrough RN Normal [facility] SURGICAL PATHOLOGYon 023 CASE REPORT Normal [facility] Comment on above: Order Comment: Speci men Type: TISSUE SPECIMEN Ordering Facility: [facility] Address: [address] [place] [id number] Result Comment: Surg ica Pathology Report Case: [id number] Authorizing Provider: Mireille Rao MD Collected: 07/26/2022 01:22 PM Ordering Location: Ambulatory Surgery Received: 07/26/2022 03:16 PM Pathologist: Sammy Reilly MD Specimens: A) - ANTRUM (STOMACH) BIOPSY, Antral bx for h/h B) - ESOPHAGOGASTRIC JUNCTION BIOPSY C) - ESOPHAGUS MID BIOPSY Performed By: #### S #### [facility] CLIA [id number] [address] [place] [address] OF [facility] FINAL DIAGNOSIS Normal [facility] Comment on above: Order Comment: Speci men Type: TISSUE SPECIMEN Ordering Facility: [facility] Address: [address] [place] [address] Result Comment: A. S tomach, antrum, biopsy: -Portions of antral type gastric [...] Performed By: #### S #### [facility] CLIA [id number] [address] [place] [address] FINAL PERFORMING LAB Normal [facility] Comment on above: Order Comment: Speci men Type: TISSUE SPECIMEN Ordering Facility: [facility] Address: [address] [place] [address] Result Comment: Diag nostic interpretation performed at [facility], [address] [place] [address] CLIA# [id number] Call Center Receptionist: David Rodney M.D. Performed By: #### S #### [facility] CLIA [id number] [address] [place] [address] OF [facility] DESCRIPTION Normal [facility] Comment on above: Order Comment: Speci men Type: TISSUE SPECIMEN Ordering Facility: [facility] Address: [address] [place] [address] Result Comment: A. A NTRUM (STOMACH) BIOPSY [...] 2022 11:24 PM Gross examination performed at [facility], [address] [place] [address] Performed By: #### S #### [facility] CLIA [id number] [address] [place] [address] [id number] [id number] [facility] Upper GI endoscopyon 023 Upper GI endoscopy [facility] Gastrointestinal Endoscopy Patient Name: Dallas Martin Procedure Date: 07/26/2022 1:11 PM Date of : 1960 Admit Type: Outpatient Age: 61 Gender: Male Note Status: Finalized Procedure: Upper GI endoscopy Indications: Dysphagia Providers: Mireille Rao MD Patient Profile: Refer to note in patient chart for documentation of history and physical. Referring Physician: Linda Mosley (pa) (Referring ), Rosie Trejo (Referring ) Medicines: Midazolam 5 mg IV, [...] pathology results. - Follow up with Linda Mosley PA-C via televisit for discussion of pathology results and determination of timing of future endoscopies Procedure Code(s): --- Professional --- 08813, Esophagogastroduodenosc opy, flexible, transoral; with biopsy, single or multiple 12557, 59, Moderate sedation services provided by the same physician or other qualified health caretaker grounds performing the diagnostic or therapeutic service that [...] of stomach and duodenum CPT copyright 2020 [employer]. All rights reserved. The c (more content not included)... Normal [facility] CNOVon 06-16-2022 CNOV Office Visit (GENSWS ) DALLAS MARTIN ([id number]) 1960 M Date Time Provider Department 06/16/22 2:00 PM LINDA MOSLEY During your visit today, we recorded the following information about you: Temperature Pulse Blood pressure Weight 97.2 degrees 133/minute 110/80 87.3 kg Height 1.702 m Linda Mosley PA-C 06/22/2022 2:46 PM Signed HISTORY AND [...] skin c (more content not included)... Normal [facility] Basophil percentageon 2021 Bilirubin [Mass/Vol] 0.90 mg/dL 0.20-1.00 [facility] Work Phone: Comment on above: For patients on eltr ombopag therapy, use of Dimension [place] TBIL is not recommended. Chloride [Moles/Vol] 107 mmol/L 98-107 [facility] Work Phone: Cholesterol [Mass/Vol] 174 mg/dL <200 [facility] Work Phone: Comment on above: <200 mg/dL Desirable 200-240 mg/dL Borderline >240 mg/dL High Risk Glucose [Mass/Vol] 88 mg/dL 74-106 [facility] Work Phone: [phone] Potassium [Moles/Vol] 3.9 mmol/L 3.5-5.1 [facility] Work Phone: [phone] Protein [Mass/Vol] 7.1 g/dL 6.4-8.2 [facility] Work Phone: [phone] Sodium [Moles/Vol] 139 mmol/L 136-145 [facility] Work Phone: [phone] Triglyceride [Mass/Vol] 126 mg/dL <199 [facility] Work Phone: [phone] Comment on above: The drugs N-Acetylcy steine and Metamizole may falsely depress this assay.Serum Triglycerides Reference Interval Normal <150 mg/dL Borderline high 150 - 199 mg/dL High 200 - 499 mg/dL Very High > or = 500 mg/dL WBC (Bld) [#/Vol] 5.6 10*3/uL 4.4-11.0 [facility] Work Phone: [phone] Blood erythrocytes count (nu mber/volume)on 02-25-2022 RBC (Bld) [#/Vol] 5.02 10*6/uL 4.6-6.2 [facility] Work Phone: [phone] Blood hemoglobin measurement (mass/volume)on 02-25-2022 Hemoglobin (Bld) [Mass/Vol] 15.3 g/dL 13.0-16.5 [place] Work Phone: [phone] Blood platelet mean volumeon 02-25-2022 Platelet mean volume (Bld) [Entitic vol] 10.1 fL 6.2-12.0 [place] Work Phone: [phone] Determination of erythrocyte mean corpuscular volume (MCV)on 02-25-2022 MCV (RBC) [Entitic vol] 90.8 fL 80-94 [facility] Work Phone: [phone] Hematocrit Auto (Bld) [Volum e fraction]on 02-25-2022 Hematocrit (Bld) [Volume fraction] 45.6 % 40-54 [place] Work Phone: [phone] Laboratory - Chemistry and C hemistry - challengeon 02-25-2022 ALP [Catalytic activity/Vol] 47 U/L 45-117 [place] Work Phone: [phone] ALT [Catalytic activity/Vol] 21 U/L 16-61 [place] Work Phone: [phone] CO2 [Moles/Vol] 26.0 mmol/L 21.0-32.0 [place] Work Phone: [phone] Globulin (S) [Mass/Vol] 3.0 g/dL 2.2-4.2 [facility] Work Phone: [phone] Urea nitrogen/Creatinine [Mass ratio] 19.1 mg/mg 10-20 [place] Work Phone: [phone] Laboratory - Hematology and Cell countson 02-25-2022 Erythrocyte distribution width (RBC) [Entitic vol] 42.7 fL 35.1-43.9 [place] Work Phone: [phone] Erythrocyte distribution width (RBC) [Ratio] 12.9 % 11.6-14.6 [place] Work Phone: [phone] MCH (RBC) [Entitic mass] 30.5 pg 27.0-32.0 [place] Work Phone: [phone] MCHC Auto (RBC) [Mass/Vol]on 02-25-2022 MCHC (RBC) [Mass/Vol] 33.6 g/dL 32-36 [facility] Work Phone: [phone] No Panel Informationon 02-25 Estimated GFR (MDRD) Amer 68 mL/min >60 [place] Work Phone: [phone] Comment on above: GFR Calc Estimated GFR (MDRD) Non-Af Amer 56 mL/min >60 [place] Work Phone: [phone] Comment on above: Non- GFR Calc Prostate Specific Antigen Total 4.68 ng/mL 0.0-4.0 [place] Work Phone: [phone] Comment on above: This test was perfor med using the TPSA assay method for [employer] chemistry system. Values obtained with differentassay methods cannot be used interchangably.When changing PSA assays in the course of monitoring apatient, additional sequential testing should be carriedout to confirm baseline values. Urine Microalbumin/Creatinine Ratio 3.6 mg/g CRE <30 [place] Work Phone: [phone] Platelets bldon 02-25-2022 Platelets (Bld) [#/Vol] 192 10*3/uL 150-450 [place] Work Phone: [phone] Serum or plasma albumin belén urement (mass/volume)on 02-25-2022 Albumin [Mass/Vol] 4.1 g/dL 3.2-5.0 [facility] Work Phone: [phone] Serum or plasma albumin/glob ulin mass ratioon 02-25-2022 Albumin/Globulin [Mass ratio] 1.4 {ratio} 0.9-2.4 [place] Work Phone: [phone] Serum or plasma calcium belén urement (mass/volume)on 02-25-2022 Calcium [Mass/Vol] 9.2 mg/dL 8.5-10.1 [facility] Work Phone: [phone] Serum or plasma cholesterol in HDL measurement (mass/volume)on 02-25-2022 Cholesterol in HDL [Mass/Vol] 58 mg/dL >40 [place] Work Phone: Comment on above: The drugs N-Acetylcy steine and Metamizole may falsely depress this assay. Reference Range HDL <40 mg/dL Low HDL Cholesterol HDL >or= 60 mg/dL High HDL Cholesterol Serum or plasma cholesterol in VLDL measurement (mass/volume)on 02-25-2022 Cholesterol in VLDL [Mass/Vol] 25 mg/dL 5-40 [place] Work Phone: [phone] Serum or plasma creatinine m easurement (mass/volume)on 02-25-2022 Creatinine [Mass/Vol] 1.36 mg/dL 0.70-1.30 [facility] Work Phone: Comment on above: The validity of the calculated GFR & GFRAA in patients over 70 years has not been determined. Clinical correlation is essential. Serum or plasma low density lipoprotein (LDL) cholesterol measurement (mass/volume)on 02-25-2022 Cholesterol in LDL [Mass/Vol] 91 mg/dL 0-130 [place] Work Phone: Serum or plasma urea nitroge n measurement (mass/volume)on 02-25-2022 Urea nitrogen [Mass/Vol] 26 mg/dL 7-18 [place] Work Phone: Thin prep Papanicolaou smear with manual screeningon 02-25-2022 Thin prep Papanicolaou smear with manual screening 12 U/L 15-37 [place] Work Phone: Thin prep Papanicolaou smear with manual screening 6 5-15 [place] Work Phone: Thin prep Papanicolaou smear with manual screening 7.5 mg/L NO RANGE EST. [place] Work Phone: Urine creatinine measurement (mass/volume)on 02-25-2022 Creatinine (U) [Mass/Vol] 212.00 mg/dL NO RANGE EST. [place] Work Phone: Vital Signs Date Time Vital Sign Value Performing Clinician Facility 01-29-2025 08:51-0400 Body temperature 98.1 [degF] Zebulun Beam [employer] Work Phone: [place] 01-29-2025 08:51-0400 Diastolic blood pressure 66 mm[Hg] Zebulun Beam [employer] Work Phone: [place] 01-29-2025 08:51-0400 Heart rate 82 /min Zebulun Beam [employer] Work Phone: [place] 01-29-2025 08:51-0400 Respiratory rate 16 /min Zebulun Beam [employer] Work Phone: [place] 01-29-2025 08:51-0400 SaO2% (BldA) [Mass fraction] 96 % Zebulun Beam [employer] Work Phone: [place] 01-29-2025 08:51-0400 Systolic blood pressure 92 mm[Hg] Zebulun Beam [employer] Work Phone: [place] 01-29-2025 07:16-0400 Body height 170.18 cm Zebulun Beam [employer] Work Phone: [phone] [place] [address] 01-29-2025 07:16-0400 Body mass index (BMI) [Ratio] 27.2 kg/m2 Zebulun Beam [employer] Work Phone: [phone] [place] [address] 01-29-2025 07:16-0400 Body weight 78.9 kg Zebulun Beam [employer] Work Phone: [phone] [address] 08-24-2024 14:25-0500 Body height 170.[address] Rosie Trejo MD Work Phone: [place] 08-24-2024 14:25-0500 Body mass index (BMI) [Ratio] 27.3 kg/m2 Dr. Rosie Trejo MD Work Phone: [place] 08-24-2024 14:25-0500 Body weight 79.[address] Rosie Trejo MD Work Phone: [place] 07-25-2024 14:06-0500 Body mass index (BMI) [Ratio] 27.2 kg/m2 Dr. Rosie Trejo MD Work Phone: [place] 07-25-2024 14:06-0500 Body weight 78.[address] Rosie Trejo MD Work Phone: [place] 07-25-2024 14:06-0500 Diastolic blood pressure 80 mm[Hg] Dr. Rosie Trejo MD Work Phone: [place] 07-25-2024 14:06-0500 Heart rate 103 /min Dr. Rosie Trejo MD Work Phone: [place] 07-25-2024 14:06-0500 Respiratory rate 18 /min Dr. Rosie Trejo MD Work Phone: [place] 07-25-2024 14:06-0500 SaO2% (BldA) [Mass fraction] 97 % Dr. Rosie Trejo MD Work Phone: [place] 07-25-2024 14:06-0500 Systolic blood pressure 137 mm[Hg] Dr. Rosie Trejo MD Work Phone: [place] 01-06-2023 06:35-0400 Body temperature 98.06 [degF] DR JIGNESH NEWELL MD [facility] 01-06-2023 06:35-0400 Diastolic Blood Pressure Non-Invasive [address] JIGNESH NEWELL MD [facility] 01-06-2023 06:35-0400 Heart rate 79 /min DR JIGNESH NEWELL MD [facility] 01-06-2023 06:35-0400 Reason For Taking VItal Signs DR JIGNESH NEWELL MD [facility] 01-06-2023 06:35-0400 Respiratory rate 16 /min DR JIGNESH NEWELL MD [facility] 01-06-2023 06:35-0400 Systolic Blood Pressure Non-Invasive [address] JIGNESH NEWELL MD [facility] 01-06-2023 03:28-0400 Body temperature 98.6 [degF] DR JIGNESH NEWELL MD [facility] 01-06-2023 03:28-0400 Diastolic Blood Pressure Non-Invasive [address] JIGNESH NEWELL MD [facility] 01-06-2023 03:28-0400 Heart rate 74 /min DR JIGNESH NEWELL MD [facility] 01-06-2023 03:28-0400 Reason For Taking VItal Signs DR JIGNESH NEWELL MD [facility] 01-06-2023 03:28-0400 Respiratory rate 16 /min DR JIGNESH NEWELL MD [facility] 01-06-2023 03:28-0400 Systolic Blood Pressure Non-Invasive [address] JIGNESH NEWELL MD [facility] 01-05-2023 23:19-0400 Body temperature 98.78 [degF] DR JIGNESH NEWELL MD [facility] 01-05-2023 23:19-0400 Diastolic Blood Pressure Non-Invasive [address] JIGNESH NEWELL MD [facility] 01-05-2023 23:19-0400 Heart rate 77 /min DR JIGNESH NEWELL MD [facility] 01-05-2023 23:19-0400 Reason For Taking VItal Signs DR JIGNESH NEWELL MD [facility] 01-05-2023 23:19-0400 Respiratory rate 16 /min DR JIGNESH NEWELL MD [facility] 01-05-2023 23:19-0400 Systolic Blood Pressure Non-Invasive [address] JIGNESH NEWELL MD [facility] 01-05-2023 19:26-0400 Body temperature 97.34 [degF] DR JIGNESH NEWELL MD [facility] 01-05-2023 19:26-0400 Heart rate 76 /min DR JIGNESH NEWELL MD [facility] 01-05-2023 17:10-0400 Heart rate 70 /min DR JIGNESH NEWELL MD [facility] 01-05-2023 14:50-0400 Heart rate 62 /min DR JIGNESH NEWELL MD [facility] 01-05-2023 14:36-0400 Body height 170.[address] JIGNESH NEWELL MD [facility] 01-05-2023 14:36-0400 Body weight 81.[address] JIGNESH NEWELL MD [facility] 01-05-2023 14:36-0400 Body weight 28.24 kg/m2 DR JIGNESH NEWELL MD [facility] 01-05-2023 12:45-0400 Body temperature 96.8 [degF] DR JIGNESH NEWELL MD [facility] 01-05-2023 12:40-0400 Respiratory Rate - Anes 0 br/min DR JIGNESH NEWELL MD [facility] 01-05-2023 12:35-0400 Respiratory Rate - Anes 25 br/min DR JIGNESH NEWELL MD [facility] 01-05-2023 12:30-0400 Respiratory Rate - Anes 30 br/min DR JIGNESH NEWELL MD [facility] 01-05-2023 06:34-0400 Body height 170.[address] JIGNESH NEWELL MD [facility] 01-05-2023 06:34-0400 Body temperature 98.42 [degF] DR JIGNESH NEWELL MD [facility] 01-05-2023 06:34-0400 Body weight 81.[address] JIGNESH NEWELL MD [facility] 11-26-2022 13:36-[address] JIGNESH NEWELL MD [facility] 11-26-2022 13:36-0400 Body height 170.[address] JIGNESH NEWELL MD [facility] 11-26-2022 13:36-0400 Body weight 84.[address] JIGNESH NEWELL MD [facility] 11-26-2022 13:36-0400 Body weight 29.03 kg/m2 DR JIGNESH NEWELL MD [facility] 11-26-2022 13:36-0400 Diastolic Blood Pressure Non-Invasive [address] JIGNESH NEWELL MD [facility] 11-26-2022 13:36-0400 Heart rate 103 /min DR JIGNESH NEWELL MD [facility] 11-26-2022 13:36-0400 Respiratory rate 20 /min DR JIGNESH NEWELL MD [facility] 11-26-2022 13:36-0400 Systolic Blood Pressure Non-Invasive [address] JIGNESH NEWELL MD [facility] 08-04-2022 14:32-0500 Body height 170.2 cm Linda Jacksonwald PA-C Work Phone: [facility] 08-04-2022 14:32-0500 Body temperature 97.81 [degF] Linda Dimitri PA-C Work Phone: [facility] 08-04-2022 14:32-0500 Body weight 89.54 kg Linda Dimitri PA-C Work Phone: [facility] 08-04-2022 14:32-0500 Diastolic blood pressure 72 mm[Hg] Linda Jacksonwald PA-C Work Phone: [facility] 08-04-2022 14:32-0500 Heart rate 129 /min Linda Jacksonwald PA-C Work Phone: [facility] 08-04-2022 14:32-0500 SaO2% (BldA) [Mass fraction] 100 % Linda Mosley PA-C Work Phone: [facility] 08-04-2022 14:32-0500 Systolic blood pressure 120 mm[Hg] Linda Mosley PA-C Work Phone: [facility] 07-26-2022 14:06-0500 Diastolic blood pressure 77 mm[Hg] Mireille Rao MD Work Phone: [facility] 07-26-2022 14:06-0500 Heart rate 63 /min Mireille Rao MD Work Phone: [facility] 07-26-2022 14:06-0500 Respiratory rate 16 /min Mireille Rao MD Work Phone: [facility] 07-26-2022 14:06-0500 SaO2% (BldA) [Mass fraction] 97 % Mireille Rao MD Work Phone: [facility] 07-26-2022 14:06-0500 Systolic blood pressure 115 mm[Hg] Mireille Rao MD Work Phone: [facility] 07-26-2022 12:29-0500 Body temperature 97.59 [degF] Mireille Rao MD Work Phone: [facility] Encounters Encounter Date Encounter Type Care Provider Facility Start: 04-16-2025 ambulatory Zebulun Beam VSC Facili ty:[place] Start: 01-29-2025 Non-patient / Non-visit Dr. Meka Saenz MD -[facility] Start: 01-29-2025 End: 01-29-2025 Admission to same day surgery center Dr. Ej Saenz MD -Endoscopy Work Phone: Start: 01-29-2025 End: 01-29-2025 ambulatory Zebulun Beam [employer] Work Phone: -Endoscopy Start: 01-10-2025 Non-patient / Non-visit [facility] Work Phone: Start: 01-10-2025 ambulatory Zebulun Beam VSC Facili ty:[facility] Start: 11-07-2024 End: 11-07-[address] Rosie Trejo MD Work Phone: [place] Work Phone: Start: 11-07-2024 End: 11-07-2024 Patient encounter procedure Zebulun Beam [employer] -[facility]atory [facility] Start: 11-07-2024 End: 11-07-2024 ambulatory Zebulun Beam VSC Facility:[facility] Start: 09-25-2024 End: 09-25-[address] Rosie Trejo MD Work Phone: [place] Work Phone: Start: 09-25-2024 End: 09-25-[address] Edison eSna MD -Physical Therapy Work Phone: Start: 08-24-2024 End: 08-24-[address] Edison Sena MD -[facility] Work Phone: Start: 08-24-2024 End: 08-24-2024 ambulatory Carlyle Beam Facility:[facility] Start: 08-15-2024 ambulatory Carlyle Beam [facility] Start: 08-15-2024 Non-patient / Non-visit Dr. Rj [facility]ON [facility] Start: 08-15-2024 End: 08-15-[address] Brian Lim MD -Cardiovascular Services Work Phone: Start: 08-15-2024 End: 08-15-2024 ambulatory Gratz Beam Facility:[facility] Start: 07-25-2024 End: 07-25-[address] Brian Lim MD -[facility] Work Phone: Start: 07-25-2024 End: 07-25-2024 ambulatory Carlyle Beam Facility:[facility] Start: 07-16-2024 End: 07-16-2024 Patient encounter procedure Zebulun Beam [employer] -[facility] Work Phone: Start: 07-16-2024 End: 07-16-2024 ambulatory Christelvinicio Beam VSC Facility:[place] Start: 06-17-2024 ambulatory Chrissie Meme Burciaga Facilit y:[place] Start: 06-12-2024 End: 06-12-[address] [facility] Start: 06-11-2024 End: 06-16-2024 ambulatory Chrissie E Gualberto Facility:[place] Start: 06-11-2024 End: 06-16-[address] Sriram Guerrier MD -[facility] Start: 05-15-2024 End: 05-15-2024 ambulatory Chrissie Valentine Gualberto Facility:[place] Start: 05-08-2024 ambulatory Reese Munoz Facility:[facility] Start: 05-05-2024 ambulatory Malena Bell Facility :[facility] Start: 05-03-2024 End: 05-08-2024 Evaluation and management of inpatient Rosie Trejo Facility:[place] Start: 05-03-2024 ambulatory Rosie Trejo Facility:[facility] Start: 05-02-2024 End: 05-02-2024 ambulatory Rosie Trejo Facility:[place] Start: 05-26-2023 End: 05-26-2023 ambulatory [place] Work Phone: Start: 05-26-2023 End: 05-26-2023 Patient encounter procedure [facility] Work Phone: Start: 04-18-2023 End: 04-18-2023 [facility] Start: 01-05-2023 End: 01-06-2023 ambulatory ROSIE TREJO MD Facility:[facility] Start: 01-05-2023 End: 01-06-[address] JIGNESH NEWELL MD [facility] Start: 11-26-2022 End: 11-27-2022 ambulatory ROSIE TREJO MD Facility:[facility] Start: 11-26-2022 End: 11-26-[address] JIGNESH NEWELL MD [facility] Start: 08-04-2022 End: 08-04-2022 ambulatory ROSIE TREJO Facility:[facility] Start: 08-04-2022 End: 08-04-2022 Patient encounter procedure Linda Jacksonwald PA-C Work Phone: General Surgery Comment on above: GERD without esophag itis (Primary Dx); Dysphagia, unspecified type; Hiatal hernia Start: 07-26-2022 End: 07-26-2022 ambulatory LINDA DIMITRI Facility:[facility] Start: 07-26-2022 End: 07-26-2022 Subsequent hospital visit by physician Mireille Rao MD Work Phone: Ambulatory Surgery Comment on above: Dysphagia, unspecifi ed type [R13.10] Start: 06-16-2022 End: 06-17-2022 ambulatory LINDA DIMITRI Facility:[facility] Start: 02-25-2022 End: 02-25-2022 Patient encounter procedure [facility] Procedures Date Procedure Procedure Detail Performing Clinician Start: 01-29-2025 Colonoscopy Zebuluvinicio Beam [employer] Work Phone: Start: 08-24-2024 X-ray of lumbosacral spine Dr. Rosie pandey MD Work Phone: Start: 07-25-2024 Evaluation of diagnostic study results Dr. Rosie Trejo MD Work Phone: Start: 01-05-[address] JIGNESH MALONEY MD Start: 07-26-2022 Level iv surg pathology gross&microscopic exam Mireille Rao MD Work Phone: Start: 07-26-2022 Esophagogastroduodenoscopy transoral diagnostic Linda Jacksonwald PA-C Work Phone: Colonoscopy DR JIGNESH NEWELL MD Endoscope, device (p hysical object) DR JIGNESH NEWELL MD Entire head of phala nx of middle finger (body structure) DR JIGNESH NEWELL MD Comment on above: Right Tonsillectomy and adenoidectomy DR JIGNESH NEWELL MD Plan of Treatment Date Care Activity Detail Author Start: 01-29-2025 Patient discharge [place] Start: 08-24-2024 Patient referral [facility] Work Phone: Start: 03-18-2023 Covid-19 Vaccine ( season) Covid-19 Vaccine ( season) [facility] Start: 03-18-2023 Influenza vaccination Influenza Vaccine (#1) [facility] Start: 07-18-2022 DEPRESSION ASSESSMENT DEPRESSION ASSESSMENT [facility] Start: 03-18-2022 Influenza vaccination INFLUENZA (#1) [facility] Start: 2018 RSV Vaccine (1 - 1-dose 60+ series) RSV Vaccine (1 - 1-dose 60+ series) [facility] Start: 2013 PROSTATE CANCER SCREENING DISCUSSION PROSTATE CANCER SCREENING DISCUSSION [facility] Start: 2008 SHINGRIX VACCINE (1 of 2) SHINGRIX VACCINE (1 of 2) [facility] Start: 11-04-2003 COLOGUARD (FIT-DNA) COLOGUARD (FIT-DNA) [facility] Start: 11-04-2003 Colonoscopy COLONOSCOPY [facility] Start: 11-04-2003 COLORECTAL CANCER SCREENING COLORECTAL CANCER SCREENING [facility] Start: 11-04-[address] COLONOGRAPHY [facility] Start: 11-04-2003 DIABETES SCREEN DIABETES SCREEN [facility] Start: 11-04-2003 Diabetes Screening Diabetes Screening [facility] Start: 11-04-2003 FECAL OCCULT BLOOD FECAL OCCULT BLOOD [facility] Start: 11-04-2003 SIGMOIDOSCOPY SIGMOIDOSCOPY [facility] Start: 1993 Lipid 1996 panel - Serum or Plasma Lipid Screening [facility] Start: 1993 LIPID SCREEN LIPID SCREEN [facility] Start: 1977 Urine microalbumin profile [facility] Start: 1976 HEPATITIS C SCREENING HEPATITIS C SCREENING [facility] Start: 1976 HIV SCREENING HIV SCREENING [facility] Patient referral [facility] Work Phone: Serum testosterone measurement [place] Testosterone Free [Mass/volume] in Serum or Plasma [place] Testosterone measurement [facility] Immunizations Immunization Date Immunization Notes Care Provider [facility] 05-04-2024 influenza, high dose seasonal, preservative-free Dr. Rosie Trejo MD Work Phone: [place] 04-18-2023 RSV Adult Recombinan t (Arexvy) Dr. Rosie Trejo MD Work Phone: [place] 04-18-2023 tetanus toxoid, redu gregory diphtheria toxoid, and acellular pertussis vaccine, adsorbed Dr. Rosie Trejo MD Work Phone: [place] 05-31-2022 Covid Pfizer Bivalen t Booster Dr. Rosie Trejo MD Work Phone: [place] 12-12-2021 SARS-CoV-2 mRNA (okepoyczqps-otiu-uqqay se) vaccine DR JIGNESH NEWELL MD [facility] 06-13-2021 SARS-CoV-2 mRNA (tozinameran) vaccine DR JIGNESH NEWELL MD [facility] 10-25-2020 SARS-CoV-2 mRNA (tozinameran) vaccine DR JIGNESH NEWELL MD [facility] 10-02-2020 SARS-CoV-2 mRNA (tozinameran) vaccine DR JIGNESH NEWELL MD [facility] 08-26-[address] JIGNESH NEWELL MD [facility] 05-14-[address] JIGNESH NEWELL MD [facility] 05-01-2020 influenza virus vaccine, unspecified formulation DR JIGNESH NEWELL MD [facility] 04-17-2018 influenza virus vaccine, unspecified formulation DR JIGNESH NEWELL MD [facility] Payers Date Payer Category Payer Medicare [id number] 2024 Self-pay [id number] 2021 Unknown JAIME ALVAREZ ACCE SS PPO [id number] 2021-Present [phone] [address] [place] [address] PPO [id number] 2020 Unknown [id number] 2006 Unknown [id number] 2006 Unknown [id number] 1958 Unknown [id number] [id number]7 1958 Unknown [id number] 2.16.840.1.334192.3.579.2.627 Unknown [id number] Unknown [id number] 2.16.840.1.710968.3.579.2.462 Unknown [id number] 2.16.840.1.036114.3.579.2.462 Unknown [id number] 2.16.840.1.545020.3.579.2.462 Unknown [id number] 2.16.840.1.728963.3.579.2.462 Unknown [id number] 2.16.840.1.246258.3.579.2.462 Unknown [id number] 2.16.840.1.625983.3.579.2.462 Unknown [id number] 2.16.840.1.258909.3.579.2.462 Unknown [id number] 2.16.840.1.345160.3.579.2.462 Unknown [id number] 2.16.840.1.532028.3.579.2.462 Unknown [id number] 2.16.840.1.986525.3.579.2.462 Unknown [id number] 2.16.840.1.683056.3.579.2.462 Unknown [id number] 2.16.840.1.178699.3.579.2.462 Unknown [id number] 2.16.840.1.883757.3.579.2.462 Unknown [id number] 2.16840.1.643134.3.579.2.462 Unknown [id number] 2.840.1.666120.3.579.2.462 Unknown [id number] 2.16840.1.689394.3.579.2.462 Unknown [id number] 2.16.840.1.844813.3.579.2.462 Unknown [id number] 2.16.840.1.434979.3.579.2.462 Unknown [id number] 2.16.840.1.818249.3.579.2.462 Unknown [id number] 2.840.1.297831.3.579.2.462 Unknown [id number] 2.16840.1.788968.3.579.2.462 Unknown [id number] 2.16.840.1.283019.3.579.2.462 Unknown [id number] 2.16.840.1.665417.3.579.2.462 Unknown [id number] 2.16.840.1.996069.3.579.2.462 Unknown [id number] 2.16.840.1.816729.3.579.2.462 Unknown [id number] 2.16.840.1.103504.3.579.2.462 Social History Date Type Detail Facility Tobacco smoking stat us NHIS Unknown if ever smoked [place] Work Phone: Start: 1960 Sex Assigned At Male A [facility] Start: 06-15-2022 End: 01-29-2025 Tobacco smoking status NHIS Never smoked tobacco [facility] Start: 06-15-2022 Tobacco use and exposure Smokeless tobacco non-user [facility] Start: 07-26-2022 End: 08-04-2022 Alcohol intake Current drinker of alcohol (finding) [facility] Start: 07-26-2022 End: 08-04-2022 Alcohol intake [facility] Start: 07-26-2022 Alcohol Comment a beer a coupl e times per week [facility] Start: 1960 Sex Assigned At Not on file C [facility] Start: 07-26-2022 Tobacco use panel [facility] Start: 09-27-2024 End: 11-13-2024 Sex Male (finding) [place] Goals Date Patient Goal Desired Activity /State Functional Status Date Assessment Result Facility 01-06-2023 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 01-06-2023 Functional Status [facility] 01-06-2023 Functional Status [facility] 01-05-2023 Functional Status Dinner Percent 50 [facility] 01-05-2023 Functional Status Sensory Deficits None A [facility] 01-05-2023 Functional Status Assistive Device None A [facility] 11-26-2022 Functional Status Sensory Deficits None A [facility] Mental Status Date Assessment Result Facility 01-29-2025 Cognitive function Voice/Name [facility] Work Phone: 01-06-2023 Mental Status Orientation Oriented x 4 [facility] 01-06-2023 Mental Status [facility] 01-05-2023 Mental Status [facility] 01-05-2023 Mental Status Orientation Asse ssment Oriented x 4 [facility] 01-05-2023 Mental Status [facility] Clinical Notes 06-16-2022 to 01-29-2025 Note Date & Type Note Facility 01-29-2025 Evaluation note Diagnosis Onset Date Resolution Special screening for malignant neoplasm of colon acute January 29, 2025 6:52am [place] Work Phone: [phone] 817-153407-15-2025 Consult note [facility] Medical Records Department [address] [place] [address] Anesthesia Postop Eval I 01/29/25 0834 MR#: [id number] Acct: [id number] Name: DALLAS MARTIN Rep #:[id number] : 1960 64 From: Casey Raza PCP: Jennifer Heaton Ashley LUTE PACKER OR APPLIER-C Status:REG [facility] Y Race: C Location: [place] [address] Anesthesia: Postop Eval I Current Vital Signs Temperature: 97.1 F Pulse Rate: 89 Blood Pressure: 131/88 Respiratory Rate: 16 Pulse Ox: 96 Oxygen Delivery Method: Room Air Assessment Airway patent: Yes Spontaneous unlabored respirations: Yes Mental status: Asleep nausea: No Vomiting: No Anesthesia Complication: No Fluid Hydration Crystalloid volume administer (ml): 400 Total IV fluid infused: 400 Progress Note Anesthesia document: Postop Eval 1 completed: Yes 01/29/25 0837 > Date _ Casey Anderson Signature: Date CC: ~ Signed [place]07-15-2025 Procedure note [facility] Medical Records Department [address] [place] [address] Colonoscopy Report MR#: [id number] Acct: [id number] Name: DALLAS MARTIN Rep #:[id number] : 1960 64 From: Ej jane MD PCP: Jennifer Heaton LUTE PACKER OR APPLIER-C Status:REG [facility] Patient Name: Dallas Martin Procedure Date: 01/29/2025 8:05 AM Date of : 1960 Age: 64 Procedure: Colonoscopy Indications: Screening for colorectal malignant neoplasm Providers: Ej Saenz MD Referring MD: Jennifer Heaton Plycor Operator, Plycor Operator-c Medicines: Propofol per Anesthesia Patient Profile: This is a 64 year old male. Refer to note in patient chart for documentation of history and physical. Last Colonoscopy: 10 years ago. Complications: No immediate complications. Procedure: Pre-Anesthesia Assessment: - Prior to the procedure, a History and Physical was performed, and patient medications and allergies were reviewed. The patient's tolerance of previous anesthesia was also reviewed. The risks and benefits of the procedure and the sedation options and risks were discussed with the patient. All questions were answered, and informed consent was obtained. Prior Anticoagulants: The patient has taken no anticoagulant or antiplatelet agents. After reviewing the risks and benefits, the patient was deemed in satisfactory condition to undergo the procedure. After I obtained informed consent, the scope was passed under direct vision. Throughout the procedure, the patient's blood pressure, pulse, and oxygen saturations were monitored continuously. The Colonoscope was introduced through the anus and advanced to the cecum, identified by the appendiceal orifice, ileocecal valve and palpation. The colonoscopy was performed without difficulty. The patient tolerated the procedure well. The quality of the bowel preparation was good. The ileocecal valve, appendiceal orifice, and rectum were photographed. Scope In: 8:15:52 AM Scope Withdrawal Time 0 hours 6 minutes 38 seconds Scope Out: 8:27:06 AM Total Procedure Duration Time 0 hours 11 minutes 14 seconds Findings: The entire examined colon appeared normal on direct and retroflexion views. Impression: - The entire examined colon is normal on direct and retroflexion views. - No specimens collected. Recommendation: - Discharge patient to home. - Resume previous diet. - Continue present medications. - Repeat colonoscopy in 10 years for screening purposes. Procedure Code(s): --- Professional --- 55504, Colonoscopy, flexible; diagnostic, including collection of specimen(s) by brushing or washing, when performed (separate procedure) Diagnosis Code(s): --- Professional --- Z12.11, Encounter for screening for malignant neoplasm of colon CPT copyright 2021 [employer]. All rights reserved. The codes documented in this report are preliminary and upon director regulatory compliance review may be revised to meet current compliance requirements. Ej Saenz MD 01/29/2025 8:29:37 AM This report has been signed electronically. Number of Addenda: 0 Note Initiated On: 01/29/2025 8:05 AM 01/29/25828 Date _ Ej Saenz MD Cosigner Signature: Date (if indicated) CC: Dr. 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 My impressions and recommendations are as follows: Impressions : - The entire examined colon is normal on direct and retroflexion views. - No specimens collected. Recommendations : - Discharge patient to home. - Resume previous diet. - Continue present medications. - Repeat colonoscopy in 10 years for screening purposes. My findings are described in the full procedure note, which is enclosed. If I can be of further assistance, please feel free to contact me at Doctor phone number(s): , Work: . Sincerely, Ej Saenz MD 01/29/2025 8:29:37 AM This report has been signed electronically. 01/29/25828 Date _ Ej Saenz MD Cosigner Signature: Date (if indicated) CC: Dr. Ej Saenz MD; Jennifer [facility] LUTE PACKER OR APPLIER-C Sudarshan ~ Date Dictated: 01/29/25804 Date Transcribed: Construction Job Cost Estimator: AC Signed [place]07-15-2025 History and physical note [facility] Medical Records Department [address] [place] [address] History & Physical Exam 01/29/25 0751 MR#: [id number] Acct: [id number] Name: DALLAS MARTIN Rep #:[id number] : 1960 64 From: Ej jane MD PCP: Jennifer Heaton LUTE PACKER OR APPLIER-C Status:[facility] Location: [place] [address] HPI - General HPI Narrative DALLAS MARTIN, is a 64 M who presents for screening colonoscopy. His last colonoscopy was 10 years ago. He denies abdominal pain or blood in the stool. No family history of colon cancer. [facility] Medical History History of transesophageal echocardiography (GUANAKITO) Wears contact lenses Non-smoker History of echocardiogram Cardiology follow-up encounter Endocarditis Prostate carcinoma BPH (benign prostatic hyperplasia) Lumbar discitis GERD (gastroesophageal reflux disease) Hypertension Home Medications ?Medication ?Instructions ?Recorded ?Last Taken ?Type lisinopril 10 mg tablet 10 mg PO QHS 04/08/14 Unknow n History cholecalciferol (vitamin D3) 25 25 mcg PO QDAY 4 Unknown History mcg (1,000 unit) capsule omeprazole 40 mg capsule,delayed 40 mg PO QDAY 4 Unknown History release trazodone 50 mg tablet 50 mg PO QHS 07/25/24 Unknow n History aspirin 325 mg tablet (Melina 325 mg PO QDAY PRN pain 0 01/10/25 01/27/25 History Aspirin) hydrochlorothiazide 12.5 mg capsule 12.5 mg PO QDAY Bl ood Pressure 01/10/25 Unknown History ibuprofen 600 mg tablet 600 mg PO QDAY PRN pain 12/17 01/09 Unknown History multivit,Ca,min-iron 8 mg-folic 1 tab PO DAILY 5 Unknown History acid 200 mcg-lycopene 600 mcg tablet (Centrum Men) sildenafil 50 mg tablet (Viagra) 50 mg PO QDAY PRN sex ual activity 01/10/25 Unknown History Allergy/AdvReac Type Severity Reaction Status Date / Time No Known Allergies Allergy Verified 01/29/25 07:14 Surgical History H/O esophagogastroduodenoscopy History of transurethral resection of prostate S/P colonoscopy H/O wisdom tooth extraction History of tonsillectomy and adenoidectomy Social History household members: spouse Smoking Status: Never smoker alcohol intake: current alcohol intake frequency: holidays/special occasions only substance use type: does not use caffeine: Yes Past Medical/Surgical History Planned Operation Planned Operative Procedure(s): COLONOSCOPY Previous Hospitalizations/Surgeries HX Hospitalizations: No Any Problems With Anesthesia: No You/Your Family Experience Fever (Hyperthermia) With Anes: No Cholinesterase deficiency: No Cardiovascular Hx Chest Pain within Last 2 months: No Hx Heart Attack: No Hx Hypertension: Yes (CONTROLLED WITH MEDS) Hx Cardiac Surgery/Stents/Etc.: No Respiratory Hx Chronic Obstructive Pulmonary Disease (COPD): No Hx Sleep Apnea: No Hx Respiratory Tract Infection/Cold (presently): No Do You Snore Loudly (louder than talking or can be heard): No Do You Often Feel Tired/ Fatigued/ Sleepy Dring Daytime?: No Has Anyone Observed You Stop Breathing During Sleep?: No Result (for STOP score): Negative Hx Smoking: No Smoking Status: Never smoker Neurological Hx Seizures: No Hx Parkinson's Disease: No Does patient have nerve stimulator: No Blood Disorder Hx Anemia: No Genitourinary Hx Dialysis: No Musculoskeletal Hx Arthritis: Yes Hx Rheumatoid Arthritis: No Endocrine Hx Diabetes: No Thyroid Disease: No Psycho/Social Hx Depression: No Hx Dementia: No Miscellaneous Hx Cancer: Yes (prosatate) Recent Exposure to Contagious Disease: No Allergies No Known Allergies Allergy (Verified 01/29/25 07:14) Discharge After D/C, Where Do you Plan to Go: Return Home From the [facility] History Number of Risk Factors: 2 Vital Signs Vital Signs Vital Signs: 01/29/25 07:16 01/29/25 07:16 01/29/25 07:49 Temperature 97.8 F 97.8 F Temperature Source Temporal Pulse Rate 91 91 Respiratory Rate 16 16 Respiratory Pattern Normal Blood Pressure 113/78 113/78 Blood Pressure Mean 89 Blood Pressure Source Monitor Blood Pressure Position Semi-Fowlers Blood Pressure Location Left Arm Pulse Ox 98 98 Oxygen Delivery Method Room Air Room Air Weight Weight: 173 lb 15.115 oz Body Mass Index (BMI) 27.2 Physical Exam Const alert HEENT normocephalic Eyes PERRL Resp normal respiratory effort and normal air movement Cardio regular rate and regular rhythm GI soft to palpation, non-tender and non-distended Extremity normal to inspection Assessment & Plan Assessment/Plan (1) Special screening for malignant neoplasm of colon: PLAN: I explained endoscopy in detail to the patient. I explained the risks including but not limited to stroke or heart attack with anesthesia, perforationof the GI tract, bleeding, infection. I explained that any of these could necessitate further emergency surgery. The patient understands and all questions were answered sufficiently. The patient wishes to proceed with procedure. Ej Saenz MD Pager: [facility] [address] [place] [address], [address] [place] [address] Office: Surgery Risks - Colonoscopy Risks Include but are not Limited To: Risks include but are not limited to: Bleeding, perforation requiring further surgery, inability to complete colonoscopy requiring barium enema. 01/29/25751 Cosigner Signature (if applicable): CC: Dr. Ej Saenz MD; Jennifer BRICEÑO LUTE PACKER OR APPLIER-C Sudarshan~ Signed [place]07-15-2025 [facility] Medical Records Department [address] [facility] [place] [address] History Physical Exam 01/29/25750 MR#: [id number] Acct: [id number] Name: DALLAS MARTIN Rep #: [id number] : 1960 64 From: Ej Saenz MD PCP: Jennifer Heaton LUTE PACKER OR APPLIER-C Status:REG [facility] Location: [place] [address] HPI - General HPI Narrative DALLAS MARTIN, is a 64 M who presents for screening colonoscopy. His last colonoscopy was 10 years ago. He denies abdominal pain or blood in the stool. No family history of colon cancer. [facility] Medical History History of transesophageal echocardiography (GUANAKITO) Wears contact lenses Non-smoker History of echocardiogram Cardiology follow-up encounter Endocarditis Prostate carcinoma BPH (benign prostatic hyperplasia) Lumbar discitis GERD (gastroesophageal reflux disease) Hypertension Home Medications ???Medication ???Instructions ???Recorded ???Last Taken ???Type lisinopril 10 mg tablet 10 mg PO QHS 04/08/14 Unknown Hist ory cholecalciferol (vitamin D3) 25 25 mcg PO QDAY 07/05/24 Unknown Hi story mcg (1,000 unit) capsule omeprazole 40 mg capsule,delayed 40 mg PO QDAY 07/05/24 Unknown His tory release trazodone 50 mg tablet 50 mg PO QHS 07/25/24 Unknown Hist ory aspirin 325 mg tablet (Melina 325 mg PO QDAY PRN pain 01/10/25 0 01/27/25 History Aspirin) hydrochlorothiazide 12.5 mg capsule 12.5 mg PO QDAY Blood Pressure 01/10/25 Unknown History ibuprofen 600 mg tablet 600 mg PO QDAY PRN pain 01/10/25 U nknown History multivit,Ca,min-iron 8 mg-folic 1 tab PO DAILY 01/10/25 Unknown Hi story acid 200 mcg-lycopene 600 mcg tablet (Centrum Men) sildenafil 50 mg tablet (Viagra) 50 mg PO QDAY PRN sexual activity 01/10/25 Unknown History Allergy/AdvReac Type Severity Reaction Status Date / Time No Known Allergies Allergy Verified 01/29/25 07:14 Surgical History H/O esophagogastroduodenoscopy History of transurethral resection of prostate S/P colonoscopy H/O wisdom tooth extraction History of tonsillectomy and adenoidectomy Social History household members: spouse Smoking Status: Never smoker alcohol intake: current alcohol intake frequency: holidays/special occasions only substance use type: does not use caffeine: Yes Past Medical/Surgical History Planned Operation Planned Operative Procedure(s): COLONOSCOPY Previous Hospitalizations/Surgeries HX Hospitalizations: No Any Problems With Anesthesia: No You/Your Family Experience Fever (Hyperthermia) With Anes: No Cholinesterase deficiency: No Cardiovascular Hx Chest Pain within Last 2 months: No Hx Heart Attack: No Hx Hypertension: Yes (CONTROLLED WITH MEDS) Hx Cardiac Surgery/Stents/Etc.: No Respiratory Hx Chronic Obstructive Pulmonary Disease (COPD): No Hx Sleep Apnea: No Hx Respiratory Tract Infection/Cold (presently): No Do You Snore Loudly (louder than talking or can be heard): No Do You Often Feel Tired/ Fatigued/ Sleepy Dring Daytime?: No Has Anyone Observed You Stop Breathing During Sleep?: No Result (for STOP score): Negative Hx Smoking: No Smoking Status: Never smoker Neurological Hx Seizures: No Hx Parkinson's Disease: No Does patient have nerve stimulator: No Blood Disorder Hx Anemia: No Genitourinary Hx Dialysis: No Musculoskeletal Hx Arthritis: Yes Hx Rheumatoid Arthritis: No Endocrine Hx Diabetes: No Thyroid Disease: No Psycho/Social Hx Depression: No Hx Dementia: No Miscellaneous Hx Cancer: Yes (prosatate) Recent Exposure to Contagious Disease: No Allergies No Known Allergies Allergy (Verified 01/29/25 07:14) Discharge After D/C, Where Do you Plan to Go: Return Home From the [facility] History Number of Risk Factors: 2 Vital Signs Vital Signs Vital Signs: 01/29/25 07:16 01/29/25 07:16 01/29/25 07:49 Temperature 97.8 F 97.8 F Temperature Source Temporal Pulse Rate 91 91 Respiratory Rate 16 16 Respiratory Pattern Normal Blood Pressure 113/78 113/78 Blood Pressure Mean 89 Blood Pressure Source Monitor Blood Pressure Position Semi-Fowlers Blood Pressure Location Left Arm Pulse Ox 98 98 Oxygen Delivery Method Room Air Room Air Weight Weight: 173 lb 15.115 oz Body Mass Index (BMI) 27.2 Physical Exam Const alert HEENT normocephalic Eyes PERRL Resp normal respiratory effort and normal air movement Cardio regular rate and regular rhythm GI soft to palpation, non-tender and non-distended Extremity normal to inspection Assessment Plan Assessment/Plan (1) Special screening for malignant neoplasm of colon: PLAN: I explain (more content not included)...[place] 01-29-2025 Consult note [facility] Medical Records Department [address] [place] [address] Pre-Anesthesia Evaluation 01/29/25 0743 MR#: [id number] Acct: [id number] Name: DALLAS MARTIN Rep #:[id number] : 1960 64 From: Wander Olivarez MD PCP: Jennifer Heaton LUTE PACKER OR APPLIER-C Status:REG [facility] Y Race: C Location: [place] [address] ASA Classification* ASA Classification ASA Classification: 2 Assessment & Plan Anesthesia* Anesthesia Assessment Anesthesia Assessment: Discussed sedation and/or anesthesia options, risks, benefits, and alternatives with patient/parents/legal guardian/POA. Questions invited. The patient/parents/legal guardian/POA seems to understand and agrees to proceedwith anesthesia plan. Reviewed the physical assessment, medical history, allergy history and patient home medications list prior to surgery/procedure/anesthetic and documented any changes. Performed airway and anesthesia risk assessments. Anesthesia Type Anesthesia Type: MAC History Source History Obtained from:: Patient and Chart Anesthesia Focused Assessment* Temperature: 97.8 F Pulse Rate: 91 Blood Pressure: 113/78 Respiratory Rate: 16 Pulse Ox: 98 Oxygen Delivery Method: Room Air Airway Assessment Mouth opens: >3 cm Mallampati Score: I Teeth Condition: Intact Neck Range of motion (ROM): Full ROM Labs Anesthesia Preop lab: CBC WBC 7.5 K/mm3 (4.4-11.0) 11/07/24 11:38 11/07/24 RBC 5.13 M/mm3 (4.6-6.2) 11/07/24 11:38 11/07/24 Hgb 15.2 g/dL (13.0-16.5) 11/07/24 11:38 11/07/24 Hct 45.0 % (40-54) 11/07/24 11:38 11/07/24 Plt Count 231 K/mm3 (150-450) 11/07/24 11:38 11/07/24 CHEMISTRY Potassium 4.6 mmol/L (3.3-5.1) 11/07/24 11:38 11/07/24 Sodium 137 mmol/L (133-145) 11/07/24 11:38 11/07/24 BUN 23 mg/dL (4-19) H 11/07/24 11:38 11/07/24 Creatinine 1.20 mg/dL (0.70-1.20) 11/07/24 11:38 11/07/24 Glucose 96 mg/dL (70-99) 11/07/24 11:38 11/07/24 TSH 1.510 uIU/mL (0.300-4.200) 11/07/24 11:38 10/17 10/09 COAG Pre-Assessment Diagnosis/Proposed Procedure Planned Operative Procedure(s): COLONOSCOPY Anesthesia History 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 When Was Last Pacemaker Check QUESTION #4 FULL TEXT: You/Your Family Experience fever (hyperthermia) with Anesthesia Last Oral Intake Last Oral intake: Last Oral Intake NPO since 18:00 01/29/25 07:16 Meds taken in AM with sips of No 01/29/25 07:16 water? 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 Female No 01/24/25 13:34 HX of Motion Sickness No 01/24/25 13:34 HX of N/V After Surgery No 01/24/25 13:34 Non-Smoker Yes 01/24/25 13:34 Duration of Surgery greater No 01/24/25 13:34 than 60 minutes Number of Risk Factors 1 01/24/25 13:34 PONV Score Low Risk 01/24/25 13:34 Height & Weight Height & Weight: Anesthesia: Height & Weight Height 5 ft 7 in 01/29/25 07:16 Weight: 78.9 kg 01/29/25 07:16 Body Mass Index (BMI) 27.2 01/29/25 07:16 Respiratory Assessment Respiratory Assessment - router operator: Respiratory Tract Infection Hx - router operator Hx Respiratory Tract Infection No 01/24/25 13:34 STOP Sleep Apnea STOP Sleep Apnea - router operator: STOP Sleep Apnea - router operator Hx Hypertension Yes: CONTROLLED WITH MEDS 01/24/25 13:34 Hx Sleep Apnea No 01/24/25 13:34 CPAP BIPAP Do you snore loudly (louder No 01/24/25 13:34 than talking or can be heard Do you often feel tired/ No 01/24/25 13:34 fatigued/ sleepy during daytime? Has anyone observed you stop No 01/24/25 13:34 breathing during sleep? STOP Results Negative 01/24/25 13:34 QUESTION #5 FULL TEXT : Do you snore loudly (louder than talking or can be heard through closeddoors)? 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 Specify any problems Hx of Preganancy in last 3 N/A 01/24/25 13:34 Months Nurse Filling Out Transfusion [id number] 01/24/25 13:34 & Questions: Date: 01/24/25 01/24/25 13:34 Time: 13:35 01/24/25 13:34 Patient unable to answer at this time (ie. confused, unrespo /Reproduction History /Reproductive History - router operator: /Reproductive Hx- router operator Hx Now Gestational Age (in weeks): EDC: Hx Hx Para Hx Section SAB Active Medications Active Medications: Current Medications Generic Name Dose Route Start Last Admin Trade Name Freq PRN Reason Stop Dose Admin Lactated Ringer's 1,000 mls @ 15 mls/hr 01/29/25 07:15 01/29/25 07:20 IV 15 mls/hr .Q48H HARLEEN Administration PFSH Medical History History of transesophageal echocardiography (GUANAKITO) Wears contact lenses Non-smoker History of echocardiogram Cardiology follow-up encounter Endocarditis Prostate carcinoma BPH (benign prostatic hyperplasia) Lumbar discitis GERD (gastroesophageal reflux disease) Hypertension Home Medications ?Medication ?Instructions ?Recorded ?Last Taken ?Type lisinopril 10 mg tablet 10 mg PO QHS 04/08/14 Unknow n History cholecalciferol (vitamin D3) 25 25 mcg PO QDAY 4 Unknown History mcg (1,000 unit) capsule omeprazole 40 mg capsule,delayed 40 mg PO QDAY 4 Unknown History release trazodone 50 mg tablet 50 mg PO QHS 07/25/24 Unknow n History aspirin 325 mg tablet (Melina 325 mg PO QDAY PRN pain 0 01/10/25 01/27/25 History Aspirin) hydrochlorothiazide 12.5 mg capsule 12.5 mg PO QDAY Bl ood Pressure 01/10/25 Unknown History ibuprofen 600 mg tablet 600 mg PO QDAY PRN pain 12/17 01/09 Unknown History multivit,Ca,min-iron 8 mg-folic 1 tab PO DAILY 5 Unknown History acid 200 mcg-lycopene 600 mcg tablet (Centrum Men) sildenafil 50 mg tablet (Viagra) 50 mg PO QDAY PRN sex ual activity 01/10/25 Unknown History Allergy/AdvReac Type Severity Reaction Status Date / Time No Known Allergies Allergy Verified 01/29/25 07:14 Surgical History H/O esophagogastroduodenoscopy History of transurethral resection of prostate S/P colonoscopy H/O wisdom tooth extraction History of tonsillectomy and adenoidectomy Social History household members: spouse Smoking Status: Never smoker alcohol intake: current alcohol intake frequency: holidays/special occasions only substance use type: does not use caffeine: Yes Review of Systems (Anesthesia) ROS Narrative System reviewed and no additional complaints, except as documented. 01/29/25 0749 mik MASON> Date _ Wander Olivarez MD Cosigner Signature: Date CC: ~ Signed [facility]03-11-2025 Discharge summary Author Dat Frost [facility] Note Date/Time September 25, 2024 2:2 9pm [facility] [address] [place] [address]. [address] [place] [address] / REHABILITATION SERVICES DISCHARGE SUMMARY MR#: [id number] Acct: [id number] Name: DALLAS MARTIN Rep #: [id number] : 1960 63 From: Cert. MRALON StaplesT, OCS Referring Dr.: Dr. Edison Sena MD Status: REG RCR Insurance: [employer] INSURANCE Discharge Summary D/C summary: [...] please feel free to call me at [phone]. Thank you for the referral of thispatient. Sincerely, Dat Frost PT, Cert T, OCS Balance/Gait/Functional tests Balance/Special Test Scores Oswestry Low Back Score: 2 Improvement % Improvement: 50 <Electronically signed by Taylor Reis PT. CATALINO, OCS> 09/25/24 1429 CC: Dr. Edison Sena MD; Carlyle Beam ~ HEBERT Signed [facility] Work Phone: 1(973) 524-537203-11-2025 Discharge summary [facility] [address] [place] [address] [address] [place] [address] / REHABILITATION SERVICES DISCHARGE SUMMARY MR#: [id number] Acct: [id number] Name: DALLAS MARTIN Rep #: [id number] : 1960 63 From: Taylor Staples. T, OCS Referring Dr.: Dr. Edison Sena MD Status: REG RCR Insurance: [employer] INSURANCE Discharge Summary D/C summary: [...] please feel free to call me at [phone]. Thank you for the referral of thispatient. Sincerely, Dat Frost, PT, Taylor MASONT, OCS Balance/Gait/Functional tests Balance/Special Test Scores Oswestry Low Back Score: 2 Improvement % Improvement: 50 09/25/24 9243 CC: Dr. Edison Sena MD; Carlyle Beam ~ JLA Signed [facility]01-08-2025 Evaluation note* Diagnosis Onset Date Resolution Status Admit Date Endocarditis acute July 25, 2024 1:53pm Hypertension chronic July 25, 2024 1:53pm Other intervertebral disc degeneration, lumbar region with discogenic back acute August 1:59pm Spondylolisthesis, lumbar region acute August 24 1:59pm [facility] Work Phone: 1(139) 565-269510-22-2024 [facility] Medical Records Department [address] [place] [address] Discharge Summary 05/08/24 1633 MR#: [id number] Acct: [id number] Name: DALLAS MARTIN Rep #: [id number] : 1960 63 From: Jessi Ivan DO PCP: Dr. Rosie Trejo MD Status:ADM IN Location: [place] [address] Providers Date of Admission: 05/03/24 Date of Discharge: 05/08/24 Primary Care Physician: Dr. Rosie Trejo MD Consultations 05/03/24 21:08 Consult: Infectious Disease Routine Consulting Provider: Sriram Guerrier Reason for Consult: Lumbar discitis EMERGENT Consult: No Notified: Yes Date Notified: 05/03/24 Time Notified: 19:24 Method of Notification: Text Consult: Orthopedics Routine Consulting Provider: Vasquez Rutherford Reason for Consult: Lumbar discitis EMERGENT Consult: No Notified: Yes Date Notified: 05/03/24 Time Notified: 19:23 Method of Notification: ED Physician Initiated Reason For Visit: INTRACTABLE BACK PAIN, LUMBAR DISCITIS Diagnosis Discharge Diagnosis (1) Lumbar discitis: Status: Acute Code(s): M46.46 - Discitis, unspecified, lumbar region Medications at Discharge Home Medications hydrochlorothiazide 12.5 mg capsule 12.5 mg PO PRN PRN Blood Pressure 04/08/14 lisinopril 10 mg tablet 10 mg PO QHS 04/08/14 chlorpheniramine maleate 4 mg tablet (Allergy (chlorpheniramine)) 4 mg PO QHS PRN PRN insomnia 05/03/24 magnesium oxide 400 mg (241.3 mg magnesium) tablet 400 mg PO QHS 05/03/24 nabumetone 750 mg tablet 750 mg PO BID 05/03/24 tramadol 50 mg tablet 50 mg PO TID PRN PRN pain 05/03/24 ceftriaxone 2 gram intravenous solution 2 g IV DAILY 38 days 05/07/24 acetaminophen 325 mg tablet 650 mg (2 x 325 mg) PO Q4H PRN PRN Fever, pain 1- 10 #0 tabs 05/08/24 Hospital Course Procedures 2-D Echocardiogram, PICC line placement and Transesophageal Echo Summary of Care Provided Minutes Spent on Discharge: 41 Hospital Course: Mr. Martin is a 63-year-old white male who presented to the emergency department [facility] on 05/03/2024 due to intractable lumbar back pain with an abnormal outpatient MRI of the lumbar spine. Patient reported he has really been feeling poorly since February with intermittent malaise, night fevers, and progressively worsening back pain. The patient reported on presentation the emergency department that he had had approximately 1 week of ongoing intractable back pain with fever and chills which prompted an outpatient MRI to be ordered by his primary care physician. Outpatient MRI showed bone marrow edema with enhancement, endplate irregularity with intervertebral disc narrowing and disc enhancement at L1-L2 and L2-L3 consistent with discitis. With these results, he was referred to the emergency department by his primary care physician. He denied any saddle anesthesia or altered bowel or bladder function. He had no upper or lower extremity weakness. Vital signs on presentation showed a temperature of 98.1, heart rate 117, blood pressure 138/77, respiratory 16 and oxygen saturation was 99% on room air. CBC did show a leukocytosis with a white count of 14.4 and a left shift. ESR was 25. Chemistry was overtly unremarkable. In the emergency department he was given Zofran for nausea, morphine for pain and was started on cefepime. Case was discussed with orthospine who recommended antibiotic therapy. Orthopedic surgery was consulted and evaluated him as an inpatient and recommended no surgical intervention, ongoing pain control and mobilization as tolerated with IV antibiotics and as needed follow- up as an outpatient. Infectious disease evaluated the patient and unfortunately IR aspiration was not available. Antibiotics were narrowed to vancomycin and ceftriaxone with blood culture showing Strep gordonii. Repeat blood cultures were ordered for clearance and were negative at 48 hours on 05/08/2024. Echocardiogram was ordered and demonstrated normal EF of 55%, normal RV size and function, a thickened MV leaflet with thickening on the anterior leaflet and the inability to exclude endocarditis or healed vegetation and only mild MR with no pericardial effusion. Given these findings, a GUANAKITO was requested due to ongoing elevated white count and performed on 05/08/[address] Munoz.GUANAKITO did show vegetation on both the mitral and aortic valve but both vegetations were less than 1 cm in size. Given the dimensions of the vegetation antibiotics were the recommended treatment. A PICC line was ordered and 6 weeks of ceftriaxone have been recommended with a stop date of 06/14/2024. Patient will need ID follow-up in 2 to 3 weeks after discharge. Patient will need a follow-up GUANAKITO in 4 weeks with cardiology and has been asked to call to schedule outpatient follow-up. I have also asked him to follow-up with his primary care physician within the next week after discharge. Discharge diag (more content not included)...[facility] 01-06-2023 Hospital Discharge instructions Patient Education 01/06/2023 10:09:32 [...] including vitamins, herbs, eye drops, creams, and swht-ptl-kzsqthn medicines. Any problems you or family members [...] provider tells you to take them. Taking rinm-xzs-tgkbpij medicines, vitamins, herbs, and supplements. Eating and [...] 07/04/2006 Document Revised: 10/24/2019 Document Reviewed: 04/04/2019 [employer] Patient Education 2020 [employer] 01/05/2023 12:42:45 Transurethral Resection of the Prostate, [...] Follow these instructions at home: Medicines Take addk-rno-mkkkipy and prescription medicines only as told by [...] prevent or treat constipation, such as: ?Take xrvt-erw-dllyedd or prescription medicines. ?Eat foods that are [...] 07/04/2006 Document Revised: 10/24/2019 Document Reviewed: 04/04/2019 [employer] Patient Education 2019 [employer]. Follow Up Care 11/18/2022 15:31:14 With:JIGNESH NEWELL MD, [facility] Address: [address] [place] [phone] When: Unknown Comments:Please call to schedule your post-op appointment. [facility] 06-22-2023 Note Discharge Instructions Thank you for allowing [facility] to assist you with your healthcare needs. [...] Appointments Follow Up with JIGNESH NEWELL MD, [facility] When Why: Please call to schedule your post-op appointment. Where: [address] [place] [phone] The Following Activity and Diet Have Been [...] 12 hours Duration: 5 Days Pickup at [facility] not given in the hospital New diphenhydrAMINE (Benadryl 25 mg oral tablet) 1 tab(s) by mouth Daily at bedtime as needed for Allergy symptoms not given in the hospital New oxyCODONE (oxyCODONE 5 mg oral tablet ( IMMEDIATE release )) 1 tab(s) by mouth Every 6 hours as needed for for pain BPH (benign prostatic hyperplasia) Duration: 3 Days Pickup at [facility] not given in the hospital Changed [...] not given in the hospital Pharmacy Information [facility]: [address] [place], [place] [phone] What How Much When Comments Stop Taking [...] The extended-release form of oxycodone is for kmsfmq-cde-jlnob treatment of pain and should not be [...] against the law. Stop taking all other tdmnzg-jsj-kkulq opioid pain medicines when you start taking [...] may report side effects to FDA at 8-120-BWJ-4299. What other drugs will affect oxycodone? You [...] drugs may affect oxycodone. This includes prescription tjnrper-gyh-dolalwj medicines, vitamins, and herbal products. Not all [...] to ensure that the information provided by [employer]. ('[employer]') is accurate, up-to-date, and complete, but no guarantee is made to that effect. Drug information contained herein may be time sensitive. [employer] information has been compiled for use by healthcare practitioners and consumers in the [place] and therefore [employer] does not warrant that uses outside of the [place] are appropriate, unless specifically indicated otherwise. [employer] drug information does not endorse drugs, diagnose patients or recommend therapy. [employer] drug information isan informational resource designed to [...] effective or appropriate for any given patient. [employer] does not assume any responsibility for any aspect of healthcare administered with the aid of information [employer] provides. The information contained herein is not intended to cover all possible uses, directions, precautions, warnings, drug interactions, allergic reactions, or adverse effects. If you have questions about the drugs you are taking, check with your doctor, nurse or pharmacist. Copyright 3555-0479 [employer]. Version: 14.02. Revision Date: 08/14/2020. cephalexin (sef [...] may report side effects to FDA at 8-298-KFA-1623. What other drugs will affect cephalexin? Tell your doctor about all your other medicines, especially: metformin; or probenecid. This list is not complete. Other drugs may affect cephalexin, including prescription and cqex-kdx-trjrlqt medicines, vitamins, and herbal products. Not all [...] to ensure that the information provided by [employer] ('[employer]') is accurate, up-to-date, and complete, but no guarantee is made to that effect. Drug information contained herein may be time sensitive. [employer] information has been compiled for use by healthcare practitioners and consumers in the [place] and therefore [employer] does not warrant that uses outside of the [place] are appropriate, unless specifically indicated otherwise. [employer] drug information does not endorse drugs, diagnose patients or recommend therapy. [employer] drug information isan informational resource designed to [...] effective or appropriate for any given patient. [employer] does not assume any responsibility for any aspect of healthcare administered with the aid of information [employer] provides. The information contained herein is not intended to cover all possible uses, directions, precautions, warnings, drug interactions, allergic reactions, or adverse effects. If you have questions about the drugs you are taking, check with your doctor, nurse or pharmacist. Copyright 8606-3653 [employer]. Version: 10.03. Revision Date: 07/21/2020. Education Materials Transurethral Resection [...] including vitamins, herbs, eye drops, creams, and wnpy-pol-kdopgpi medicines. Any problems you or family members [...] provider tells you to take them. Taking xall-vtg-wgpcawo medicines, vitamins, herbs, and supplements. Eating and [...] 07/04/2006 Document Revised: 10/24/2019 Document Reviewed: 04/04/2019 [employer] Patient Education 2020 [employer] Transurethral Resection of the Prostate, Care [...] Follow these instructions at home: Medicines Take xjds-zai-jspskga and prescription medicines only as told by [...] or treat constipation, such as: ? Take slen-kpq-stgyypr or prescription medicines. ? Eat foods that [...] 07/04/2006 Document Revised: 10/24/2019 Document Reviewed: 04/04/2019 Elsevier Patient Education 2020 [employer] Additional Information VACCINATE! IT SAVES LIVES! Members of the community who have not yet received the COVID-19 vaccine and would like to receive it can visit one of [facility] vaccine clinics. There are many vaccine clinic locations within the [facility]. For locations and available times, please visit https://gettheshot.coronavirus.[place].gov/. It is important to note that some COVID mobile vaccine clinics are held outdoors and may be canceled in rainy or stormy conditions. To learn more about pediatric vaccinations (ages 5-11), we invite you to visit the [facility] webpage. https://www.[facility].org/pages/2152-Mleyq-Ualdwyrtkqt-Jdsryomiuc-Ievsn-Hwr stions.htmlTo learn more about the COVID-19 vaccine, we invite you to visit the CDC website for a list of frequently asked questions.https://www.cdc.gov/coronavirus/2019-ncov/vaccines/faq.html [employer] Patient Portal Access Instructions: Stay connected with your healthcare team and access your personal medical information anytime with the [employer] Patient Portal. Please follow the directions below to create your [employer] account: 1.Access the email account you provided upon registration to the hospital/physician office.2.Look for an invitation email from [facility].3.Open the email and access the invitation link: AcceptInvitation to [employer].4.Fill in the required travis to create your account. To access your account, visit [email or web address]. Click the blue button labeled Access Patient Portal and then log in with the username and password that you created in the steps above. You will be able to view your test results, lab results, a summary of your visits, upcoming appointments and more. There is also a convenient messaging option where you can send secure messages to your p [employer]vider. In addition, you will have the ability to download any documents or summaries to your computer and/or send the information securely to a physician. Remember that your healthcare information is confidential, so carefully consider who you will allowto register on the [employer] Patient Portal for access to your information. You can also access the [employer] Patient Portal on the [employer] nathen. Simply click on Patient Portal and then log into your account. If you would like to receive a full copy of your medical records, please contact the [facility] Medical Records Department by calling [phone], Tuesday through Tuesday between 8 a.m. and [...] Call your local pharmacy or go to http://Shopnlist.[employer]/6J0Ts6u to find one close to you.3.Make use of household items: Use cat litter or old coffee grounds to dispose medications if other options arenot available. Mix your drugs with these household products, seal them in an airtight container andthrow it into the garbage. Call [facility]: [phone] to be sure your drugs can be [...] been reviewed and explained to me and I,DALLAS MARTIN understand my current condition and have read and understand these discharge instructions. I have received a written copy of the plan/instructions. If I have questions, I am aware that I should contact my doctor. 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 Procedure history: Tonsillectomy and adenoidectomy ([id number]). Entire head of phalanx of middle finger ([id number]). Comments: 11/26/2022 13:55 [facility] - Tawnya Napier RN Right Colonoscopy ([id number]). Social History Social & Psychosocial Habits Alcohol 11/26/2022 Use: Current Frequency: 1-2 times per week Substance Abuse 11/26/2022 Use: Never Tobacco 11/26/2022 Tobacco Use: Never (less than 100 in l Home/Environment 11/26/2022 Domestic Concerns None Living situation: Home/Independent Primary Design Tech: Self Current Home Treatments None Special Services and Community Resources None Spouse Name Bernabe Marital Status of Patient if Patient Independent [...] Resp Rate H 21br/min (JAN 05 06:34) OLT925 mmHg (JAN 05 06:34) DBP84 mmHg (JAN 05 06:34) Measurements from flowsheet : Measurements 01/05/2023 6:34 EDT Height 170.2 cm Height in inches 67 inch(es) Admission Weight 81.8 kg Weight Lbs 180 lb Weight Method Stated [place] Body Weight 66.12 kg Admission Body Mass [...] Allergies No Anesthesia Extension Set Applied Yes Tag Writer On Yes Patient Dressed In Hospital gown, [...] Weight Lbs 180 lb Weight Method Stated [place] Body Weight 66.12 kg Admission Body Mass [...] no symptoms Safety Brochure Information Reviewed Yes [facility] Video Viewed No Teaching Evaluation No further teaching needed Admission Note-Nursing Same Day Patient History (Modified) . Assessment and Plan [place] Society of Anesthesiologists (ASA) physical status classification: Class III. Anesthetic Preoperative Plan Premedication: intravenous. Anesthetic technique: General. Induction: intravenously. Maintenance airway: Laryngeal mask airway. Postoperative pain management: Per surgeon. Risks discussed: nausea, vomiting, sore throat. Informed consent: signed by patient. Digitally Signed by CHAYO MARROQUIN on 01/05/2023 07:26 AM [facility]01-18-2023 Instructions* Patient Instructions* Linda Mosley PA-C - 08/04/2022 2:53 PM EST -Your [...] to your office visit today with the [facility] General Surgeons. INSTRUCTIONS FOR PEPTIC ULCER DISEASE [...] you should contact our office immediately @ [phone] and ask to be transferred to the General Surgery department. [facility] History of Present illness Narrative* Linda Mosley PA-C - 08/04/2022 2:31 PM EST FOLLOW UP VISIT - ENDOSCOPY NAME: Dallas Randle [facility] NO.: [id number] DATE OF SERVICE: 08/04/2022 : 1960 REFERRING [...] which included preparing to see the patient, qikc-li-ovvv patient care, completing clinical documentation, obtaining and/or reviewing separately obtained history, counseling and educating the patient/family/caregiver, communicating with other HCPs (not separately reported), independently interpreting results (not separately reported), and communicating results to the patient/family/caregiver. Linda Mosley PA-C [facility] NoteHNO ID: [id number] Author: Yasmine Kimbrough RN Service: ? Author Type: Registered Nurse Type: Nursing Progress Note Filed: 07/26/2022 2:18 PM Note Text: at bedside. Patient eating snack. Denies complaints of discomfort. Yasmine Kimbrough [facility]01-[facility] Nurse Note* Yasmine Kimbrough RN - [...] comfortably. Yasmine Kimbrough RN [facility] History and physical note * Mireille Rao [...] entered by the nurse and reviewed by hi Nursing Notes: Sanjana Mendoza LPN 06/16/2022 2:12 [...] Mammogram screening? N/A Last Colonoscopy: 2014 at [facility] Sanjana Mendoza LPN I have confirmed and edited as necessary, the PFSH and ROS obtained by others. Linda Mosley PA-C PHYSICAL EXAMINATION: General: The patient is [...] patient was offered a [facility]procedure [facility]. I have counseled the patient regarding [...] to requesting physician via US mail. Linda Mosley PA-C * Mireille Rao MD - 07/26/2022 [...] Mammogram screening? N/A Last Colonoscopy: 2014 at [facility] Sanjana Mendoza LPN I have confirmed and edited as necessary, the PFSH and ROS obtained by others. Linda Mosley PA-C PHYSICAL EXAMINATION: General: The patient is [...] patient was offered a surgery/procedure [facility] facility. I have counseled the patient regarding [...] to requesting physician via US mail. Linda Mosley PA-C documented [facility]22 NoteHNO ID: [id number] Author: Linda Mosley PA-C Service: ? Author Type: Physician Business Attorney Type: Progress Notes Filed: 06/22/2022 2:46 PM Note Text: HISTORY AND PHYSICAL Dallas S Engman 1960 REFERRING PHYSICIAN: Rosie Trejo MD CHIEF [...] patient denies psychiatric medicat (more content not included)...[facility] note Author Wander Olivarez [place] Note Date/Time January 29, 2025 7:49 am [facility] Medical Records Department [address] [place] [address] Pre-Anesthesia Evaluation 01/29/25 0743 MR#: [id number] Acct: [id number] Name: DALLAS MARTIN Rep #:[id number] : 1960 64 From: Wander Olivarez MD PCP: Jennifer Heaton LUTE PACKER OR APPLIER-C Status:REG [facility] Y Race: C Location: [place] [address] ASA Classification* ASA Classification ASA Classification: 2 Assessment & Plan Anesthesia* Anesthesia Assessment Anesthesia Assessment: Discussed sedation and/or anesthesia options, risks, benefits, and alternatives with patient/parents/legal guardian/POA. Questions invited. The patient/parents/legal guardian/POA seems to understand and agrees to proceedwith anesthesia plan. Reviewed the physical assessment, medical history, allergy history and patient home medications list prior to surgery/procedure/anesthetic and documented any changes. Performed airway and anesthesia risk assessments. Anesthesia Type Anesthesia Type: MAC History Source History Obtained from:: Patient and Chart Anesthesia Focused Assessment* Temperature: 97.8 F Pulse Rate: 91 Blood Pressure: 113/78 Respiratory Rate: 16 Pulse Ox: 98 Oxygen Delivery Method: Room Air Airway Assessment Mouth opens: >3 cm Mallampati Score: I Teeth Condition: Intact Neck Range of motion (ROM): Full ROM Labs Anesthesia Preop lab: CBC WBC 7.5 K/mm3 (4.4-11.0) 11/07/24 11:38 11/07/24 RBC 5.13 M/mm3 (4.6-6.2) 11/07/24 11:38 11/07/24 Hgb 15.2 g/dL (13.0-16.5) 11/07/24 11:38 11/07/24 Hct 45.0 % (40-54) 11/07/24 11:38 11/07/24 Plt Count 231 K/mm3 (150-450) 11/07/24 11:38 11/07/24 CHEMISTRY Potassium 4.6 mmol/L (3.3-5.1) 11/07/24 11:38 11/07/24 Sodium 137 mmol/L (133-145) 11/07/24 11:38 11/07/24 BUN 23 mg/dL (4-19) H 11/07/24 11:38 11/07/24 Creatinine 1.20 mg/dL (0.70-1.20) 11/07/24 11:38 11/07/24 Glucose 96 mg/dL (70-99) 11/07/24 11:38 11/07/24 TSH 1.510 uIU/mL (0.300-4.200) 11/07/24 11:38 10/17 10/09 COAG Pre-Assessment Diagnosis/Proposed Procedure Planned Operative Procedure(s): COLONOSCOPY Anesthesia History 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 When Was Last Pacemaker Check QUESTION #4 FULL TEXT: You/Your Family Experience fever (hyperthermia) with Anesthesia Last Oral Intake Last Oral intake: Last Oral Intake NPO since 18:00 01/29/25 07:16 Meds taken in AM with sips of No 01/29/25 07:16 water? 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 Female No 01/24/25 13:34 HX of Motion Sickness No 01/24/25 13:34 HX of N/V After Surgery No 01/24/25 13:34 Non-Smoker Yes 01/24/25 13:34 Duration of Surgery greater No 01/24/25 13:34 than 60 minutes Number of Risk Factors 1 01/24/25 13:34 PONV Score Low Risk 01/24/25 13:34 Height & Weight Height & Weight: Anesthesia: Height & Weight Height 5 ft 7 in 01/29/25 07:16 Weight: 78.9 kg 01/29/25 07:16 Body Mass Index (BMI) 27.2 01/29/25 07:16 Respiratory Assessment Respiratory Assessment - router operator: Respiratory Tract Infection Hx - router operator Hx Respiratory Tract Infection No 01/24/25 13:34 STOP Sleep Apnea STOP Sleep Apnea - router operator: STOP Sleep Apnea - router operator Hx Hypertension Yes: CONTROLLED WITH MEDS 01/24/25 13:34 Hx Sleep Apnea No 01/24/25 13:34 CPAP BIPAP Do you snore loudly (louder No 01/24/25 13:34 than talking or can be heard Do you often feel tired/ No 01/24/25 13:34 fatigued/ sleepy during daytime? Has anyone observed you stop No 01/24/25 13:34 breathing during sleep? STOP Results Negative 01/24/25 13:34 QUESTION #5 FULL TEXT : Do you snore loudly (louder than talking or can be heard through closed doors)? 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 Specify any problems Hx of Preganancy in last 3 N/A 01/24/25 13:34 Months Nurse Filling Out Transfusion [id number] 01/24/25 13:34 & Questions: Date: 01/24/25 01/24/25 13:34 Time: 13:35 01/24/25 13:34 Patient unable to answer at this time (ie. confused, unrespo /Reproduction History /Reproductive History - router operator: /Reproductive Hx- router operator Hx Now Gestational Age (in weeks): EDC: Hx Hx Para Hx Section SAB Active Medications Active Medications: Current Medications Generic Name Dose Route Start Last Admin Trade Name Freq PRN Reason Stop Dose Admin Lactated Ringer's 1,000 mls @ 15 mls/hr 01/29/25 07:15 01/29/25 07:20 IV 15 mls/hr .Q48H HARLEEN Administration PFSH Medical History History of transesophageal echocardiography (GUANAKITO) Wears contact lenses Non-smoker History of echocardiogram Cardiology follow-up encounter Endocarditis Prostate carcinoma BPH (benign prostatic hyperplasia) Lumbar discitis GERD (gastroesophageal reflux disease) Hypertension Home Medications ?Medication ?Instructions ?Recorded ?Last Taken ?Type lisinopril 10 mg tablet 10 mg PO QHS 04/08/14 Unknow n History cholecalciferol (vitamin D3) 25 25 mcg PO QDAY 4 Unknown History mcg (1,000 unit) capsule omeprazole 40 mg capsule,delayed 40 mg PO QDAY 4 Unknown History release trazodone 50 mg tablet 50 mg PO QHS 07/25/24 Unknow n History aspirin 325 mg tablet (Melina 325 mg PO QDAY PRN pain 0 01/10/25 01/27/25 History Aspirin) hydrochlorothiazide 12.5 mg capsule 12.5 mg PO QDAY Bl ood Pressure 01/10/25 Unknown History ibuprofen 600 mg tablet 600 mg PO QDAY PRN pain 12/17 01/09 Unknown History multivit,Ca,min-iron 8 mg-folic 1 tab PO DAILY 5 Unknown History acid 200 mcg-lycopene 600 mcg tablet (Centrum Men) sildenafil 50 mg tablet (Viagra) 50 mg PO QDAY PRN sex ual activity 01/10/25 Unknown History Allergy/AdvReac Type Severity Reaction Status Date / Time No Known Allergies Allergy Verified 01/29/25 07:14 Surgical History H/O esophagogastroduodenoscopy History of transurethral resection of prostate S/P colonoscopy H/O wisdom tooth extraction History of tonsillectomy and adenoidectomy Social History household members: spouse Smoking Status: Never smoker alcohol intake: current alcohol intake frequency: holidays/special occasions only substance use type: does not use caffeine: Yes Review of Systems (Anesthesia) ROS Narrative System reviewed and no additional complaints, except as documented. 01/29/25 0749 <Electronically signed by Wander houser MD> Date _ Wander Olivarez MD Cosigner Signature: Date CC: ~ Signed [place] Work Phone: Consult note Author Casey Raza [place] Note Date/Time January 29, 2025 8:37 am [facility] Medical Records Department [address] [place] [id number] Anesthesia Postop Eval I 01/29/25 0834 MR#: [id number] Acct: [id number] Name: DALLAS MARTIN Rep #:[id number] : 1960 64 From: Casey Raza PCP: Jennifer Heaton LUTE PACKER OR APPLIER-C Status:[facility] Y Race: C Location: [place] [address] Anesthesia: Postop Eval I Current Vital Signs Temperature: 97.1 F Pulse Rate: 89 Blood Pressure: 131/88 Respiratory Rate: 16 Pulse Ox: 96 Oxygen Delivery Method: Room Air Assessment Airway patent: Yes Spontaneous unlabored respirations: Yes Mental status: Asleep nausea: No Vomiting: No Anesthesia Complication: No Fluid Hydration Crystalloid volume administer (ml): 400 Total IV fluid infused: 400 Progress Note Anesthesia document: Postop Eval 1 completed: Yes 01/29/25 0837 <Electronically signed by Casey Raza > Date _ Casey Anderson Signature: Date CC: ~ Signed [place] Work Phone: Evaluation + Plan note Future Appointments [facility] Evaluation noteNo assessment information available [place] Work Phone: Evaluation note* Diagnosis GERD without esophagitis- Primary Esophageal reflux Dysphagia, unspecified type Hiatal hernia Diaphragmatic hernia without mention of obstruction or gangrene [facility] Heartburn- Primary Dysphagia, unspecified type Long-term current use of proton pump inhibitor therapy [facility] Author Ej Saenz [place] Note Date/Time January 29, 2025 7:52 am [facility] Medical Records Department [address] [place] [address] History & Physical Exam 01/29/25 0751 MR#: [id number] Acct: [id number] Name: DALLAS MARTIN Rep #:[id number] : 1960 64 From: Ej jane MD PCP: Jennifer Heaton LUTE PACKER OR APPLIER-C Status:[facility] Location: [place] [address] HPI - General HPI Narrative DALLAS MARTIN, is a 64 M who presents for screening colonoscopy. His last colonoscopy was 10 years ago. He denies abdominal pain or blood in the stool. No family history of colon cancer. [facility] Medical History History of transesophageal echocardiography (GUANAKITO) Wears contact lenses Non-smoker History of echocardiogram Cardiology follow-up encounter Endocarditis Prostate carcinoma BPH (benign prostatic hyperplasia) Lumbar discitis GERD (gastroesophageal reflux disease) Hypertension Home Medications ?Medication ?Instructions ?Recorded ?Last Taken ?Type lisinopril 10 mg tablet 10 mg PO QHS 04/08/14 Unknow n History cholecalciferol (vitamin D3) 25 25 mcg PO QDAY 4 Unknown History mcg (1,000 unit) capsule omeprazole 40 mg capsule,delayed 40 mg PO QDAY 4 Unknown History release trazodone 50 mg tablet 50 mg PO QHS 07/25/24 Unknow n History aspirin 325 mg tablet (Melina 325 mg PO QDAY PRN pain 0 01/10/25 01/27/25 History Aspirin) hydrochlorothiazide 12.5 mg capsule 12.5 mg PO QDAY Bl ood Pressure 01/10/25 Unknown History ibuprofen 600 mg tablet 600 mg PO QDAY PRN pain 12/17 01/09 Unknown History multivit,Ca,min-iron 8 mg-folic 1 tab PO DAILY 5 Unknown History acid 200 mcg-lycopene 600 mcg tablet (Centrum Men) sildenafil 50 mg tablet (Viagra) 50 mg PO QDAY PRN sex ual activity 01/10/25 Unknown History Allergy/AdvReac Type Severity Reaction Status Date / Time No Known Allergies Allergy Verified 01/29/25 07:14 Surgical History H/O esophagogastroduodenoscopy History of transurethral resection of prostate S/P colonoscopy H/O wisdom tooth extraction History of tonsillectomy and adenoidectomy Social History household members: spouse Smoking Status: Never smoker alcohol intake: current alcohol intake frequency: holidays/special occasions only substance use type: does not use caffeine: Yes Past Medical/Surgical History Planned Operation Planned Operative Procedure(s): COLONOSCOPY Previous Hospitalizations/Surgeries HX Hospitalizations: No Any Problems With Anesthesia: No You/Your Family Experience Fever (Hyperthermia) With Anes: No Cholinesterase deficiency: No Cardiovascular Hx Chest Pain within Last 2 months: No Hx Heart Attack: No Hx Hypertension: Yes (CONTROLLED WITH MEDS) Hx Cardiac Surgery/Stents/Etc.: No Respiratory Hx Chronic Obstructive Pulmonary Disease (COPD): No Hx Sleep Apnea: No Hx Respiratory Tract Infection/Cold (presently): No Do You Snore Loudly (louder than talking or can be heard): No Do You Often Feel Tired/ Fatigued/ Sleepy Dring Daytime?: No Has Anyone Observed You Stop Breathing During Sleep?: No Result (for STOP score): Negative Hx Smoking: No Smoking Status: Never smoker Neurological Hx Seizures: No Hx Parkinson's Disease: No Does patient have nerve stimulator: No Blood Disorder Hx Anemia: No Genitourinary Hx Dialysis: No Musculoskeletal Hx Arthritis: Yes Hx Rheumatoid Arthritis: No Endocrine Hx Diabetes: No Thyroid Disease: No Psycho/Social Hx Depression: No Hx Dementia: No Miscellaneous Hx Cancer: Yes (prosatate) Recent Exposure to Contagious Disease: No Allergies No Known Allergies Allergy (Verified 01/29/25 07:14) Discharge After D/C, Where Do you Plan to Go: Return Home From the [facility] History Number of Risk Factors: 2 Vital Signs Vital Signs Vital Signs: 01/29/25 07:16 01/29/25 07:16 01/29/25 07:49 Temperature 97.8 F 97.8 F Temperature Source Temporal Pulse Rate 91 91 Respiratory Rate 16 16 Respiratory Pattern Normal Blood Pressure 113/78 113/78 Blood Pressure Mean 89 Blood Pressure Source Monitor Blood Pressure Position Semi-Fowlers Blood Pressure Location Left Arm Pulse Ox 98 98 Oxygen Delivery Method Room Air Room Air Weight Weight: 173 lb 15.115 oz Body Mass Index (BMI) 27.2 Physical Exam Const alert HEENT normocephalic Eyes PERRL Resp normal respiratory effort and normal air movement Cardio regular rate and regular rhythm GI soft to palpation, non-tender and non-distended Extremity normal to inspection Assessment & Plan Assessment/Plan (1) Special screening for malignant neoplasm of colon: PLAN: I explained endoscopy in detail to the patient. I explained the risks including but not limited to stroke or heart attack with anesthesia, perforationof the GI tract, bleeding, infection. I explained that any of these could necessitate further emergency surgery. The patient understands and all questions were answered sufficiently. The patient wishes to proceed with procedure. Ej Saenz MD Pager: [facility] [address] [place] [address] [place] [id number] Office: Surgery Risks - Colonoscopy Risks Include but are not Limited To: Risks include but are not limited to: Bleeding, perforation requiring further surgery, inability to complete colonoscopy requiring barium enema. 01/29/25 0752 <Electronically signed by Ej Saenz MD> Cosigner Signature (if applicable): CC: Dr. Ej Saenz MD; Jennifer LIU Beam~ Signed [place] Work Phone: Hospital course Narrative No data available for this section [facility] Hospital Discharge instructions No data available for this section [facility] Progress note No data available for this section [facility] Reason for referral (narrative)* Outpatient Procedure (Routine) - Closed Specialty Diagnoses / Procedures Referred By Brenda miguel Referred To Contact [facility] Diagnoses Dysphagia, unspecified type Heartburn Long-term current use of proton pump inhibitor therapy Procedures EGD DIAGNOSTIC EGD DIAGNOSTIC ESOPHAGOGASTRODUODENOSC OPY TRANSORAL DIAGNOSTIC Linda Mosley PA-C [address] [place] [address] [facility] Disease [place] [address] [place] [address] Referral ID Status Reason Start Date Expiration Date V isits Requested Visits Authorized [id number] Closed Auto-Generate d Referral 06/16/2022 06/16/2023 1 1 [facility] for referral (narrative)No reason for referral [facility] Work Phone: Reason for visit Narrative* Outpatient Procedure (Routine) - Closed Specialty Diagnoses / Procedures Referred By Brenda miguel Referred To Contact [facility] Diagnoses Dysphagia, unspecified type Heartburn Long-term current use of proton pump inhibitor therapy Procedures EGD DIAGNOSTIC EGD DIAGNOSTIC ESOPHAGOGASTRODUODENOSC OPY TRANSORAL DIAGNOSTIC Linda Mosley PA-C [address] [place] [address] [facility] Disease [place] [address] Referral ID Status Reason Start Date Expiration Date V isits Requested Visits Authorized [id number] Closed Auto-Generate d Referral 06/16/2022 06/16/2023 1 1 [facility] Advance Directives No Advanced Directives Records Found Advance Directive Response Recorded Date/ Time Living Will No April 08, 2014 7:47am Power of Diamond Cleaver No March 7:47am Advance Directive Response Recorded Date/ Time Living Will No April 08, 2014 6:47am Power of Diamond Cleaver No March 6:47am Advance Directive Response Recorded Date/ Time Living Will Yes May 03 9:16pm Power of Diamond Cleaver Yes May 03, 2024 9:16pm Advance Directive Response Recorded Date/ Time Do you have a Healthcare Power of Diamond Cleaver? Yes January 24, 2025 1:34pm Name of Medical Power of Diamond Cleaver - BERNABE GRULLON January 24, 2025 1:34pm Summary Purpose Family History No Family History Records FoundNo Family History Records FoundNo Family History Records Found Medications Administered Section Inactive Administered Medications - up to 3 most recent administrations Medication Order MAR Action Action Date Dose Rate Site benzocaine 20% 1 [place] (TOPEX) 1 [place], TOPICAL, DIRECTED, Starting on Tue07/26/22 at 1330, [...] August 24, 2024 1:59pm Spondylolisthesis, lumbar region Februar 2024 1:59pm Chief Complaint Admit Date ENDOCARDITIS (BEAM) July 25, 2024 1: 53pm ENDOCARDITIS August 15, 2024 1 :38pm LUMBAR SPINE August 24, 2024 1 :59pm RM 5 August 24, 2024 2 :38pm SPONDYLOLISTHESIS LUMBAR REGION. RX HERE September 25, 2024 2:00pm Chief Complaint Admit Date Amb Documentation January 10, 2025 10:5 2am Reason for Visit Admit Date Special screening for malignant neoplasm of colon January 29, 2025 6:52am Additional Source Comments Goals (unrecognized section and [...] section and content) DATE CREATED AUTHOR 08/10/2022 [facility] DATE CREATED AUTHOR AUTHOR'S ORGANIZ ATION 01/11/2023 [facility] ([place]) DATE CREATED AUTHOR AUTHOR'S ORGANIZ ATION 04/21/2025 [facility] Source Comments (unrecognize d section and content) In the event this informatio n is protected by the Federal Confidentiality of Alcohol and Drug Abuse Patient Records regulations: The Federal rules restrict any use of the information to criminally investigate or prosecute any alcohol or drug abuse patient.[facility] the event this information is protected by the Federal Confidentiality of Alcohol and Drug Abuse Patient Records regulations: The Federal rules restrict any use of the information to criminally investigate or prosecute any alcohol or drug abuse patient.[facility] Reason for Visit (unrecogniz ed section and content) Reason Comments Follow Up EGD Care Teams (unrecognized sec tion and content) Data Control Assistant Relationship Specialty Start Date End Date Rosie Trejo MD [address] [place], [place] [address] PCP - General Family Medicine 06/08/22 Data Control Assistant Relationship Specialty Start Date End Date Rosie Trejo MD [address] [place], [place] [id number] PCP - General Family Medicine 06/08/22 Team [...] Team Status: Active Member Role Status Dates Gratz Beam Primary Care Provider Active Team Status: Inactive Member Role Status Dates Dr. Rosie Trejo MD Primary Care Provider Active Start: June 11, 2024 End: June 16, 2024 Chrissie Burciaga Referring Provider Active Start: June 11, 2024 [...] End: July 16, 2024 Zebulun Beam VSC, LUTE PACKER OR APPLIER-C Attending Provider Active Start: July 16, 2024 End: July 16, 2024 Zebuluvinicio Beam VSC, LUTE PACKER OR APPLIER-C Referring Provider Active Start: July 16, 2024 End: July 16, 2024 Team Status: Inactive Member Role Status Dates Dr. Brian Lim MD Attending Provider Active Start: July 25, 2024 End: July 25, 2024 Carlyle Beam Primary Care Provider Active Start: July 25, 2024 End: July 25, 2024 Gratz Beam Referring Provider Active Start: [facility]2024 End: July 25, 2024 Team Status: Inactive [...] August 24, 2024 End: August 24, 2024 Gratz Beam Primary Care Provider Active Start: August 24, 2024 End: August 24, 2024 Team Status: Inactive Member Role Status Dates Gratz Beam Primary Care Provider Active Start: August [...] Member Role Status Dates Zebulun Beam VSC, LUTE PACKER OR APPLIER-C Primary Care Provider Active Team Status: Inactive Member Role Status Dates Zebulun Beam VSC, LUTE PACKER OR APPLIER-C Primary Care Provider Active Start: November 07, 2024 End: November 07, 2024 Zebulun Beam VSC, LUTE PACKER OR APPLIER-C Attending Provider Active Start: November 07, 2024 End: November 07, 2024 Team Status: Active Member Role/Relationship Status Dates Zebulun Beam VSC, LUTE PACKER OR APPLIER-C Primary Care Provider Active Team Status: Inactive Member Role/Relationship Status Dates Zebulun Beam VSC, LUTE PACKER OR APPLIER-C Primary Care Provider Active Start: November 07, 2024 End: November 07, 2024 Zebulun Beam VSC, LUTE PACKER OR APPLIER-C Attending Provider Active Start: November 07, 2024 End: November 07, 2024 Team Status: Active Member Role/Relationship Status Dates Zebulun Beam VSC, LUTE PACKER OR APPLIER-C Primary Care Provider Active Start: January 10, 2025 Digna Farrell Attending Provider Active Start: 2024 Team Status: Inactive Member Role/Relationship Status Dates Zebulun Beam VSC, LUTE PACKER OR APPLIER-C Primary Care Provider Active Start: January 29, 2025 End: January 29, 2025 Zebulun Beam VSC, LUTE PACKER OR APPLIER-C Referring Provider Active Start: January 29, 2025 End: January 29, 2025 Dr. Ej Saenz MD Attending Provider Active Start: January 29, 2025 End: January 29, 2025 Team Status: Active Member Role/Relationship Status Dates Zebulun Beam VSC, LUTE PACKER OR APPLIER-C Primary Care Provider Active Start: January 29, 2025 Zebulun Beam VSC, LUTE PACKER OR APPLIER-C Referring Provider Active Start: January 29, 2025 Dr. Ej Saenz MD Attending Provider Active Start: January 29, 2025 Dr. Ej Saenz MD Other Provider Active Start: January 29, 2025 FOR RECORDS PERTAINING TO PATIENTS WHO ARE [...] BE BASED ON THE PRIMARY CLINICAL RECORDS. [facility] [employer] provides no warranty or guarantee of the accuracy or completeness of information in this document.
[2025-07-01 10:14] LABS: PSA,Total- Diagnostic 2.83 ng/mL (0.00-4.00)
== END | disposition home or self-care (01) ==
PROVIDERS: Referring Provider Urology; Visit Provider Urology
DX: R97.20 Elevated prostate specific antigen [PSA] (principal)
CPT/HCPCS: 36415; 84153